=== PATIENT | female | born 1945 | race Caucasian/White ===

== ENCOUNTER 2018-11-02 20:33 | Emergency (ER) | payer MEDICARE ==
--- NOTE | 2018-11-02 20:44 | ERPHSYRPT ---
- History of Present Illness Time Seen by Provider: 11/02/18 20:44 Source: patient, EMS Exam Limitations: no limitations Physician History: 73 y/o white female with h/o chronic limping and pt walks at home with walker and cane, lost her footing when walking up steps to her front door. pt fell backwards. no loc but pt on eliquis. pt has headache. pt also complains of right hip, right femur, right knee, right ankle and right foot. pt brought into ED by ems. pt denies neck pain. pt brought into ED with c collar in place. Occurred: just prior to arrival Reason for Fall: lost balance, slipped Injuries/Pain Location: head, lower extremity Loss of Consciousness: no loss of consciousness Quality: aching Severity of Pain-Max: mild Severity of Pain-Current: mild Modifying Factors: Improves With: movement Associated Symptoms (Fall): extremity injury (right hip, femur, knee, ankle and foot. ), headache Allergies/Adverse Reactions: amoxicillin [From Augmentin] Allergy (Verified 11/02/18 20:43) clavulanic acid [From Augmentin] Allergy (Verified 11/02/18 20:43) codeine Allergy (Verified 11/02/18 20:42) - Review of Systems Constitutional: No Symptoms Eyes: No Symptoms Ears, Nose, & Throat: No Symptoms Respiratory: No Symptoms Cardiac: No Symptoms Abdominal/Gastrointestinal: No Symptoms Genitourinary Symptoms: No Symptoms Musculoskeletal: Fall, Other (pain right hip, femur, knee, ankle and foot.), No Neck Pain, No Deformity Skin: No Symptoms Neurological: No Symptoms, Headache Psychological: No Symptoms Endocrine: No Symptoms Hematologic/Lymphatic: No Symptoms Immunological/Allergic: No Symptoms All Other Systems: Reviewed and Negative - Past Medical History Pertinent Past Medical History: Yes Neurological History: No Pertinent History ENT History: No Pertinent History Cardiac History: No Pertinent History Respiratory History: No Pertinent History Endocrine Medical History: No Pertinent History Musculoskeletal History: No Pertinent History GI Medical History: No Pertinent History History: No Pertinent History Psycho-Social History: No Pertinent History Female Reproductive Disorders: No Pertinent History - Past Surgical History Neuro Surgical History: No Pertinent History Cardiac: No Pertinent History Respiratory: No Pertinent History Gastrointestinal: No Pertinent History Genitourinary: No Pertinent History Musculoskeletal: No Pertinent History Female Surgical History: No Pertinent History - Nursing Vital Signs Nursing Vital Signs: Initial Vital Signs Pulse Rate 63 11/02/18 20:44 Respiratory Rate 18 11/02/18 20:44 Blood Pressure 170/76 11/02/18 20:44 O2 Sat by Pulse Oximetry 99 11/02/18 20:44 Pain Scale Pain Intensity 10 - Binta Coma Score Best Eye Response (Binta): (4) open spontaneously Best Verbal Response ([place]): (5) oriented Best Motor Response ([place]): (6) obeys commands Binta Total: 15 - Physical Exam General Appearance: mild distress, alert, anxiety Head Injury: no evidence of injury, No Wagner's Sign, No raccoon eyes Eye Exam: PERRL/EOMI ENT Exam: airway nml, nml ext.inspection, hearing grossly normal, No hemotympanum Neck Exam: supple, trachea midline, full range of motion, normal alignment, normal inspection, No focal neuro deficit, No limited range of motion Respiratory/Chest Exam: No chest tenderness Cardiovascular Exam: normal heart sounds, regular rate/rhythm, murmur Gastrointestinal Exam: soft, normal bowel sounds, No tenderness Rectal Exam: not done Back Exam: normal inspection, normal range of motion, CVA tenderness, vertebral tenderness Extremity Exam: normal inspection, normal range of motion, pelvis stable, hip tenderness (right ), pain with movement (right knee, ankle and foot. mild pain only. from) Neurologic Exam: alert, oriented x 3, cooperative, sleeve sewer II-XII nml as tested Skin Exam: normal color, warm, dry SpO2 Interpretation: normal O2 Delivery: Room Air Ordered Tests: Active Orders 24 hr Category Date Time Status ANKLE (3 VIEWS) Stat Exams 11/02/18 21:56 Taken CERVICAL SPINE WO CONTRAST [CT] Stat Exams 11/02/18 22:09 Taken FEMUR Stat Exams 11/02/18 21:55 Taken FOOT (MINIMUM 3 VIEWS) Stat Exams 11/02/18 21:56 Taken HEAD WITHOUT CONTRAST [CT] Stat Exams 11/02/18 21:54 Taken HIP UNI (2V) INCL PEL IF DONE Stat Exams 11/02/18 21:55 Taken KNEE (1 OR 2 VIEW) Stat Exams 11/02/18 21:56 Taken SHOULDER Stat Exams 11/02/18 22:09 Taken - Progress Progress: unchanged Progress Note: 11/02/18 23:44 all plain film xrays show no acute fx, subluxations or dislocations ct scan head no acute intracranial abnormalities; ct c spine-no acute fx or subluxation Counseled pt/family regarding: diagnosis, need for follow-up, rad results - Departure Departure Disposition: Home Clinical Impression: Fall, Scalp hematoma, Contusion Condition: Stable Critical Care Time: No Referrals: JARROD JOSEPH MD [Primary Care Provider] - Additional Instructions: ice pack 3 times daily to sites of pain for 2 days. follow up with primary doctor for persistent symptoms
[2018-11-02 20:56] VITALS: O2SAT 99
[2018-11-02 21:59] VITALS: PULSE 60
[2018-11-02 23:52] VITALS: BP 155/79
--- NOTE | 2018-11-03 08:47 | XRAY ---
Indication: Posterior head injury following fall. Blood thinner therapy. Multiple contiguous axial images obtained through the head without contrast. Comparison: None Age-appropriate global atrophy and minimal periventricular degenerative micro-ischemia bilaterally. No acute intracranial hemorrhage, abnormal extra-axial fluid collection, or mass effect. Fourth ventricle is midline without hydrocephalus. Small posterior midline scalp hematoma near the vertex. Bony calvarium intact. Visualized paranasal sinuses and mastoid air cells are clear. Impression: Posterior scalp hematoma. Otherwise nonacute senile brain. Comment: Preliminary interpretation was made by [facility]. No discrepancy.
--- NOTE | 2018-11-03 08:51 | XRAY ---
Indication: Pain following fall. Multiple contiguous axial images obtained through the cervical spine. Sagittal and coronal reformatted images obtained. Comparison: None Axial images negative for acute fracture, suspicious bony lesions, or spinal canal stenosis. There is C3-C4 and C5-C7 degenerative endplate spurring. Mild atlantoaxial degenerative changes. Also multilevel bilateral degenerative facet arthropathy. Sagittal and coronal reformatted images demonstrates minimal 2 mm C4 anterolisthesis on C5. No acute compression fracture or jumped facet. Normal appearing cranial cervical junction. Visualized noncontrasted soft tissues demonstrates scattered carotid calcifications bilaterally and right thyroidectomy. Lung apices are clear. Impression: 1. Negative acute fracture. 2. Multilevel degenerative changes including grade 1 C4 anterolisthesis. Comment: Preliminary interpretation was made by [facility]. No discrepancy. CT DI 52.97
--- NOTE | 2018-11-03 08:53 | XRAY ---
Indication: Pain following fall. Comparison: None AP/lateral right knee demonstrates osteopenia, moderate tricompartmental degenerative changes, tibial tuberosity spurring, and scattered vascular calcifications. No other bony, articular, or soft tissue abnormalities. Comment: Preliminary interpretation was made by [facility]. No discrepancy.
--- NOTE | 2018-11-03 08:53 | XRAY ---
Indication: Pain following fall. Comparison: None AP pelvis and 2 views of the right hip demonstrates osteopenia, mild/moderate degenerative changes of both hips, and scattered vascular calcifications. No other bony, articular, or soft tissue abnormalities. Comment: Preliminary interpretation was made by [facility]. No discrepancy.
--- NOTE | 2018-11-03 08:57 | XRAY ---
Indication: Pain following fall. Comparison: None 3 nonweightbearing views of the right foot demonstrates osteopenia, remote partially united distal fibula fracture, remote medial malleolus fracture with intact orthopedic screws, ankle heterotopic ossifications, large heel spurs, and scattered vascular calcifications. No other bony, articular, or soft tissue abnormalities. Comment: Preliminary interpretation was made by [facility]. No discrepancy.
--- NOTE | 2018-11-03 08:59 | XRAY ---
Indication: Pain following fall. Comparison: None 2 views of the right femur demonstrates osteopenia and scattered vascular calcifications. Right hip and knee reported separately. No other bony, articular, or soft tissue abnormalities. Comment: Preliminary interpretation was made by [facility]. No discrepancy.
--- NOTE | 2018-11-03 09:01 | XRAY ---
Indication: Pain following fall. Comparison: None 3 views of the right ankle osteopenia, remote partially united distal fibula comminuted fracture, remote medial malleolus fracture with 2 intact screws, mild talotibial degenerative changes, heterotopic ossifications, larger spurs, and scattered vascular calcifications. No other bony, articular, or soft tissue abnormalities. Comment: Preliminary interpretation was made by [facility]. No discrepancy.
--- NOTE | 2018-11-03 09:03 | XRAY ---
Indication: Pain following fall. Comparison: None 3 views of the right shoulder demonstrates osteopenia, moderate degenerative changes of the glenohumeral/AC joint with heterotopic ossifications, high riding humeral head commonly seen with rotator cuff tears, right neck surgical clips, and partially visualized pacer leads. No other bony, articular, or soft tissue abnormalities. Comment: Preliminary interpretation was made by [facility]. No discrepancy.
== END 2018-11-03 00:25 | disposition home or self-care (01) ==
LOC: ED 20:33
DX: S00.03XA Contusion of scalp, initial encounter (principal); R51 Headache; W10.8XXA Fall (on) (from) other stairs and steps, initial encounter; M25.551 Pain in right hip; M79.651 Pain in right thigh; M25.561 Pain in right knee; M25.571 Pain in right ankle and joints of right foot; M79.671 Pain in right foot
CPT/HCPCS: 36000; 70450; 72125; 73030; 73502; 73552; 73560; 73610; 73630; 99284

== ENCOUNTER 2018-12-14 09:17 | Emergency (ER) | payer MEDICARE ==
[2018-12-14 09:28] VITALS: O2SAT 98
--- NOTE | 2018-12-14 09:32 | ERPHSYRPT ---
- History of Present Illness Time Seen by Provider: 12/14/18 09:32 Source: patient, family Exam Limitations: no limitations Patient Subjective Stated Complaint: PT states "I slipped and fell and hit the back of my head." Triage Nursing Assessment: Pt presented to the front and placed in room 5. Pt alert and oriented X 3, skin pwd. Pt speech is clear and full sentences. Pt ambulates with a limp due to walking boot on her right foot. Physician History: 73 y/o white female on Eliquis presents after she slipped and fell hitting her head. 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 no loc Occurred: just prior to arrival Severity: mild Head Injury Location: occipital Method of Injury: fell Loss of Consciousness: no loss of consciousness Associated Symptoms: denies symptoms Allergies/Adverse Reactions: amoxicillin [From Augmentin] Allergy (Verified 11/02/18 20:43) clavulanic acid [From Augmentin] Allergy (Verified 11/02/18 20:43) codeine Allergy (Verified 11/02/18 20:42) Home Medications: Apixaban [Eliquis] 5 mg PO DAILY 12/14/18 [History] Citalopram Hydrobromide 20 mg* [ceLEXa 20 MG] 20 mg PO DAILY 12/14/18 [ History] Duloxetine HCl 30 mg [Cymbalta 30 MG Capsule] 30 mg PO DAILY 12/14/18 [ History] Levothyroxine Sodium 100 Mcg [Synthroid 100 Mcg] 100 mcg PO DAILY 12/14/18 [History] Tramadol HCl [Ultram] 50 mg PO DAILY 12/14/18 [History] Hx Tetanus, Diphtheria Vaccination/Date Given: Yes Hx Influenza Vaccination/Date Given: Yes Hx Pneumococcal Vaccination/Date Given: Yes Immunizations Up to Date: Yes - Review of Systems Constitutional: No Symptoms Eyes: No Symptoms Ears, Nose, & Throat: No Symptoms Respiratory: No Symptoms Cardiac: No Symptoms Abdominal/Gastrointestinal: No Symptoms Genitourinary Symptoms: No Symptoms Musculoskeletal: No Symptoms Skin: No Symptoms Neurological: No Symptoms Psychological: No Symptoms Endocrine: No Symptoms Hematologic/Lymphatic: No Symptoms Immunological/Allergic: No Symptoms All Other Systems: Reviewed and Negative - Past Medical History Pertinent Past Medical History: Yes Neurological History: No Pertinent History ENT History: No Pertinent History Cardiac History: No Pertinent History Respiratory History: No Pertinent History Endocrine Medical History: No Pertinent History Musculoskeletal History: No Pertinent History GI Medical History: No Pertinent History History: No Pertinent History Psycho-Social History: No Pertinent History Female Reproductive Disorders: No Pertinent History Other Medical History: left arm and left hand. right foot broken - Past Surgical History Past Surgical History: Yes Neuro Surgical History: No Pertinent History Cardiac: No Pertinent History Respiratory: No Pertinent History Gastrointestinal: No Pertinent History Genitourinary: No Pertinent History Musculoskeletal: No Pertinent History Female Surgical History: No Pertinent History Other Surgical History: thyroid removal - Social History Smoking Status: Never smoker Exposure to second hand smoke: Yes Drug Use: none Patient Lives Alone: No - Female History Hx Now: No - Nursing Vital Signs Nursing Vital Signs: Initial Vital Signs Temperature 98.3 F 12/14/18 09:20 Pulse Rate 68 12/14/18 09:20 Respiratory Rate 18 12/14/18 09:20 Blood Pressure 185/85 12/14/18 09:20 O2 Sat by Pulse Oximetry 98 12/14/18 09:20 Pain Scale Pain Intensity 4 - Binta Coma Score Best Eye Response ([place]): (4) open spontaneously Best Verbal Response ([place]): (5) oriented Best Motor Response ([place]): (6) obeys commands B[place] Total: 15 - Physical Exam General Appearance: no apparent distress, alert, anxiety Head Injury: no evidence of injury Eye Exam: bilateral eye: normal inspection, PERRL, EOMI ENT Exam: airway nml, nml ext.inspection Neck Exam: supple, trachea midline, full range of motion, normal alignment, normal inspection Cardiovascular/Respiratory Exam: chest non-tender, no respiratory distress Gastrointestinal/Abdominal Exam: non tender Rectal Exam: not done Back Exam: normal inspection, normal range of motion, No CVA tenderness, No vertebral tenderness Extremity Exam: pelvis stable (pt has postop walking boot right foot. 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 Exam: normal hearing, normal speech, PERRL Coordination/Gait Exam: normal finger to nose Motor/Sensory Exam: no motor deficit Skin Exam: normal color, warm, dry Lymphatic Exam: No adenopathy SpO2 Interpretation: normal SpO2: 98 O2 Delivery: Room Air Ordered Tests: Active Orders 24 hr Category Date Time Status HEAD WITHOUT CONTRAST [CT] Stat Exams 12/14/18 09:32 Completed - Progress Progress: unchanged Progress Note: 12/14/18 10:39 ct head-no acute process Counseled pt/family regarding: diagnosis, need for follow-up, rad results - Departure Departure Disposition: Home Clinical Impression: Fall, Head injury Condition: Stable Critical Care Time: No Referrals: JARROD JOSEPH MD [Primary Care Provider] - Additional Instructions: use tylenol for pain. follow up with your orthopedic surgeon for any foot, ankle or leg issues.
--- NOTE | 2018-12-14 10:29 | XRAY ---
Indication: Posterior head injury. Multiple contiguous axial images obtained through the head without contrast. Comparison: November 02, 2018. Stable age-appropriate global atrophy and minimal periventricular degenerative micro-ischemia. No acute intracranial hemorrhage, abnormal extra-axial fluid collection, or mass effect. Fourth ventricle is midline without hydrocephalus. Bony calvarium intact. Visualized paranasal sinuses and mastoid air cells are clear. Impression: Stable nonacute senile brain. CT DI 49.41
[2018-12-14 10:40] VITALS: BP 172/84; PULSE 61
== END 2018-12-14 10:52 | disposition home or self-care (01) ==
LOC: ED 09:17
DX: S09.90XA Unspecified injury of head, initial encounter (principal); W01.198A Fall on same level from slipping, tripping and stumbling with subsequent striking against other object, initial encounter; Z79.01 Long term (current) use of anticoagulants; Z79.899 Other long term (current) drug therapy; E89.0 Postprocedural hypothyroidism
CPT/HCPCS: 70450; 99283

== ENCOUNTER 2022-01-24 17:45 | Observation (INO) | payer MEDICARE ==
[2022-01-24] MEDS ORDERED: MORPHINE SULFATE 4 MG INJ IV ONE (18:24)
[2022-01-24] MEDS ORDERED: Zofran 4 MG/2 ML VIAL IV ONE (18:24)
[2022-01-24] MEDS ORDERED: Reglan 10 MG/2 ML IV ONE (18:25)
[2022-01-24] MEDS ORDERED: Zofran 4 MG/2 ML VIAL ONE (18:37)
[2022-01-24] MEDS ORDERED: MORPHINE SULFATE 4 MG INJ ONE (18:38)
[2022-01-24] MEDS ORDERED: Reglan 10 MG/2 ML ONE (18:38)
[2022-01-24 18:42] LABS: Basophil (Absolute #) 0.07 x10^3/uL (0-0.4); Eosinophil % 0.9 % (0.00-5.0); Hematocrit 36.6 % (35-47); Hemoglobin 11.4 g/dL (12.0-16.0); Lymphocyte (Absolute #) 1.26 x10^3/uL (1.0-4.6); Lymphocytes % 11.6 % (24.0-44.0); Mean Cell Volume 90.8 fL (78-100); Mean Corpuscular Hemoglobin 28.3 pg (26-32); Mean Corpuscular Hgb Concent. 31.1 g/dL (32-36); Mean Platelet Volume 12.6 fL (7.5-11.0); Monocyte (Absolute #) 0.79 x10^3/uL (0.0-1.3); Monocytes % 7.3 % (0.0-12.0); Platelet Count 207 x10^3/uL (150-450); Red Blood Count 4.03 x10^6/uL (4.1-5.4); Red Cell Distribution Width 13.9 % (11.5-14.0); White Blood Count 10.9 x10^3/uL (4.0-10.5)
[2022-01-24 18:45] LABS: Appearance CLEAR (CLEAR); Bilirubin NEGATIVE (NEGATIVE); Glucose 500 mg/dL (NEGATIVE); Ketones NEGATIVE (NEGATIVE); Nitrite NEGATIVE (NEGATIVE); Ph 6.5 (5-6); Protein,Urine Dip >=300 (Negative); RBC SMALL Ery/ul (0-5); Urobilinogen 0.2 mg/dL (0-1)
[2022-01-24 18:46] LABS: Dipstick done @ ? MAIN LAB
[2022-01-24 18:51] LABS: Epithelial Cells RARE /HPF (FEW); RBC 0-2 /HPF (0-2); WBC 0-2 /HPF (0-5)
[2022-01-24 18:54] LABS: ALBUMIN 3.6 g/dL (3.5-5.0); ANION GAP 13.6 MEQ/L (5-15); BILIRUBIN,TOTAL 0.5 mg/dL (0.2-1.3); Creatinine 1 2.64 mg/dL (0.52-1.04); EST GLOMERULAR FILTRATION RATE 18.7 ML/MIN; Potassium 3.9 mmol/L (3.5-5.1); Total Protein 6.6 g/dL (6.3-8.2)
[2022-01-24 18:57] LABS: Urine Cultured Indicated? YES
[2022-01-24] MEDS ORDERED: TRANDATE 20 MG/4 ML SYRINGE IV ONE ×2 (20:08→20:12)
[2022-01-24] MEDS ORDERED: Lasix 40 MG/4 ML IV ONE (20:45)
[2022-01-24] MEDS ORDERED: Lasix 40 MG/4 ML ONE (20:50)
[2022-01-24 21:08] LABS: MAGNESIUM 1.7 mg/dL (1.6-2.3)
--- NOTE | 2022-01-24 21:20 | ERPHSYRPT ---
- History of Present Illness Time Seen by Provider: 01/24/22 17:46 Historian: patient, family Exam Limitations: no limitations Patient Subjective Stated Complaint: pt here for not feeling well today, not eating well, chills, abd pain diffuse, pt was seen in er last week for constipation . no vomiting, no loose stools Triage Nursing Assessment: pt alert, resp easy, face mask in place, chest clear, abd soft and nontender to touch, bsx4 Physician History: 77 years old female with history of atrial fibrillation on Cardizem/Eliquis, hypertension, hyperlipidemia, hypothyroidism, congestive heart failure, pacemaker/defibrillator placement, diabetes mellitus presented to the ER with chief complaint of abdominal pain and chest pain. Patient reports having abdominal pain for almost 1 week, was evaluated at [facility], was given enema for constipation but her pain is still there. Does not have any bowel movement since then. She is also complaining of substernal chest discomfort and tightness/pressure without any significant aggravating or relieving factors. Reports some increasing shortness of breath with exertion. Denies any fever or chills. Patient blood pressure is in 200s on presentation without having headache, blurry vision, numbness tingling or focal weakness. Has taken her routine medications prior to arrival Timing/Duration: today, constant, gradual onset Activities at Onset: none Quality: aching Abdominal Pain Onset Location: generalized abdomen Pain Radiation: no radiation Severity of Pain-Max: moderate Severity of Pain-Current: moderate Modifying Factors: Improves With: nothing Associated Symptoms: fever/chills, nausea Previous symptoms: same symptoms as today Allergies/Adverse Reactions: amoxicillin [From Augmentin] Allergy (Verified 01/24/22 17:57) clavulanic acid [From Augmentin] Allergy (Verified 01/24/22 17:57) codeine Allergy (Verified 01/24/22 17:57) Home Medications: Duloxetine HCl 30 mg [Cymbalta 30 MG Capsule] 30 mg PO DAILY 12/14/18 [History] Levothyroxine Sodium 100 Mcg [Synthroid 100 Mcg] 100 mcg PO DAILY 12/14/18 [History] Tramadol HCl [Ultram] 50 mg PO DAILY 12/14/18 [History] Aripiprazole 10 mg [Abilify 10 MG] 5 mg PO DAILY 01/24/22 [History] Clonidine HCl 0.1 mg [Clonidine 0.1 mg Tablet] 0.1 mg PO DAILY 01/24/22 [History] Diltiazem HCl [Dilt-Xr] 120 mg PO DAILY 01/24/22 [History] Ezetimibe 10 mg [Zetia 10 MG] 10 mg PO DAILY 01/24/22 [History] Famotidine 20 mg [Pepcid 20 MG] 20 mg PO DAILY 01/24/22 [History] Ferrous Sulfate [Iron] 325 mg PO DAILY 01/24/22 [History] Furosemide 20 mg [Lasix 20 mg] 20 mg PO DAILY 01/24/22 [History] Insulin Detemir [Levemir] 30 unit SQ BID 01/24/22 [History] Insulin Lispro [Humalog] 8 unit SQ DAILY 01/24/22 [History] Insulin Lispro [Humalog] 10 unit SQ BID 01/24/22 [History] PANTOPRAZOLE 40 mg Tablet [Protonix 40MG Tablet] 40 mg PO QAM 01/24/22 [History] Potassium Chloride [Klor-Con M20] 20 meq PO DAILY 01/24/22 [History] Hx Tetanus, Diphtheria Vaccination/Date Given: Yes Hx Influenza Vaccination/Date Given: Yes Hx Pneumococcal Vaccination/Date Given: Yes Immunizations Up to Date: Yes Travel Risk - International Travel Have you traveled outside of the country in past 3 weeks: No - Coronavirus Screening Are you exhibiting any of the following symptoms?: No Close contact with a COVID-19 positive Pt in past 14-21 Days: No - Vaccine Status Have you recieved a Covid-19 vaccination: Yes [employer]: [employer] - Vaccination Dates Date of 2cond Vaccination (if applicable): 2020 - Review of Systems Constitutional: Fatigue, Weakness Eyes: No Symptoms Ears, Nose, & Throat: No Symptoms Respiratory: Dyspnea, Dyspnea on Exertion (GOFF) Cardiac: Chest Pain, Edema Abdominal/Gastrointestinal: Abdominal Pain Genitourinary Symptoms: No Symptoms Musculoskeletal: No Symptoms Skin: No Symptoms Neurological: No Symptoms Psychological: No Symptoms Endocrine: No Symptoms Hematologic/Lymphatic: No Symptoms - Past Medical History Pertinent Past Medical History: Yes Neurological History: No Pertinent History ENT History: No Pertinent History Cardiac History: No Pertinent History Respiratory History: No Pertinent History Endocrine Medical History: Hypothyroidism Musculoskeletal History: No Pertinent History GI Medical History: No Pertinent History History: No Pertinent History Psycho-Social History: No Pertinent History Female Reproductive Disorders: No Pertinent History Other Medical History: left arm and left hand. right foot broken - Past Surgical History Past Surgical History: Yes Neuro Surgical History: No Pertinent History Cardiac: No Pertinent History Respiratory: No Pertinent History Gastrointestinal: No Pertinent History Genitourinary: No Pertinent History Musculoskeletal: No Pertinent History Female Surgical History: No Pertinent History Other Surgical History: thyroid removal - Social History Smoking Status: Never smoker Exposure to second hand smoke: No Drug Use: none Patient Lives Alone: No - Nursing Vital Signs Nursing Vital Signs: Initial Vital Signs Temperature 98.3 F 01/24/22 17:58 Pulse Rate 106 H 01/24/22 17:58 Respiratory Rate 18 01/24/22 17:58 Blood Pressure 217/118 01/24/22 17:58 O2 Sat by Pulse Oximetry 95 01/24/22 17:58 Pain Scale Pain Intensity 0 - Physical Exam General Appearance: no apparent distress, alert Eye Exam: PERRL/EOMI, eyes nml inspection Ears, Nose, Throat Exam: normal ENT inspection, TMs normal, pharynx normal, moist mucous membranes Neck Exam: normal inspection, non-tender, supple, full range of motion Respiratory Exam: normal breath sounds, rhonchi Cardiovascular Exam: normal heart sounds, tachycardia, irregular Gastrointestinal/Abdomen Exam: soft, normal bowel sounds, tenderness (Mild generalized) Back Exam: normal inspection, normal range of motion Extremity Exam: normal inspection, normal range of motion Skin Exam: normal color, warm SpO2 Interpretation: normal SpO2: 93 O2 Delivery: Room Air - Course EKG Interpreted by Me: RATE (103), A-fib, NORMAL AXIS, NORMAL INTERVALS, Non- specific ST Changes Ordered Tests: Active Orders 24 hr Category Date Time Status EKG-ER Only STAT Care 01/24/22 18:24 Active IV Insertion STAT Care 01/24/22 18:24 Active NPO (ED) STAT Care 01/24/22 18:24 Active ABDOMEN AND PELVIS W/0 CONTRAS [CT] Stat Exams 01/24/22 19:06 Taken CHEST 1 VIEW (PORTABLE) Stat Exams 01/24/22 21:25 Taken BNP [NT PRO BNP] Stat Lab 01/24/22 18:28 Completed CBC W DIFF Stat Lab 01/24/22 18:24 Completed CMP Stat Lab 01/24/22 18:24 Completed CULTURE,URINE Stat Lab 01/24/22 18:27 Received LIPASE Stat Lab 01/24/22 18:24 Completed Lactic Acid Stat Lab 01/24/22 18:28 Completed MAG [MAGNESIUM] Stat Lab 01/24/22 18:28 Completed TROPONIN Q4H Lab 01/24/22 18:30 Completed TROPONIN Q4H Lab 01/24/22 22:37 Received TROPONIN Q4H Lab 01/25/22 02:30 Ordered UA W/RFX CULTURE Stat Lab 01/24/22 18:27 Completed Transfer Order Routine Transfer 01/24/22 Ordered Medication Summary Generic Name Dose Route Start Last Admin Trade Name Freq PRN Reason Stop Dose Admin Diltiazem HCl 100 mls @ 5 mls/hr 01/24/22 22:02 01/24/22 22:30 Cardizem Drip 100 Mg/100 Ml D5w IV 02/23/22 22:01 0 mg/hr .Q20H PRN 0 mls/hr HEART RATE/ A-FIB Titration Protocol 5 MG/HR Discontinued Medications Generic Name Dose Route Start Last Admin Trade Name Freq PRN Reason Stop Dose Admin Diltiazem HCl 15 mg 01/24/22 22:02 01/24/22 22:16 Diltiazem Hcl Iv 5 Mg/Ml Vial IV 01/24/22 22:03 15 mg STAT ONE Administration Diltiazem HCl Confirm 01/24/22 22:13 Diltiazem Hcl Iv 5 Mg/Ml Vial Administered 01/24/22 22:14 Dose 50 mg IV .STK-MED ONE Furosemide 40 mg 01/24/22 20:45 01/24/22 20:53 Furosemide 40 Mg/4 Ml Vial IV 01/24/22 20:46 40 mg STAT ONE Administration Furosemide Confirm 01/24/22 20:50 Furosemide 40 Mg/4 Ml Vial Administered 01/24/22 20:51 Dose 40 mg .ROUTE .STK-MED ONE Labetalol HCl 10 mg 01/24/22 20:08 01/24/22 20:14 Labetalol Hcl 20 Mg/4 Ml Disp.Syringe IV 01/24/22 20:09 10 mg STAT ONE Administration Labetalol HCl Confirm 01/24/22 20:12 Labetalol Hcl 20 Mg/4 Ml Disp.Syringe Administered 01/24/22 20:13 Dose 20 mg IV .STK-MED ONE Metoclopramide HCl 10 mg 01/24/22 18:25 01/24/22 18:45 Metoclopramide Hcl 10 Mg/2 Ml Vial IV 01/24/22 18:26 10 mg STAT ONE Administration Metoclopramide HCl Confirm 01/24/22 18:38 Metoclopramide Hcl 10 Mg/2 Ml Vial Administered 01/24/22 18:39 Dose 10 mg .ROUTE .STK-MED ONE Morphine Sulfate 4 mg 01/24/22 18:24 01/24/22 18:45 Morphine Sulfate 4 Mg/Ml Injection IV 01/24/22 18:25 4 mg STAT ONE Administration Morphine Sulfate Confirm 01/24/22 18:38 Morphine Sulfate 4 Mg/Ml Injection Administered 01/24/22 18:39 Dose 4 mg .ROUTE .STK-MED ONE Ondansetron HCl 4 mg 01/24/22 18:24 01/24/22 18:45 Ondansetron Hcl 4 Mg/2 Ml Vial IV 01/24/22 18:25 4 mg STAT ONE Administration Ondansetron HCl Confirm 01/24/22 18:37 Ondansetron Hcl 4 Mg/2 Ml Vial Administered 01/24/22 18:38 Dose 4 mg .ROUTE .STK-MED ONE Lab/Rad Data: Laboratory Result Diagrams 01/24/22 18:24 01/24/22 18:24 Laboratory Results 01/24/22 01/24/22 01/24/22 Range/Units 21:32 18:30 18:28 WBC (4.0-10.5) x10^3/uL RBC (4.1-5.4) x10^6/uL Hgb (12.0-16.0) g/dL Hct (35-47) % MCV (78-100) fL MCH (26-32) pg MCHC (32-36) g/dL RDW (11.5-14.0) % Plt Count (150-450) x10^3/uL MPV (7.5-11.0) fL Gran % (36.0-66.0) % Immature Gran % (Auto) (0.00-0.4) % Nucleat RBC Rel Count (0.00-0.1) % Eos # (Auto) (0-0.5) x10^3/uL Immature Gran # (Auto) (0.00-0.03) x10^3u/L Absolute Lymphs (auto) (1.0-4.6) x10^3/uL Absolute Monos (auto) (0.0-1.3) x10^3/uL Absolute Nucleated RBC (0.00-0.01) x10^3u/L Lymphocytes % (24.0-44.0) % Monocytes % (0.0-12.0) % Eosinophils % (0.00-5.0) % Basophils % (0.0-0.4) % Absolute Granulocytes (1.4-6.9) x10^3/uL Basophils # (0-0.4) x10^3/uL Sodium (137-145) mmol/L Potassium (3.5-5.1) mmol/L Chloride (98-107) mmol/L Carbon Dioxide (22-30) mmol/L Anion Gap (5-15) MEQ/L BUN (7-17) mg/dL Creatinine (0.52-1.04) mg/dL Estimated GFR ML/MIN Glucose (74-106) mg/dL Lactic Acid (0.4-2.0) Calcium (8.4-10.2) mg/dL Magnesium 1.7 (1.6-2.3) mg/dL Total Bilirubin (0.2-1.3) mg/dL AST (14-36) U/L ALT (0-35) U/L Alkaline Phosphatase (38-126) U/L Troponin I 0.012 (0.000-0.034) ng/mL NT-Pro-B Natriuret Pep 73514 H (0-1800) pg/mL Serum Total Protein (6.3-8.2) g/dL Albumin (3.5-5.0) g/dL Lipase (23-300) U/L Urinalys Dipstick Clnc Urine Color (YELLOW) Urine Appearance (CLEAR) Urine pH (5-6) Ur Specific [place] (1.005-1.025) POC Urine Protein Conf (Negative) Urine Ketones (NEGATIVE) Urine Nitrite (NEGATIVE) Urine Bilirubin (NEGATIVE) Urine Urobilinogen (0-1) mg/dL Urine Leukocytes (NEGATIVE) Urine WBC (Auto) (0-5) /HPF Urine RBC (Auto) (0-2) /HPF U Epithel Cells (Auto) (FEW) /HPF Urine Bacteria (Auto) (NEGATIVE) /HPF Urine RBC (0-5) Iain/ul Ur Culture Indicated? Urine Glucose (NEGATIVE) mg/dL Influenza Type A Ag NEGATIVE (NEGATIVE) Influenza Type B Ag NEGATIVE (NEGATIVE) RSV (PCR) NEGATIVE (Negative) SARS-CoV-2 (PCR) NEGATIVE (NEGATIVE) Slides for Path Review 01/24/22 01/24/22 01/24/22 Range/Units 18:28 18:27 18:24 WBC (4.0-10.5) x10^3/uL RBC (4.1-5.4) x10^6/uL Hgb (12.0-16.0) g/dL Hct (35-47) % MCV (78-100) fL MCH (26-32) pg MCHC (32-36) g/dL RDW (11.5-14.0) % Plt Count (150-450) x10^3/uL MPV (7.5-11.0) fL Gran % (36.0-66.0) % Immature Gran % (Auto) (0.00-0.4) % Nucleat RBC Rel Count (0.00-0.1) % Eos # (Auto) (0-0.5) x10^3/uL Immature Gran # (Auto) (0.00-0.03) x10^3u/L Absolute Lymphs (auto) (1.0-4.6) x10^3/uL Absolute Monos (auto) (0.0-1.3) x10^3/uL Absolute Nucleated RBC (0.00-0.01) x10^3u/L Lymphocytes % (24.0-44.0) % Monocytes % (0.0-12.0) % Eosinophils % (0.00-5.0) % Basophils % (0.0-0.4) % Absolute Granulocytes (1.4-6.9) x10^3/uL Basophils # (0-0.4) x10^3/uL Sodium 136 L (137-145) mmol/L Potassium 3.9 (3.5-5.1) mmol/L Chloride 109 H (98-107) mmol/L Carbon Dioxide 17 L (22-30) mmol/L Anion Gap 13.6 (5-15) MEQ/L BUN 42 H (7-17) mg/dL Creatinine 2.64 H (0.52-1.04) mg/dL Estimated GFR 18.7 ML/MIN Glucose 197 H (74-106) mg/dL Lactic Acid 1.1 (0.4-2.0) Calcium 9.0 (8.4-10.2) mg/dL Magnesium (1.6-2.3) mg/dL Total Bilirubin 0.50 (0.2-1.3) mg/dL AST 20 (14-36) U/L ALT 27 (0-35) U/L Alkaline Phosphatase 96 (38-126) U/L Troponin I (0.000-0.034) ng/mL NT-Pro-B Natriuret Pep (0-1800) pg/mL Serum Total Protein 6.6 (6.3-8.2) g/dL Albumin 3.6 (3.5-5.0) g/dL Lipase 195 (23-300) U/L Urinalys Dipstick Clnc MAIN LAB Urine Color YELLOW (YELLOW) Urine Appearance CLEAR (CLEAR) Urine pH 6.5 (5-6) Ur Specific [place] 1.020 (1.005-1.025) POC Urine Protein Conf >=300 (Negative) Urine Ketones NEGATIVE (NEGATIVE) Urine Nitrite NEGATIVE (NEGATIVE) Urine Bilirubin NEGATIVE (NEGATIVE) Urine Urobilinogen 0.2 (0-1) mg/dL Urine Leukocytes NEGATIVE (NEGATIVE) Urine WBC (Auto) 0-2 (0-5) /HPF Urine RBC (Auto) 0-2 (0-2) /HPF U Epithel Cells (Auto) RARE (FEW) /HPF Urine Bacteria (Auto) NONE (NEGATIVE) /HPF Urine RBC SMALL (0-5) Iain/ul Ur Culture Indicated? YES Urine Glucose 500 (NEGATIVE) mg/dL Influenza Type A Ag (NEGATIVE) Influenza Type B Ag (NEGATIVE) RSV (PCR) (Negative) SARS-CoV-2 (PCR) (NEGATIVE) Slides for Path Review 01/24/22 Range/Units 18:24 WBC 10.9 H (4.0-10.5) x10^3/uL RBC 4.03 L (4.1-5.4) x10^6/uL Hgb 11.4 L (12.0-16.0) g/dL Hct 36.6 (35-47) % MCV 90.8 (78-100) fL MCH 28.3 (26-32) pg MCHC 31.1 L (32-36) g/dL RDW 13.9 (11.5-14.0) % Plt Count 207 (150-450) x10^3/uL MPV 12.6 H (7.5-11.0) fL Gran % 79.0 H (36.0-66.0) % Immature Gran % (Auto) 0.6 H (0.00-0.4) % Nucleat RBC Rel Count 0.0 (0.00-0.1) % Eos # (Auto) 0.10 (0-0.5) x10^3/uL Immature Gran # (Auto) 0.06 H (0.00-0.03) x10^3u/L Absolute Lymphs (auto) 1.26 (1.0-4.6) x10^3/uL Absolute Monos (auto) 0.79 (0.0-1.3) x10^3/uL Absolute Nucleated RBC 0.00 (0.00-0.01) x10^3u/L Lymphocytes % 11.6 L (24.0-44.0) % Monocytes % 7.3 (0.0-12.0) % Eosinophils % 0.9 (0.00-5.0) % Basophils % 0.6 (0.0-0.4) % Absolute Granulocytes 8.60 H (1.4-6.9) x10^3/uL Basophils # 0.07 (0-0.4) x10^3/uL Sodium (137-145) mmol/L Potassium (3.5-5.1) mmol/L Chloride (98-107) mmol/L Carbon Dioxide (22-30) mmol/L Anion Gap (5-15) MEQ/L BUN (7-17) mg/dL Creatinine (0.52-1.04) mg/dL Estimated GFR ML/MIN Glucose (74-106) mg/dL Lactic Acid (0.4-2.0) Calcium (8.4-10.2) mg/dL Magnesium (1.6-2.3) mg/dL Total Bilirubin (0.2-1.3) mg/dL AST (14-36) U/L ALT (0-35) U/L Alkaline Phosphatase (38-126) U/L Troponin I (0.000-0.034) ng/mL NT-Pro-B Natriuret Pep (0-1800) pg/mL Serum Total Protein (6.3-8.2) g/dL Albumin (3.5-5.0) g/dL Lipase (23-300) U/L Urinalys Dipstick Clnc Urine Color (YELLOW) Urine Appearance (CLEAR) Urine pH (5-6) Ur Specific [place] (1.005-1.025) POC Urine Protein Conf (Negative) Urine Ketones (NEGATIVE) Urine Nitrite (NEGATIVE) Urine Bilirubin (NEGATIVE) Urine Urobilinogen (0-1) mg/dL Urine Leukocytes (NEGATIVE) Urine WBC (Auto) (0-5) /HPF Urine RBC (Auto) (0-2) /HPF U Epithel Cells (Auto) (FEW) /HPF Urine Bacteria (Auto) (NEGATIVE) /HPF Urine RBC (0-5) Iain/ul Ur Culture Indicated? Urine Glucose (NEGATIVE) mg/dL Influenza Type A Ag (NEGATIVE) Influenza Type B Ag (NEGATIVE) RSV (PCR) (Negative) SARS-CoV-2 (PCR) (NEGATIVE) Slides for Path Review YES - Progress Progress: improved, re-examined Progress Note: 01/24/22 22:45 77 years old is evaluated for abdominal pain/chest pain with elevated blood pressure. She is given labetalol and symptomatic treatment for pain, on reevaluation blood pressure improved to 170s but again back up to 219. EKG showed atrial fibrillation with rate in low 100s. Chest x-ray showed some congestion with no obvious pneumonic infiltrates, reviewed by me with official report pending. CT abdomen pelvis negative for any acute intra-abdominal findings. She is given a dose of Lasix as well but no improvement in blood pressure. She is started on Cardizem. She has stable CKD and white count. Discussed with Dr. Joseph and patient is being admitted. Discussed with : Jimmy Will see patient in: hospital (observation) Counseled pt/family regarding: lab results, diagnosis, rad results - Departure Departure Disposition: Observation Clinical Impression: Uncontrolled hypertension, Chest pain, Chronic atrial fibrillation, Generalized abdominal pain, CHF (congestive heart failure) Condition: Stable Critical Care Time: No Referrals: JARROD JOSEPH MD [Primary Care Provider] - Follow up/PCP as directed Instructions: Heart Failure
[2022-01-24 21:46] LABS: Slide Review 1 YES
[2022-01-24] MEDS ORDERED: Cardizem IV 50 MG/10 ML IV ONE ×2 (22:02→22:13)
[2022-01-24 22:14] LABS: INFLUENZA A NEGATIVE (NEGATIVE); INFLUENZA B NEGATIVE (NEGATIVE); RESPIRATORY SYNCTIAL VIRUS NEGATIVE (Negative); SARS-CoV-2 Xpert Express NEGATIVE (NEGATIVE)
[2022-01-24] MEDS: CARDIZEM DRIP 100 MG/100 ML D5W 100 ML IV PRN (22:19)
[2022-01-25] MEDS ORDERED: MORPHINE SULFATE 2 MG INJ IV PRN (01:39)
[2022-01-25] MEDS ORDERED: DUONEB 0.5-3 MG/3 ml Neb IH PRN (01:39)
[2022-01-25] MEDS ORDERED: Zofran 4 MG/2 ML VIAL IV PRN (01:39)
[2022-01-25 02:54] LABS: Absolute Neutrophil Ct (ANC) 6.96 x10^3/uL (1.4-6.9); Basophil (Absolute #) 0.05 x10^3/uL (0-0.4); Eosinophil % 1.2 % (0.00-5.0); Eosinophil (Absolute #) 0.11 x10^3/uL (0-0.5); Hematocrit 33.4 % (35-47); Hemoglobin 10.4 g/dL (12.0-16.0); Lymphocyte (Absolute #) 1.11 x10^3/uL (1.0-4.6); Lymphocytes % 12.3 % (24.0-44.0); Mean Cell Volume 92.3 fL (78-100); Mean Corpuscular Hemoglobin 28.7 pg (26-32); Mean Corpuscular Hgb Concent. 31.1 g/dL (32-36); Mean Platelet Volume 11.6 fL (7.5-11.0); Monocyte (Absolute #) 0.76 x10^3/uL (0.0-1.3); Monocytes % 8.4 % (0.0-12.0); Neutrophil % 76.8 % (36.0-66.0); Platelet Count 227 x10^3/uL (150-450); Red Blood Count 3.62 x10^6/uL (4.1-5.4); Red Cell Distribution Width 13.9 % (11.5-14.0); White Blood Count 9.1 x10^3/uL (4.0-10.5)
[2022-01-25] MEDS: CARDIZEM DRIP 100 MG/100 ML D5W 100 ML IV PRN ×2 (03:00→19:00)
[2022-01-25 03:16] LABS: ALBUMIN 2.9 g/dL (3.5-5.0); ANION GAP 11.4 MEQ/L (5-15); BILIRUBIN,TOTAL 0.3 mg/dL (0.2-1.3); Calcium 8.4 mg/dL (8.4-10.2); Creatinine 1 2.71 mg/dL (0.52-1.04); EST GLOMERULAR FILTRATION RATE 18.1 ML/MIN; Potassium 3.6 mmol/L (3.5-5.1); Total Protein 5.3 g/dL (6.3-8.2)
[2022-01-25] MEDS: Sodium Chloride 0.9% 500 ML 500 ML IV SCH (08:22)
[2022-01-25] MEDS ORDERED: CITROMA 296 ML PO ONE (08:35)
--- NOTE | 2022-01-25 08:39 | PCM.HP ---
History of Present Illness - Chief Complaint Chief Complaint: Uncontrolled hypertension History of Present Illness: is a 77 year old female who presented to the ER last night with complaints of chest pain, hypertension and recent constipation/abd pain. she was admitted at [facility] recently last week with uncontrolled hypertension, she reports she has been compliant with her home meds. her abdomen feels tight, states she hasn't had a bowel movement in 7 days. - Review of Systems Constitutional: No Fever, No Chills Eyes: No Symptoms Cardiac: Chest Pain (resolved since admission) Abdominal/Gastrointestinal: Abdominal Pain, Constipation, No Nausea, No Vomiting, No Diarrhea, No Melena Genitourinary Symptoms: No Dysuria Skin: No Rash Neurological: No Dizziness, No Focal Weakness, No Sensory Changes All Other Systems: Reviewed and Negative Medications & Allergies Home Medications: Home Medication List Duloxetine HCl 30 mg [Cymbalta 30 MG Capsule] 30 mg PO DAILY 12/14/18 [History Confirmed 01/24/22] Levothyroxine Sodium 100 Mcg [Synthroid 100 Mcg] 100 mcg PO DAILY 12/14/18 [History Confirmed 01/24/22] Tramadol HCl [Ultram] 50 mg PO DAILY 12/14/18 [History Confirmed 01/24/22] Aripiprazole 10 mg [Abilify 10 MG] 5 mg PO DAILY 01/24/22 [History Confirmed 01/24/22] Clonidine HCl 0.1 mg [Clonidine 0.1 mg Tablet] 0.1 mg PO DAILY 01/24/22 [History Confirmed 01/24/22] Diltiazem HCl [Dilt-Xr] 120 mg PO DAILY 01/24/22 [History Confirmed 01/24/22] Ezetimibe 10 mg [Zetia 10 MG] 10 mg PO DAILY 01/24/22 [History Confirmed 01/24/22] Famotidine 20 mg [Pepcid 20 MG] 20 mg PO DAILY 01/24/22 [History Confirmed 01/24/22] Ferrous Sulfate [Iron] 325 mg PO DAILY 01/24/22 [History Confirmed 01/24/22] Furosemide 20 mg [Lasix 20 mg] 20 mg PO DAILY 01/24/22 [History Confirmed 01/24/22] Insulin Detemir [Levemir] 30 unit SQ BID 01/24/22 [History Confirmed 01/24/22] Insulin Lispro [Humalog] 8 unit SQ DAILY 01/24/22 [History Confirmed 01/24/22] Insulin Lispro [Humalog] 10 unit SQ LUNCH 01/24/22 [History Confirmed 01/25/22] PANTOPRAZOLE 40 mg Tablet [Protonix 40MG Tablet] 40 mg PO QAM 01/24/22 [History Confirmed 01/24/22] Potassium Chloride [Klor-Con M20] 20 meq PO DAILY 01/24/22 [History Confirmed 01/24/22] Insulin Lispro [Humalog] 10 units SQ DINNER 01/25/22 [History Confirmed 01/25/22] Allergies/Adverse Reactions: Allergies Allergy/AdvReac Type Severity Reaction Status Date / Time amoxicillin [From Augmentin] Allergy Verified 01/24/22 17:57 clavulanic acid Allergy Verified 01/24/22 17:57 [From Augmentin] codeine Allergy Verified 01/24/22 17:57 - Past Medical History Past Medical History: Yes Neurological History: No Pertinent History ENT History: No Pertinent History Cardiac History: No Pertinent History Respiratory History: No Pertinent History Endocrine Medical History: Hypothyroidism Musculoskelatal History: No Pertinent History GI Medical History: No Pertinent History History: No Pertinent History Pyscho-Social History: No Pertinent History Reproductive Disorders: No Pertinent History Comment: left arm and left hand. right and left foot broken - Female History Are you now?: No - Past Surgical History Past Surgical History: Yes Neuro Surgical History: No Pertinent History Cardiac History: Pacemaker Respiratory Surgery: No Pertinent History GI Surgical History: No Pertinent History, Cholecystectomy Genitourinary Surgical Hx: No Pertinent History Musculskeletal Surgical Hx: No Pertinent History Female Surgical History: No Pertinent History Other Surgical History: thyroid removal - Social History Smoking Status: Never smoker Exposure to second hand smoke: Yes Alcohol: None Drug Use: none - Physical Exam Vital Signs: Vital Signs - 24 hr Temp Pulse Resp BP BP Pulse Ox 01/25/22 08:12 77 15 158/95 01/25/22 07:18 81 12 161/87 01/25/22 07:00 97.9 F 77 16 153/85 94 L 01/25/22 06:00 98.3 F 73 13 158/83 158/83 01/25/22 05:00 78 14 176/113 176/113 01/25/22 04:00 80 16 165/98 165/98 95 01/25/22 03:00 87 20 152/99 152/99 96 01/25/22 02:17 98.3 F 77 16 158/89 95 01/25/22 02:00 83 16 150/95 150/95 94 L 01/25/22 01:24 80 18 157/91 95 01/25/22 00:51 83 18 169/95 96 01/25/22 00:25 92 H 16 92 L 01/25/22 00:19 83 16 150/95 01/24/22 23:18 93 H 18 190/88 95 01/24/22 23:13 93 L 01/24/22 22:38 87 18 213/131 97 01/24/22 22:19 107 H 17 208/120 01/24/22 21:00 106 H 219/135 94 L 01/24/22 20:00 107 H 201/121 93 L 01/24/22 19:00 95 H 18 194/108 94 L 01/24/22 18:57 100 H 18 190/101 93 L 01/24/22 17:58 98.3 F 106 H 18 217/118 95 General Appearance: no apparent distress Neurologic Exam: alert, oriented x 3, cooperative Respiratory Exam: normal breath sounds, lungs clear, No respiratory distress Cardiovascular Exam: irregular Gastrointestinal/Abdomen Exam: soft, normal bowel sounds, No tenderness, No mass Extremity Exam: normal inspection, normal range of motion, pelvis stable Skin Exam: normal color, warm, dry, No rash Results - Labs Lab/Micro Results: Lab Results-Last 24 Hours 01/24/22 01/24/22 01/24/22 Range/Units 18:24 18:24 18:27 WBC 10.9 H (4.0-10.5) x10^3/uL RBC 4.03 L (4.1-5.4) x10^6/uL Hgb 11.4 L (12.0-16.0) g/dL Hct 36.6 (35-47) % MCV 90.8 (78-100) fL MCH 28.3 (26-32) pg MCHC 31.1 L (32-36) g/dL RDW 13.9 (11.5-14.0) % Plt Count 207 (150-450) x10^3/uL MPV 12.6 H (7.5-11.0) fL Gran % 79.0 H (36.0-66.0) % Immature Gran % (Auto) 0.6 H (0.00-0.4) % Nucleat RBC Rel Count 0.0 (0.00-0.1) % Eos # (Auto) 0.10 (0-0.5) x10^3/uL Immature Gran # (Auto) 0.06 H (0.00-0.03) x10^3u/L Absolute Lymphs (auto) 1.26 (1.0-4.6) x10^3/uL Absolute Monos (auto) 0.79 (0.0-1.3) x10^3/uL Absolute Nucleated RBC 0.00 (0.00-0.01) x10^3u/L Lymphocytes % 11.6 L (24.0-44.0) % Monocytes % 7.3 (0.0-12.0) % Eosinophils % 0.9 (0.00-5.0) % Basophils % 0.6 (0.0-0.4) % Absolute Granulocytes 8.60 H (1.4-6.9) x10^3/uL Basophils # 0.07 (0-0.4) x10^3/uL Sodium 136 L (137-145) mmol/L Potassium 3.9 (3.5-5.1) mmol/L Chloride 109 H (98-107) mmol/L Carbon Dioxide 17 L (22-30) mmol/L Anion Gap 13.6 (5-15) MEQ/L BUN 42 H (7-17) mg/dL Creatinine 2.64 H (0.52-1.04) mg/dL Estimated GFR 18.7 ML/MIN Glucose 197 H (74-106) mg/dL POC Glucometer (74 to 106) mg/dL Lactic Acid (0.4-2.0) Calcium 9.0 (8.4-10.2) mg/dL Magnesium (1.6-2.3) mg/dL Total Bilirubin 0.50 (0.2-1.3) mg/dL AST 20 (14-36) U/L ALT 27 (0-35) U/L Alkaline Phosphatase 96 (38-126) U/L Troponin I (0.000-0.034) ng/mL NT-Pro-B Natriuret Pep (0-1800) pg/mL Serum Total Protein 6.6 (6.3-8.2) g/dL Albumin 3.6 (3.5-5.0) g/dL Lipase 195 (23-300) U/L Urinalys Dipstick Clnc MAIN LAB Urine Color YELLOW (YELLOW) Urine Appearance CLEAR (CLEAR) Urine pH 6.5 (5-6) Ur Specific [place] 1.020 (1.005-1.025) POC Urine Protein Conf >=300 (Negative) Urine Ketones NEGATIVE (NEGATIVE) Urine Nitrite NEGATIVE (NEGATIVE) Urine Bilirubin NEGATIVE (NEGATIVE) Urine Urobilinogen 0.2 (0-1) mg/dL Urine Leukocytes NEGATIVE (NEGATIVE) Urine WBC (Auto) 0-2 (0-5) /HPF Urine RBC (Auto) 0-2 (0-2) /HPF U Epithel Cells (Auto) RARE (FEW) /HPF Urine Bacteria (Auto) NONE (NEGATIVE) /HPF Urine RBC SMALL (0-5) Iain/ul Ur Culture Indicated? YES Urine Glucose 500 (NEGATIVE) mg/dL Influenza Type A Ag (NEGATIVE) Influenza Type B Ag (NEGATIVE) RSV (PCR) (Negative) SARS-CoV-2 (PCR) (NEGATIVE) Slides for Path Review YES 01/24/22 01/24/22 01/24/22 Range/Units 18:28 18:28 18:30 WBC (4.0-10.5) x10^3/uL RBC (4.1-5.4) x10^6/uL Hgb (12.0-16.0) g/dL Hct (35-47) % MCV (78-100) fL MCH (26-32) pg MCHC (32-36) g/dL RDW (11.5-14.0) % Plt Count (150-450) x10^3/uL MPV (7.5-11.0) fL Gran % (36.0-66.0) % Immature Gran % (Auto) (0.00-0.4) % Nucleat RBC Rel Count (0.00-0.1) % Eos # (Auto) (0-0.5) x10^3/uL Immature Gran # (Auto) (0.00-0.03) x10^3u/L Absolute Lymphs (auto) (1.0-4.6) x10^3/uL Absolute Monos (auto) (0.0-1.3) x10^3/uL Absolute Nucleated RBC (0.00-0.01) x10^3u/L Lymphocytes % (24.0-44.0) % Monocytes % (0.0-12.0) % Eosinophils % (0.00-5.0) % Basophils % (0.0-0.4) % Absolute Granulocytes (1.4-6.9) x10^3/uL Basophils # (0-0.4) x10^3/uL Sodium (137-145) mmol/L Potassium (3.5-5.1) mmol/L Chloride (98-107) mmol/L Carbon Dioxide (22-30) mmol/L Anion Gap (5-15) MEQ/L BUN (7-17) mg/dL Creatinine (0.52-1.04) mg/dL Estimated GFR ML/MIN Glucose (74-106) mg/dL POC Glucometer (74 to 106) mg/dL Lactic Acid 1.1 (0.4-2.0) Calcium (8.4-10.2) mg/dL Magnesium 1.7 (1.6-2.3) mg/dL Total Bilirubin (0.2-1.3) mg/dL AST (14-36) U/L ALT (0-35) U/L Alkaline Phosphatase (38-126) U/L Troponin I 0.012 (0.000-0.034) ng/mL NT-Pro-B Natriuret Pep 79163 H (0-1800) pg/mL Serum Total Protein (6.3-8.2) g/dL Albumin (3.5-5.0) g/dL Lipase (23-300) U/L Urinalys Dipstick Clnc Urine Color (YELLOW) Urine Appearance (CLEAR) Urine pH (5-6) Ur Specific [place] (1.005-1.025) POC Urine Protein Conf (Negative) Urine Ketones (NEGATIVE) Urine Nitrite (NEGATIVE) Urine Bilirubin (NEGATIVE) Urine Urobilinogen (0-1) mg/dL Urine Leukocytes (NEGATIVE) Urine WBC (Auto) (0-5) /HPF Urine RBC (Auto) (0-2) /HPF U Epithel Cells (Auto) (FEW) /HPF Urine Bacteria (Auto) (NEGATIVE) /HPF Urine RBC (0-5) Iain/ul Ur Culture Indicated? Urine Glucose (NEGATIVE) mg/dL Influenza Type A Ag (NEGATIVE) Influenza Type B Ag (NEGATIVE) RSV (PCR) (Negative) SARS-CoV-2 (PCR) (NEGATIVE) Slides for Path Review 01/24/22 01/24/22 01/25/22 Range/Units 21:32 22:37 02:50 WBC (4.0-10.5) x10^3/uL RBC (4.1-5.4) x10^6/uL Hgb (12.0-16.0) g/dL Hct (35-47) % MCV (78-100) fL MCH (26-32) pg MCHC (32-36) g/dL RDW (11.5-14.0) % Plt Count (150-450) x10^3/uL MPV (7.5-11.0) fL Gran % (36.0-66.0) % Immature Gran % (Auto) (0.00-0.4) % Nucleat RBC Rel Count (0.00-0.1) % Eos # (Auto) (0-0.5) x10^3/uL Immature Gran # (Auto) (0.00-0.03) x10^3u/L Absolute Lymphs (auto) (1.0-4.6) x10^3/uL Absolute Monos (auto) (0.0-1.3) x10^3/uL Absolute Nucleated RBC (0.00-0.01) x10^3u/L Lymphocytes % (24.0-44.0) % Monocytes % (0.0-12.0) % Eosinophils % (0.00-5.0) % Basophils % (0.0-0.4) % Absolute Granulocytes (1.4-6.9) x10^3/uL Basophils # (0-0.4) x10^3/uL Sodium (137-145) mmol/L Potassium (3.5-5.1) mmol/L Chloride (98-107) mmol/L Carbon Dioxide (22-30) mmol/L Anion Gap (5-15) MEQ/L BUN (7-17) mg/dL Creatinine (0.52-1.04) mg/dL Estimated GFR ML/MIN Glucose (74-106) mg/dL POC Glucometer (74 to 106) mg/dL Lactic Acid (0.4-2.0) Calcium (8.4-10.2) mg/dL Magnesium (1.6-2.3) mg/dL Total Bilirubin (0.2-1.3) mg/dL AST (14-36) U/L ALT (0-35) U/L Alkaline Phosphatase (38-126) U/L Troponin I 0.022 0.015 (0.000-0.034) ng/mL NT-Pro-B Natriuret Pep (0-1800) pg/mL Serum Total Protein (6.3-8.2) g/dL Albumin (3.5-5.0) g/dL Lipase (23-300) U/L Urinalys Dipstick Clnc Urine Color (YELLOW) Urine Appearance (CLEAR) Urine pH (5-6) Ur Specific [place] (1.005-1.025) POC Urine Protein Conf (Negative) Urine Ketones (NEGATIVE) Urine Nitrite (NEGATIVE) Urine Bilirubin (NEGATIVE) Urine Urobilinogen (0-1) mg/dL Urine Leukocytes (NEGATIVE) Urine WBC (Auto) (0-5) /HPF Urine RBC (Auto) (0-2) /HPF U Epithel Cells (Auto) (FEW) /HPF Urine Bacteria (Auto) (NEGATIVE) /HPF Urine RBC (0-5) Iain/ul Ur Culture Indicated? Urine Glucose (NEGATIVE) mg/dL Influenza Type A Ag NEGATIVE (NEGATIVE) Influenza Type B Ag NEGATIVE (NEGATIVE) RSV (PCR) NEGATIVE (Negative) SARS-CoV-2 (PCR) NEGATIVE (NEGATIVE) Slides for Path Review 01/25/22 01/25/22 01/25/22 Range/Units 02:50 02:50 07:30 WBC 9.1 (4.0-10.5) x10^3/uL RBC 3.62 L (4.1-5.4) x10^6/uL Hgb 10.4 L (12.0-16.0) g/dL Hct 33.4 L (35-47) % MCV 92.3 (78-100) fL MCH 28.7 (26-32) pg MCHC 31.1 L (32-36) g/dL RDW 13.9 (11.5-14.0) % Plt Count 227 (150-450) x10^3/uL MPV 11.6 H (7.5-11.0) fL Gran % 76.8 H (36.0-66.0) % Immature Gran % (Auto) 0.7 H (0.00-0.4) % Nucleat RBC Rel Count 0.0 (0.00-0.1) % Eos # (Auto) 0.11 (0-0.5) x10^3/uL Immature Gran # (Auto) 0.06 H (0.00-0.03) x10^3u/L Absolute Lymphs (auto) 1.11 (1.0-4.6) x10^3/uL Absolute Monos (auto) 0.76 (0.0-1.3) x10^3/uL Absolute Nucleated RBC 0.00 (0.00-0.01) x10^3u/L Lymphocytes % 12.3 L (24.0-44.0) % Monocytes % 8.4 (0.0-12.0) % Eosinophils % 1.2 (0.00-5.0) % Basophils % 0.6 (0.0-0.4) % Absolute Granulocytes 6.96 H (1.4-6.9) x10^3/uL Basophils # 0.05 (0-0.4) x10^3/uL Sodium 135 L (137-145) mmol/L Potassium 3.6 (3.5-5.1) mmol/L Chloride 106 (98-107) mmol/L Carbon Dioxide 20 L (22-30) mmol/L Anion Gap 11.4 (5-15) MEQ/L BUN 42 H (7-17) mg/dL Creatinine 2.71 H (0.52-1.04) mg/dL Estimated GFR 18.1 ML/MIN Glucose 253 H (74-106) mg/dL POC Glucometer 226 H (74 to 106) mg/dL Lactic Acid (0.4-2.0) Calcium 8.4 (8.4-10.2) mg/dL Magnesium (1.6-2.3) mg/dL Total Bilirubin 0.30 (0.2-1.3) mg/dL AST 16 (14-36) U/L ALT 22 (0-35) U/L Alkaline Phosphatase 78 (38-126) U/L Troponin I (0.000-0.034) ng/mL NT-Pro-B Natriuret Pep 75407 H (0-1800) pg/mL Serum Total Protein 5.3 L (6.3-8.2) g/dL Albumin 2.9 L (3.5-5.0) g/dL Lipase (23-300) U/L Urinalys Dipstick Clnc Urine Color (YELLOW) Urine Appearance (CLEAR) Urine pH (5-6) Ur Specific [place] (1.005-1.025) POC Urine Protein Conf (Negative) Urine Ketones (NEGATIVE) Urine Nitrite (NEGATIVE) Urine Bilirubin (NEGATIVE) Urine Urobilinogen (0-1) mg/dL Urine Leukocytes (NEGATIVE) Urine WBC (Auto) (0-5) /HPF Urine RBC (Auto) (0-2) /HPF U Epithel Cells (Auto) (FEW) /HPF Urine Bacteria (Auto) (NEGATIVE) /HPF Urine RBC (0-5) Iain/ul Ur Culture Indicated? Urine Glucose (NEGATIVE) mg/dL Influenza Type A Ag (NEGATIVE) Influenza Type B Ag (NEGATIVE) RSV (PCR) (Negative) SARS-CoV-2 (PCR) (NEGATIVE) Slides for Path Review - Radiology Impressions Radiology Exams & Impressions: Radiology Procedures Category Date Time Status ABDOMEN AND PELVIS W/0 CONTRAS [CT] Stat Exams 01/24/22 19:06 Taken CHEST 1 VIEW (PORTABLE) Stat Exams 01/24/22 21:25 Taken - Other Procedures and Tests Respiratory Therapy 01/25/22 01:39 Oxygen NASAL CANNULA 2 lpm Assessment/Plan (1) Hypertensive emergency Current Visit: Yes Status: Acute Assessment & Plan: bp is reasonably controlled and patient is pain free on cardizem drip, will continue for now. Code(s): I16.1 - HYPERTENSIVE EMERGENCY (2) Ventricular tachycardia, non-sustained Current Visit: Yes Status: Acute Assessment & Plan: will consult cardiology, underlying rhythm is a fib with multiple short runs of v tach on telemetry, will consult [facility] cardiology for recommendations, would consider antiarrythmic at this time Code(s): I47.2 - VENTRICULAR TACHYCARDIA (3) Constipation Current Visit: Yes Status: Acute Assessment & Plan: mag citrate ordered Code(s): K59.00 - CONSTIPATION, UNSPECIFIED
--- NOTE | 2022-01-25 08:55 | XRAY ---
Indication: Bilateral flank pain. Painful urination. No bowel movements 6 days. Multiple contiguous axial images obtained through the abdomen and pelvis without contrast. Comparison: None Lung bases demonstrates cardiomegaly and moderate bilateral pleural effusions favoring cardiac decompensation/CHF. Superimposed pneumonia not completely excluded. Also mild bibasilar subsegmental atelectasis/scarring. Noncontrasted stomach and bowel loops appear nonobstructed. 2 cm descending duodenal diverticulum. Appendix not visualized. Mild scattered fecal debris predominantly in the ascending and transverse colon. Previous cholecystectomy and hysterectomy. No free fluid/air. Remaining liver, pancreas, spleen, adrenal glands, kidneys, ureters, and bladder are unremarkable for noncontrast exam. Moderate scattered vascular calcifications without AAA. Osseous structures intact with osteopenia and mild/moderate degenerative changes throughout the spine and both hips. Right upper abdominal wall demonstrates 6.5 cm round focus of subcutaneous induration either posttraumatic versus inflammatory/infectious. No ventral or inguinal hernias. Impression: 1. Cardiomegaly with bibasilar effusions. Rule out cardiac decompensation/CHF. Superimposed pneumonia not completely excluded. 2. Right abdominal wall subcutaneous induration either post moderate versus inflammatory/infectious. 3. Chronic findings including duodenal diverticulum, arteriosclerotic disease, and chronic bony findings.
--- NOTE | 2022-01-25 09:47 | XRAY ---
Indication: Chest pain. Comparison: None Portable chest demonstrates cardiomegaly and small bibasilar effusions concerning for cardiac decompensation/CHF. Superimposed pneumonia not completely excluded. Incidental left dual-lead pacemaker, osteopenia, and mild bony degenerative changes.
[2022-01-25] MEDS: Protonix 40MG Tablet PO SCH (10:23)
[2022-01-25] MEDS: Abilify 10 MG PO SCH (10:23)
[2022-01-25] MEDS: Cymbalta 30 MG Capsule PO SCH (10:23)
[2022-01-25] MEDS: CLONIDINE 0.1 MG TABLET PO SCH (10:23)
[2022-01-25] MEDS: SYNTHROID 100 MCG PO SCH (10:23)
[2022-01-25] MEDS: Pepcid 20 MG VIAL IV SCH ×2 (10:24→21:20)
[2022-01-25] MEDS: Lasix 40 MG/4 ML IV SCH ×2 (10:24→17:53)
[2022-01-25] MEDS ORDERED: Tessalon Perles 100 MG PO PRN (11:19)
[2022-01-25] MEDS ORDERED: Dulcolax 10 MG SUPP PR PRN (11:47)
[2022-01-25] MEDS: HUMALOG SQ PRN (11:54)
[2022-01-25] MEDS ORDERED: COREG 12.5 MG PO ONE (18:00)
[2022-01-25] MEDS ORDERED: ELIQUIS 2.5 MG TABLET PO ONE (18:00)
[2022-01-25] MEDS ORDERED: COREG 12.5 MG PO SCH (18:00)
[2022-01-26] MEDS: Sodium Chloride 0.9% 500 ML 500 ML IV SCH ×2 (03:39→19:41)
[2022-01-26 05:27] LABS: Absolute Neutrophil Ct (ANC) 4.79 x10^3/uL (1.4-6.9); Basophil (Absolute #) 0.04 x10^3/uL (0-0.4); Eosinophil % 3.6 % (0.00-5.0); Eosinophil (Absolute #) 0.24 x10^3/uL (0-0.5); Hemoglobin 9.6 g/dL (12.0-16.0); Lymphocyte (Absolute #) 1.02 x10^3/uL (1.0-4.6); Lymphocytes % 15.4 % (24.0-44.0); Mean Cell Volume 92.8 fL (78-100); Mean Corpuscular Hemoglobin 28.7 pg (26-32); Mean Platelet Volume 11.5 fL (7.5-11.0); Monocyte (Absolute #) 0.49 x10^3/uL (0.0-1.3); Monocytes % 7.4 % (0.0-12.0); Neutrophil % 72.5 % (36.0-66.0); Platelet Count 200 x10^3/uL (150-450); Red Blood Count 3.34 x10^6/uL (4.1-5.4); Red Cell Distribution Width 13.7 % (11.5-14.0); White Blood Count 6.6 x10^3/uL (4.0-10.5)
[2022-01-26 06:06] LABS: MAGNESIUM 1.6 mg/dL (1.6-2.3); TROPONIN < 0.012 ng/mL (0.000-0.034)
[2022-01-26] MEDS: HUMALOG SQ PRN (09:30)
[2022-01-26] MEDS: Abilify 10 MG PO SCH (10:00)
[2022-01-26] MEDS: ELIQUIS 2.5 MG TABLET PO SCH ×2 (10:00→21:19)
[2022-01-26] MEDS: Protonix 40MG Tablet PO SCH (10:00)
[2022-01-26] MEDS: CLONIDINE 0.1 MG TABLET PO SCH ×2 (10:00→21:19)
[2022-01-26] MEDS: COREG 12.5 MG PO SCH ×2 (10:00→21:19)
[2022-01-26] MEDS: SYNTHROID 100 MCG PO SCH (10:00)
[2022-01-26] MEDS: Lasix 40 MG/4 ML IV SCH ×2 (10:00→17:31)
[2022-01-26] MEDS: Cymbalta 30 MG Capsule PO SCH (10:00)
[2022-01-26] MEDS: Pepcid 20 MG VIAL IV SCH (10:01)
[2022-01-26] MEDS ORDERED: Senokot-S Tablet PO PRN (11:32)
[2022-01-26] MEDS ORDERED: Miralax Powder 17GM PACKET PO PRN (11:33)
[2022-01-26] MEDS ORDERED: NON-FORMULARY ITEM (Insulin Lispro 1 UNIT Ml) SQ SCH ×2 (12:00→17:00)
[2022-01-26] MEDS ORDERED: MEDICATION INTERVENTION MC SCH (12:00)
[2022-01-26] MEDS: Cardizem CD PO SCH (12:38)
[2022-01-26] MEDS: HUMALOG SQ SCH ×2 (12:38→17:31)
[2022-01-26] MEDS: Klor Con PO SCH (12:38)
[2022-01-26] MEDS: FEOSOL 325 MG PO SCH (12:38)
[2022-01-26] MEDS: Zetia 10 MG PO SCH (12:38)
[2022-01-26] MEDS: Apresoline 25 MG TABLET PO SCH ×2 (14:43→21:19)
[2022-01-26] MEDS: SODIUM BICARBONATE PO SCH (14:43)
[2022-01-26] MEDS: TYLENOL 325 MG PO PRN (17:34)
[2022-01-26] MEDS: Lantus Insulin SQ SCH (21:19)
[2022-01-26] MEDS ORDERED: NON-FORMULARY ITEM (Insulin Detemir [Levemir] 100 UNIT/ML Vial) SQ SCH (22:00)
[2022-01-27] MEDS: TYLENOL 325 MG PO PRN (05:08)
[2022-01-27 05:46] LABS: Hematocrit 31.7 % (35-47); Hemoglobin 9.8 g/dL (12.0-16.0); Mean Cell Volume 93.2 fL (78-100); Mean Corpuscular Hemoglobin 28.8 pg (26-32); Mean Corpuscular Hgb Concent. 30.9 g/dL (32-36); Mean Platelet Volume 11.9 fL (7.5-11.0); Platelet Count 207 x10^3/uL (150-450); Red Cell Distribution Width 13.8 % (11.5-14.0); White Blood Count 6.5 x10^3/uL (4.0-10.5)
[2022-01-27 06:05] LABS: ALBUMIN 2.8 g/dL (3.5-5.0); ANION GAP 11.4 MEQ/L (5-15); BILIRUBIN,TOTAL 0.2 mg/dL (0.2-1.3); Creatinine 1 3.1 mg/dL (0.52-1.04); EST GLOMERULAR FILTRATION RATE 15.5 ML/MIN; Potassium 3.5 mmol/L (3.5-5.1); Total Protein 5.5 g/dL (6.3-8.2)
[2022-01-27] MEDS: HUMALOG SQ SCH ×4 (08:19→17:23)
[2022-01-27] MEDS ORDERED: NON-FORMULARY ITEM (Potassium Chloride [Klor-Con M20] 20 MEQ Tab.Er.Prt) PO SCH (10:00)
[2022-01-27] MEDS ORDERED: NON-FORMULARY ITEM (Sodium Bicarbonate 650 MG Tablet) PO SCH (10:00)
[2022-01-27] MEDS ORDERED: DILTIAZEM HCL 120 MG PO SCH (10:00)
[2022-01-27] MEDS ORDERED: Pepcid 20 MG PO SCH (10:00)
[2022-01-27] MEDS ORDERED: NON-FORMULARY ITEM (Insulin Lispro 1 UNIT Ml) SQ SCH (10:00)
[2022-01-27] MEDS ORDERED: HUMALOG SQ SCH (10:00)
[2022-01-27] MEDS ORDERED: NON-FORMULARY ITEM (Solifenacin Succinate [Solifenacin Succinate] 5 MG Tablet) PO SCH (10:00)
[2022-01-27] MEDS: Cymbalta 30 MG Capsule PO SCH (11:10)
[2022-01-27] MEDS: Abilify 10 MG PO SCH (11:10)
[2022-01-27] MEDS: Cardizem CD PO SCH (11:10)
[2022-01-27] MEDS: Zetia 10 MG PO SCH (11:12)
[2022-01-27] MEDS: Protonix 40MG Tablet PO SCH (11:12)
[2022-01-27] MEDS: Apresoline 25 MG TABLET PO SCH ×3 (11:12→21:36)
[2022-01-27] MEDS: CLONIDINE 0.1 MG TABLET PO SCH ×2 (11:12→21:37)
[2022-01-27] MEDS: Klor Con PO SCH (11:12)
[2022-01-27] MEDS: COREG 12.5 MG PO SCH ×2 (11:13→21:37)
[2022-01-27] MEDS: Pepcid 20 MG PO SCH (11:13)
[2022-01-27] MEDS: FEOSOL 325 MG PO SCH (11:13)
[2022-01-27] MEDS: SYNTHROID 100 MCG PO SCH (11:13)
[2022-01-27] MEDS: ELIQUIS 2.5 MG TABLET PO SCH ×2 (11:14→21:36)
[2022-01-27] MEDS: Lantus Insulin SQ SCH ×2 (11:15→21:37)
[2022-01-27] MEDS: SODIUM BICARBONATE PO SCH (11:15)
[2022-01-27] MEDS: Lasix 40 MG/4 ML IV SCH ×2 (11:16→16:19)
[2022-01-27] MEDS: Sodium Chloride 0.9% 1000 ML 1,000 ML IV SCH ×2 (12:34→22:47)
[2022-01-27] MEDS: Sodium Chloride 0.9% 500 ML 500 ML IV SCH (19:30)
[2022-01-28] MEDS: TYLENOL 325 MG PO PRN (01:10)
[2022-01-28 04:19] VITALS: O2SAT 95
[2022-01-28 05:46] LABS: Hematocrit 28.5 % (35-47); Mean Cell Volume 90.8 fL (78-100); Mean Corpuscular Hemoglobin 28.7 pg (26-32); Mean Corpuscular Hgb Concent. 31.6 g/dL (32-36); Mean Platelet Volume 11.9 fL (7.5-11.0); Platelet Count 209 x10^3/uL (150-450); Red Blood Count 3.14 x10^6/uL (4.1-5.4); White Blood Count 5.9 x10^3/uL (4.0-10.5)
[2022-01-28 06:03] LABS: Calcium 7.7 mg/dL (8.4-10.2); Creatinine 1 2.84 mg/dL (0.52-1.04); EST GLOMERULAR FILTRATION RATE 17.2 ML/MIN; Potassium 3.8 mmol/L (3.5-5.1)
[2022-01-28 07:55] VITALS: BP 151/78; PULSE 67
--- NOTE | 2022-01-28 09:10 | PCM.DS ---
Discharge Summary Date of Admission: 01/25/22 01:37 Admitting Physician: JARROD JOSEPH Consults: Consults on Case 01/25/22 08:35 Consult Cardiology ROUTINE 01/27/22 11:02 Consult Nephrology ROUTINE Primary Care Provider: JARROD JOSEPH Allergies Allergies amoxicillin [From Augmentin] Allergy (Verified 01/24/22 17:57) clavulanic acid [From Augmentin] Allergy (Verified 01/24/22 17:57) codeine Allergy (Verified 01/24/22 17:57) Hospital Summary - Hospital Course Hospital Course: patient was admitted with chest pain and hypertensive emergency, bp is now well controlled and heart rate is in the 80's, paced rhythm underlying a fib present. she feels well, hx chronic kidney disease with bun/cr slightly above baseline but stable. - Vitals & Intake/Output Vital Signs: Vital Signs Temperature 97.9 F 01/28/22 07:54 Pulse Rate 67 01/28/22 07:54 Respiratory Rate 14 01/28/22 07:54 Blood Pressure 151/78 01/28/22 07:54 O2 Sat by Pulse Oximetry 95 01/28/22 07:54 Intake & Output: Intake & Output 01/25/22 01/26/22 01/27/22 01/28/22 11:59 11:59 11:59 11:59 Intake Total 503 1180 1400 1388 Balance 503 1180 1400 1388 Weight 70 kg 70.7 kg 71.3 kg 71.1 kg - Lab Result Diagrams: 01/28/22 05:45 01/28/22 05:45 Lab Results-Last 24 Hrs: Lab Results-Last 24 Hours 01/27/22 01/27/22 01/27/22 Range/Units 11:07 16:24 21:26 WBC (4.0-10.5) x10^3/uL RBC (4.1-5.4) x10^6/uL Hgb (12.0-16.0) g/dL Hct (35-47) % MCV (78-100) fL MCH (26-32) pg MCHC (32-36) g/dL RDW (11.5-14.0) % Plt Count (150-450) x10^3/uL MPV (7.5-11.0) fL Sodium (137-145) mmol/L Potassium (3.5-5.1) mmol/L Chloride (98-107) mmol/L Carbon Dioxide (22-30) mmol/L Anion Gap (5-15) MEQ/L BUN (7-17) mg/dL Creatinine (0.52-1.04) mg/dL Estimated GFR ML/MIN Glucose (74-106) mg/dL POC Glucometer 169 H 205 H 251 H (74 to 106) mg/dL Calcium (8.4-10.2) mg/dL 01/28/22 01/28/22 01/28/22 Range/Units 05:45 05:45 07:39 WBC 5.9 (4.0-10.5) x10^3/uL RBC 3.14 L (4.1-5.4) x10^6/uL Hgb 9.0 L (12.0-16.0) g/dL Hct 28.5 L (35-47) % MCV 90.8 (78-100) fL MCH 28.7 (26-32) pg MCHC 31.6 L (32-36) g/dL RDW 14.0 (11.5-14.0) % Plt Count 209 (150-450) x10^3/uL MPV 11.9 H (7.5-11.0) fL Sodium 136 L (137-145) mmol/L Potassium 3.8 (3.5-5.1) mmol/L Chloride 108 H (98-107) mmol/L Carbon Dioxide 22 (22-30) mmol/L Anion Gap 9.0 (5-15) MEQ/L BUN 46 H (7-17) mg/dL Creatinine 2.84 H (0.52-1.04) mg/dL Estimated GFR 17.2 ML/MIN Glucose 193 H (74-106) mg/dL POC Glucometer 156 H (74 to 106) mg/dL Calcium 7.7 L (8.4-10.2) mg/dL Micro Results-Entire Visit: Microbiology 01/24/22 18:27 Urine Culture - Final Urine, Void <10K NORMAL SKIN VINICIO PROBABLE SKIN CONTAMINANT Accuchecks Date 01/28/22 Date 01/27/22 Date 01/27/22 Time 07:53 Time 21:00 Time 16:24 - Procedures and Test Procedures and Tests throughout Hospitalization: Therapy Orders & Screens 01/25/22 01:39 Oxygen NASAL CANNULA 2 lpm Comment: Diagnosis: CHF 01/25/22 01:50 Respiratory Therapy Assessment DAILY Comment: Diagnosis: Uncontrolled hypertension Discharge Exam General Appearance: no apparent distress Neurologic Exam: alert, oriented x 3 Respiratory Exam: normal breath sounds, lungs clear, No respiratory distress Cardiovascular Exam: regular rate/rhythm, normal heart sounds Gastrointestinal/Abdomen Exam: soft, No tenderness, No mass Skin Exam: normal color, warm, dry Final Diagnosis/Problem List - Final Discharge Diagnosis/Problem (1) Hypertensive emergency Current Visit: Yes Status: Acute Assessment & Plan: resolved, home on current regimen bp stable, will see Dr Mcclellan tomorrow (cardiology) as scheduled Code(s): I16.1 - HYPERTENSIVE EMERGENCY (2) Ventricular tachycardia, non-sustained Current Visit: Yes Status: Acute Code(s): I47.2 - VENTRICULAR TACHYCARDIA (3) Chronic kidney disease Current Visit: Yes Status: Acute Assessment & Plan: f/u with Dr Sosa Code(s): N18.9 - CHRONIC KIDNEY DISEASE, UNSPECIFIED (4) Constipation Current Visit: Yes Status: Acute Code(s): K59.00 - CONSTIPATION, UNSPECIFIED - Discharge Disposition: Home, Self-Care Condition: Stable Prescriptions: New Apixaban [Eliquis 2.5 mg Tablet] 2.5 mg PO BID #60 tablet Continue Levothyroxine Sodium 100 Mcg [Synthroid 100 Mcg] 100 mcg PO DAILY Tramadol HCl [Ultram] 50 mg PO DAILY Duloxetine HCl 30 mg [Cymbalta 30 MG Capsule] 30 mg PO DAILY Famotidine 20 mg [Pepcid 20 MG] 20 mg PO DAILY Ezetimibe 10 mg [Zetia 10 MG] 10 mg PO DAILY Diltiazem HCl [Dilt-Xr] 120 mg PO DAILY Clonidine HCl 0.1 mg [Clonidine 0.1 mg Tablet] 0.1 mg PO BID Insulin Lispro [Humalog] 8 unit SQ DAILY Insulin Detemir [Levemir] 30 unit SQ BID Ferrous Sulfate [Iron] 325 mg PO DAILY Potassium Chloride [Klor-Con M20] 20 meq PO DAILY PANTOPRAZOLE 40 mg Tablet [Protonix 40MG Tablet] 40 mg PO QAM Furosemide 20 mg [Lasix 20 mg] 20 mg PO DAILY Aripiprazole 10 mg [Abilify 10 MG] 5 mg PO DAILY Insulin Lispro [Humalog] 10 unit SQ LUNCH Insulin Lispro [Humalog] 10 units SQ DINNER HydrALAzine HCL 25 MG TAB [Apresoline 25 MG TABLET] 25 mg PO TID Solifenacin Succinate 5 mg PO DAILY Sodium Bicarbonate 650 mg PO DAILY Carvedilol [Coreg] 25 mg PO BID Discontinued Apixaban [Eliquis 5 mg Tablet] 5 mg PO BID Follow up with: JARROD JOSEPH MD [Primary Care Provider] - RICK SOSA [CONSULTING PHYSICIAN] -
[2022-01-28] MEDS: HUMALOG SQ SCH (09:36)
[2022-01-28] MEDS: Cymbalta 30 MG Capsule PO SCH (09:36)
[2022-01-28] MEDS: Lantus Insulin SQ SCH (09:37)
[2022-01-28] MEDS: Abilify 10 MG PO SCH (09:38)
[2022-01-28] MEDS: Zetia 10 MG PO SCH (09:38)
[2022-01-28] MEDS: Klor Con PO SCH (09:38)
[2022-01-28] MEDS: SYNTHROID 100 MCG PO SCH (09:39)
[2022-01-28] MEDS: FEOSOL 325 MG PO SCH (09:39)
[2022-01-28] MEDS: Cardizem CD PO SCH (09:39)
[2022-01-28] MEDS: Pepcid 20 MG PO SCH (09:39)
[2022-01-28] MEDS: Protonix 40MG Tablet PO SCH (09:40)
[2022-01-28] MEDS: ELIQUIS 2.5 MG TABLET PO SCH (09:40)
[2022-01-28] MEDS: Apresoline 25 MG TABLET PO SCH (09:40)
[2022-01-28] MEDS: CLONIDINE 0.1 MG TABLET PO SCH (09:40)
[2022-01-28] MEDS: COREG 12.5 MG PO SCH (09:40)
[2022-01-28] MEDS: SODIUM BICARBONATE PO SCH (09:43)
[2022-01-28] MEDS: Lasix 40 MG/4 ML IV SCH (09:43)
[2022-01-28] MEDS ORDERED: Ditropan 5 MG PO SCH (10:00)
== END 2022-01-28 11:06 | disposition home or self-care (01) ==
LOC: ED 17:45 → ICU 01-25 01:37
PROVIDERS: ADMIT Family Medicine; ATTEND Family Medicine
DX: I16.1 Hypertensive emergency (principal); I47.2 Ventricular tachycardia; I12.9 Hypertensive chronic kidney disease with stage 1 through stage 4 chronic kidney disease, or unspecified chronic kidney disease; N18.9 Chronic kidney disease, unspecified; I48.91 Unspecified atrial fibrillation; K59.00 Constipation, unspecified; E11.9 Type 2 diabetes mellitus without complications; E78.5 Hyperlipidemia, unspecified; E03.9 Hypothyroidism, unspecified; R79.89 Other specified abnormal findings of blood chemistry; Z79.899 Other long term (current) drug therapy; Z20.828 Contact with and (suspected) exposure to other viral communicable diseases; Z79.01 Long term (current) use of anticoagulants
CPT/HCPCS: 0241U; 36000; 36415; 71045; 74176; 80048; 80053; 81015; 82947; 83036; 83605; 83690; 83735; 83880; 84484; 85025; 85027; 87086; 93005; 93268; 96365; 96374; 96375; 99285; G0378; J1817; J1940; J2270; J2405; A9270-GY

== ENCOUNTER 2022-03-28 15:23 | Observation (INO) | payer MEDICARE ==
[2022-03-28 15:47] LABS: Absolute Neutrophil Ct (ANC) 4.05 x10^3/uL (1.4-6.9); Basophil (Absolute #) 0.04 x10^3/uL (0-0.4); Eosinophil % 2.4 % (0.00-5.0); Eosinophil (Absolute #) 0.14 x10^3/uL (0-0.5); Hemoglobin 10.2 g/dL (12.0-16.0); Lymphocyte (Absolute #) 1.05 x10^3/uL (1.0-4.6); Lymphocytes % 18.3 % (24.0-44.0); Mean Corpuscular Hemoglobin 29.3 pg (26-32); Mean Corpuscular Hgb Concent. 31.9 g/dL (32-36); Mean Platelet Volume 10.9 fL (7.5-11.0); Monocyte (Absolute #) 0.42 x10^3/uL (0.0-1.3); Monocytes % 7.3 % (0.0-12.0); Neutrophil % 70.8 % (36.0-66.0); Platelet Count 235 x10^3/uL (150-450); Red Blood Count 3.48 x10^6/uL (4.1-5.4); Red Cell Distribution Width 14.8 % (11.5-14.0); White Blood Count 5.7 x10^3/uL (4.0-10.5)
[2022-03-28 16:18] LABS: INR 0.99 (0.8-3.0); PROTIME 10.5 SECONDS (9.4-12.5); PTT 27.1 SECONDS (25.1-36.5)
[2022-03-28 16:26] LABS: ANION GAP 9.5 MEQ/L (5-15); BILIRUBIN,TOTAL 0.3 mg/dL (0.2-1.3); Calcium 7.9 mg/dL (8.4-10.2); Creatinine 1 3.4 mg/dL (0.52-1.04); Potassium 3.1 mmol/L (3.5-5.1); Total Protein 5.9 g/dL (6.3-8.2)
[2022-03-28 16:30] LABS: INFLUENZA A NEGATIVE (NEGATIVE); INFLUENZA B NEGATIVE (NEGATIVE); RESPIRATORY SYNCTIAL VIRUS NEGATIVE (Negative); SARS-CoV-2 Xpert Express NEGATIVE (NEGATIVE)
--- NOTE | 2022-03-28 16:30 | XRAY ---
Indication: Short of breath, dyspnea, and leg swelling for weeks. Comparison: January 24, 2022 Portable chest again demonstrates cardiomegaly and small bibasilar effusions worsened on the right again favoring cardiac decompensation/CHF. Superimposed pneumonia not completely excluded. Bony thorax intact again with osteopenia, degenerative changes, and left pacemaker.
--- NOTE | 2022-03-28 17:59 | ERPHSYRPT ---
- History of Present Illness Source: patient, other (Daughter) Exam Limitations: no limitations Patient Subjective Stated Complaint: Patient c/o edema to BLE and BLE pain with SOB. This has been progressing over the past few days. Patient states her lasix was discontinued due to her kidney function and now she just keeps getting more and more swollen. Triage Nursing Assessment: Patient brought back to ED in w/c. No SOB noted. She is alert and oriented. Skin tone normal. BLE are swollen and tight. Physician History: 77 yo wf w dyspnea x 1 day. Pt has a h/o CHF/CRI/Afib//HTN/DM. 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 Pt states that dyspnea is worse w exertion and denies orthopnea/PND. She denies CP/fever/cough/coryza/N/V/D/melena. Timing/Duration: other (1 day/worse over last month) Severity of Dyspnea-Max: moderate Severity of Dyspnea-Current: mild Possible Cause: frequent episodes Modifying Factors: Improves With: activity Associated Symptoms: denies symptoms, edema, ankle swelling Allergies/Adverse Reactions: amoxicillin [From Augmentin] Allergy (Verified 03/28/22 15:28) clavulanic acid [From Augmentin] Allergy (Verified 03/28/22 15:28) codeine Allergy (Verified 03/28/22 15:28) Home Medications: Duloxetine HCl 30 mg [Cymbalta 30 MG Capsule] 30 mg PO DAILY 12/14/18 [History] Levothyroxine Sodium 100 Mcg [Synthroid 100 Mcg] 100 mcg PO DAILY 12/14/18 [History] Tramadol HCl [Ultram] 50 mg PO Q6H 12/14/18 [History] Aripiprazole 10 mg [Abilify 10 MG] 5 mg PO DAILY 01/24/22 [History] Clonidine HCl 0.1 mg [Clonidine 0.1 mg Tablet] 0.1 mg PO BID 01/24/22 [History] Diltiazem HCl [Dilt-Xr] 120 mg PO DAILY 01/24/22 [History] Ezetimibe 10 mg [Zetia 10 MG] 10 mg PO DAILY 01/24/22 [History] Famotidine 20 mg [Pepcid 20 MG] 20 mg PO DAILY 01/24/22 [History] Ferrous Sulfate [Iron] 325 mg PO DAILY 01/24/22 [History] Insulin Detemir [Levemir] 30 unit SQ BID 01/24/22 [History] Insulin Lispro [Humalog] 8 unit SQ DAILY 01/24/22 [History] Insulin Lispro [Humalog] 10 unit SQ LUNCH 01/24/22 [History] PANTOPRAZOLE 40 mg Tablet [Protonix 40MG Tablet] 40 mg PO QAM 01/24/22 [History] Insulin Lispro [Humalog] 10 units SQ DINNER 01/25/22 [History] Carvedilol [Coreg] 25 mg PO BID 01/26/22 [History] HydrALAzine HCL 25 MG TAB [Apresoline 25 MG TABLET] 25 mg PO TID 01/26/22 [History] Solifenacin Succinate 5 mg PO DAILY 01/26/22 [History] Bumetanide 2 mg PO BID 03/28/22 [History] Hx Tetanus, Diphtheria Vaccination/Date Given: Yes Hx Influenza Vaccination/Date Given: Yes (2020) Hx Pneumococcal Vaccination/Date Given: Yes Immunizations Up to Date: Yes Travel Risk - International Travel Have you traveled outside of the country in past 3 weeks: No - Coronavirus Screening Are you exhibiting any of the following symptoms?: Yes Symptoms: Shortness of Breath Close contact with a COVID-19 positive Pt in past 14-21 Days: No - Vaccine Status Have you recieved a Covid-19 vaccination: Yes 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: [employer] - Vaccination Dates Date of 2cond Vaccination (if applicable): 2020 - Review of Systems Constitutional: No Symptoms Eyes: No Symptoms Ears, Nose, & Throat: No Symptoms Respiratory: No Symptoms, Dyspnea, Dyspnea on Exertion (GOFF) Cardiac: No Symptoms Abdominal/Gastrointestinal: No Symptoms Genitourinary Symptoms: No Symptoms Musculoskeletal: No Symptoms Skin: No Symptoms Neurological: No Symptoms Psychological: No Symptoms Endocrine: No Symptoms Hematologic/Lymphatic: No Symptoms Immunological/Allergic: No Symptoms - Past Medical History Pertinent Past Medical History: Yes Neurological History: No Pertinent History ENT History: No Pertinent History Cardiac History: Congestive Heart Failure, High Cholesterol, Hypertension Respiratory History: No Pertinent History Endocrine Medical History: Diabetes Type II, Hypothyroidism Musculoskeletal History: Fractures GI Medical History: GERD History: No Pertinent History Psycho-Social History: No Pertinent History Female Reproductive Disorders: No Pertinent History Other Medical History: left arm and left hand. right and left foot broken - Past Surgical History Past Surgical History: Yes Neuro Surgical History: No Pertinent History Cardiac: Pacemaker Respiratory: No Pertinent History Gastrointestinal: Cholecystectomy Genitourinary: No Pertinent History Musculoskeletal: No Pertinent History Female Surgical History: No Pertinent History Other Surgical History: thyroid removal, left wrist with plate in it - Social History Smoking Status: Never smoker Exposure to second hand smoke: Yes Drug Use: none Patient Lives Alone: No - Nursing Vital Signs Nursing Vital Signs: Initial Vital Signs Temperature 97.5 F 03/28/22 15:29 Pulse Rate 63 03/28/22 15:29 Respiratory Rate 20 03/28/22 15:29 Blood Pressure 134/58 03/28/22 15:29 O2 Sat by Pulse Oximetry 95 03/28/22 15:29 Pain Scale Pain Intensity 0 WNL - Physical Exam General Appearance: no apparent distress Eye Exam: PERRL/EOMI, eyes nml inspection Ears, Nose, Throat Exam: hearing grossly normal, normal ENT inspection, normal pharynx Neck Exam: normal inspection, non-tender, supple, full range of motion, No Brudzinski, No Kernig's, No meningismus, No carotid bruit Respiratory Exam: airway intact, crackles/rales (Rales L base), No respiratory distress Cardiovascular/Chest Exam: normal heart sounds, regular rate/rhythm, No murmur, No gallop/S3 Abdominal/Gastrointestinal Exam: soft, normal bowel sounds, No tenderness Extremity Exam: non-tender, swelling (2+ pre-tibial edema), No calf tenderness Neurologic Exam: alert, oriented x 3, cooperative, 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 tested, normal mood/affect, sensation nml Skin Exam: normal color, warm, dry, No rash Lymphatic Exam: No adenopathy SpO2 Interpretation: normal SpO2: 95 O2 Delivery: Room Air - Course Nursing assessment & vital signs reviewed: Yes EKG Interpreted by Me: RATE (Paced/Rate 61/IVCD) - Radiology Exams Chest X-ray Interpretation: Discussed w/ radiologist (CXR/Pacer/Bibasilar ef fusions/CHF) Ordered Tests: Active Orders 24 hr Category Date Time Status EKG-ER Only STAT Care 03/28/22 15:38 Completed Consistent Carbohydrate Diet 2000 Calorie Diet 03/29/22 Breakfast Active CHEST 1 VIEW (PORTABLE) Stat Exams 03/28/22 15:38 Completed ECHO W/2D AND DOPPLER [US] Routine Exams 03/29/22 08:00 Stop Req BMP AM.LAB Lab 03/29/22 04:00 Ordered CBC AM.LAB Lab 03/29/22 04:00 Ordered CBC W DIFF Stat Lab 03/28/22 15:43 Completed CMP Stat Lab 03/28/22 15:43 Completed NT PRO BNP AM.LAB Lab 03/29/22 04:00 Ordered NT PRO BNP Stat Lab 03/28/22 15:43 Completed PROTIME WITH INR Stat Lab 03/28/22 15:43 Completed PTT Stat Lab 03/28/22 15:43 Completed TROPONIN Q4H Lab 03/28/22 15:43 Completed TROPONIN Q4H Lab 03/28/22 19:30 Completed TROPONIN Q4H Lab 03/28/22 23:45 Ordered Transfer Order Routine Transfer 03/28/22 Completed Medication Summary Generic Name Dose Route Start Last Admin Trade Name Freq PRN Reason Stop Dose Admin Furosemide 40 mg 03/29/22 10:00 Furosemide 40 Mg/4 Ml Vial IV 04/28/22 09:59 BID DIURETIC PEEWEE Insulin Human Lispro 0 unit 03/28/22 18:09 Insulin Lispro 1 Unit SQ 04/27/22 18:08 UD PRN HYPERGLYCEMIA Discontinued Medications Generic Name Dose Route Start Last Admin Trade Name Freq PRN Reason Stop Dose Admin Furosemide 40 mg 03/28/22 18:08 03/28/22 18:17 Furosemide 40 Mg/4 Ml Vial IV 03/28/22 18:09 40 mg STAT ONE Administration Furosemide Confirm 03/28/22 18:16 Furosemide 40 Mg/4 Ml Vial Administered 03/28/22 18:17 Dose 40 mg .ROUTE .STK-MED ONE Lab/Rad Data: Laboratory Result Diagrams 03/28/22 15:43 03/28/22 15:43 Laboratory Results 03/28/22 03/28/22 03/28/22 Range/Units 15:52 15:43 15:43 WBC (4.0-10.5) x10^3/uL RBC (4.1-5.4) x10^6/uL Hgb (12.0-16.0) g/dL Hct (35-47) % MCV (78-100) fL MCH (26-32) pg MCHC (32-36) g/dL RDW (11.5-14.0) % Plt Count (150-450) x10^3/uL MPV (7.5-11.0) fL Gran % (36.0-66.0) % Immature Gran % (Auto) (0.00-0.4) % Nucleat RBC Rel Count (0.00-0.1) % Eos # (Auto) (0-0.5) x10^3/uL Immature Gran # (Auto) (0.00-0.03) x10^3u/L Absolute Lymphs (auto) (1.0-4.6) x10^3/uL Absolute Monos (auto) (0.0-1.3) x10^3/uL Absolute Nucleated RBC (0.00-0.01) x10^3u/L Lymphocytes % (24.0-44.0) % Monocytes % (0.0-12.0) % Eosinophils % (0.00-5.0) % Basophils % (0.0-0.4) % Absolute Granulocytes (1.4-6.9) x10^3/uL Basophils # (0-0.4) x10^3/uL PT 10.5 (9.4-12.5) SECONDS INR 0.99 (0.8-3.0) APTT 27.1 (25.1-36.5) SECONDS Sodium (137-145) mmol/L Potassium (3.5-5.1) mmol/L Chloride (98-107) mmol/L Carbon Dioxide (22-30) mmol/L Anion Gap (5-15) MEQ/L BUN (7-17) mg/dL Creatinine (0.52-1.04) mg/dL Estimated GFR ML/MIN Glucose (74-106) mg/dL Calcium (8.4-10.2) mg/dL Total Bilirubin (0.2-1.3) mg/dL AST (14-36) U/L ALT (0-35) U/L Alkaline Phosphatase (38-126) U/L Troponin I < 0.012 (0.000-0.034) ng/mL NT-Pro-B Natriuret Pep (0-1800) pg/mL Serum Total Protein (6.3-8.2) g/dL Albumin (3.5-5.0) g/dL Influenza Type A Ag NEGATIVE (NEGATIVE) Influenza Type B Ag NEGATIVE (NEGATIVE) RSV (PCR) NEGATIVE (Negative) SARS-CoV-2 (PCR) NEGATIVE (NEGATIVE) 03/28/22 03/28/22 Range/Units 15:43 15:43 WBC 5.7 (4.0-10.5) x10^3/uL RBC 3.48 L (4.1-5.4) x10^6/uL Hgb 10.2 L (12.0-16.0) g/dL Hct 32.0 L (35-47) % MCV 92.0 (78-100) fL MCH 29.3 (26-32) pg MCHC 31.9 L (32-36) g/dL RDW 14.8 H (11.5-14.0) % Plt Count 235 (150-450) x10^3/uL MPV 10.9 (7.5-11.0) fL Gran % 70.8 H (36.0-66.0) % Immature Gran % (Auto) 0.5 H (0.00-0.4) % Nucleat RBC Rel Count 0.0 (0.00-0.1) % Eos # (Auto) 0.14 (0-0.5) x10^3/uL Immature Gran # (Auto) 0.03 (0.00-0.03) x10^3u/L Absolute Lymphs (auto) 1.05 (1.0-4.6) x10^3/uL Absolute Monos (auto) 0.42 (0.0-1.3) x10^3/uL Absolute Nucleated RBC 0.00 (0.00-0.01) x10^3u/L Lymphocytes % 18.3 L (24.0-44.0) % Monocytes % 7.3 (0.0-12.0) % Eosinophils % 2.4 (0.00-5.0) % Basophils % 0.7 (0.0-0.4) % Absolute Granulocytes 4.05 (1.4-6.9) x10^3/uL Basophils # 0.04 (0-0.4) x10^3/uL PT (9.4-12.5) SECONDS INR (0.8-3.0) APTT (25.1-36.5) SECONDS Sodium 138 (137-145) mmol/L Potassium 3.1 L (3.5-5.1) mmol/L Chloride 109 H (98-107) mmol/L Carbon Dioxide 22 (22-30) mmol/L Anion Gap 9.5 (5-15) MEQ/L BUN 41 H (7-17) mg/dL Creatinine 3.40 H (0.52-1.04) mg/dL Estimated GFR 14.0 ML/MIN Glucose 202 H (74-106) mg/dL Calcium 7.9 L (8.4-10.2) mg/dL Total Bilirubin 0.30 (0.2-1.3) mg/dL AST 29 (14-36) U/L ALT 21 (0-35) U/L Alkaline Phosphatase 77 (38-126) U/L Troponin I (0.000-0.034) ng/mL NT-Pro-B Natriuret Pep 7640 H (0-1800) pg/mL Serum Total Protein 5.9 L (6.3-8.2) g/dL Albumin 3.0 L (3.5-5.0) g/dL Influenza Type A Ag (NEGATIVE) Influenza Type B Ag (NEGATIVE) RSV (PCR) (Negative) SARS-CoV-2 (PCR) (NEGATIVE) - Progress Progress Note: 03/28/22 18:12 40mg IV Lasix Admit per Dr. Rios Discussed with : Nasir Will see patient in: hospital (observation) Counseled pt/family regarding: lab results, diagnosis, need for follow-up, rad results - Departure Departure Disposition: Observation Clinical Impression: CHF (congestive heart failure) Condition: Stable Critical Care Time: No
[2022-03-28] MEDS ORDERED: Lasix 40 MG/4 ML IV ONE (18:08)
[2022-03-28] MEDS ORDERED: HUMALOG SQ PRN (18:09)
[2022-03-28] MEDS ORDERED: Lasix 40 MG/4 ML ONE (18:16)
[2022-03-28] MEDS ORDERED: FLUZONE HIGH-DOSE QUAD 2022-23 IM ONE (19:50)
[2022-03-28] MEDS ORDERED: TYLENOL EXTRA STRENGTH 500 MG PO PRN (21:41)
[2022-03-28] MEDS ORDERED: Apresoline 25 MG TABLET PO ONE (22:00)
[2022-03-28] MEDS ORDERED: CLONIDINE 0.1 MG TABLET PO ONE (22:00)
[2022-03-28] MEDS ORDERED: ELIQUIS 2.5 MG TABLET PO ONE (22:00)
[2022-03-28] MEDS ORDERED: Lantus Insulin SQ ONE (22:00)
[2022-03-28] MEDS ORDERED: COREG 12.5 MG PO ONE (22:00)
[2022-03-28] MEDS: ULTRAM 50 MG PO SCH (22:18)
[2022-03-29] MEDS: ULTRAM 50 MG PO SCH ×5 (04:00→23:30)
[2022-03-29 05:26] LABS: Hematocrit 30.3 % (35-47); Hemoglobin 9.6 g/dL (12.0-16.0); Mean Cell Volume 93.5 fL (78-100); Mean Corpuscular Hemoglobin 29.6 pg (26-32); Mean Corpuscular Hgb Concent. 31.7 g/dL (32-36); Mean Platelet Volume 11.3 fL (7.5-11.0); Platelet Count 219 x10^3/uL (150-450); Red Blood Count 3.24 x10^6/uL (4.1-5.4); White Blood Count 6.3 x10^3/uL (4.0-10.5)
[2022-03-29 06:46] LABS: ANION GAP 8.2 MEQ/L (5-15); Calcium 7.8 mg/dL (8.4-10.2); Creatinine 1 3.38 mg/dL (0.52-1.04); EST GLOMERULAR FILTRATION RATE 14.1 ML/MIN
[2022-03-29 06:47] LABS: Potassium 2.9 mmol/L (3.5-5.1)
[2022-03-29] MEDS ORDERED: K-LYTE PO ONE (07:55)
--- NOTE | 2022-03-29 08:01 | PCM.HP ---
History of Present Illness - Chief Complaint Chief Complaint: chf History of Present Illness: is a 77 year old female with a history of chf, a fib, chronic kidney disease and type 2 diabetes. she states she saw an CERTIFIED PEDORTHOTIST in Dr Sosa's office about 6 weeks ago and due to her worsening renal function her lasix has stopped, she has become progressively more swollen in her feet and lower legs and in the last few days more short of breath, trouble lying flat and very short of breath with any exertion. - Review of Systems Constitutional: No Fever, No Chills Respiratory: Short Of Breath Cardiac: Edema Abdominal/Gastrointestinal: No Abdominal Pain, No Nausea, No Vomiting, No Diarrhea Genitourinary Symptoms: No Dysuria Skin: No Rash All Other Systems: Reviewed and Negative Medications & Allergies Home Medications: Home Medication List Duloxetine HCl 30 mg [Cymbalta 30 MG Capsule] 30 mg PO DAILY 12/14/18 [History Confirmed 03/28/22] Levothyroxine Sodium 100 Mcg [Synthroid 100 Mcg] 100 mcg PO DAILY 12/14/18 [History Confirmed 03/28/22] Tramadol HCl [Ultram] 50 mg PO Q6H 12/14/18 [History Confirmed 03/28/22] Aripiprazole 10 mg [Abilify 10 MG] 5 mg PO DAILY 01/24/22 [History Confirmed 03/28/22] Clonidine HCl 0.1 mg [Clonidine 0.1 mg Tablet] 0.1 mg PO BID 01/24/22 [History Confirmed 03/28/22] Diltiazem HCl [Dilt-Xr] 120 mg PO DAILY 01/24/22 [History Confirmed 03/28/22] Ezetimibe 10 mg [Zetia 10 MG] 10 mg PO DAILY 01/24/22 [History Confirmed 03/28/22] Famotidine 20 mg [Pepcid 20 MG] 20 mg PO DAILY 01/24/22 [History Confirmed 03/28/22] Ferrous Sulfate [Iron] 325 mg PO DAILY 01/24/22 [History Confirmed 03/28/22] Insulin Detemir [Levemir] 30 unit SQ BID 01/24/22 [History Confirmed 03/28/22] Insulin Lispro [Humalog] 8 unit SQ DAILY 01/24/22 [History Confirmed 03/28/22] Insulin Lispro [Humalog] 10 unit SQ LUNCH 01/24/22 [History Confirmed 03/28/22] PANTOPRAZOLE 40 mg Tablet [Protonix 40MG Tablet] 40 mg PO QAM 01/24/22 [History Confirmed 03/28/22] Insulin Lispro [Humalog] 10 units SQ DINNER 01/25/22 [History Confirmed 03/28/22] Carvedilol [Coreg] 25 mg PO BID 01/26/22 [History Confirmed 03/28/22] HydrALAzine HCL 25 MG TAB [Apresoline 25 MG TABLET] 25 mg PO TID 01/26/22 [History Confirmed 03/28/22] Solifenacin Succinate 5 mg PO DAILY 01/26/22 [History Confirmed 03/28/22] Apixaban [Eliquis 2.5 mg Tablet] 2.5 mg PO BID #60 tablet 01/28/22 [Rx Confirmed 03/28/22] Bumetanide 2 mg PO BID 03/28/22 [History Confirmed 03/28/22] Allergies/Adverse Reactions: Allergies Allergy/AdvReac Type Severity Reaction Status Date / Time amoxicillin [From Augmentin] Allergy Verified 03/28/22 15:28 clavulanic acid Allergy Verified 03/28/22 15:28 [From Augmentin] codeine Allergy Verified 03/28/22 15:28 - Past Medical History Past Medical History: Yes Neurological History: No Pertinent History ENT History: No Pertinent History Cardiac History: Congestive Heart Failure, High Cholesterol, Hypertension Respiratory History: No Pertinent History Endocrine Medical History: Diabetes Type II, Hypothyroidism Musculoskelatal History: Fractures GI Medical History: GERD History: No Pertinent History Pyscho-Social History: No Pertinent History Reproductive Disorders: No Pertinent History Comment: left arm and left hand. right and left foot broken - Past Surgical History Past Surgical History: Yes Neuro Surgical History: No Pertinent History Cardiac History: Pacemaker Respiratory Surgery: No Pertinent History GI Surgical History: Cholecystectomy Genitourinary Surgical Hx: No Pertinent History Musculskeletal Surgical Hx: No Pertinent History Female Surgical History: No Pertinent History Other Surgical History: thyroid removal, left wrist with plate in it - Social History Smoking Status: Never smoker Exposure to second hand smoke: Yes Alcohol: None Drug Use: none - Physical Exam Vital Signs: Vital Signs - 24 hr Temp Pulse Resp BP Pulse Ox 03/29/22 07:45 97.5 F 61 16 141/65 94 L 03/29/22 03:48 97.1 F 70 18 128/60 95 03/28/22 23:35 97.3 F 64 18 173/71 94 L 03/28/22 21:19 95 03/28/22 19:51 97.3 F 66 16 165/76 95 03/28/22 19:50 95 03/28/22 18:27 60 159/79 96 03/28/22 17:36 60 136/65 95 03/28/22 16:27 60 122/63 94 L 03/28/22 15:29 97.5 F 63 20 134/58 95 General Appearance: no apparent distress Neurologic Exam: alert, oriented x 3 Respiratory Exam: crackles/rales Cardiovascular Exam: regular rate/rhythm, normal heart sounds, normal peripheral pulses Gastrointestinal/Abdomen Exam: soft, normal bowel sounds, No tenderness, No mass Extremity Exam: pedal edema, swelling Skin Exam: normal color, warm, dry, No rash Results - Labs Lab/Micro Results: Lab Results-Last 24 Hours 03/28/22 03/28/22 03/28/22 Range/Units 15:43 15:43 15:43 WBC 5.7 (4.0-10.5) x10^3/uL RBC 3.48 L (4.1-5.4) x10^6/uL Hgb 10.2 L (12.0-16.0) g/dL Hct 32.0 L (35-47) % MCV 92.0 (78-100) fL MCH 29.3 (26-32) pg MCHC 31.9 L (32-36) g/dL RDW 14.8 H (11.5-14.0) % Plt Count 235 (150-450) x10^3/uL MPV 10.9 (7.5-11.0) fL Gran % 70.8 H (36.0-66.0) % Immature Gran % (Auto) 0.5 H (0.00-0.4) % Nucleat RBC Rel Count 0.0 (0.00-0.1) % Eos # (Auto) 0.14 (0-0.5) x10^3/uL Immature Gran # (Auto) 0.03 (0.00-0.03) x10^3u/L Absolute Lymphs (auto) 1.05 (1.0-4.6) x10^3/uL Absolute Monos (auto) 0.42 (0.0-1.3) x10^3/uL Absolute Nucleated RBC 0.00 (0.00-0.01) x10^3u/L Lymphocytes % 18.3 L (24.0-44.0) % Monocytes % 7.3 (0.0-12.0) % Eosinophils % 2.4 (0.00-5.0) % Basophils % 0.7 (0.0-0.4) % Absolute Granulocytes 4.05 (1.4-6.9) x10^3/uL Basophils # 0.04 (0-0.4) x10^3/uL PT 10.5 (9.4-12.5) SECONDS INR 0.99 (0.8-3.0) APTT 27.1 (25.1-36.5) SECONDS Sodium 138 (137-145) mmol/L Potassium 3.1 L (3.5-5.1) mmol/L Chloride 109 H (98-107) mmol/L Carbon Dioxide 22 (22-30) mmol/L Anion Gap 9.5 (5-15) MEQ/L BUN 41 H (7-17) mg/dL Creatinine 3.40 H (0.52-1.04) mg/dL Estimated GFR 14.0 ML/MIN Glucose 202 H (74-106) mg/dL POC Glucometer (74 to 106) mg/dL Calcium 7.9 L (8.4-10.2) mg/dL Total Bilirubin 0.30 (0.2-1.3) mg/dL AST 29 (14-36) U/L ALT 21 (0-35) U/L Alkaline Phosphatase 77 (38-126) U/L Troponin I (0.000-0.034) ng/mL NT-Pro-B Natriuret Pep 7640 H (0-1800) pg/mL Serum Total Protein 5.9 L (6.3-8.2) g/dL Albumin 3.0 L (3.5-5.0) g/dL Influenza Type A Ag (NEGATIVE) Influenza Type B Ag (NEGATIVE) RSV (PCR) (Negative) SARS-CoV-2 (PCR) (NEGATIVE) 03/28/22 03/28/22 03/28/22 Range/Units 15:43 15:52 19:30 WBC (4.0-10.5) x10^3/uL RBC (4.1-5.4) x10^6/uL Hgb (12.0-16.0) g/dL Hct (35-47) % MCV (78-100) fL MCH (26-32) pg MCHC (32-36) g/dL RDW (11.5-14.0) % Plt Count (150-450) x10^3/uL MPV (7.5-11.0) fL Gran % (36.0-66.0) % Immature Gran % (Auto) (0.00-0.4) % Nucleat RBC Rel Count (0.00-0.1) % Eos # (Auto) (0-0.5) x10^3/uL Immature Gran # (Auto) (0.00-0.03) x10^3u/L Absolute Lymphs (auto) (1.0-4.6) x10^3/uL Absolute Monos (auto) (0.0-1.3) x10^3/uL Absolute Nucleated RBC (0.00-0.01) x10^3u/L Lymphocytes % (24.0-44.0) % Monocytes % (0.0-12.0) % Eosinophils % (0.00-5.0) % Basophils % (0.0-0.4) % Absolute Granulocytes (1.4-6.9) x10^3/uL Basophils # (0-0.4) x10^3/uL PT (9.4-12.5) SECONDS INR (0.8-3.0) APTT (25.1-36.5) SECONDS Sodium (137-145) mmol/L Potassium (3.5-5.1) mmol/L Chloride (98-107) mmol/L Carbon Dioxide (22-30) mmol/L Anion Gap (5-15) MEQ/L BUN (7-17) mg/dL Creatinine (0.52-1.04) mg/dL Estimated GFR ML/MIN Glucose (74-106) mg/dL POC Glucometer (74 to 106) mg/dL Calcium (8.4-10.2) mg/dL Total Bilirubin (0.2-1.3) mg/dL AST (14-36) U/L ALT (0-35) U/L Alkaline Phosphatase (38-126) U/L Troponin I < 0.012 < 0.012 (0.000-0.034) ng/mL NT-Pro-B Natriuret Pep (0-1800) pg/mL Serum Total Protein (6.3-8.2) g/dL Albumin (3.5-5.0) g/dL Influenza Type A Ag NEGATIVE (NEGATIVE) Influenza Type B Ag NEGATIVE (NEGATIVE) RSV (PCR) NEGATIVE (Negative) SARS-CoV-2 (PCR) NEGATIVE (NEGATIVE) 03/28/22 03/28/22 03/29/22 Range/Units 21:27 23:30 04:40 WBC 6.3 (4.0-10.5) x10^3/uL RBC 3.24 L (4.1-5.4) x10^6/uL Hgb 9.6 L (12.0-16.0) g/dL Hct 30.3 L (35-47) % MCV 93.5 (78-100) fL MCH 29.6 (26-32) pg MCHC 31.7 L (32-36) g/dL RDW 15.0 H (11.5-14.0) % Plt Count 219 (150-450) x10^3/uL MPV 11.3 H (7.5-11.0) fL Gran % (36.0-66.0) % Immature Gran % (Auto) (0.00-0.4) % Nucleat RBC Rel Count (0.00-0.1) % Eos # (Auto) (0-0.5) x10^3/uL Immature Gran # (Auto) (0.00-0.03) x10^3u/L Absolute Lymphs (auto) (1.0-4.6) x10^3/uL Absolute Monos (auto) (0.0-1.3) x10^3/uL Absolute Nucleated RBC (0.00-0.01) x10^3u/L Lymphocytes % (24.0-44.0) % Monocytes % (0.0-12.0) % Eosinophils % (0.00-5.0) % Basophils % (0.0-0.4) % Absolute Granulocytes (1.4-6.9) x10^3/uL Basophils # (0-0.4) x10^3/uL PT (9.4-12.5) SECONDS INR (0.8-3.0) APTT (25.1-36.5) SECONDS Sodium (137-145) mmol/L Potassium (3.5-5.1) mmol/L Chloride (98-107) mmol/L Carbon Dioxide (22-30) mmol/L Anion Gap (5-15) MEQ/L BUN (7-17) mg/dL Creatinine (0.52-1.04) mg/dL Estimated GFR ML/MIN Glucose (74-106) mg/dL POC Glucometer 238 H (74 to 106) mg/dL Calcium (8.4-10.2) mg/dL Total Bilirubin (0.2-1.3) mg/dL AST (14-36) U/L ALT (0-35) U/L Alkaline Phosphatase (38-126) U/L Troponin I < 0.012 (0.000-0.034) ng/mL NT-Pro-B Natriuret Pep (0-1800) pg/mL Serum Total Protein (6.3-8.2) g/dL Albumin (3.5-5.0) g/dL Influenza Type A Ag (NEGATIVE) Influenza Type B Ag (NEGATIVE) RSV (PCR) (Negative) SARS-CoV-2 (PCR) (NEGATIVE) 03/29/22 03/29/22 Range/Units 04:40 07:02 WBC (4.0-10.5) x10^3/uL RBC (4.1-5.4) x10^6/uL Hgb (12.0-16.0) g/dL Hct (35-47) % MCV (78-100) fL MCH (26-32) pg MCHC (32-36) g/dL RDW (11.5-14.0) % Plt Count (150-450) x10^3/uL MPV (7.5-11.0) fL Gran % (36.0-66.0) % Immature Gran % (Auto) (0.00-0.4) % Nucleat RBC Rel Count (0.00-0.1) % Eos # (Auto) (0-0.5) x10^3/uL Immature Gran # (Auto) (0.00-0.03) x10^3u/L Absolute Lymphs (auto) (1.0-4.6) x10^3/uL Absolute Monos (auto) (0.0-1.3) x10^3/uL Absolute Nucleated RBC (0.00-0.01) x10^3u/L Lymphocytes % (24.0-44.0) % Monocytes % (0.0-12.0) % Eosinophils % (0.00-5.0) % Basophils % (0.0-0.4) % Absolute Granulocytes (1.4-6.9) x10^3/uL Basophils # (0-0.4) x10^3/uL PT (9.4-12.5) SECONDS INR (0.8-3.0) APTT (25.1-36.5) SECONDS Sodium 138 (137-145) mmol/L Potassium 2.9 L* (3.5-5.1) mmol/L Chloride 111 H (98-107) mmol/L Carbon Dioxide 21 L (22-30) mmol/L Anion Gap 8.2 (5-15) MEQ/L BUN 40 H (7-17) mg/dL Creatinine 3.38 H (0.52-1.04) mg/dL Estimated GFR 14.1 ML/MIN Glucose 172 H (74-106) mg/dL POC Glucometer 147 H (74 to 106) mg/dL Calcium 7.8 L (8.4-10.2) mg/dL Total Bilirubin (0.2-1.3) mg/dL AST (14-36) U/L ALT (0-35) U/L Alkaline Phosphatase (38-126) U/L Troponin I (0.000-0.034) ng/mL NT-Pro-B Natriuret Pep 8130 H (0-1800) pg/mL Serum Total Protein (6.3-8.2) g/dL Albumin (3.5-5.0) g/dL Influenza Type A Ag (NEGATIVE) Influenza Type B Ag (NEGATIVE) RSV (PCR) (Negative) SARS-CoV-2 (PCR) (NEGATIVE) - Radiology Impressions Radiology Exams & Impressions: Radiology Procedures Category Date Time Status CHEST 1 VIEW (PORTABLE) Stat Exams 03/28/22 15:38 Completed ECHO W/2D AND DOPPLER [US] Routine Exams 03/29/22 08:00 Ordered Assessment/Plan (1) CHF (congestive heart failure) Current Visit: Yes Status: Acute Assessment & Plan: currently on lasix 40mg IV bid, replacing potassium and checking mag level this am. echo ordered, sees [facility] manager of case management Dr Escobar Code(s): I50.9 - HEART FAILURE, UNSPECIFIED (2) Chronic kidney disease Current Visit: No Status: Acute Assessment & Plan: consult with Dr Sosa, GFR has steadily been decreasing on review down to current GFR of 14 Code(s): N18.9 - CHRONIC KIDNEY DISEASE, UNSPECIFIED (3) Chronic atrial fibrillation Current Visit: No Status: Acute Assessment & Plan: continue eliquis Code(s): I48.20 - CHRONIC ATRIAL FIBRILLATION, UNSPECIFIED (4) Type 2 diabetes mellitus Current Visit: Yes Status: Acute Assessment & Plan: coverage ordered
[2022-03-29] MEDS: Lasix 40 MG/4 ML IV SCH ×2 (11:00→17:02)
[2022-03-29] MEDS: Lantus Insulin SQ SCH ×2 (11:00→21:34)
[2022-03-29] MEDS: ELIQUIS 2.5 MG TABLET PO SCH ×2 (11:09→21:33)
[2022-03-29] MEDS: Abilify 10 MG PO SCH (11:09)
[2022-03-29] MEDS: Pepcid 20 MG PO SCH (11:11)
[2022-03-29] MEDS: SYNTHROID 100 MCG PO SCH (11:11)
[2022-03-29] MEDS: Apresoline 25 MG TABLET PO SCH ×3 (11:11→21:33)
[2022-03-29] MEDS: Cardizem CD PO SCH (11:11)
[2022-03-29] MEDS: Ditropan 5 MG PO SCH ×2 (11:11→21:34)
[2022-03-29] MEDS: Protonix 40MG Tablet PO SCH (11:11)
[2022-03-29] MEDS: CLONIDINE 0.1 MG TABLET PO SCH ×2 (11:12→21:33)
[2022-03-29] MEDS: Cymbalta 30 MG Capsule PO SCH (11:12)
[2022-03-29] MEDS: Klor Con PO SCH ×2 (11:12→21:34)
[2022-03-29] MEDS: COREG 12.5 MG PO SCH ×2 (11:12→21:33)
[2022-03-29] MEDS: HUMALOG SQ PRN (12:56)
--- NOTE | 2022-03-29 14:19 | ECHO ---
Transthoracic echocardiographic examination and color Doppler was done on 03/29/2022. INDICATION: Congestive heart failure. IMPRESSION: 1) NO REGIONAL WALL MOTION ABNORMALITY. ESTIMATED GLOBAL LEFT VENTRICULAR EJECTION FRACTION OF AROUND 60%. 2) MILD MITRAL REGURGITATION. 3) MILD TRICUSPID REGURGITATION. RIGHT VENTRICULAR SYSTOLIC PRESSURE OF 37 MM OF MERCURY. 4) LEFT ATRIAL ENLARGEMENT. 5) LEFT VENTRICULAR HYPERTROPHY. The left ventricle is visualized and demonstrated adequate motion of all the segments. Estimated global left ventricular ejection fraction of around 60%. There is mild left ventricular hypertrophy. The mitral valve is seen and this opens adequately. There is mild mitral regurgitation. Left atrium is enlarged. The aortic valve is trileaflet. It opens adequately. The right side chambers are normal. There is mild tricuspid regurgitation. The right ventricular systolic pressure of 37 mm of Mercury.
[2022-03-29] MEDS ORDERED: MAG-OX 400 PO ONE (16:41)
[2022-03-29] MEDS ORDERED: NON-FORMULARY ITEM (Insulin Detemir [Levemir] 100 UNIT/ML Vial) SQ SCH (22:00)
[2022-03-29] MEDS ORDERED: NON-FORMULARY ITEM (Carvedilol [Coreg] 25 MG Tablet) PO SCH (22:00)
[2022-03-30] MEDS: ULTRAM 50 MG PO SCH ×4 (05:33→23:43)
[2022-03-30 06:15] LABS: Absolute Neutrophil Ct (ANC) 2.73 x10^3/uL (1.4-6.9); Basophil (Absolute #) 0.04 x10^3/uL (0-0.4); Eosinophil (Absolute #) 0.21 x10^3/uL (0-0.5); Hematocrit 32.4 % (35-47); Hemoglobin 10.3 g/dL (12.0-16.0); Lymphocyte (Absolute #) 1.66 x10^3/uL (1.0-4.6); Lymphocytes % 31.9 % (24.0-44.0); Mean Corpuscular Hemoglobin 29.3 pg (26-32); Mean Corpuscular Hgb Concent. 31.8 g/dL (32-36); Mean Platelet Volume 11.1 fL (7.5-11.0); Monocyte (Absolute #) 0.55 x10^3/uL (0.0-1.3); Monocytes % 10.6 % (0.0-12.0); Neutrophil % 52.5 % (36.0-66.0); Platelet Count 283 x10^3/uL (150-450); Red Blood Count 3.52 x10^6/uL (4.1-5.4); Red Cell Distribution Width 15.1 % (11.5-14.0); White Blood Count 5.2 x10^3/uL (4.0-10.5)
[2022-03-30 06:34] LABS: ANION GAP 9.7 MEQ/L (5-15); Calcium 8.3 mg/dL (8.4-10.2); Creatinine 1 3.58 mg/dL (0.52-1.04); EST GLOMERULAR FILTRATION RATE 13.2 ML/MIN; MAGNESIUM 1.6 mg/dL (1.6-2.3); Potassium 3.6 mmol/L (3.5-5.1)
[2022-03-30] MEDS: Cymbalta 30 MG Capsule PO SCH (09:54)
[2022-03-30] MEDS: COREG 12.5 MG PO SCH ×2 (09:54→22:05)
[2022-03-30] MEDS: Protonix 40MG Tablet PO SCH (09:54)
[2022-03-30] MEDS: SYNTHROID 100 MCG PO SCH (09:54)
[2022-03-30] MEDS: Abilify 10 MG PO SCH (09:55)
[2022-03-30] MEDS: ELIQUIS 2.5 MG TABLET PO SCH ×2 (09:55→22:00)
[2022-03-30] MEDS: Apresoline 25 MG TABLET PO SCH ×3 (09:55→21:59)
[2022-03-30] MEDS: Cardizem CD PO SCH (09:55)
[2022-03-30] MEDS: Klor Con PO SCH ×2 (09:56→22:00)
[2022-03-30] MEDS: CLONIDINE 0.1 MG TABLET PO SCH ×2 (09:56→21:59)
[2022-03-30] MEDS: Pepcid 20 MG PO SCH (09:56)
[2022-03-30] MEDS: Ditropan 5 MG PO SCH ×2 (09:56→21:59)
[2022-03-30] MEDS: Lasix 40 MG/4 ML IV SCH ×2 (09:57→18:10)
[2022-03-30] MEDS: Lantus Insulin SQ SCH ×2 (09:58→22:00)
[2022-03-30] MEDS ORDERED: DILTIAZEM HCL 120 MG PO SCH (10:00)
[2022-03-30] MEDS ORDERED: NON-FORMULARY ITEM (Solifenacin Succinate [Solifenacin Succinate] 5 MG Tablet) PO SCH (10:00)
--- NOTE | 2022-03-30 10:56 | PCM.NOTE ---
Date and Time: 03/30/22 1055 Subjective Assessment: doing better - Review of Systems Constitutional: No Fever, No Chills Eyes: No Symptoms Ears, Nose, & Throat: No Symptoms Respiratory: No Cough, No Short Of Breath Cardiac: No Chest Pain, No Edema, No Syncope Abdominal/Gastrointestinal: No Abdominal Pain, No Nausea, No Vomiting, No Diarrhea Genitourinary Symptoms: No Dysuria Musculoskeletal: No Back Pain, No Neck Pain Skin: No Rash Neurological: No Dizziness, No Focal Weakness, No Sensory Changes Psychological: No Symptoms Endocrine: No Symptoms Hematologic/Lymphatic: No Symptoms Immunological/Allergic: No Symptoms Objective Exam General Appearance: no apparent distress, alert Neurologic Exam: alert, oriented x 3, cooperative, normal mood/affect, nml cerebellar function, sensation nml, No motor deficits Skin Exam: normal color, warm, dry Eye Exam: PERRL, EOMI, eyes nml inspection Ears, Nose, Throat Exam: normal ENT inspection, pharynx normal, moist mucous membranes Neck Exam: normal inspection, non-tender, supple, full range of motion Respiratory Exam: normal breath sounds, lungs clear, No respiratory distress Cardiovascular Exam: regular rate/rhythm, normal heart sounds Gastrointestinal/Abdomen Exam: soft, No tenderness, No mass Extremity Exam: normal inspection, normal range of motion Back Exam: normal inspection, normal range of motion, No CVA tenderness, No vertebral tenderness Pelvic Exam: deferred Rectal Exam: deferred OBJECTIVE DATA Vital Signs: Vital Signs - 24 hr Temp Pulse Resp BP Pulse Ox 03/30/22 08:00 97.1 F 64 18 132/61 93 L 03/30/22 04:00 97.1 F 69 20 176/69 98 03/29/22 23:26 97.6 F 75 16 164/22 95 03/29/22 20:38 97.5 F 62 16 141/63 95 03/29/22 14:00 97.7 F 69 17 158/69 92 L 03/29/22 10:59 61 150/68 Pain Assessment - Last Documented Pain Intensity 0 Pain Scale Used 0-10 Pain Scale Intake and Output: Intake & Output 03/27/22 03/28/22 03/29/22 03/30/22 11:59 11:59 11:59 11:59 Intake Total 750 1450 Output Total 1400 1850 Balance -650 -400 Weight 75 kg 75.6 kg Lab Results: Lab Results-Last 24 Hours 03/29/22 03/29/22 03/29/22 Range/Units 12:00 15:42 20:40 WBC (4.0-10.5) x10^3/uL RBC (4.1-5.4) x10^6/uL Hgb (12.0-16.0) g/dL Hct (35-47) % MCV (78-100) fL MCH (26-32) pg MCHC (32-36) g/dL RDW (11.5-14.0) % Plt Count (150-450) x10^3/uL MPV (7.5-11.0) fL Gran % (36.0-66.0) % Immature Gran % (Auto) (0.00-0.4) % Nucleat RBC Rel Count (0.00-0.1) % Eos # (Auto) (0-0.5) x10^3/uL Immature Gran # (Auto) (0.00-0.03) x10^3u/L Absolute Lymphs (auto) (1.0-4.6) x10^3/uL Absolute Monos (auto) (0.0-1.3) x10^3/uL Absolute Nucleated RBC (0.00-0.01) x10^3u/L Lymphocytes % (24.0-44.0) % Monocytes % (0.0-12.0) % Eosinophils % (0.00-5.0) % Basophils % (0.0-0.4) % Absolute Granulocytes (1.4-6.9) x10^3/uL Basophils # (0-0.4) x10^3/uL Sodium (137-145) mmol/L Potassium (3.5-5.1) mmol/L Chloride (98-107) mmol/L Carbon Dioxide (22-30) mmol/L Anion Gap (5-15) MEQ/L BUN (7-17) mg/dL Creatinine (0.52-1.04) mg/dL Estimated GFR ML/MIN Glucose (74-106) mg/dL POC Glucometer 173 H 142 H 189 H (74 to 106) mg/dL Calcium (8.4-10.2) mg/dL Magnesium (1.6-2.3) mg/dL NT-Pro-B Natriuret Pep (0-1800) pg/mL 03/30/22 03/30/22 03/30/22 Range/Units 05:23 05:23 06:41 WBC 5.2 (4.0-10.5) x10^3/uL RBC 3.52 L (4.1-5.4) x10^6/uL Hgb 10.3 L (12.0-16.0) g/dL Hct 32.4 L (35-47) % MCV 92.0 (78-100) fL MCH 29.3 (26-32) pg MCHC 31.8 L (32-36) g/dL RDW 15.1 H (11.5-14.0) % Plt Count 283 (150-450) x10^3/uL MPV 11.1 H (7.5-11.0) fL Gran % 52.5 (36.0-66.0) % Immature Gran % (Auto) 0.2 (0.00-0.4) % Nucleat RBC Rel Count 0.0 (0.00-0.1) % Eos # (Auto) 0.21 (0-0.5) x10^3/uL Immature Gran # (Auto) 0.01 (0.00-0.03) x10^3u/L Absolute Lymphs (auto) 1.66 (1.0-4.6) x10^3/uL Absolute Monos (auto) 0.55 (0.0-1.3) x10^3/uL Absolute Nucleated RBC 0.00 (0.00-0.01) x10^3u/L Lymphocytes % 31.9 (24.0-44.0) % Monocytes % 10.6 (0.0-12.0) % Eosinophils % 4.0 (0.00-5.0) % Basophils % 0.8 (0.0-0.4) % Absolute Granulocytes 2.73 (1.4-6.9) x10^3/uL Basophils # 0.04 (0-0.4) x10^3/uL Sodium 137 (137-145) mmol/L Potassium 3.6 D (3.5-5.1) mmol/L Chloride 108 H (98-107) mmol/L Carbon Dioxide 23 (22-30) mmol/L Anion Gap 9.7 (5-15) MEQ/L BUN 44 H (7-17) mg/dL Creatinine 3.58 H (0.52-1.04) mg/dL Estimated GFR 13.2 ML/MIN Glucose 50 L (74-106) mg/dL POC Glucometer 71 L (74 to 106) mg/dL Calcium 8.3 L (8.4-10.2) mg/dL Magnesium 1.6 (1.6-2.3) mg/dL NT-Pro-B Natriuret Pep 7320 H (0-1800) pg/mL Radiology Exams: Radiology Procedures Category Date Time Status CHEST 1 VIEW (PORTABLE) Stat Exams 03/28/22 15:38 Completed ECHO W/2D AND DOPPLER [US] Routine Exams 03/29/22 10:19 Draft Assessment/Plan (1) CHF (congestive heart failure) Current Visit: Yes Status: Acute Qualifiers: Heart failure type: combined systolic and diastolic Heart failure chronicity: acute on chronic Qualified Code(s): I50.43 - Acute on chronic combined systolic (congestive) and diastolic (congestive) heart failure Assessment & Plan: Chief Complaint Diagnosis chf Allergies Allergy/AdvReac Type Severity Reaction Status Date / Time amoxicillin [From Augmentin] Allergy Verified 03/28/22 15:28 clavulanic acid Allergy Verified 03/28/22 15:28 [From Augmentin] codeine Allergy Verified 03/28/22 15:28 Vital Signs (Last 24 hours) Temp Pulse Resp BP Pulse Ox 03/30/22 08:00 97.1 F 64 18 132/61 93 L 03/30/22 04:00 97.1 F 69 20 176/69 98 03/29/22 23:26 97.6 F 75 16 164/22 95 03/29/22 20:38 97.5 F 62 16 141/63 95 03/29/22 14:00 97.7 F 69 17 158/69 92 L 03/29/22 10:59 61 150/68 Home Medications Medication Instructions Recorded Confirmed Last Taken Type Bumetanide 2 mg PO BID 03/28/22 03/28/22 03/28/22 08:00 History Current Medications Generic Name Dose Route Start Last Admin Trade Name Freq PRN Reason Stop Dose Admin Acetaminophen 500 mg 03/28/22 21:41 03/29/22 15:59 Acetaminophen 500 Mg Tablet PO 04/27/22 21:40 500 mg QID PRN PRN Administration PAIN Apixaban 2.5 mg 03/29/22 11:00 03/30/22 09:55 Apixaban 2.5 Mg Tablet PO 04/28/22 10:59 2.5 mg BID PEEWEE Administration Aripiprazole 5 mg 03/29/22 11:00 03/30/22 09:55 Aripiprazole 10 Mg Tablet PO 04/28/22 10:59 5 mg DAILY PEEWEE Administration Carvedilol 25 mg 03/29/22 11:00 03/30/22 09:54 Carvedilol 12.5 Mg Tablet PO 04/28/22 10:59 25 mg BID PEEWEE Administration Clonidine 0.1 mg 03/29/22 11:00 03/30/22 09:56 Clonidine Hcl 0.1 Mg Tablet PO 04/28/22 10:59 0.1 mg BID PEEWEE Administration Diltiazem HCl 120 mg 03/29/22 11:00 03/30/22 09:55 Diltiazem Hcl Cd 120 Mg Cap.Sr.24h PO 04/28/22 10:59 120 mg DAILY PEEWEE Administration Duloxetine HCl 30 mg 03/29/22 11:00 03/30/22 09:54 Duloxetine Hcl 30 Mg Cap PO 04/28/22 10:59 30 mg DAILY PEEWEE Administration Famotidine 20 mg 03/29/22 11:00 03/30/22 09:56 Famotidine 20 Mg Tablet PO 04/28/22 10:59 20 mg DAILY PEEWEE Administration Furosemide 40 mg 03/29/22 10:00 03/30/22 09:57 Furosemide 40 Mg/4 Ml Vial IV 04/28/22 09:59 40 mg BID DIURETIC PEEWEE Administration Hydralazine HCl 25 mg 03/29/22 11:00 03/30/22 09:55 Hydralazine Hcl 25 Mg Tablet PO 04/28/22 10:59 25 mg TID PEEWEE Administration Insulin Glargine 30 unit 03/29/22 11:00 03/30/22 09:58 Insulin Glargine 1 Unit SQ 04/28/22 10:59 Not Given BID PEEWEE Insulin Human Lispro 0 unit 03/29/22 08:03 03/29/22 12:56 Insulin Lispro 1 Unit SQ 04/28/22 08:02 3 unit UD PRN Administration HYPERGLYCEMIA Levothyroxine Sodium 100 mcg 03/29/22 11:00 03/30/22 09:54 Levothyroxine Sodium 100 Mcg Tablet PO 04/28/22 10:59 100 mcg DAILY PEEWEE Administration Oxybutynin Chloride 5 mg 03/29/22 11:00 03/30/22 09:56 Oxybutynin Chloride 5 Mg Tablet PO 04/28/22 10:59 5 mg BID PEEWEE Administration Pantoprazole Sodium 40 mg 03/29/22 11:00 03/30/22 09:54 Protonix (Pantoprazole) 40 Mg Tablet PO 04/28/22 10:59 40 mg QAM PEEWEE Administration Potassium Chloride 20 meq 03/29/22 10:00 03/30/22 09:56 Potassium Chloride Tab 10 Meq Tab PO 04/28/22 09:59 20 meq BID PEEWEE Administration Tramadol HCl 50 mg 03/29/22 07:30 03/30/22 05:33 Tramadol Hcl 50 Mg Tablet PO 04/27/22 21:59 50 mg Q6HT PEEWEE Administration Discontinued Medications Generic Name Dose Route Start Last Admin Trade Name Freq PRN Reason Stop Dose Admin Apixaban 2.5 mg 03/28/22 22:00 03/28/22 22:18 Apixaban 2.5 Mg Tablet PO 03/28/22 22:01 2.5 mg ONCE ONE Administration Carvedilol 25 mg 03/28/22 22:00 03/28/22 22:17 Carvedilol 12.5 Mg Tablet PO 03/28/22 22:01 25 mg ONCE ONE Administration Clonidine 0.1 mg 03/28/22 22:00 03/28/22 22:17 Clonidine Hcl 0.1 Mg Tablet PO 03/28/22 22:01 0.1 mg ONCE ONE Administration Furosemide 40 mg 03/28/22 18:08 03/28/22 18:17 Furosemide 40 Mg/4 Ml Vial IV 03/28/22 18:09 40 mg STAT ONE Administration Furosemide Confirm 03/28/22 18:16 Furosemide 40 Mg/4 Ml Vial Administered 03/28/22 18:17 Dose 40 mg .ROUTE .STK-MED ONE Hydralazine HCl 25 mg 03/28/22 22:00 03/28/22 22:18 Hydralazine Hcl 25 Mg Tablet PO 03/28/22 22:01 25 mg ONCE ONE Administration Insulin Glargine 30 unit 03/28/22 22:00 03/28/22 22:15 Insulin Glargine 1 Unit SQ 03/28/22 22:01 30 unit ONCE ONE Administration Magnesium Oxide 400 mg 03/29/22 16:41 03/29/22 17:02 Magnesium Oxide 400 Mg Tablet PO 03/29/22 16:42 400 mg ONCE ONE Administration Potassium Bicarbonate 50 meq 03/29/22 07:55 03/29/22 08:11 Potassium Bicarbonate 25 Meq Tab PO 03/29/22 07:56 50 meq STAT ONE Administration Tramadol HCl 50 mg 03/28/22 22:00 03/29/22 04:00 Tramadol Hcl 50 Mg Tablet PO 04/27/22 21:59 Not Given Q6H PEEWEE Intake & Output (Last 24 hours) 03/27/22 03/28/22 03/29/22 03/30/22 11:59 11:59 11:59 11:59 Intake Total 750 1450 Output Total 1400 1850 Balance -650 -400 Weight 75 kg 75.6 kg Laboratory Results (Last 24 hours) 03/30/22 03/30/22 03/30/22 06:41 05:23 05:23 WBC 5.2 RBC 3.52 L Hgb 10.3 L Hct 32.4 L MCV 92.0 MCH 29.3 MCHC 31.8 L RDW 15.1 H Plt Count 283 MPV 11.1 H Gran % 52.5 Immature Gran % (Auto) 0.2 Nucleat RBC Rel Count 0.0 Eos # (Auto) 0.21 Immature Gran # (Auto) 0.01 Absolute Lymphs (auto) 1.66 Absolute Monos (auto) 0.55 Absolute Nucleated RBC 0.00 Lymphocytes % 31.9 Monocytes % 10.6 Eosinophils % 4.0 Basophils % 0.8 Absolute Granulocytes 2.73 Basophils # 0.04 Sodium 137 Potassium 3.6 D Chloride 108 H Carbon Dioxide 23 Anion Gap 9.7 BUN 44 H Creatinine 3.58 H Estimated GFR 13.2 Glucose 50 L POC Glucometer 71 L Calcium 8.3 L Magnesium 1.6 NT-Pro-B Natriuret Pep 7320 H 03/29/22 03/29/22 03/29/22 20:40 15:42 12:00 WBC RBC Hgb Hct MCV MCH MCHC RDW Plt Count MPV Gran % Immature Gran % (Auto) Nucleat RBC Rel Count Eos # (Auto) Immature Gran # (Auto) Absolute Lymphs (auto) Absolute Monos (auto) Absolute Nucleated RBC Lymphocytes % Monocytes % Eosinophils % Basophils % Absolute Granulocytes Basophils # Sodium Potassium Chloride Carbon Dioxide Anion Gap BUN Creatinine Estimated GFR Glucose POC Glucometer 189 H 142 H 173 H Calcium Magnesium NT-Pro-B Natriuret Pep Orders (Last 24 hours) Category Date Time Status ECHO W/2D AND DOPPLER [US] Routine Exams 03/29/22 10:19 Draft BMP AM.LAB Lab 03/30/22 05:23 Completed CBC W DIFF AM.LAB Lab 03/30/22 05:23 Completed MAGNESIUM AM.LAB Lab 03/30/22 05:23 Completed NT PRO BNP AM.LAB Lab 03/30/22 05:23 Completed POCT GLUCOSE Stat Lab 03/29/22 12:00 Completed POCT GLUCOSE Stat Lab 03/29/22 15:42 Completed POCT GLUCOSE Stat Lab 03/29/22 20:40 Completed POCT GLUCOSE Stat Lab 03/30/22 06:41 Completed Apixaban [Eliquis 2.5 mg Tablet] Med 03/29/22 11:00 Active 2.5 mg PO BID Aripiprazole 10 mg [Abilify 10 MG] Med 03/29/22 11:00 Active 5 mg PO DAILY Carvedilol 12.5 mg [Coreg 12.5 mg] Med 03/29/22 11:00 Active 25 mg PO BID Clonidine HCl 0.1 mg [Clonidine 0.1 mg Tablet] Med 03/29/22 11:00 Active 0.1 mg PO BID Diltiazem HCl Cd [Cardizem CD ] Med 03/29/22 11:00 Active 120 mg PO DAILY Duloxetine HCl 30 mg [Cymbalta 30 MG Capsule] Med 03/29/22 11:00 Active 30 mg PO DAILY Famotidine 20 mg [Pepcid 20 MG] Med 03/29/22 11:00 Active 20 mg PO DAILY Furosemide 40 mg/4 ml [Lasix 40 MG/4 ML] Med 03/29/22 10:00 Active 40 mg IV BID DIURETIC HydrALAzine HCL 25 MG TAB [Apresoline 25 MG TABLET Med 03/29/22 11:00 Active *] 25 mg PO TID Insulin Glargine [Lantus Insulin] Med 03/29/22 11:00 Active 30 unit SQ BID Levothyroxine Sodium 100 Mcg [Synthroid 100 Mcg] Med 03/29/22 11:00 Active 100 mcg PO DAILY Magnesium Oxide 400 mg [Mag-Ox 400] Med 03/29/22 16:41 Discontinued 400 mg PO ONCE ONE Oxybutynin Chloride 5 mg [Ditropan 5 MG] Med 03/29/22 11:00 Active 5 mg PO BID PANTOPRAZOLE 40 mg Tablet [Protonix 40MG Tablet] Med 03/29/22 11:00 Active 40 mg PO QAM Potassium Chloride Tab* [Klor Con] Med 03/29/22 10:00 Active 20 meq PO BID Patient Care Notes (Last 24 hours) 03/29/22 16:41 Nursing Note by Hue Collazo PA from Dr Anton's office called to complete nephrology consult. States that Dr Anton stated that pt sounds stable and probably doesn't need transferred at this time but that if pt is still here Friday they will see pt here. new order for mag-ox one time dose given. Initialized on 03/29/22 16:41 - END OF NOTE 03/29/22 12:03 Nursing Note by Hue Collazo Pt not on telemetry. This nurse noticed that telemetry was ordered but that there was no telemetry on pt. Pt does not refuse. pt placed on telemetry and charted on. Initialized on 03/29/22 12:03 - END OF NOTE Code(s): I50.9 - HEART FAILURE, UNSPECIFIED (2) Type 2 diabetes mellitus Current Visit: Yes Status: Chronic Qualifiers: Diabetes mellitus filler leaf cutter long insulin use: with filler leaf cutter long use Diabetes mellitus complication status: with kidney complications Diabetes mellitus complication detail: with nephropathy Qualified Code(s): E11.21 - Type 2 diabetes mellitus with diabetic nephropathy; Z79.4 - [facility] (current) use of insulin (3) Chronic atrial fibrillation Current Visit: Yes Status: Chronic Code(s): I48.20 - CHRONIC ATRIAL FIBRILLATION, UNSPECIFIED (4) Chronic kidney disease Current Visit: Yes Status: Chronic Qualifiers: Chronic kidney disease stage: stage 3 (moderate) Chronic kidney disease stage 3 subtype: stage 3b (GFR 30-44) Qualified Code(s): N18.32 - Chronic kidney disease, stage 3b Code(s): N18.9 - CHRONIC KIDNEY DISEASE, UNSPECIFIED
[2022-03-30] MEDS: HUMALOG SQ PRN (22:00)
[2022-03-31] MEDS: ULTRAM 50 MG PO SCH ×2 (06:13→11:36)
[2022-03-31 08:07] VITALS: BP 140/72
[2022-03-31] MEDS: Klor Con PO SCH (08:41)
[2022-03-31] MEDS: Abilify 10 MG PO SCH (08:41)
[2022-03-31] MEDS: Pepcid 20 MG PO SCH (08:41)
[2022-03-31] MEDS: SYNTHROID 100 MCG PO SCH (08:41)
[2022-03-31] MEDS: Cymbalta 30 MG Capsule PO SCH (08:42)
[2022-03-31] MEDS: Apresoline 25 MG TABLET PO SCH (08:42)
[2022-03-31] MEDS: CLONIDINE 0.1 MG TABLET PO SCH (08:42)
[2022-03-31] MEDS: Ditropan 5 MG PO SCH (08:42)
[2022-03-31] MEDS: Lasix 40 MG/4 ML IV SCH (08:43)
[2022-03-31] MEDS: Cardizem CD PO SCH (08:43)
[2022-03-31] MEDS: ELIQUIS 2.5 MG TABLET PO SCH (08:43)
[2022-03-31] MEDS: COREG 12.5 MG PO SCH (08:43)
[2022-03-31] MEDS: Protonix 40MG Tablet PO SCH (08:43)
[2022-03-31] MEDS: Lantus Insulin SQ SCH (08:43)
[2022-03-31 10:19] LABS: Absolute Neutrophil Ct (ANC) 4.92 x10^3/uL (1.4-6.9); Basophil (Absolute #) 0.06 x10^3/uL (0-0.4); Eosinophil % 2.5 % (0.00-5.0); Eosinophil (Absolute #) 0.17 x10^3/uL (0-0.5); Hematocrit 34.5 % (35-47); Hemoglobin 10.7 g/dL (12.0-16.0); Lymphocyte (Absolute #) 1.04 x10^3/uL (1.0-4.6); Lymphocytes % 15.4 % (24.0-44.0); Mean Cell Volume 94.5 fL (78-100); Mean Corpuscular Hemoglobin 29.3 pg (26-32); Mean Platelet Volume 10.8 fL (7.5-11.0); Monocyte (Absolute #) 0.51 x10^3/uL (0.0-1.3); Monocytes % 7.6 % (0.0-12.0); Platelet Count 243 x10^3/uL (150-450); Red Blood Count 3.65 x10^6/uL (4.1-5.4); Red Cell Distribution Width 14.8 % (11.5-14.0); White Blood Count 6.7 x10^3/uL (4.0-10.5)
[2022-03-31 10:32] LABS: ALBUMIN 3.1 g/dL (3.5-5.0); ANION GAP 10.3 MEQ/L (5-15); BILIRUBIN,TOTAL 0.3 mg/dL (0.2-1.3); Calcium 8.2 mg/dL (8.4-10.2); Creatinine 1 3.54 mg/dL (0.52-1.04); EST GLOMERULAR FILTRATION RATE 13.3 ML/MIN; Potassium 3.9 mmol/L (3.5-5.1)
[2022-03-31 12:53] VITALS: PULSE 80; O2SAT 96
--- NOTE | 2022-03-31 13:10 | PCM.DS ---
Discharge Summary Date of Admission: 03/28/22 19:29 Admitting Physician: CANDACE CHRISTIAN Consults: Consults on Case 03/29/22 07:54 Consult Nephrology ROUTINE Primary Care Provider: JARROD JOSEPH Allergies Allergies amoxicillin [From Augmentin] Allergy (Verified 03/28/22 15:28) clavulanic acid [From Augmentin] Allergy (Verified 03/28/22 15:28) codeine Allergy (Verified 03/28/22 15:28) Hospital Summary - Hospital Course Hospital Course: Chief Complaint Diagnosis chf Allergies Allergy/AdvReac Type Severity Reaction Status Date / Time amoxicillin [From Augmentin] Allergy Verified 03/28/22 15:28 clavulanic acid Allergy Verified 03/28/22 15:28 [From Augmentin] codeine Allergy Verified 03/28/22 15:28 Vital Signs (Last 24 hours) Temp Pulse Resp BP Pulse Ox 03/31/22 12:00 80 18 96 03/31/22 08:00 97 F 85 19 140/72 97 03/31/22 04:00 97.1 F 65 17 126/60 96 03/30/22 23:54 97.5 F 80 20 152/81 95 03/30/22 20:00 97.5 F 75 18 157/69 95 03/30/22 16:00 97.7 F 65 17 151/69 95 Home Medications Medication Instructions Recorded Confirmed Last Taken Type Bumetanide 2 mg PO BID 03/28/22 03/28/22 03/28/22 08:00 History Current Medications Generic Name Dose Route Start Last Admin Trade Name Freq PRN Reason Stop Dose Admin Acetaminophen 500 mg 03/28/22 21:41 03/29/22 15:59 Acetaminophen 500 Mg Tablet PO 04/27/22 21:40 500 mg QID PRN PRN Administration PAIN Apixaban 2.5 mg 03/29/22 11:00 03/31/22 08:43 Apixaban 2.5 Mg Tablet PO 04/28/22 10:59 2.5 mg BID PEEWEE Administration Aripiprazole 5 mg 03/29/22 11:00 03/31/22 08:41 Aripiprazole 10 Mg Tablet PO 04/28/22 10:59 5 mg DAILY PEEWEE Administration Carvedilol 25 mg 03/29/22 11:00 03/31/22 08:43 Carvedilol 12.5 Mg Tablet PO 04/28/22 10:59 25 mg BID PEEWEE Administration Clonidine 0.1 mg 03/29/22 11:00 03/31/22 08:42 Clonidine Hcl 0.1 Mg Tablet PO 04/28/22 10:59 0.1 mg BID PEEWEE Administration Diltiazem HCl 120 mg 03/29/22 11:00 03/31/22 08:43 Diltiazem Hcl Cd 120 Mg Cap.Sr.24h PO 04/28/22 10:59 120 mg DAILY PEEWEE Administration Duloxetine HCl 30 mg 03/29/22 11:00 03/31/22 08:42 Duloxetine Hcl 30 Mg Cap PO 04/28/22 10:59 30 mg DAILY PEEWEE Administration Famotidine 20 mg 03/29/22 11:00 03/31/22 08:41 Famotidine 20 Mg Tablet PO 04/28/22 10:59 20 mg DAILY PEEWEE Administration Furosemide 40 mg 03/29/22 10:00 03/31/22 08:43 Furosemide 40 Mg/4 Ml Vial IV 04/28/22 09:59 40 mg BID DIURETIC PEEWEE Administration Hydralazine HCl 25 mg 03/29/22 11:00 03/31/22 08:42 Hydralazine Hcl 25 Mg Tablet PO 04/28/22 10:59 25 mg TID PEEWEE Administration Insulin Glargine 30 unit 03/29/22 11:00 03/31/22 08:43 Insulin Glargine 1 Unit SQ 04/28/22 10:59 Not Given BID [facility] Insulin Human Lispro 0 unit 03/29/22 08:03 03/30/22 22:00 Insulin Lispro 1 Unit SQ 04/28/22 08:02 3 unit UD PRN Administration HYPERGLYCEMIA Levothyroxine Sodium 100 mcg 03/29/22 11:00 03/31/22 08:41 Levothyroxine Sodium 100 Mcg Tablet PO 04/28/22 10:59 100 mcg DAILY PEEWEE Administration Oxybutynin Chloride 5 mg 03/29/22 11:00 03/31/22 08:42 Oxybutynin Chloride 5 Mg Tablet PO 04/28/22 10:59 5 mg BID PEEWEE Administration Pantoprazole Sodium 40 mg 03/29/22 11:00 03/31/22 08:43 Protonix (Pantoprazole) 40 Mg Tablet PO 04/28/22 10:59 40 mg QAM PEEWEE Administration Potassium Chloride 20 meq 03/29/22 10:00 03/31/22 08:41 Potassium Chloride Tab 10 Meq Tab PO 04/28/22 09:59 20 meq BID PEEWEE Administration Tramadol HCl 50 mg 03/29/22 07:30 03/31/22 11:36 Tramadol Hcl 50 Mg Tablet PO 04/27/22 21:59 50 mg Q6HT PEEWEE Administration Discontinued Medications Generic Name Dose Route Start Last Admin Trade Name Melissa RENEE Reason Stop Dose Admin Apixaban 2.5 mg 03/28/22 22:00 03/28/22 22:18 Apixaban 2.5 Mg Tablet PO 03/28/22 22:01 2.5 mg ONCE ONE Administration Carvedilol 25 mg 03/28/22 22:00 03/28/22 22:17 Carvedilol 12.5 Mg Tablet PO 03/28/22 22:01 25 mg ONCE ONE Administration Clonidine 0.1 mg 03/28/22 22:00 03/28/22 22:17 Clonidine Hcl 0.1 Mg Tablet PO 03/28/22 22:01 0.1 mg ONCE ONE Administration Furosemide 40 mg 03/28/22 18:08 03/28/22 18:17 Furosemide 40 Mg/4 Ml Vial IV 03/28/22 18:09 40 mg STAT ONE Administration Furosemide Confirm 03/28/22 18:16 Furosemide 40 Mg/4 Ml Vial Administered 03/28/22 18:17 Dose 40 mg .ROUTE .STK-MED ONE Hydralazine HCl 25 mg 03/28/22 22:00 03/28/22 22:18 Hydralazine Hcl 25 Mg Tablet PO 03/28/22 22:01 25 mg ONCE ONE Administration Insulin Glargine 30 unit 03/28/22 22:00 03/28/22 22:15 Insulin Glargine 1 Unit SQ 03/28/22 22:01 30 unit ONCE ONE Administration Magnesium Oxide 400 mg 03/29/22 16:41 03/29/22 17:02 Magnesium Oxide 400 Mg Tablet PO 03/29/22 16:42 400 mg ONCE ONE Administration Potassium Bicarbonate 50 meq 03/29/22 07:55 03/29/22 08:11 Potassium Bicarbonate 25 Meq Tab PO 03/29/22 07:56 50 meq STAT ONE Administration Tramadol HCl 50 mg 03/28/22 22:00 03/29/22 04:00 Tramadol Hcl 50 Mg Tablet PO 04/27/22 21:59 Not Given Q6H PEEWEE Intake & Output (Last 24 hours) 03/29/22 03/30/22 03/31/22 04/01/22 11:59 11:59 11:59 11:59 Intake Total 750 1450 1460 Output Total 1400 1850 1600 Balance -650 -400 -140 Weight 75 kg 75.6 kg 74.9 kg Laboratory Results (Last 24 hours) 03/31/22 03/31/22 03/31/22 11:23 10:15 10:15 WBC 6.7 RBC 3.65 L Hgb 10.7 L Hct 34.5 L MCV 94.5 MCH 29.3 MCHC 31.0 L RDW 14.8 H Plt Count 243 MPV 10.8 Gran % 73.0 H Immature Gran % (Auto) 0.6 H Nucleat RBC Rel Count 0.0 Eos # (Auto) 0.17 Immature Gran # (Auto) 0.04 H Absolute Lymphs (auto) 1.04 Absolute Monos (auto) 0.51 Absolute Nucleated RBC 0.00 Lymphocytes % 15.4 L Monocytes % 7.6 Eosinophils % 2.5 Basophils % 0.9 Absolute Granulocytes 4.92 Basophils # 0.06 Sodium 136 L Potassium 3.9 Chloride 105 Carbon Dioxide 25 Anion Gap 10.3 BUN 44 H Creatinine 3.54 H Estimated GFR 13.3 Glucose 171 H POC Glucometer 183 H Calcium 8.2 L Total Bilirubin 0.30 AST 19 ALT 19 Alkaline Phosphatase 86 NT-Pro-B Natriuret Pep 8160 H Serum Total Protein 6.0 L Albumin 3.1 L 03/31/22 03/30/22 03/30/22 07:10 21:20 15:58 WBC RBC Hgb Hct MCV MCH MCHC RDW Plt Count MPV Gran % Immature Gran % (Auto) Nucleat RBC Rel Count Eos # (Auto) Immature Gran # (Auto) Absolute Lymphs (auto) Absolute Monos (auto) Absolute Nucleated RBC Lymphocytes % Monocytes % Eosinophils % Basophils % Absolute Granulocytes Basophils # Sodium Potassium Chloride Carbon Dioxide Anion Gap BUN Creatinine Estimated GFR Glucose POC Glucometer 55 L 192 H 178 H Calcium Total Bilirubin AST ALT Alkaline Phosphatase NT-Pro-B Natriuret Pep Serum Total Protein Albumin Orders (Last 24 hours) Category Date Time Status Discharge Routine Discharge 03/31/22 Ordered Discharge/Telephone Order Routine Discharge 03/31/22 Active BNP [NT PRO BNP] Urgent Lab 03/31/22 10:15 Completed CBC W DIFF Urgent Lab 03/31/22 10:15 Completed CMP Urgent Lab 03/31/22 10:15 Completed POCT GLUCOSE Stat Lab 03/30/22 15:58 Completed POCT GLUCOSE Stat Lab 03/30/22 21:20 Completed POCT GLUCOSE Stat Lab 03/31/22 07:10 Completed POCT GLUCOSE Stat Lab 03/31/22 11:23 Completed - Vitals & Intake/Output Vital Signs: Vital Signs Temperature 97 F 03/31/22 08:00 Pulse Rate 80 03/31/22 12:00 Respiratory Rate 18 03/31/22 12:00 Blood Pressure 140/72 03/31/22 08:00 O2 Sat by Pulse Oximetry 96 03/31/22 12:00 Intake & Output: Intake & Output 03/29/22 03/30/22 03/31/22 04/01/22 11:59 11:59 11:59 11:59 Intake Total 750 1450 1460 Output Total 1400 1850 1600 Balance -650 -400 -140 Weight 75 kg 75.6 kg 74.9 kg - Lab Result Diagrams: 03/31/22 10:15 03/31/22 10:15 Lab Results-Last 24 Hrs: Lab Results-Last 24 Hours 03/30/22 03/30/22 03/31/22 Range/Units 15:58 21:20 07:10 WBC (4.0-10.5) x10^3/uL RBC (4.1-5.4) x10^6/uL Hgb (12.0-16.0) g/dL Hct (35-47) % MCV (78-100) fL MCH (26-32) pg MCHC (32-36) g/dL RDW (11.5-14.0) % Plt Count (150-450) x10^3/uL MPV (7.5-11.0) fL Gran % (36.0-66.0) % Immature Gran % (Auto) (0.00-0.4) % Nucleat RBC Rel Count (0.00-0.1) % Eos # (Auto) (0-0.5) x10^3/uL Immature Gran # (Auto) (0.00-0.03) x10^3u/L Absolute Lymphs (auto) (1.0-4.6) x10^3/uL Absolute Monos (auto) (0.0-1.3) x10^3/uL Absolute Nucleated RBC (0.00-0.01) x10^3u/L Lymphocytes % (24.0-44.0) % Monocytes % (0.0-12.0) % Eosinophils % (0.00-5.0) % Basophils % (0.0-0.4) % Absolute Granulocytes (1.4-6.9) x10^3/uL Basophils # (0-0.4) x10^3/uL Sodium (137-145) mmol/L Potassium (3.5-5.1) mmol/L Chloride (98-107) mmol/L Carbon Dioxide (22-30) mmol/L Anion Gap (5-15) MEQ/L BUN (7-17) mg/dL Creatinine (0.52-1.04) mg/dL Estimated GFR ML/MIN Glucose (74-106) mg/dL POC Glucometer 178 H 192 H 55 L (74 to 106) mg/dL Calcium (8.4-10.2) mg/dL Total Bilirubin (0.2-1.3) mg/dL AST (14-36) U/L ALT (0-35) U/L Alkaline Phosphatase (38-126) U/L NT-Pro-B Natriuret Pep (0-1800) pg/mL Serum Total Protein (6.3-8.2) g/dL Albumin (3.5-5.0) g/dL 03/31/22 03/31/22 03/31/22 Range/Units 10:15 10:15 11:23 WBC 6.7 (4.0-10.5) x10^3/uL RBC 3.65 L (4.1-5.4) x10^6/uL Hgb 10.7 L (12.0-16.0) g/dL Hct 34.5 L (35-47) % MCV 94.5 (78-100) fL MCH 29.3 (26-32) pg MCHC 31.0 L (32-36) g/dL RDW 14.8 H (11.5-14.0) % Plt Count 243 (150-450) x10^3/uL MPV 10.8 (7.5-11.0) fL Gran % 73.0 H (36.0-66.0) % Immature Gran % (Auto) 0.6 H (0.00-0.4) % Nucleat RBC Rel Count 0.0 (0.00-0.1) % Eos # (Auto) 0.17 (0-0.5) x10^3/uL Immature Gran # (Auto) 0.04 H (0.00-0.03) x10^3u/L Absolute Lymphs (auto) 1.04 (1.0-4.6) x10^3/uL Absolute Monos (auto) 0.51 (0.0-1.3) x10^3/uL Absolute Nucleated RBC 0.00 (0.00-0.01) x10^3u/L Lymphocytes % 15.4 L (24.0-44.0) % Monocytes % 7.6 (0.0-12.0) % Eosinophils % 2.5 (0.00-5.0) % Basophils % 0.9 (0.0-0.4) % Absolute Granulocytes 4.92 (1.4-6.9) x10^3/uL Basophils # 0.06 (0-0.4) x10^3/uL Sodium 136 L (137-145) mmol/L Potassium 3.9 (3.5-5.1) mmol/L Chloride 105 (98-107) mmol/L Carbon Dioxide 25 (22-30) mmol/L Anion Gap 10.3 (5-15) MEQ/L BUN 44 H (7-17) mg/dL Creatinine 3.54 H (0.52-1.04) mg/dL Estimated GFR 13.3 ML/MIN Glucose 171 H (74-106) mg/dL POC Glucometer 183 H (74 to 106) mg/dL Calcium 8.2 L (8.4-10.2) mg/dL Total Bilirubin 0.30 (0.2-1.3) mg/dL AST 19 (14-36) U/L ALT 19 (0-35) U/L Alkaline Phosphatase 86 (38-126) U/L NT-Pro-B Natriuret Pep 8160 H (0-1800) pg/mL Serum Total Protein 6.0 L (6.3-8.2) g/dL Albumin 3.1 L (3.5-5.0) g/dL Micro Results-Entire Visit: Accuchecks Date 03/31/22 Date 03/31/22 - Procedures and Test Procedures and Tests throughout Hospitalization: Therapy Orders & Screens 03/28/22 18:09 Oxygen NASAL CANNULA 2 lpm Comment: Diagnosis: CHF Discharge Exam General Appearance: no apparent distress, alert Neurologic Exam: alert, oriented x 3, cooperative, normal mood/affect, nml cerebellar function, sensation nml, No motor deficits Eye Exam: PERRL, EOMI, eyes nml inspection Ears, Nose, Throat Exam: normal ENT inspection, pharynx normal, moist mucous membranes Neck Exam: normal inspection, non-tender, supple, full range of motion Respiratory Exam: normal breath sounds, lungs clear, No respiratory distress Cardiovascular Exam: regular rate/rhythm, normal heart sounds Gastrointestinal/Abdomen Exam: soft, No tenderness, No mass Pelvic Exam: deferred Rectal Exam: deferred Back Exam: normal inspection, normal range of motion, No CVA tenderness, No vertebral tenderness Extremity Exam: normal inspection, normal range of motion Skin Exam: normal color, warm, dry Final Diagnosis/Problem List - Final Discharge Diagnosis/Problem (1) CHF (congestive heart failure) Current Visit: Yes Status: Resolved Code(s): I50.9 - HEART FAILURE, UNSPECIFIED (2) Type 2 diabetes mellitus Current Visit: Yes Status: Chronic (3) Chronic atrial fibrillation Current Visit: Yes Status: Chronic Code(s): I48.20 - CHRONIC ATRIAL FIBRILLATION, UNSPECIFIED (4) Chronic kidney disease Current Visit: Yes Status: Chronic Code(s): N18.9 - CHRONIC KIDNEY DISEASE, UNSPECIFIED - Discharge Discharge Date: 03/31/22 Disposition: Home, Self-Care Condition: Stable Prescriptions: No Action Levothyroxine Sodium 100 Mcg [Synthroid 100 Mcg] 100 mcg PO DAILY Tramadol HCl [Ultram] 50 mg PO Q6H Duloxetine HCl 30 mg [Cymbalta 30 MG Capsule] 30 mg PO DAILY Famotidine 20 mg [Pepcid 20 MG] 20 mg PO DAILY Ezetimibe 10 mg [Zetia 10 MG] 10 mg PO DAILY Diltiazem HCl [Dilt-Xr] 120 mg PO DAILY Clonidine HCl 0.1 mg [Clonidine 0.1 mg Tablet] 0.1 mg PO BID Insulin Lispro [Humalog] 8 unit SQ DAILY Insulin Detemir [Levemir] 30 unit SQ BID Ferrous Sulfate [Iron] 325 mg PO DAILY PANTOPRAZOLE 40 mg Tablet [Protonix 40MG Tablet] 40 mg PO QAM Aripiprazole 10 mg [Abilify 10 MG] 5 mg PO DAILY Insulin Lispro [Humalog] 10 unit SQ LUNCH Insulin Lispro [Humalog] 10 units SQ DINNER HydrALAzine HCL 25 MG TAB [Apresoline 25 MG TABLET] 25 mg PO TID Solifenacin Succinate 5 mg PO DAILY Carvedilol [Coreg] 25 mg PO BID Apixaban [Eliquis 2.5 mg Tablet] 2.5 mg PO BID #60 tablet Bumetanide 2 mg PO BID Instructions: Heart Failure, Adult (DC) Follow up with: JARROD JOSEPH MD [Primary Care Provider] - Call for Appointment (1 week )
== END 2022-03-31 13:26 | disposition home or self-care (01) ==
LOC: ED 15:23 → MED SURG 19:29
PROVIDERS: ADMIT Family Medicine; ATTEND Family Medicine
DX: I50.9 Heart failure, unspecified (principal); E11.22 Type 2 diabetes mellitus with diabetic chronic kidney disease; I48.20 Chronic atrial fibrillation, unspecified; N18.32 Chronic kidney disease, stage 3b; R06.02 Shortness of breath; Z79.899 Other long term (current) drug therapy; Z79.01 Long term (current) use of anticoagulants; Z20.828 Contact with and (suspected) exposure to other viral communicable diseases; Z23 Encounter for immunization
CPT/HCPCS: 0241U; 36415; 71045; 80048; 80053; 82947; 83735; 83880; 84484; 85025; 85027; 85610; 85730; 93005; 93268; 93306; 94760; 96374; 99285; G0008; G0378; 90662; J1817; J1940; A9270-GY

== ENCOUNTER 2022-06-22 14:52 | Emergency (ER) | payer MEDICARE ==
[2022-06-22] MEDS ORDERED: APRESOLINE 20 MG/ML INJ IV ONE (15:30)
[2022-06-22] MEDS ORDERED: APRESOLINE 20 MG/ML INJ ONE (15:32)
--- NOTE | 2022-06-22 15:34 | ERPHSYRPT ---
- History of Present Illness Time Seen by Provider: 06/22/22 14:56 Source: patient, family Exam Limitations: no limitations Patient Subjective Stated Complaint: Pt had dialysis yesteday and she has been fighting with her blood pressure increasing ever since, states that at one point is was 300/200 something and upon arrival at the ER it was 197/125 Triage Nursing Assessment: Pt brought to the ER by her granddaughter, hypertensive, denies pain, appears exhausted, reports that it is hard to breath and like she is short of breath but her oxygen is 99%, pulses normal, skin n/w/d, no edema noted, pt only began dialysis a couple of months ago Physician History: 77 years old female with history of hypertension, hyperlipidemia, diabetes mellitus, ESRD on dialysis 3 times a week, reactive fibrillation on Eliquis, ICD implant presented in the ER with elevated blood pressure since yesterday. Patient reports usually her blood pressure is around 160 but since yesterday it is not 200s and no improvement despite taking an extra dose of hydralazine 50 mg earlier. Patient usually has low blood pressure on the day after her dialysis is done but this was not the case this time. She feels weak fatigued tired every time after dialysis but gets better the next day but she still feels weak fatigued and tired. Denies any chest pain palpitations no shortness of breath. No abdominal pain nausea or vomiting. Timing/Duration: yesterday, gradual onset, worse Severity: moderate, severe Associated Symptoms: weakness, No headaches Allergies/Adverse Reactions: amoxicillin [From Augmentin] Allergy (Verified 06/22/22 15:05) clavulanic acid [From Augmentin] Allergy (Verified 06/22/22 15:05) codeine Allergy (Verified 06/22/22 15:05) Home Medications: Duloxetine HCl 30 mg [Cymbalta 30 MG Capsule] 30 mg PO DAILY 12/14/18 [History] Levothyroxine Sodium 100 Mcg [Synthroid 100 Mcg] 100 mcg PO DAILY 12/14/18 [History] Tramadol HCl [Ultram] 50 mg PO QID 12/14/18 [History] Clonidine HCl 0.1 mg [Clonidine 0.1 mg Tablet] 0.2 mg PO BID 01/24/22 [History] Diltiazem HCl [Dilt-Xr] 360 mg PO DAILY 01/24/22 [History] Ezetimibe 10 mg [Zetia 10 MG] 10 mg PO DAILY 01/24/22 [History] Famotidine 20 mg [Pepcid 20 MG] 20 mg PO BID 01/24/22 [History] Insulin Detemir [Levemir] 30 unit SQ BID 01/24/22 [History] Insulin Lispro [Humalog] 8 unit SQ DAILY 01/24/22 [History] Insulin Lispro [Humalog] 10 unit SQ LUNCH 01/24/22 [History] PANTOPRAZOLE 40 mg Tablet [Protonix 40MG Tablet] 40 mg PO DAILY 01/24/22 [History] Insulin Lispro [Humalog] 10 units SQ DINNER 01/25/22 [History] Carvedilol [Coreg] 25 mg PO BID 01/26/22 [History] HydrALAzine HCL 25 MG TAB [Apresoline 25 MG TABLET] 25 mg PO TID 01/26/22 [History] Bumetanide 2 mg PO BID 03/28/22 [History] Apixaban [Eliquis 2.5 mg Tablet] 5 mg PO BID 06/22/22 [History] Hydralazine HCl 50 mg PO TID 06/22/22 [History] Icosapent Ethyl [Vascepa] 2 gm PO BID 06/22/22 [History] Magnesium Oxide 400 mg PO DAILY 06/22/22 [History] Hx Tetanus, Diphtheria Vaccination/Date Given: Yes Hx Influenza Vaccination/Date Given: Yes (2020) Hx Pneumococcal Vaccination/Date Given: Yes Travel Risk - International Travel Have you traveled outside of the country in past 3 weeks: No - Coronavirus Screening Are you exhibiting any of the following symptoms?: Yes Symptoms: Shortness of Breath - Vaccine Status Have you recieved a Covid-19 vaccination: Yes [employer] 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: [employer] - Vaccination Dates Date of 2cond Vaccination (if applicable): 2020 - Review of Systems Constitutional: Fatigue, Weakness Eyes: No Symptoms Ears, Nose, & Throat: No Symptoms Respiratory: No Symptoms Cardiac: No Symptoms Abdominal/Gastrointestinal: No Symptoms Genitourinary Symptoms: No Symptoms Musculoskeletal: Arthralgias Skin: No Symptoms Neurological: No Symptoms Psychological: No Symptoms Hematologic/Lymphatic: No Symptoms Immunological/Allergic: No Symptoms - Past Medical History Pertinent Past Medical History: Yes Neurological History: No Pertinent History ENT History: No Pertinent History Cardiac History: Congestive Heart Failure, High Cholesterol, Hypertension Respiratory History: No Pertinent History Endocrine Medical History: Diabetes Type II, Hypothyroidism Musculoskeletal History: Fractures GI Medical History: GERD History: No Pertinent History Psycho-Social History: No Pertinent History Female Reproductive Disorders: No Pertinent History Other Medical History: left arm and left hand. right and left foot broken - Past Surgical History Past Surgical History: Yes Neuro Surgical History: No Pertinent History Cardiac: Pacemaker Respiratory: No Pertinent History Gastrointestinal: Cholecystectomy Genitourinary: No Pertinent History Musculoskeletal: No Pertinent History Female Surgical History: No Pertinent History Other Surgical History: thyroid removal, left wrist with plate in it - Social History Smoking Status: Never smoker Exposure to second hand smoke: Yes Drug Use: none Patient Lives Alone: No - Nursing Vital Signs Nursing Vital Signs: Initial Vital Signs Temperature 98.4 F 06/22/22 14:54 Pulse Rate 97 H 06/22/22 14:54 Respiratory Rate 26 H 06/22/22 14:54 Blood Pressure 197/125 06/22/22 14:54 O2 Sat by Pulse Oximetry 96 06/22/22 14:54 Pain Scale Pain Intensity 0 - Physical Exam General Appearance: no apparent distress, alert Eye Exam: PERRL/EOMI Ears, Nose, Throat Exam: normal ENT inspection Neck Exam: normal inspection, non-tender, supple, full range of motion Respiratory Exam: normal breath sounds, lungs clear Cardiovascular Exam: normal heart sounds, irregular Gastrointestinal/Abdomen Exam: soft, normal bowel sounds, No tenderness Back Exam: normal inspection, normal range of motion Extremity Exam: normal inspection, normal range of motion, pelvis stable Neurologic Exam: alert, oriented x 3, cooperative Skin Exam: normal color SpO2 Interpretation: normal SpO2: 96 O2 Delivery: Room Air - Course EKG Interpreted by Me: RATE (98), A-fib, NORMAL AXIS, NORMAL INTERVALS, Non- specific ST Changes, Other (Antrolateral T wave inversion, inferior T wave inversions) Ordered Tests: Active Orders 24 hr Category Date Time Status Senior Compensation Consultant STAT Care 06/22/22 15:29 Active EKG-ER Only STAT Care 06/22/22 15:29 Active IV Insertion STAT Care 06/22/22 15:29 Active POCT Glucose Check STAT Care 06/22/22 15:19 Active CHEST 1 VIEW (PORTABLE) Stat Exams 06/22/22 15:29 Taken HEAD WITHOUT CONTRAST [CT] Stat Exams 06/22/22 15:30 Taken BLOOD CULTURE Stat Lab 06/22/22 15:48 Received CBC W DIFF Stat Lab 06/22/22 15:00 Completed CMP Stat Lab 06/22/22 15:00 Completed NT PRO BNP Stat Lab 06/22/22 15:00 Completed POCT GLUCOSE Stat Lab 06/22/22 15:06 Completed TROPONIN Q4H Lab 06/22/22 15:00 Completed TROPONIN Q4H Lab 06/22/22 19:30 Ordered TROPONIN Q4H Lab 06/22/22 23:30 Ordered UA W/RFX UR CULTURE Stat Lab 06/22/22 16:27 Completed Medication Summary Discontinued Medications Generic Name Dose Route Start Last Admin Trade Name Freq PRN Reason Stop Dose Admin Acetaminophen 650 mg 06/22/22 17:35 06/22/22 17:41 Acetaminophen 325 Mg Tablet PO 06/22/22 17:36 650 mg STAT STA Administration Hydralazine HCl 10 mg 06/22/22 15:30 06/22/22 15:33 Hydralazine Hcl 20 Mg/Ml Vial IV 06/22/22 15:31 10 mg STAT ONE Administration Hydralazine HCl Confirm 06/22/22 15:32 Hydralazine Hcl 20 Mg/Ml Vial Administered 06/22/22 15:33 Dose 20 mg .ROUTE .STK-MED ONE Lab/Rad Data: Laboratory Result Diagrams 06/22/22 15:00 06/22/22 15:00 Laboratory Results 06/22/22 06/22/22 06/22/22 Range/Units 16:27 15:06 15:00 WBC (4.0-10.5) x10^3/uL RBC (4.1-5.4) x10^6/uL Hgb (12.0-16.0) g/dL Hct (35-47) % MCV (78-100) fL MCH (26-32) pg MCHC (32-36) g/dL RDW (11.5-14.0) % Plt Count (150-450) x10^3/uL MPV (7.5-11.0) fL Gran % (36.0-66.0) % Immature Gran % (Auto) (0.00-0.4) % Nucleat RBC Rel Count (0.00-0.1) % Eos # (Auto) (0-0.5) x10^3/uL Immature Gran # (Auto) (0.00-0.03) x10^3u/L Absolute Lymphs (auto) (1.0-4.6) x10^3/uL Absolute Monos (auto) (0.0-1.3) x10^3/uL Absolute Nucleated RBC (0.00-0.01) x10^3u/L Lymphocytes % (24.0-44.0) % Monocytes % (0.0-12.0) % Eosinophils % (0.00-5.0) % Basophils % (0.0-0.4) % Absolute Granulocytes (1.4-6.9) x10^3/uL Basophils # (0-0.4) x10^3/uL Sodium (137-145) mmol/L Potassium (3.5-5.1) mmol/L Chloride (98-107) mmol/L Carbon Dioxide (22-30) mmol/L Anion Gap (5-15) MEQ/L BUN (7-17) mg/dL Creatinine (0.52-1.04) mg/dL Estimated GFR ML/MIN Glucose (74-106) mg/dL POC Glucometer 168 H (74 to 106) mg/dL Calcium (8.4-10.2) mg/dL Total Bilirubin (0.2-1.3) mg/dL AST (14-36) U/L ALT (0-35) U/L Alkaline Phosphatase (38-126) U/L Troponin I < 0.012 (0.000-0.034) ng/mL NT-Pro-B Natriuret Pep (0-1800) pg/mL Serum Total Protein (6.3-8.2) g/dL Albumin (3.5-5.0) g/dL Urine Color Yellow (Yellow) Urine Appearance Clear (Clear) Urine pH 7.5 (4.6-8.0) Ur Specific [place] 1.020 (1.005-1.030) Urine Protein >=1000 A (Negative) Urine Glucose (UA) 250 A (Negative) mg/dL Urine Ketones Negative (Negative) Urine Blood Negative (Negative) Urine Nitrite Negative (Negative) Urine Bilirubin Negative (Negative) Urine Urobilinogen 0.2 (0.2) mg/dL Ur Leukocyte Esterase Negative (Negative) U Hyaline Cast (Auto) NONE SEEN (0-2) /LPF Urine Microscopic RBC 0-2 (0-5) /HPF Urine Microscopic WBC 0-2 (0-5) /HPF Ur Epithelial Cells Few (None Seen) /HPF Urine Bacteria Rare A (None Seen) /HPF Urine Culture Reflexed NO (NO) 06/22/22 06/22/22 Range/Units 15:00 15:00 WBC 7.5 (4.0-10.5) x10^3/uL RBC 3.92 L (4.1-5.4) x10^6/uL Hgb 12.0 (12.0-16.0) g/dL Hct 37.8 (35-47) % MCV 96.4 (78-100) fL MCH 30.6 (26-32) pg MCHC 31.7 L (32-36) g/dL RDW 14.6 H (11.5-14.0) % Plt Count 267 (150-450) x10^3/uL MPV 11.4 H (7.5-11.0) fL Gran % 69.9 H (36.0-66.0) % Immature Gran % (Auto) 1.5 H (0.00-0.4) % Nucleat RBC Rel Count 0.0 (0.00-0.1) % Eos # (Auto) 0.18 (0-0.5) x10^3/uL Immature Gran # (Auto) 0.11 H (0.00-0.03) x10^3u/L Absolute Lymphs (auto) 1.27 (1.0-4.6) x10^3/uL Absolute Monos (auto) 0.62 (0.0-1.3) x10^3/uL Absolute Nucleated RBC 0.00 (0.00-0.01) x10^3u/L Lymphocytes % 17.0 L (24.0-44.0) % Monocytes % 8.3 (0.0-12.0) % Eosinophils % 2.4 (0.00-5.0) % Basophils % 0.9 (0.0-0.4) % Absolute Granulocytes 5.21 (1.4-6.9) x10^3/uL Basophils # 0.07 (0-0.4) x10^3/uL Sodium 137 (137-145) mmol/L Potassium 4.1 (3.5-5.1) mmol/L Chloride 104 (98-107) mmol/L Carbon Dioxide 25 (22-30) mmol/L Anion Gap 11.5 (5-15) MEQ/L BUN 33 H (7-17) mg/dL Creatinine 3.43 H (0.52-1.04) mg/dL Estimated GFR 13.8 ML/MIN Glucose 190 H (74-106) mg/dL POC Glucometer (74 to 106) mg/dL Calcium 8.8 (8.4-10.2) mg/dL Total Bilirubin 0.40 (0.2-1.3) mg/dL AST 21 (14-36) U/L ALT 15 (0-35) U/L Alkaline Phosphatase 76 (38-126) U/L Troponin I (0.000-0.034) ng/mL NT-Pro-B Natriuret Pep 19387 H (0-1800) pg/mL Serum Total Protein 6.0 L (6.3-8.2) g/dL Albumin 3.4 L (3.5-5.0) g/dL Urine Color (Yellow) Urine Appearance (Clear) Urine pH (4.6-8.0) Ur Specific [place] (1.005-1.030) Urine Protein (Negative) Urine Glucose (UA) (Negative) mg/dL Urine Ketones (Negative) Urine Blood (Negative) Urine Nitrite (Negative) Urine Bilirubin (Negative) Urine Urobilinogen (0.2) mg/dL Ur Leukocyte Esterase (Negative) U Hyaline Cast (Auto) (0-2) /LPF Urine Microscopic RBC (0-5) /HPF Urine Microscopic WBC (0-5) /HPF Ur Epithelial Cells (None Seen) /HPF Urine Bacteria (None Seen) /HPF Urine Culture Reflexed (NO) - Progress Progress: improved, re-examined Progress Note: 06/22/22 17:39 77 years old female with multiple medical problems including ESRD on dialysis 3 times a week, poorly controlled hypertension, diabetes mellitus, atrial fibrillation on NOACs presented with elevated blood pressure and generalized weakness since yesterday after getting dialysis. Patient denies any focal numbness tingling or weakness but generalized. Denies any chest pain palpitations or shortness of breath. Patient checked her blood pressure at home which usually is low after getting dialysis but since yesterday it was elevated and sometimes in 200s. Per granddaughter patient blood pressure usually is around 160. She has nonfocal neuro exam throughout stay in the ER. Patient is not in any distress. EKG showed atrial fibrillation rate controlled with no ST elevation and negative troponins. Chemistries fairly unremarkable, consistent w ith ESRD. Normal white count, chest x-ray reviewed by me did not reveal any obvious focal consolidation, does have small right-sided effusion, patient is maintaining oxygen saturation around 98% on room air and not in any distress. I have also obtained CT head because of her high blood pressure and being on NOACs but is negative for any acute intracranial pathology. Does have chronic changes. I have given her IV hydralazine 10 mg and blood pressure improved in 150s. She does have mild headache and given Tylenol. Previously granddaughter called nephrology office and was recommended to half the dose of Coreg and hydralazine which patient has not done it and blood pressure is still elevated. I have recommended not to decreasing the dose and monitoring, keeping a log and outpatient follow-up with primary care and nephrology for adjustment in dosage of medication if needed. At this point I do not think patient needs any further work-up and is stable for discharge with outpatient follow-up. Counseled pt/family regarding: lab results, diagnosis, need for follow-up, rad results - Departure Departure Disposition: Home Clinical Impression: Uncontrolled hypertension, Generalized weakness Condition: Stable Critical Care Time: No Referrals: JARROD JOSEPH MD [Primary Care Provider] - Follow up/PCP as directed (In 2 days for reevaluation) Instructions: Malignant Hypertension (DC) Additional Instructions: Take Tylenol as needed for headache. Monitor your blood pressure regularly, keep a log and follow-up with primary care/nephrology for reevaluation. Return to ER for uncontrolled hypertension, headache, blurry vision, chest pain, palpitations, shortness of breath etc. continue with your current medications as recommended.
[2022-06-22 15:37] LABS: Absolute Neutrophil Ct (ANC) 5.21 x10^3/uL (1.4-6.9); BASOPHIL % 0.9 % (0.0-0.4); Basophil (Absolute #) 0.07 x10^3/uL (0-0.4); Eosinophil % 2.4 % (0.00-5.0); Eosinophil (Absolute #) 0.18 x10^3/uL (0-0.5); Hematocrit 37.8 % (35-47); IMMATURE GRAN # 0.11 x10^3u/L (0.00-0.03); IMMATURE GRAN % 1.5 % (0.00-0.4); Lymphocyte (Absolute #) 1.27 x10^3/uL (1.0-4.6); Mean Cell Volume 96.4 fL (78-100); Mean Corpuscular Hemoglobin 30.6 pg (26-32); Mean Corpuscular Hgb Concent. 31.7 g/dL (32-36); Mean Platelet Volume 11.4 fL (7.5-11.0); Monocyte (Absolute #) 0.62 x10^3/uL (0.0-1.3); Monocytes % 8.3 % (0.0-12.0); Neutrophil % 69.9 % (36.0-66.0); Platelet Count 267 x10^3/uL (150-450); Red Blood Count 3.92 x10^6/uL (4.1-5.4); Red Cell Distribution Width 14.6 % (11.5-14.0); White Blood Count 7.5 x10^3/uL (4.0-10.5)
[2022-06-22 15:56] LABS: ALBUMIN 3.4 g/dL (3.5-5.0); ANION GAP 11.5 MEQ/L (5-15); BILIRUBIN,TOTAL 0.4 mg/dL (0.2-1.3); Calcium 8.8 mg/dL (8.4-10.2); Creatinine 1 3.43 mg/dL (0.52-1.04); EST GLOMERULAR FILTRATION RATE 13.8 ML/MIN; Potassium 4.1 mmol/L (3.5-5.1)
[2022-06-22 16:48] LABS: Appearance Clear (Clear); Bacteria Rare /HPF (None Seen); Bilirubin Negative (Negative); Blood Negative (Negative); Epithelial Cells Few /HPF (None Seen); Glucose, Urine 250 mg/dL (Negative); Hyaline Casts NONE SEEN /LPF (0-2); Ketones Negative (Negative); Leukocyte Esterase Negative (Negative); Nitrite Negative (Negative); Ph 7.5 (4.6-8.0); Protein,Urine Dip >=1000 (Negative); RBC 0-2 /HPF (0-5); Urobilinogen 0.2 mg/dL (0.2); WBC 0-2 /HPF (0-5)
[2022-06-22 16:49] LABS: ADD URINE CULTURE? NO (NO)
[2022-06-22] MEDS ORDERED: TYLENOL 325 MG PO STA (17:35)
[2022-06-22] MEDS ORDERED: TYLENOL 325 MG ONE (17:41)
[2022-06-22 17:43] VITALS: O2SAT 96
[2022-06-22 17:46] VITALS: BP 159/74; PULSE 89
--- NOTE | 2022-06-22 19:46 | XRAY ---
Indication: Hypertension. Multiple contiguous axial images obtained through the head without contrast. Comparison: December 14, 2018 Again age-appropriate global atrophy with progressive worsening moderate periventricular degenerative micro-ischemia bilaterally. No acute intracranial hemorrhage, abnormal extra-axial fluid collection, or mass effect. Fourth ventricle is midline without hydrocephalus. Bony calvarium intact. Tiny fluid leveling right maxillary sinus. Remaining visualized paranasal sinuses and mastoid air cells are clear. Impression: Nonacute senile brain. Tiny fluid leveling right maxillary sinus. Comment: Preliminary interpretation made by [facility]. No critical discrepancy.
--- NOTE | 2022-06-22 19:47 | XRAY ---
Indication: Hypertension. Comparison: March 28, 2022 Portable chest again demonstrates mild right base pleural effusion/thickening less than before. Left lung now clear. Heart borderline enlarged again with left pacemaker. New right dialysis catheter without complications. Bony thorax intact again with osteopenia and degenerative changes.
== END 2022-06-22 17:59 | disposition home or self-care (01) ==
LOC: ED 14:52
DX: I13.2 Hypertensive heart and chronic kidney disease with heart failure and with stage 5 chronic kidney disease, or end stage renal disease (principal); R53.1 Weakness; E11.22 Type 2 diabetes mellitus with diabetic chronic kidney disease; N18.6 End stage renal disease; E78.5 Hyperlipidemia, unspecified; Z79.4 Long term (current) use of insulin; Z79.01 Long term (current) use of anticoagulants; Z79.899 Other long term (current) drug therapy
CPT/HCPCS: 36000; 36415; 70450; 71045; 80053; 81001; 82947; 83880; 84484; 85025; 87040; 93005; 93041; 96374; 99284; J0360; A9270-GY

== ENCOUNTER 2022-09-14 16:59 | Emergency (ER) | payer MEDICARE ==
[2022-09-14 17:51] VITALS: BP 158/79
--- NOTE | 2022-09-14 18:16 | ERPHSYRPT ---
- History of Present Illness Time Seen by Provider: 09/14/22 18:13 Source: patient Exam Limitations: no limitations Patient Subjective Stated Complaint: constipation for 2 weeks Triage Nursing Assessment: Pt brought to the ER by her daughter, hypertensive, rates pain as 9/10, abdomen is hard and pt states that it is sore, states that they are unable to get an enema inserted due to stool being impacted at the rectum, pt states that it hurts to sit down as well and that she has not had any bowel movement [id number] in 2 weeks, bowel sounds heard in all 4 quadrants, has been taking laxatives daily Physician History: constipation for 2 weeks pt states that it is sore, states that they are unable to get an enema inserted due to stool being impacted at the rectum, pt states that it hurts to sit down as well and that she has not had any bowel movement [id number] in 2 weeks, Timing/Duration: week(s) (Two weeks) Severity: moderate Associated Symptoms: denies symptoms Allergies/Adverse Reactions: amoxicillin [From Augmentin] Allergy (Verified 09/14/22 17:52) clavulanic acid [From Augmentin] Allergy (Verified 09/14/22 17:52) codeine Allergy (Verified 09/14/22 17:52) Home Medications: Duloxetine HCl 30 mg [Cymbalta 30 MG Capsule] 30 mg PO DAILY 12/14/18 [History] Levothyroxine Sodium 100 Mcg [Synthroid 100 Mcg] 100 mcg PO DAILY 12/14/18 [History] Tramadol HCl [Ultram] 50 mg PO QID 12/14/18 [History] Clonidine HCl 0.1 mg [Clonidine 0.1 mg Tablet] 0.2 mg PO BID 01/24/22 [History] Diltiazem HCl [Dilt-Xr] 360 mg PO DAILY 01/24/22 [History] Ezetimibe 10 mg [Zetia 10 MG] 10 mg PO DAILY 01/24/22 [History] Famotidine 20 mg [Pepcid 20 MG] 20 mg PO BID 01/24/22 [History] Insulin Detemir [Levemir] 30 unit SQ BID 01/24/22 [History] Insulin Lispro [Humalog] 8 unit SQ DAILY 01/24/22 [History] Insulin Lispro [Humalog] 10 unit SQ LUNCH 01/24/22 [History] PANTOPRAZOLE 40 mg Tablet [Protonix 40MG Tablet] 40 mg PO DAILY 01/24/22 [History] Insulin Lispro [Humalog] 10 units SQ DINNER 01/25/22 [History] Carvedilol [Coreg] 25 mg PO BID 01/26/22 [History] HydrALAzine HCL 25 MG TAB [Apresoline 25 MG TABLET] 25 mg PO TID 01/26/22 [History] Bumetanide 2 mg PO BID 03/28/22 [History] Apixaban [Eliquis 2.5 mg Tablet] 5 mg PO BID 06/22/22 [History] Hydralazine HCl 50 mg PO TID 06/22/22 [History] Icosapent Ethyl [Vascepa] 2 gm PO BID 06/22/22 [History] Magnesium Oxide 400 mg PO DAILY 06/22/22 [History] Hx Tetanus, Diphtheria Vaccination/Date Given: Yes Hx Influenza Vaccination/Date Given: Yes (2020) Hx Pneumococcal Vaccination/Date Given: Yes Travel Risk - International Travel Have you traveled outside of the country in past 3 weeks: No - Coronavirus Screening Are you exhibiting any of the following symptoms?: No Close contact with a COVID-19 positive Pt in past 14-21 Days: No - Vaccine Status Have you recieved a Covid-19 vaccination: Yes [employer]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[employer] - Vaccination Dates Date of 2cond Vaccination (if applicable): 2020 - Review of Systems Constitutional: No Symptoms Eyes: No Symptoms Ears, Nose, & Throat: No Symptoms Respiratory: No Symptoms Cardiac: No Symptoms Abdominal/Gastrointestinal: Constipation Genitourinary Symptoms: No Symptoms Musculoskeletal: No Symptoms Skin: No Symptoms Neurological: No Symptoms Psychological: No Symptoms Endocrine: No Symptoms Hematologic/Lymphatic: No Symptoms Immunological/Allergic: No Symptoms - Past Medical History Pertinent Past Medical History: Yes Neurological History: No Pertinent History ENT History: No Pertinent History Cardiac History: Congestive Heart Failure, High Cholesterol, Hypertension Respiratory History: No Pertinent History Endocrine Medical History: Diabetes Type II, Hypothyroidism Musculoskeletal History: Fractures GI Medical History: GERD History: No Pertinent History Psycho-Social History: No Pertinent History Female Reproductive Disorders: No Pertinent History Other Medical History: left arm and left hand. right and left foot broken - Past Surgical History Past Surgical History: Yes Neuro Surgical History: No Pertinent History Cardiac: Pacemaker Respiratory: No Pertinent History Gastrointestinal: Cholecystectomy Genitourinary: No Pertinent History Musculoskeletal: No Pertinent History Female Surgical History: No Pertinent History Other Surgical History: thyroid removal, left wrist with plate in it - Social History Smoking Status: Never smoker Exposure to second hand smoke: Yes Drug Use: none Patient Lives Alone: No - Nursing Vital Signs Nursing Vital Signs: Initial Vital Signs Temperature 98.0 F 09/14/22 17:40 Pulse Rate 71 09/14/22 17:40 Blood Pressure 158/79 09/14/22 17:40 O2 Sat by Pulse Oximetry 95 09/14/22 17:40 Pain Scale Pain Intensity 9 - Physical Exam General Appearance: no apparent distress, alert Eye Exam: PERRL/EOMI, eyes nml inspection Ears, Nose, Throat Exam: normal ENT inspection, TMs normal, pharynx normal, moist mucous membranes Neck Exam: normal inspection, non-tender, supple, full range of motion Respiratory Exam: normal breath sounds, lungs clear, No respiratory distress Cardiovascular Exam: regular rate/rhythm, normal heart sounds, normal peripheral pulses Gastrointestinal/Abdomen Exam: soft, normal bowel sounds, other (impacted fecal matter in rectum), No tenderness, No distention, No mass, No guarding, No pulsatile mass, No rebound, No hernia Back Exam: normal inspection, normal range of motion, No CVA tenderness, No vertebral tenderness Extremity Exam: normal inspection, normal range of motion, pelvis stable Neurologic Exam: alert, oriented x 3, cooperative, normal mood/affect, nml cerebellar function, nml station & gait, sensation nml, No motor deficits Skin Exam: normal color, warm, dry, No rash Lymphatic Exam: No adenopathy SpO2: 95 - Course Nursing assessment & vital signs reviewed: Yes - Progress Progress: improved - Departure Departure Disposition: Home Clinical Impression: Constipation by delayed colonic transit Condition: Stable Critical Care Time: No Referrals: JARROD JOSEPH MD [Primary Care Provider] - Follow up/PCP as directed Instructions: Constipation, Adult (DC) Additional Instructions: Discharge/Care Plan JAS SINGLETON was seen on 09/14/22 in the Emergency Room. The patient was counseled regarding Diagnosis,Lab results, Imaging studies, need for follow up and when to return to the Emergency Room. Prescriptions given: Discharge Note I have spoken with the patient and/or caregivers. I have explained the patient's condition, diagnosis and treatment plan based on the information available to me at this time. I have answered the patient's and/or caregiver's questions and addressed any concerns. The patient and/or caregivers have as good understanding of the patient's diagnosis, condition and treatment plan as can be expected at this point. The vital signs have been stable. The patient's condition is stable and appropriate for discharge from the emergency department. The patient will pursue further outpatient evaluation with the primary care physician or other designated or consulting physician as outlined in the discharge instructions. The patient and/or caregivers are agreeable to this plan of care and follow-up instructions have been explained in detail. The patient and/or caregivers have received these instruction. The patient/and or caregivers are aware that any significant change in condition or worsening of symptoms should prompt an immediate return to this or the closest emergency department or call 911. JAS SINGLETON JAYCEE was seen on 09/14/22 n the Emergency Room. At that time you were treated for an emergent condition, during your visit Laboratory, Radiology and/or other procedures may have been ordered. It is very important that you follow-up with your Primary Care Physician JARROD JOSEPH within the next 24- 48 hours to review your Emergency Room visit and the final results of testing that was ordered. Some test results such as Urine Cultures, Blood Cultures, and other cultures if ordered will not be finalized for 24-48 hours. If you do not have a Primary Care Provider please call the medical records department at [phone] ext [phone] to obtain a copy of your results or you may sign into our patient portal to obtain these results by visiting us @ [email or web address] and completing the following steps: 1. Click on the Patient Portal link 2. Click the Patient Self Enrollment Link to complete the enrollment form and entering your 3. Once the enrollment form is completed you will receive an email with a temporary ID and password at the email address you provided. 4. Next choose a user name and password. Your user name must be at least 4 characters long and your password must be at least 4 characters long. 5. Choose a security question from the list and provide your answer to the question. If you already have signed into the Health Portal you may access your Health Care Information 23/12 by the following steps: 1. Login to our website @ [email or web address] 2. Enter your original user name and password. FAQS The [facility] Health Portal is an online tool that contains your Lab Results, Radiology Reports, Visit History, Discharge Instructions and Health Summary Lab and Radiology Results will not be available for 72 hours on the portal. The Portal is a secure site, passwords are encryted and URLs are re-written so they cannot be copied and pasted. You and authorized family members are the only ones who can access your Portal. Also there is a timeout feature that protects your information if you leave the Portal page open. If you have technical difficulty please use the Contact Us link on the page this will allow you to submit any questions you have regarding the Portal or you may contact the Medical Record Department at [phone] ext [phone].
[2022-09-14 20:13] VITALS: PULSE 64; O2SAT 96
== END 2022-09-14 20:13 | disposition home or self-care (01) ==
LOC: ED 16:59
DX: K59.01 Slow transit constipation (principal); E78.5 Hyperlipidemia, unspecified; I10 Essential (primary) hypertension; E11.9 Type 2 diabetes mellitus without complications; Z79.4 Long term (current) use of insulin; Z79.01 Long term (current) use of anticoagulants; Z79.899 Other long term (current) drug therapy
CPT/HCPCS: 99282

== ENCOUNTER 2023-02-04 21:06 | Emergency (ER) | payer MEDICARE ==
[2023-02-04 21:42] VITALS: TEMP 98.2
[2023-02-04] MEDS ORDERED: CLONIDINE 0.1 MG TABLET PO ONE (22:32)
[2023-02-04] MEDS ORDERED: CLONIDINE 0.1 MG TABLET ONE (22:34)
--- NOTE | 2023-02-04 22:53 | ERPHSYRPT ---
- History of Present Illness Time Seen by Provider: 02/04/23 22:30 Source: patient Exam Limitations: no limitations Patient Subjective Stated Complaint: pt states her bp has been running high and she has been in afib since friday. today bp has been higher than last few days Triage Nursing Assessment: pt alert and oriented, answers questions approp. pt ambulates into room with steady gait noted. respirations nonlabored. skin warm and dry. heart rate in 90's afib on monitor. pupils equal and reactive. bilat upper and lower ext strength equal and wnl. Physician History: Patient is a 78-year-old female history of diabetes end-stage renal disease on hemodialysis Friday presents to our ED for evaluation of elevated blood pressure. Patient states her blood pressure has been elevated since Friday, 4 days. No pain. No nausea vomiting or diaphoresis. No numbness tingling or weakness. Symptoms are mild to moderate in intensity. No specific worsening improving factors. Patient otherwise feels well. She voices no other complaints or concerns at this time. Patient admits to chronic A-fib. She is on Eliquis. Portions of this note were created with voice recognition technology. There may be grammatical, spelling, punctuation or sound alike errors Timing/Duration: day(s) (4 days) Severity: moderate Modifying Factors: Improves With: nothing Associated Symptoms: denies symptoms Allergies/Adverse Reactions: amoxicillin [From Augmentin] Adverse Reaction (Intermediate, Verified 02/04/23 21:29) clavulanic acid [From Augmentin] Adverse Reaction (Intermediate, Verified 02/04/23 21:29) codeine Adverse Reaction (Intermediate, Verified 02/04/23 21:29) Home Medications: Duloxetine HCl 30 mg [Cymbalta 30 MG Capsule] 30 mg PO DAILY 12/14/18 [History] Levothyroxine Sodium 100 Mcg [Synthroid 100 Mcg] 100 mcg PO DAILY 12/14/18 [History] Tramadol HCl [Ultram] 50 mg PO QID 12/14/18 [History] Clonidine HCl 0.1 mg [Clonidine 0.1 mg Tablet] 0.2 mg PO BID 01/24/22 [History] Diltiazem HCl [Dilt-Xr] 360 mg PO DAILY 01/24/22 [History] Ezetimibe 10 mg [Zetia 10 MG] 10 mg PO DAILY 01/24/22 [History] Famotidine 20 mg [Pepcid 20 MG] 20 mg PO BID 01/24/22 [History] Insulin Detemir [Levemir] 30 unit SQ BID 01/24/22 [History] Insulin Lispro [Humalog] 8 unit SQ DAILY 01/24/22 [History] Insulin Lispro [Humalog] 10 unit SQ LUNCH 01/24/22 [History] PANTOPRAZOLE 40 mg Tablet [Protonix 40MG Tablet] 40 mg PO DAILY 01/24/22 [History] Insulin Lispro [Humalog] 10 units SQ DINNER 01/25/22 [History] HydrALAzine HCL 25 MG TAB [Apresoline 25 MG TABLET] 25 mg PO TID 01/26/22 [History] carvediloL [Coreg] 25 mg PO BID 01/26/22 [History] Bumetanide 2 mg PO BID 03/28/22 [History] Apixaban [Eliquis 2.5 mg Tablet] 5 mg PO BID 06/22/22 [History] Hydralazine HCl 50 mg PO TID 06/22/22 [History] Icosapent Ethyl [Vascepa] 2 gm PO BID 06/22/22 [History] Magnesium Oxide 400 mg PO DAILY 06/22/22 [History] Hx Tetanus, Diphtheria Vaccination/Date Given: Yes Hx Influenza Vaccination/Date Given: No Hx Pneumococcal Vaccination/Date Given: Yes Immunizations Up to Date: Yes Travel Risk - International Travel Have you traveled outside of the country in past 3 weeks: No - Coronavirus Screening Are you exhibiting any of the following symptoms?: No Close contact with a COVID-19 positive Pt in past 14-21 Days: No - Vaccine Status Have you recieved a Covid-19 vaccination: Yes [employer] 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[employer] - Vaccination Dates Date of 2cond Vaccination (if applicable): 2020 - Review of Systems Constitutional: No Symptoms, No Fever, No Chills Eyes: No Symptoms Ears, Nose, & Throat: No Symptoms Respiratory: No Symptoms, No Cough, No Dyspnea Cardiac: No Symptoms, No Chest Pain, No Edema, No Syncope Abdominal/Gastrointestinal: No Symptoms, No Abdominal Pain, No Nausea, No Vomiting, No Diarrhea Genitourinary Symptoms: No Symptoms, No Dysuria Musculoskeletal: No Symptoms, No Back Pain, No Neck Pain Skin: No Symptoms, No Rash Neurological: No Symptoms, No Dizziness, No Focal Weakness, No Sensory Changes Psychological: No Symptoms Endocrine: No Symptoms Hematologic/Lymphatic: No Symptoms Immunological/Allergic: No Symptoms All Other Systems: Reviewed and Negative - Past Medical History Pertinent Past Medical History: Yes Neurological History: No Pertinent History ENT History: No Pertinent History Cardiac History: Arrhythmia, Congestive Heart Failure, High Cholesterol, Hypertension Respiratory History: No Pertinent History Endocrine Medical History: Diabetes Type II, Hypothyroidism Musculoskeletal History: Fractures GI Medical History: GERD History: No Pertinent History Psycho-Social History: No Pertinent History Female Reproductive Disorders: No Pertinent History Other Medical History: left arm and left hand. right and left foot broken - Past Surgical History Past Surgical History: Yes Neuro Surgical History: No Pertinent History Cardiac: Pacemaker Respiratory: No Pertinent History Gastrointestinal: Cholecystectomy Genitourinary: No Pertinent History Musculoskeletal: No Pertinent History Female Surgical History: No Pertinent History Other Surgical History: thyroid removal, left wrist with plate in it - Social History Smoking Status: Never smoker Exposure to second hand smoke: No Drug Use: none Patient Lives Alone: Yes - Nursing Vital Signs Nursing Vital Signs: Initial Vital Signs Temperature 98.2 F 02/04/23 21:30 Pulse Rate 93 H 02/04/23 21:30 Respiratory Rate 16 02/04/23 21:30 Blood Pressure 191/106 02/04/23 21:30 O2 Sat by Pulse Oximetry 97 02/04/23 21:30 Pain Scale Pain Intensity 0 - Physical Exam General Appearance: no apparent distress, alert Eye Exam: PERRL/EOMI, eyes nml inspection Ears, Nose, Throat Exam: normal ENT inspection, TMs normal, pharynx normal, moist mucous membranes Neck Exam: normal inspection, non-tender, supple, full range of motion Respiratory Exam: normal breath sounds, lungs clear, airway intact, No respiratory distress Cardiovascular Exam: regular rate/rhythm, normal heart sounds, normal peripheral pulses Gastrointestinal/Abdomen Exam: soft, normal bowel sounds, No tenderness, No mass Back Exam: normal inspection, normal range of motion, No CVA tenderness, No vertebral tenderness Extremity Exam: normal inspection, normal range of motion, pelvis stable Neurologic Exam: alert, oriented x 3, cooperative, normal mood/affect, nml cerebellar function, nml station & gait, sensation nml, No motor deficits Skin Exam: normal color, warm, dry, No rash Lymphatic Exam: No adenopathy SpO2 Interpretation: normal SpO2: 97 O2 Delivery: Room Air - Course Nursing assessment & vital signs reviewed: Yes EKG Interpreted by Me: RATE (102), A-fib, NORMAL AXIS, NORMAL INTERVALS - CT Exams Head CT Interpretation: Tele-radiologist Report (No evidence of acute intracranial hemorrhage at the present study. Microvascular ischemic changes and senile changes observed. No interval changes.) Ordered Tests: Active Orders 24 hr Category Date Time Status EKG-ER Only STAT Care 02/04/23 22:55 Active HEAD WITHOUT CONTRAST [CT] Stat Exams 02/04/23 23:38 Completed CBC W DIFF Stat Lab 02/04/23 22:57 Completed CMP Stat Lab 02/04/23 22:57 Completed Medication Summary Discontinued Medications Generic Name Dose Route Start Last Admin Trade Name Vladimirq PRN Reason Stop Dose Admin Clonidine 0.2 mg 02/04/23 22:32 02/04/23 22:34 Clonidine Hcl 0.1 Mg Tablet PO 02/04/23 22:33 0.2 mg STAT ONE Administration Clonidine Confirm 02/04/23 22:34 Clonidine Hcl 0.1 Mg Tablet Administered 02/04/23 22:35 Dose 0.2 mg .ROUTE .STK-MED ONE Lab/Rad Data: Laboratory Result Diagrams 02/04/23 22:57 02/04/23 22:57 Laboratory Results 02/04/23 02/04/23 Range/Units 22:57 22:57 WBC 6.3 (4.0-10.5) x10^3/uL RBC 3.87 L (4.1-5.4) x10^6/uL Hgb 11.6 L (12.0-16.0) g/dL Hct 36.9 (35-47) % MCV 95.3 (78-100) fL MCH 30.0 (26-32) pg MCHC 31.4 L (32-36) g/dL RDW 14.1 H (11.5-14.0) % Plt Count 213 (150-450) x10^3/uL MPV 11.8 H (7.5-11.0) fL Gran % 58.6 (36.0-66.0) % Immature Gran % (Auto) 0.8 H (0.00-0.4) % Nucleat RBC Rel Count 0.0 (0.00-0.1) % Eos # (Auto) 0.26 (0-0.5) x10^3/uL Immature Gran # (Auto) 0.05 H (0.00-0.03) x10^3u/L Absolute Lymphs (auto) 1.68 (1.0-4.6) x10^3/uL Absolute Monos (auto) 0.55 (0.0-1.3) x10^3/uL Absolute Nucleated RBC 0.00 (0.00-0.01) x10^3u/L Lymphocytes % 26.5 (24.0-44.0) % Monocytes % 8.7 (0.0-12.0) % Eosinophils % 4.1 (0.00-5.0) % Basophils % 1.3 (0.0-0.4) % Absolute Granulocytes 3.72 (1.4-6.9) x10^3/uL Basophils # 0.08 (0-0.4) x10^3/uL Sodium 136 L (137-145) mmol/L Potassium 4.0 (3.5-5.1) mmol/L Chloride 96 L (98-107) mmol/L Carbon Dioxide 25 (22-30) mmol/L Anion Gap 19.2 H (5-15) MEQ/L BUN 46 H (7-17) mg/dL Creatinine 5.14 H (0.52-1.04) mg/dL Estimated GFR 8.6 ML/MIN Glucose 216 H (74-106) mg/dL Calcium 9.2 (8.4-10.2) mg/dL Total Bilirubin 0.50 (0.2-1.3) mg/dL AST 16 (14-36) U/L ALT 13 (0-35) U/L Alkaline Phosphatase 65 (38-126) U/L Serum Total Protein 7.2 (6.3-8.2) g/dL Albumin 4.4 (3.5-5.0) g/dL - Progress Progress: improved Progress Note: Case discussed with Dr. Tidwell patient's block handler who advised administering 0.2 of clonidine. He felt a formal work-up was not necessary as patient has no other complaints. 02/04/23 22:[address] Other (Desean) Counseled pt/family regarding: diagnosis, need for follow-up - Departure Departure Disposition: Home Clinical Impression: Hypertension Condition: Stable Critical Care Time: No Referrals: JARROD JOSEPH MD [Primary Care Provider] - Follow up/PCP as directed
[2023-02-04 22:59] LABS: Absolute Neutrophil Ct (ANC) 3.72 x10^3/uL (1.4-6.9); BASOPHIL % 1.3 % (0.0-0.4); Basophil (Absolute #) 0.08 x10^3/uL (0-0.4); Eosinophil % 4.1 % (0.00-5.0); Eosinophil (Absolute #) 0.26 x10^3/uL (0-0.5); Hematocrit 36.9 % (35-47); Hemoglobin 11.6 g/dL (12.0-16.0); IMMATURE GRAN # 0.05 x10^3u/L (0.00-0.03); IMMATURE GRAN % 0.8 % (0.00-0.4); Lymphocyte (Absolute #) 1.68 x10^3/uL (1.0-4.6); Lymphocytes % 26.5 % (24.0-44.0); Mean Cell Volume 95.3 fL (78-100); Mean Corpuscular Hgb Concent. 31.4 g/dL (32-36); Mean Platelet Volume 11.8 fL (7.5-11.0); Monocyte (Absolute #) 0.55 x10^3/uL (0.0-1.3); Monocytes % 8.7 % (0.0-12.0); Neutrophil % 58.6 % (36.0-66.0); Platelet Count 213 x10^3/uL (150-450); Red Blood Count 3.87 x10^6/uL (4.1-5.4); Red Cell Distribution Width 14.1 % (11.5-14.0); White Blood Count 6.3 x10^3/uL (4.0-10.5)
[2023-02-04 23:05] LABS: ALBUMIN 4.4 g/dL (3.5-5.0); ANION GAP 19.2 MEQ/L (5-15); BILIRUBIN,TOTAL 0.5 mg/dL (0.2-1.3); Calcium 9.2 mg/dL (8.4-10.2); Creatinine 1 5.14 mg/dL (0.52-1.04); EST GLOMERULAR FILTRATION RATE 8.6 ML/MIN; Total Protein 7.2 g/dL (6.3-8.2)
--- NOTE | 2023-02-05 00:26 | XRAY ---
CLINICAL HISTORY:ICH? COMPARISON:06/22/2022 TECHNIQUE:An axial non-contrast CT scan of the brain was performed from the skull base to the high parietal region. FINDINGS: There are hypodense areas noted in the subcortical and periventricular white matter bilaterally, suggestive of microvascular ischemic changes. The ventricular system, cortical sulci, and basal cisterns are prominent and consistent with senile changes. The visualized brain parenchyma shows a normal appearance. Mccoy-white matter differentiation is maintained. No midline shifts or deformity. No intracerebral or extra axial hematoma. Normal size and configuration of the cerebral ventricles. Normal CT appearance of the posterior fossa structures namely the cerebellar hemispheres, brainstem, and cerebellar peduncles. The IACs are unremarkable. The cerebello-pontine angles are clear. The osseous structures in the skull base are unremarkable. No definite calvarium fractures. The scanned paranasal sinuses show right-sided nasal septal deviation. IMPRESSION: 1. No evidence of acute intracranial hemorrhage at the present study 2. Microvascular ischemic changes and senile changes. 3. No interval changes. Electronically Signed by: Arlyn De La Vega MD. (02/04/2023 23:24:34 CARBURIZING FURNACE OPERATOR)
[2023-02-05 01:09] VITALS: BP 137/79; PULSE 88; RESP 6
[2023-02-05 01:40] VITALS: O2SAT 97
== END 2023-02-05 01:40 | disposition home or self-care (01) ==
LOC: ED 21:06
DX: I13.2 Hypertensive heart and chronic kidney disease with heart failure and with stage 5 chronic kidney disease, or end stage renal disease (principal); E11.22 Type 2 diabetes mellitus with diabetic chronic kidney disease; N18.6 End stage renal disease; I50.9 Heart failure, unspecified; Z99.2 Dependence on renal dialysis; E78.5 Hyperlipidemia, unspecified; Z79.891 Long term (current) use of opiate analgesic; Z79.4 Long term (current) use of insulin; Z79.01 Long term (current) use of anticoagulants; Z79.899 Other long term (current) drug therapy
CPT/HCPCS: 36415; 70450; 80053; 85025; 93005; 99284; A9270-GY

== ENCOUNTER 2023-04-15 12:28 | Emergency (ER) | payer MEDICARE ==
[2023-04-15 12:44] VITALS: TEMP 97.6
[2023-04-15] MEDS ORDERED: Sterile H2O 10 ml IJ ONE (13:11)
[2023-04-15] MEDS ORDERED: solu-MEDROL ONE (13:11)
[2023-04-15] MEDS: solu-MEDROL 125 MG, Sterile H2O 10 ml 2 ML IV ONE ×2 (13:14)
--- NOTE | 2023-04-15 13:14 | XRAY ---
Indication: Cough. Comparison: Generally 2022 Portable chest demonstrates chronic blunting right costophrenic angle. Remaining heart and lungs unremarkable again with left pacemaker. Bony thorax intact again with osteopenia and degenerative changes. No acute findings.
[2023-04-15 13:20] LABS: Absolute Neutrophil Ct (ANC) 2.87 x10^3/uL (1.4-6.9); BASOPHIL % 0.8 % (0.0-0.4); Basophil (Absolute #) 0.04 x10^3/uL (0-0.4); Hematocrit 35.9 % (35-47); Hemoglobin 11.6 g/dL (12.0-16.0); IMMATURE GRAN # 0.03 x10^3u/L (0.00-0.03); IMMATURE GRAN % 0.6 % (0.00-0.4); Lymphocyte (Absolute #) 1.23 x10^3/uL (1.0-4.6); Lymphocytes % 24.5 % (24.0-44.0); Mean Cell Volume 92.1 fL (78-100); Mean Corpuscular Hemoglobin 29.7 pg (26-32); Mean Corpuscular Hgb Concent. 32.3 g/dL (32-36); Monocyte (Absolute #) 0.65 x10^3/uL (0.0-1.3); Monocytes % 12.9 % (0.0-12.0); Neutrophil % 57.2 % (36.0-66.0); Platelet Count 184 x10^3/uL (150-450); Red Cell Distribution Width 14.5 % (11.5-14.0)
[2023-04-15] MEDS ORDERED: DUONEB 0.5-3 MG/3 ml Neb IH ONE (13:26)
[2023-04-15] MEDS: DUONEB 0.5-3 MG/3 ml Neb IH ONE (13:29)
[2023-04-15 13:38] LABS: ALBUMIN 3.9 g/dL (3.5-5.0); BILIRUBIN,TOTAL 0.4 mg/dL (0.2-1.3); Calcium 8.9 mg/dL (8.4-10.2); Creatinine 1 4.71 mg/dL (0.52-1.04); Potassium 4.1 mmol/L (3.5-5.1); Total Protein 6.8 g/dL (6.3-8.2)
--- NOTE | 2023-04-15 13:49 | ERPHSYRPT ---
- History of Present Illness Time Seen by Provider: 04/15/23 12:50 Source: patient Exam Limitations: no limitations Patient Subjective Stated Complaint: cough Triage Nursing Assessment: Patient brought back to ED per w/c and transferred self to bed. Patient A+O X3. Patient's skin pink, warm and dry. Patient complains of cough and sore throat for 5 days. Patient denies pain or discomfort. Lungs clear a/p. Physician History: Patient is a 78-year-old female history of end-stage renal disease on hemodialysis presents to our ED for evaluation and treatment of generalized weakness cough and sore throat. Patient on Eliquis for history of A-fib. Symptoms have been constant over the past 5 days. Patient's last hemodialysis session was yesterday. Patient denies chest pain. no chest pain or shortness of breath. No nausea vomiting or diaphoresis. Symptoms are mild to moderate in intensity. No specific worsening improving factors. Patient voices no other complaints or concerns at this time. Portions of this note were created with voice recognition technology. There may be grammatical, spelling, punctuation or sound alike errors Timing/Duration: day(s) (5 days) Modifying Factors: Improves With: nothing Associated Symptoms: denies symptoms, No nausea, No vomiting, No abdominal pain, No shortness of breath, No diaphoresis, No cough, No chest pain, No fever, No headaches, No seizure, No weakness Allergies/Adverse Reactions: amoxicillin [From Augmentin] Adverse Reaction (Intermediate, Verified 04/15/23 12:36) clavulanic acid [From Augmentin] Adverse Reaction (Intermediate, Verified 04/15/23 12:36) codeine Adverse Reaction (Intermediate, Verified 04/15/23 12:36) Home Medications: Duloxetine HCl 30 mg [Cymbalta 30 MG Capsule] 30 mg PO DAILY 12/14/18 [History] Levothyroxine Sodium 100 Mcg [Synthroid 100 Mcg] 100 mcg PO DAILY 12/14/18 [History] Tramadol HCl [Ultram] 50 mg PO QID 12/14/18 [History] Clonidine HCl 0.1 mg [Clonidine 0.1 mg Tablet] 0.2 mg PO BID 01/24/22 [History] Diltiazem HCl [Dilt-Xr] 360 mg PO DAILY 01/24/22 [History] Ezetimibe 10 mg [Zetia 10 MG] 10 mg PO DAILY 01/24/22 [History] Famotidine 20 mg [Pepcid 20 MG] 20 mg PO BID 01/24/22 [History] Insulin Detemir [Levemir] 30 unit SQ BID 01/24/22 [History] Insulin Lispro [Humalog] 8 unit SQ DAILY 01/24/22 [History] Insulin Lispro [Humalog] 10 unit SQ LUNCH 01/24/22 [History] PANTOPRAZOLE 40 mg Tablet [Protonix 40MG Tablet] 40 mg PO DAILY 01/24/22 [History] Insulin Lispro [Humalog] 10 units SQ DINNER 01/25/22 [History] HydrALAzine HCL 25 MG TAB [Apresoline 25 MG TABLET] 25 mg PO TID 01/26/22 [History] carvediloL [Coreg] 25 mg PO BID 01/26/22 [History] Bumetanide 2 mg PO BID 03/28/22 [History] Apixaban [Eliquis 2.5 mg Tablet] 5 mg PO BID 06/22/22 [History] Hydralazine HCl 50 mg PO TID 06/22/22 [History] Icosapent Ethyl [Vascepa] 2 gm PO BID 06/22/22 [History] Magnesium Oxide 400 mg PO DAILY 06/22/22 [History] Hx Tetanus, Diphtheria Vaccination/Date Given: Yes Hx Influenza Vaccination/Date Given: No Hx Pneumococcal Vaccination/Date Given: Yes Travel Risk - International Travel Have you traveled outside of the country in past 3 weeks: No - Coronavirus Screening Are you exhibiting any of the following symptoms?: No Close contact with a COVID-19 positive Pt in past 14-21 Days: No - Vaccine Status Have you recieved a Covid-19 vaccination: Yes 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: 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 - Vaccination Dates Date of 2cond Vaccination (if applicable): 2020 - Review of Systems Constitutional: No Symptoms, No Fever, No Chills Eyes: No Symptoms Ears, Nose, & Throat: No Symptoms Respiratory: No Symptoms, No Cough, No Dyspnea Cardiac: No Symptoms, No Chest Pain, No Edema, No Syncope Abdominal/Gastrointestinal: No Symptoms, No Abdominal Pain, No Nausea, No Vomiting, No Diarrhea Genitourinary Symptoms: No Symptoms, No Dysuria Musculoskeletal: No Symptoms, No Back Pain, No Neck Pain Skin: No Symptoms, No Rash Neurological: No Symptoms, No Dizziness, No Focal Weakness, No Sensory Changes Psychological: No Symptoms Endocrine: No Symptoms Hematologic/Lymphatic: No Symptoms Immunological/Allergic: No Symptoms All Other Systems: Reviewed and Negative - Past Medical History Pertinent Past Medical History: Yes Neurological History: No Pertinent History ENT History: No Pertinent History Cardiac History: Arrhythmia, Congestive Heart Failure, High Cholesterol, Hypertension Respiratory History: No Pertinent History Endocrine Medical History: Diabetes Type II, Hypothyroidism Musculoskeletal History: Fractures GI Medical History: GERD History: Dialysis, Renal Disease Psycho-Social History: No Pertinent History Female Reproductive Disorders: No Pertinent History Other Medical History: left arm and left hand. right and left foot broken - Past Surgical History Past Surgical History: Yes Neuro Surgical History: No Pertinent History Cardiac: Pacemaker Respiratory: No Pertinent History Gastrointestinal: Cholecystectomy Genitourinary: No Pertinent History Musculoskeletal: No Pertinent History Female Surgical History: No Pertinent History Other Surgical History: thyroid removal, left wrist with plate in it. fistula placement right upper arm - Social History Smoking Status: Never smoker Exposure to second hand smoke: No Drug Use: none Patient Lives Alone: No - Nursing Vital Signs Nursing Vital Signs: Initial Vital Signs Blood Pressure 136/92 04/15/23 12:36 Pain Scale Pain Intensity 0 - Physical Exam General Appearance: no apparent distress, alert Eye Exam: PERRL/EOMI, eyes nml inspection Ears, Nose, Throat Exam: normal ENT inspection, TMs normal, pharynx normal, moist mucous membranes Neck Exam: normal inspection, non-tender, supple, full range of motion Respiratory Exam: airway intact, rhonchi, wheezing, No respiratory distress Cardiovascular Exam: regular rate/rhythm, normal heart sounds, normal peripheral pulses Gastrointestinal/Abdomen Exam: soft, normal bowel sounds, No tenderness, No mass Back Exam: normal inspection, normal range of motion, No CVA tenderness, No vertebral tenderness Extremity Exam: normal inspection, normal range of motion, pelvis stable Neurologic Exam: alert, oriented x 3, cooperative, normal mood/affect, nml cerebellar function, nml station & gait, sensation nml, other (Neurologic exam nonremarkable. No focal or lateralizing symptoms. No objective weakness observed), No motor deficits Skin Exam: normal color, warm, dry, No rash Lymphatic Exam: No adenopathy SpO2 Interpretation: normal SpO2: 96 O2 Delivery: Room Air - Course Nursing assessment & vital signs reviewed: Yes EKG Interpreted by Me: RATE (Rate 92), A-fib (Chronic A-fib), NORMAL AXIS, NORMAL INTERVALS - Radiology Exams Chest X-ray Interpretation: Teleradiologist Report (Chronic blunting of right costophrenic angle, left pacemaker, osteopenia and degenerative changes) Ordered Tests: Active Orders 24 hr Category Date Time Status Federal Judge STAT Care 04/15/23 12:50 Active EKG-ER Only STAT Care 04/15/23 12:49 Active IV Insertion STAT Care 04/15/23 12:49 Active Pulse Oximetry (ED) STAT Care 04/15/23 12:49 Active CHEST 1 VIEW (PORTABLE) Stat Exams 04/15/23 12:46 Completed BLOOD CULTURE Stat Lab 04/15/23 13:15 Received CBC W DIFF Stat Lab 04/15/23 13:01 Completed CMP Stat Lab 04/15/23 13:01 Completed TROPONIN Q4H Lab 04/15/23 13:01 Completed TROPONIN Q4H Lab 04/15/23 17:00 Ordered TROPONIN Q4H Lab 04/15/23 21:00 Ordered UA W/RFX UR CULTURE Stat Lab 04/15/23 14:52 Completed Respiratory Therapy Assessment DAILY RT 04/15/23 13:34 Completed Medication Summary Discontinued Medications Generic Name Dose Route Start Last Admin Trade Name Freq PRN Reason Stop Dose Admin Albuterol/Ipratropium 3 ml 04/15/23 12:51 04/15/23 13:29 Ipratropium/Albuterol Sulfate 3 Ml Ampul.Neb IH 04/15/23 12:52 3 ml STAT ONE Administration Albuterol/Ipratropium Confirm 04/15/23 13:26 Ipratropium/Albuterol Sulfate 3 Ml Ampul.Neb Administered 04/15/23 13:27 Dose 3 ml IH .[facility]-MED ONE Methylprednisolone Sodium 0 mg 04/15/23 12:50 04/15/23 13:14 Succinate 125 mg/ Sterile IV 04/15/23 12:51 125 mg Water 2 ml STAT ONE Administration Methylprednisolone Sodium Succinate Confirm 04/15/23 13:11 Methylprednis Sod Succ 125 Mg/2 Ml Vial Administered 04/15/23 13:12 Dose 125 mg .ROUTE .[facility]-MED ONE Sterile Water Confirm 04/15/23 13:11 Water For Injection,Sterile 10 Ml Vial Administered 04/15/23 13:12 Dose 10 ml IJ .[facility]-MED ONE Lab/Rad Data: Laboratory Result Diagrams 04/15/23 13:01 04/15/23 13:01 Laboratory Results 04/15/23 04/15/23 04/15/23 Range/Units 14:52 13:18 13:01 WBC (4.0-10.5) x10^3/uL RBC (4.1-5.4) x10^6/uL Hgb (12.0-16.0) g/dL Hct (35-47) % MCV (78-100) fL MCH (26-32) pg MCHC (32-36) g/dL RDW (11.5-14.0) % Plt Count (150-450) x10^3/uL MPV (7.5-11.0) fL Gran % (36.0-66.0) % Immature Gran % (Auto) (0.00-0.4) % Nucleat RBC Rel Count (0.00-0.1) % Eos # (Auto) (0-0.5) x10^3/uL Immature Gran # (Auto) (0.00-0.03) x10^3u/L Absolute Lymphs (auto) (1.0-4.6) x10^3/uL Absolute Monos (auto) (0.0-1.3) x10^3/uL Absolute Nucleated RBC (0.00-0.01) x10^3u/L Lymphocytes % (24.0-44.0) % Monocytes % (0.0-12.0) % Eosinophils % (0.00-5.0) % Basophils % (0.0-0.4) % Absolute Granulocytes (1.4-6.9) x10^3/uL Basophils # (0-0.4) x10^3/uL Sodium (137-145) mmol/L Potassium (3.5-5.1) mmol/L Chloride (98-107) mmol/L Carbon Dioxide (22-30) mmol/L Anion Gap (5-15) MEQ/L BUN (7-17) mg/dL Creatinine (0.52-1.04) mg/dL Estimated GFR ML/MIN Glucose (74-106) mg/dL Calcium (8.4-10.2) mg/dL Total Bilirubin (0.2-1.3) mg/dL AST (14-36) U/L ALT (0-35) U/L Alkaline Phosphatase (38-126) U/L Troponin I < 0.012 (0.000-0.034) ng/mL Serum Total Protein (6.3-8.2) g/dL Albumin (3.5-5.0) g/dL Urine Color Yellow (Yellow) Urine Appearance Clear (Clear) Urine pH 8.5 A (4.6-8.0) Ur Specific [place] 1.010 (1.005-1.030) Urine Protein 300 A (Negative) Urine Glucose (UA) 500 A (Negative) mg/dL Urine Ketones Negative (Negative) Urine Blood Negative (Negative) Urine Nitrite Negative (Negative) Urine Bilirubin Negative (Negative) Urine Urobilinogen 0.2 (0.2) mg/dL Ur Leukocyte Esterase Negative (Negative) U Hyaline Cast (Auto) NONE SEEN (0-2) /LPF Urine Microscopic RBC 0-2 (0-5) /HPF Urine Microscopic WBC 0-2 (0-5) /HPF Ur Epithelial Cells Rare (None Seen) /HPF Urine Bacteria None Seen (None Seen) /HPF Urine Culture Reflexed NO (NO) Influenza Type A Ag NEGATIVE (NEGATIVE) Influenza Type B Ag NEGATIVE (NEGATIVE) RSV (PCR) NEGATIVE (NEGATIVE) SARS-CoV-2 (PCR) NEGATIVE (NEGATIVE) 04/15/23 04/15/23 Range/Units 13:01 13:01 WBC 5.0 (4.0-10.5) x10^3/uL RBC 3.90 L (4.1-5.4) x10^6/uL Hgb 11.6 L (12.0-16.0) g/dL Hct 35.9 (35-47) % MCV 92.1 (78-100) fL MCH 29.7 (26-32) pg MCHC 32.3 (32-36) g/dL RDW 14.5 H (11.5-14.0) % Plt Count 184 (150-450) x10^3/uL MPV 11.0 (7.5-11.0) fL Gran % 57.2 (36.0-66.0) % Immature Gran % (Auto) 0.6 H (0.00-0.4) % Nucleat RBC Rel Count 0.0 (0.00-0.1) % Eos # (Auto) 0.20 (0-0.5) x10^3/uL Immature Gran # (Auto) 0.03 (0.00-0.03) x10^3u/L Absolute Lymphs (auto) 1.23 (1.0-4.6) x10^3/uL Absolute Monos (auto) 0.65 (0.0-1.3) x10^3/uL Absolute Nucleated RBC 0.00 (0.00-0.01) x10^3u/L Lymphocytes % 24.5 (24.0-44.0) % Monocytes % 12.9 H (0.0-12.0) % Eosinophils % 4.0 (0.00-5.0) % Basophils % 0.8 (0.0-0.4) % Absolute Granulocytes 2.87 (1.4-6.9) x10^3/uL Basophils # 0.04 (0-0.4) x10^3/uL Sodium 132 L (137-145) mmol/L Potassium 4.1 (3.5-5.1) mmol/L Chloride 95 L (98-107) mmol/L Carbon Dioxide 24 (22-30) mmol/L Anion Gap 17.0 H (5-15) MEQ/L BUN 30 H (7-17) mg/dL Creatinine 4.71 H (0.52-1.04) mg/dL Estimated GFR 9.0 ML/MIN Glucose 215 H (74-106) mg/dL Calcium 8.9 (8.4-10.2) mg/dL Total Bilirubin 0.40 (0.2-1.3) mg/dL AST 21 (14-36) U/L ALT 17 (0-35) U/L Alkaline Phosphatase 70 (38-126) U/L Troponin I (0.000-0.034) ng/mL Serum Total Protein 6.8 (6.3-8.2) g/dL Albumin 3.9 (3.5-5.0) g/dL Urine Color (Yellow) Urine Appearance (Clear) Urine pH (4.6-8.0) Ur Specific [place] (1.005-1.030) Urine Protein (Negative) Urine Glucose (UA) (Negative) mg/dL Urine Ketones (Negative) Urine Blood (Negative) Urine Nitrite (Negative) Urine Bilirubin (Negative) Urine Urobilinogen (0.2) mg/dL Ur Leukocyte Esterase (Negative) U Hyaline Cast (Auto) (0-2) /LPF Urine Microscopic RBC (0-5) /HPF Urine Microscopic WBC (0-5) /HPF Ur Epithelial Cells (None Seen) /HPF Urine Bacteria (None Seen) /HPF Urine Culture Reflexed (NO) Influenza Type A Ag (NEGATIVE) Influenza Type B Ag (NEGATIVE) RSV (PCR) (NEGATIVE) SARS-CoV-2 (PCR) (NEGATIVE) - Progress Progress: improved Progress Note: 78-year-old female presents to our ED for evaluation of cough and a sore throat. Patient states she has some degree of generalized weakness. Physical exam essentially nonremarkable. Patient has a history of end-stage renal disease. Patient on hemodialysis Friday. Her last hemodialysis session was yesterday. EKG reveals A-fib. Patient has chronic A-fib. Rate is controlled. Patient currently anticoagulated. Physical exam revealed coarse breath sounds. Otherwise negative physical exam Chest x-ray shows no acute findings. CBC CMP essentially nonremarkable. Renal function consistent with patient's history of end-stage renal disease. COVID testing negative. Troponin negative. Urinalysis negative for urinary tract infection however patient does have some proteinuria and glucosuria observed on UA. Patient received patient is of sound mind. Patient is appropriate to make informed and independent medical decisions. Patient understands that leaving AGAINST MEDICAL ADVICE can result in delayed diagnosis, increased risk of morbidity, mortality, short and long-term disability including . In spite of these risks, patient has decided to leave AGAINST MEDICAL ADVICE. Patient un derstands that he/she may return to our ED at any point if he or she reconsiders. Patient agrees to follow-up with his or her primary care doctor within 48 hours for reevaluation. Patient voices no other complaints or concerns at this time. Dose of Solu-Medrol in our ED. Patient feels better. Patient declined albuterol nebulizer treatment. Patient states she feels better and is not necessary patient ambulated throughout our ED. Oxygen saturation remained 97% at rest and with ambulation. Patient had no complaints. No indication for further work-up at this time. Will discharge home. Patient agrees to follow-up with her primary care doctor within 48 hours for reevaluation. Albuterol inhaler prescription forwarded to patient's pharmacy Portions of this note were created with voice recognition technology. There may be grammatical, spelling, punctuation or sound alike errors 04/15/23 15:25 Complexity of problems addressed is moderate acute complicated No critical care time Complexity of data reviewed and analyzed is moderate. Test ordered test reviewed. Results analyzed and correlated clinically with history and physical exam. Risk of complication and or risk morbidity/mortality of patient management is moderate. A prescription for albuterol inhaler forwarded to patient's pharmacy. Vital stable. Time spent to discharge patient is approximately 15 minutes. Plan of care established for shared decision making. No social determinants of health present impede follow-up. Portions of this note were created with voice recognition technology. There may be grammatical, spelling, punctuation or sound alike errors 04/15/23 15:31 Counseled pt/family regarding: lab results, diagnosis, need for follow-up, rad results - Departure Departure Disposition: Home Clinical Impression: Cough, Sore throat Condition: Stable Critical Care Time: No Referrals: JARROD JOSEPH MD [Primary Care Provider] - Follow up/PCP as directed Instructions: Cough, Adult ED Additional Instructions: Discharge/Care Plan JAS SINGLETON was seen on 04/15/23 in the Emergency Room. The patient was counseled regarding Diagnosis,Lab results, Imaging studies, need for follow up and when to return to the Emergency Room. Prescriptions given: Discharge Note I have spoken with the patient and/or caregivers. I have explained the patient's condition, diagnosis and treatment plan based on the information available to me at this time. I have answered the patient's and/or caregiver's questions and addressed any concerns. The patient and/or caregivers have as good understanding of the patient's diagnosis, condition and treatment plan as can be expected at this point. The vital signs have been stable. The patient's condition is stable and appropriate for discharge from the emergency department. The patient will pursue further outpatient evaluation with the primary care physician or other designated or consulting physician as outlined in the discharge instructions. The patient and/or caregivers are agreeable to this plan of care and follow-up instructions have been explained in detail. The patient and/or caregivers have received these instruction. The patient/and or caregivers are aware that any significant change in condition or worsening of symptoms should prompt an immediate return to this or the closest emergency department or call 911. Prescriptions: Albuterol 8 gm Mdi Hfa [Ventolin Hfa MDI] 8 gm IH Q4H 7 Days #1 unit
[2023-04-15 14:01] LABS: INFLUENZA A NEGATIVE (NEGATIVE); INFLUENZA B NEGATIVE (NEGATIVE); RESPIRATORY SYNCTIAL VIRUS NEGATIVE (NEGATIVE); SARS-CoV-2 Xpert Express NEGATIVE (NEGATIVE)
[2023-04-15 15:06] LABS: Appearance Clear (Clear); Bacteria None Seen /HPF (None Seen); Bilirubin Negative (Negative); Blood Negative (Negative); Epithelial Cells Rare /HPF (None Seen); Glucose, Urine 500 mg/dL (Negative); Hyaline Casts NONE SEEN /LPF (0-2); Ketones Negative (Negative); Leukocyte Esterase Negative (Negative); Nitrite Negative (Negative); Ph 8.5 (4.6-8.0); Protein,Urine Dip 300 (Negative); RBC 0-2 /HPF (0-5); Urobilinogen 0.2 mg/dL (0.2); WBC 0-2 /HPF (0-5)
[2023-04-15 15:20] LABS: ADD URINE CULTURE? NO (NO)
[2023-04-15 15:28] VITALS: BP 169/103; PULSE 88; RESP 16
[2023-04-15 15:30] VITALS: O2SAT 96
== END 2023-04-15 15:38 | disposition home or self-care (01) ==
LOC: ED 12:28
DX: J02.9 Acute pharyngitis, unspecified (principal); R05.1 Acute cough; R53.1 Weakness; I13.2 Hypertensive heart and chronic kidney disease with heart failure and with stage 5 chronic kidney disease, or end stage renal disease; E11.22 Type 2 diabetes mellitus with diabetic chronic kidney disease; N18.6 End stage renal disease; I50.9 Heart failure, unspecified; Z99.2 Dependence on renal dialysis; E78.5 Hyperlipidemia, unspecified; Z79.01 Long term (current) use of anticoagulants; Z79.4 Long term (current) use of insulin; Z79.899 Other long term (current) drug therapy
CPT/HCPCS: 0241U; 36000; 36415; 71045; 80053; 81001; 84484; 85025; 87040; 93005; 93041; 94640; 94760; 96374; 99284; J2930; A9270-GY

== ENCOUNTER 2023-04-27 08:03 | Emergency (ER) | payer MEDICARE ==
[2023-04-27 08:30] VITALS: PULSE 86; RESP 12; TEMP 97.8
--- NOTE | 2023-04-27 08:50 | ERPHSYRPT ---
- History of Present Illness Time Seen by Provider: 04/27/23 08:44 Source: patient Exam Limitations: no limitations Patient Subjective Stated Complaint: Pt states that she has had a cough for 2 weeks but she now has jose miguel ear pain with the right hurting more than the left Triage Nursing Assessment: Pt brought self to the ER, hypertensive, denies pain except for itchness of her ears, thick sputum that she is unable to spit it out due to it makes her vomit when she tries, pulses normal, skin n/w/d, dialysis pt on M,W,F, coughing for 2 weeks and ears began bothering her today, clear jose miguel lung sounds, walked into the ER room without assistance, pt states that she has been taking someone elses prescription of tessalon pearles for the past week three times a day Physician History: 78 years old female with past medical history of end-stage renal disease currently on dialysis Friday for 1 year. She has history of hypertension and COPD. The patient drove herself to the emergency room complaining of productive coughing that she has been having for more than 2 weeks. She denies any shortness of breath no chest pain. She have been using [id number] cough medication without much relief. She is concerned that she might be having pneumonia she is denying any fever or chills. She states that she was here 2 weeks ago and she was tested for the COVID-19 which was negative. The patient had her COVID-19 vaccines. She denies any headache she is having runny nose, pressure in her right ear. No abdominal pain she feels nauseous and she gags when she expectorates her sputum. Allergies/Adverse Reactions: amoxicillin [From Augmentin] Adverse Reaction (Intermediate, Verified 04/15/23 12:36) clavulanic acid [From Augmentin] Adverse Reaction (Intermediate, Verified 04/15/23 12:36) codeine Adverse Reaction (Intermediate, Verified 04/15/23 12:36) Home Medications: Duloxetine HCl 30 mg [Cymbalta 30 MG Capsule] 30 mg PO DAILY 12/14/18 [History] Levothyroxine Sodium 100 Mcg [Synthroid 100 Mcg] 100 mcg PO DAILY 12/14/18 [History] Tramadol HCl [Ultram] 50 mg PO QID 12/14/18 [History] Clonidine HCl 0.1 mg [Clonidine 0.1 mg Tablet] 0.2 mg PO BID 01/24/22 [History] Diltiazem HCl [Dilt-Xr] 360 mg PO DAILY 01/24/22 [History] Ezetimibe 10 mg [Zetia 10 MG] 10 mg PO DAILY 01/24/22 [History] Famotidine 20 mg [Pepcid 20 MG] 20 mg PO BID 01/24/22 [History] Insulin Detemir [Levemir] 30 unit SQ BID 01/24/22 [History] Insulin Lispro [Humalog] 8 unit SQ DAILY 01/24/22 [History] Insulin Lispro [Humalog] 10 unit SQ LUNCH 01/24/22 [History] PANTOPRAZOLE 40 mg Tablet [Protonix 40MG Tablet] 40 mg PO DAILY 01/24/22 [History] Insulin Lispro [Humalog] 10 units SQ DINNER 01/25/22 [History] HydrALAzine HCL 25 MG TAB [Apresoline 25 MG TABLET] 25 mg PO TID 01/26/22 [History] carvediloL [Coreg] 25 mg PO BID 01/26/22 [History] Bumetanide 2 mg PO BID 03/28/22 [History] Apixaban [Eliquis 2.5 mg Tablet] 5 mg PO BID 06/22/22 [History] Hydralazine HCl 50 mg PO TID 06/22/22 [History] Icosapent Ethyl [Vascepa] 2 gm PO BID 06/22/22 [History] Magnesium Oxide 400 mg PO DAILY 06/22/22 [History] Hx Tetanus, Diphtheria Vaccination/Date Given: Yes Hx Influenza Vaccination/Date Given: Yes Hx Pneumococcal Vaccination/Date Given: Yes Travel Risk - International Travel Have you traveled outside of the country in past 3 weeks: No - Coronavirus Screening Are you exhibiting any of the following symptoms?: No Close contact with a COVID-19 positive Pt in past 14-21 Days: No - Vaccine Status Have you recieved a Covid-19 vaccination: Yes German Professor: Unknown - Vaccination Dates Dates if Unknown: unk - Review of Systems Constitutional: No Fever, No Chills Eyes: No Symptoms Ears, Nose, & Throat: No Symptoms, Ear Pain, Nose Discharge, Sinus Drainage Respiratory: Cough, No Dyspnea Cardiac: No Chest Pain, No Edema, No Syncope Abdominal/Gastrointestinal: No Abdominal Pain, No Nausea, No Vomiting, No Diarrhea Genitourinary Symptoms: No Dysuria Musculoskeletal: No Back Pain, No Neck Pain Skin: No Rash Neurological: No Dizziness, No Focal Weakness, No Sensory Changes Psychological: No Symptoms Endocrine: No Symptoms All Other Systems: Reviewed and Negative - Past Medical History Pertinent Past Medical History: Yes Neurological History: No Pertinent History ENT History: No Pertinent History Cardiac History: Arrhythmia, Congestive Heart Failure, High Cholesterol, Hypertension Respiratory History: No Pertinent History Endocrine Medical History: Diabetes Type II, Hypothyroidism Musculoskeletal History: Fractures GI Medical History: GERD History: Dialysis, Renal Disease Psycho-Social History: No Pertinent History Female Reproductive Disorders: No Pertinent History Other Medical History: left arm and left hand. right and left foot broken - Past Surgical History Past Surgical History: Yes Neuro Surgical History: No Pertinent History Cardiac: Pacemaker Respiratory: No Pertinent History Gastrointestinal: Cholecystectomy Genitourinary: No Pertinent History Musculoskeletal: No Pertinent History Female Surgical History: No Pertinent History Other Surgical History: thyroid removal, left wrist with plate in it. fistula placement right upper arm - Social History Smoking Status: Never smoker Exposure to second hand smoke: Yes Drug Use: none Patient Lives Alone: No - Nursing Vital Signs Nursing Vital Signs: Initial Vital Signs Temperature 97.8 F 04/27/23 08:22 Pulse Rate 86 04/27/23 08:22 Respiratory Rate 12 04/27/23 08:22 Blood Pressure 210/138 04/27/23 08:22 O2 Sat by Pulse Oximetry 98 04/27/23 08:22 Pain Scale Pain Intensity 0 - Physical Exam General Appearance: no apparent distress, alert Eye Exam: PERRL/EOMI, eyes nml inspection Ears, Nose, Throat Exam: normal ENT inspection, TMs normal, pharynx normal, moist mucous membranes Neck Exam: normal inspection, non-tender, supple, full range of motion Respiratory Exam: normal breath sounds, lungs clear, other (Bronchial breath sounds, with scattered expiratory wheezes.), No respiratory distress Cardiovascular Exam: regular rate/rhythm, normal heart sounds Gastrointestinal/Abdomen Exam: soft, No tenderness Back Exam: normal inspection, No CVA tenderness, No vertebral tenderness Extremity Exam: normal inspection, normal range of motion, other (AV fistula for dialysis right antecubital area) Neurologic Exam: alert, oriented x 3, cooperative, normal mood/affect, sensation nml, No motor deficits Skin Exam: normal color, warm, dry, No rash Lymphatic Exam: No adenopathy SpO2: 98 - Course Nursing assessment & vital signs reviewed: Yes Ordered Tests: Active Orders 24 hr Category Date Time Status CHEST 1 VIEW (PORTABLE) Stat Exams 04/27/23 09:19 Completed Medication Summary Discontinued Medications Generic Name Dose Route Start Last Admin Trade Name Melissa PRN Reason Stop Dose Admin Clonidine 0.2 mg 04/27/23 08:51 04/27/23 09:23 Clonidine Hcl 0.1 Mg Tablet PO 04/27/23 08:52 0.2 mg STAT ONE Administration Clonidine Confirm 04/27/23 09:13 Clonidine Hcl 0.1 Mg Tablet Administered 04/27/23 09:14 Dose 0.2 mg .ROUTE .STK-MED ONE Hydralazine HCl 50 mg 04/27/23 10:00 Hydralazine Hcl 25 Mg Tablet PO 05/27/23 09:59 QID PEEWEE Hydralazine HCl 50 mg 04/27/23 09:10 04/27/23 09:23 Hydralazine Hcl 25 Mg Tablet PO 04/27/23 09:11 50 mg QID STA Administration Lab/Rad Data: Laboratory Results 04/27/23 Range/Units 08:50 Influenza Type A Ag NEGATIVE (NEGATIVE) Influenza Type B Ag NEGATIVE (NEGATIVE) RSV (PCR) NEGATIVE (NEGATIVE) SARS-CoV-2 (PCR) NEGATIVE (NEGATIVE) - Progress Air Movement: good Progress Note: 04/27/23 08:57 78 years old female with past medical history of end-stage renal disease on hemodialysis every Friday and Friday. History of hypertension and COPD. The patient is presenting to the emergency room complaining of productive coughing that she has been having for more than 2 weeks. She has been taking [id number] cough medication but she is not getting any better. Differential diagnosis Acute bronchitis Acute sinusitis Pneumonia COVID-19 infection RSV bronchitis. Emergency room course medical decision making. The patient's blood pressure is elevated 203 systolic of 130 diastolic she stated that she did not take her a.m. medications?. She will be given hydralazine 50 mg oral dose, clonidine 0.2 mg oral dose. Check a portable chest x-ray. 04/27/23 10:22 Both COVID-19 antigen, RSV and influenza negative. Patient's portable chest x-ray revealed no active infiltrates She has been coughing for 2 weeks she has history of COPD end-stage renal disease, she has some scattered wheezes, I will place her empirically on Omnicef 300 mg capsule once a day for 10 days. Follow-up with your family physician in 2 to 3 days. Follow-up for her dialysis every Friday and Friday. 04/28/23 05:05 - Departure Departure Disposition: Home Clinical Impression: Acute bronchitis Condition: Stable Critical Care Time: No Referrals: JARROD JOSEPH MD [Primary Care Provider] - Follow up/PCP as directed Instructions: Cough, Adult (DC) Prescriptions: Cefdinir 300 mg PO DAILY 10 Days #10 cap
[2023-04-27] MEDS ORDERED: CLONIDINE 0.1 MG TABLET PO ONE (08:51)
[2023-04-27] MEDS ORDERED: Apresoline 25 MG TABLET PO STA (09:10)
[2023-04-27] MEDS ORDERED: CLONIDINE 0.1 MG TABLET ONE (09:13)
[2023-04-27 09:39] LABS: INFLUENZA A NEGATIVE (NEGATIVE); INFLUENZA B NEGATIVE (NEGATIVE); RESPIRATORY SYNCTIAL VIRUS NEGATIVE (NEGATIVE); SARS-CoV-2 Xpert Express NEGATIVE (NEGATIVE)
[2023-04-27] MEDS ORDERED: Apresoline 25 MG TABLET PO SCH (10:00)
[2023-04-27 10:25] VITALS: O2SAT 98
[2023-04-27 10:28] VITALS: BP 152/98
--- NOTE | 2023-04-27 21:11 | XRAY ---
Indication: Cough. Comparison: April 15, 2023 Portable chest remains hyperinflated and clear. Heart not enlarged for AP portable technique again with left pacemaker. No new/acute findings.
== END 2023-04-27 10:32 | disposition home or self-care (01) ==
LOC: ED 08:03
DX: J20.9 Acute bronchitis, unspecified (principal); R05.1 Acute cough; R11.0 Nausea; I13.2 Hypertensive heart and chronic kidney disease with heart failure and with stage 5 chronic kidney disease, or end stage renal disease; N18.6 End stage renal disease; I50.9 Heart failure, unspecified; E78.5 Hyperlipidemia, unspecified; E11.9 Type 2 diabetes mellitus without complications; Z79.4 Long term (current) use of insulin; Z79.01 Long term (current) use of anticoagulants; Z79.899 Other long term (current) drug therapy; Z99.2 Dependence on renal dialysis
CPT/HCPCS: 0241U; 71045; 99283; A9270-GY

== ENCOUNTER 2023-07-31 10:54 | Emergency (ER) | payer MEDICARE ==
--- NOTE | 2023-07-31 11:08 | ERPHSYRPT ---
- History of Present Illness Time Seen by Provider: 07/31/23 11:07 Source: patient, family Exam Limitations: no limitations Physician History: This is a 78-year-old white female patient of Dr. Joseph who has end-stage renal disease and is on Friday dialysis. She presents to the emergency department with complaint of 5 days of dizziness. Symptoms were worse this morning to the point where she is nauseated and could not take her medications. Patient was brought in by private vehicle. Her brother brought her into the emergency department. Patient states that she has a left-sided throbbing posterior headache. She denies visual changes. She did not suffer any acute fall or head injury. Patient has a history of insulin diabetes, chronic atrial fibrillation on Eliquis, hypothyroidism, hypertension, gastroesophageal reflux disease CHF and hyperlipidemia. She did not take her blood pressure medication this morning. Severity: moderate Character of Deficits: none Deficits: no difficulties Baseline/Normal Cognition: alert oriented x 3 Current Cognition: alert oriented x 3 Associated Symptoms: headache, other, No ringing in ears, No vision changes Allergies/Adverse Reactions: amoxicillin [From Augmentin] Adverse Reaction (Intermediate, Verified 04/15/23 12:36) clavulanic acid [From Augmentin] Adverse Reaction (Intermediate, Verified 04/15/23 12:36) codeine Adverse Reaction (Intermediate, Verified 04/15/23 12:36) Home Medications: Duloxetine HCl 30 mg [Cymbalta 30 MG Capsule] 30 mg PO DAILY 12/14/18 [History] Levothyroxine Sodium 100 Mcg [Synthroid 100 Mcg] 100 mcg PO DAILY 12/14/18 [History] Tramadol HCl [Ultram] 50 mg PO QID 12/14/18 [History] Clonidine HCl 0.1 mg [Clonidine 0.1 mg Tablet] 0.2 mg PO BID 01/24/22 [History] Diltiazem HCl [Dilt-Xr] 360 mg PO DAILY 01/24/22 [History] Ezetimibe 10 mg [Zetia 10 MG] 10 mg PO DAILY 01/24/22 [History] Famotidine 20 mg [Pepcid 20 MG] 20 mg PO BID 01/24/22 [History] Insulin Detemir [Levemir] 30 unit SQ BID 01/24/22 [History] Insulin Lispro [Humalog] 8 unit SQ DAILY 01/24/22 [History] Insulin Lispro [Humalog] 10 unit SQ LUNCH 01/24/22 [History] PANTOPRAZOLE 40 mg Tablet [Protonix 40MG Tablet] 40 mg PO DAILY 01/24/22 [History] Insulin Lispro [Humalog] 10 units SQ DINNER 01/25/22 [History] HydrALAzine HCL 25 MG TAB [Apresoline 25 MG TABLET] 25 mg PO TID 01/26/22 [History] carvediloL [Coreg] 25 mg PO BID 01/26/22 [History] Bumetanide 2 mg PO BID 03/28/22 [History] Apixaban [Eliquis 2.5 mg Tablet] 5 mg PO BID 06/22/22 [History] Hydralazine HCl 50 mg PO TID 06/22/22 [History] Icosapent Ethyl [Vascepa] 2 gm PO BID 06/22/22 [History] Magnesium Oxide 400 mg PO DAILY 06/22/22 [History] Rosuvastatin Calcium 10 mg PO DAILY 07/31/23 [History] Hx Tetanus, Diphtheria Vaccination/Date Given: Yes Hx Influenza Vaccination/Date Given: Yes Hx Pneumococcal Vaccination/Date Given: Yes Travel Risk - International Travel Have you traveled outside of the country in past 3 weeks: No - Coronavirus Screening Are you exhibiting any of the following symptoms?: Yes Symptoms: Headaches/Body Aches/Fatigue Close contact with a COVID-19 positive Pt in past 14-21 Days: No - Vaccine Status Have you recieved a Covid-19 vaccination: Yes Mine Foreman: Unknown - Vaccination Dates Dates if Unknown: unk - Review of Systems Constitutional: No Symptoms Eyes: No Symptoms Ears, Nose, & Throat: No Symptoms Respiratory: No Symptoms Cardiac: No Symptoms Abdominal/Gastrointestinal: Nausea Genitourinary Symptoms: No Symptoms Musculoskeletal: No Symptoms Skin: No Symptoms Neurological: Dizziness, Headache Psychological: No Symptoms Endocrine: No Symptoms Hematologic/Lymphatic: No Symptoms Immunological/Allergic: No Symptoms All Other Systems: Reviewed and Negative - Past Medical History Pertinent Past Medical History: Yes Neurological History: No Pertinent History ENT History: No Pertinent History Cardiac History: Arrhythmia, Congestive Heart Failure, High Cholesterol, Hypertension Respiratory History: No Pertinent History Endocrine Medical History: Diabetes Type II, Hypothyroidism Musculoskeletal History: Fractures GI Medical History: GERD History: Dialysis, Renal Disease Psycho-Social History: No Pertinent History Female Reproductive Disorders: No Pertinent History Other Medical History: left arm and left hand. right and left foot broken - Past Surgical History Past Surgical History: Yes Neuro Surgical History: No Pertinent History Cardiac: Pacemaker Respiratory: No Pertinent History Gastrointestinal: Cholecystectomy Genitourinary: No Pertinent History Musculoskeletal: No Pertinent History Female Surgical History: No Pertinent History Other Surgical History: thyroid removal, left wrist with plate in it. fistula placement right upper arm - Social History Smoking Status: Never smoker Exposure to second hand smoke: Yes Drug Use: none Patient Lives Alone: No - Nursing Vital Signs Nursing Vital Signs: Initial Vital Signs Temperature 97.2 F 07/31/23 11:06 Pulse Rate 102 H 07/31/23 11:06 Respiratory Rate 20 07/31/23 11:06 Blood Pressure 189/122 07/31/23 11:06 O2 Sat by Pulse Oximetry 100 07/31/23 11:06 Pain Scale Pain Intensity 0 - [place] Coma Scale Best Eye Response ([place]inta): (4) open spontaneously Best Verbal Response ([place]inta): (5) oriented Best Motor Response ([place]): (6) obeys commands Binta Total: 15 - Physical Exam General Appearance: mild distress, alert, anxiety Eye Exam: bilateral eye: normal inspection, PERRL, EOMI Ears, Nose, Throat Exam: normal ENT inspection, moist mucous membranes Neck Exam: normal inspection, non-tender, supple, full range of motion Respiratory: normal breath sounds, lungs clear, airway intact, No chest tenderness, No respiratory distress Cardiovascular: regular rate/rhythm, normal heart sounds, normal peripheral pulses Gastrointestinal: soft, normal bowel sounds, No tenderness Pelvic Exam: not done Rectal Exam: not done Back Exam: normal inspection, normal range of motion, No CVA tenderness, No vertebral tenderness Extremity Exam: normal inspection, normal range of motion, pelvis stable Mental Status: alert, oriented x 3, 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 Exam: normal hearing, normal speech, PERRL, tongue midline Coordination/Gait: normal gait Motor/Sensory: no motor deficit, no sensory deficit, no pronator drift Skin Exam: normal color, warm, dry SpO2 Interpretation: normal O2 Delivery: Room Air - Course Nursing assessment & vital signs reviewed: Yes EKG Interpreted by Me: RATE (100), A-fib, Other (No acute ischemic changes on today's twelve-lead EKG.) Ordered Tests: Active Orders 24 hr Category Date Time Status EKG-ER Only STAT Care 07/31/23 11:08 Active IV Insertion STAT Care 07/31/23 11:08 Active HEAD WITHOUT CONTRAST [CT] Stat Exams 07/31/23 11:30 Completed CBC W DIFF Stat Lab 07/31/23 11:17 Completed CMP Stat Lab 07/31/23 11:17 Completed CULTURE,URINE Stat Lab 07/31/23 11:18 Received MAGNESIUM Stat Lab 07/31/23 11:17 Completed POCT GLUCOSE Stat Lab 07/31/23 11:06 Completed TROPONIN Q4H Lab 07/31/23 11:17 Completed TROPONIN Q4H Lab 07/31/23 15:15 Ordered TROPONIN Q4H Lab 07/31/23 19:15 Ordered UA W/RFX UR CULTURE Stat Lab 07/31/23 11:18 Completed Medication Summary Discontinued Medications Generic Name Dose Route Start Last Admin Trade Name Melissa PRN Reason Stop Dose Admin Clonidine 0.1 mg 07/31/23 11:33 07/31/23 11:46 Clonidine Hcl 0.1 Mg Tablet PO 07/31/23 11:34 0.1 mg STAT ONE Administration Clonidine Confirm 07/31/23 11:44 Clonidine Hcl 0.1 Mg Tablet Administered 07/31/23 11:45 Dose 0.1 mg .ROUTE .STK-MED ONE Hydralazine HCl 10 mg 07/31/23 11:32 07/31/23 11:47 Hydralazine Hcl 20 Mg/Ml Vial IV 07/31/23 11:33 10 mg STAT ONE Administration Hydralazine HCl Confirm 07/31/23 11:44 Hydralazine Hcl 20 Mg/Ml Vial Administered 07/31/23 11:45 Dose 20 mg .ROUTE .STK-MED ONE Lab/Rad Data: Laboratory Result Diagrams 07/31/23 11:17 07/31/23 11:17 Laboratory Results 07/31/23 07/31/23 07/31/23 Range/Units Unknown 11:18 11:17 WBC (4.0-10.5) x10^3/uL RBC (4.1-5.4) x10^6/uL Hgb (12.0-16.0) g/dL Hct (35-47) % MCV (78-100) fL MCH (26-32) pg MCHC (32-36) g/dL RDW (11.5-14.0) % Plt Count (150-450) x10^3/uL MPV (7.5-11.0) fL Gran % (36.0-66.0) % Immature Gran % (Auto) (0.00-0.4) % Nucleat RBC Rel Count (0.00-0.1) % Eos # (Auto) (0-0.5) x10^3/uL Immature Gran # (Auto) (0.00-0.03) x10^3u/L Absolute Lymphs (auto) (1.0-4.6) x10^3/uL Absolute Monos (auto) (0.0-1.3) x10^3/uL Absolute Nucleated RBC (0.00-0.01) x10^3u/L Lymphocytes % (24.0-44.0) % Monocytes % (0.0-12.0) % Eosinophils % (0.00-5.0) % Basophils % (0.0-0.4) % Absolute Granulocytes (1.4-6.9) x10^3/uL Basophils # (0-0.4) x10^3/uL Sodium (137-145) mmol/L Potassium (3.5-5.1) mmol/L Chloride (98-107) mmol/L Carbon Dioxide (22-30) mmol/L Anion Gap (5-15) MEQ/L BUN (7-17) mg/dL Creatinine (0.52-1.04) mg/dL Estimated GFR ML/MIN Glucose (74-106) mg/dL POC Glucometer (74 to 106) mg/dL Calcium (8.4-10.2) mg/dL Magnesium (1.6-2.3) mg/dL Total Bilirubin (0.2-1.3) mg/dL AST (14-36) U/L ALT (0-35) U/L Alkaline Phosphatase (38-126) U/L Troponin I < 0.012 (0.000-0.034) ng/mL Serum Total Protein (6.3-8.2) g/dL Albumin (3.5-5.0) g/dL Urine Color Yellow (Yellow) Urine Appearance Cloudy A (Clear) Urine pH 8.5 A (4.6-8.0) Ur Specific [place] 1.020 (1.005-1.030) Urine Protein 300 A (Negative) Urine Glucose (UA) 500 A (Negative) mg/dL Urine Ketones Negative (Negative) Urine Blood Negative (Negative) Urine Nitrite Negative (Negative) Urine Bilirubin Negative (Negative) Urine Urobilinogen 0.2 (0.2) mg/dL Ur Leukocyte Esterase Negative (Negative) U Hyaline Cast (Auto) NONE SEEN (0-2) /LPF Urine Microscopic RBC 0-2 (0-5) /HPF Urine Microscopic WBC 3-5 (0-5) /HPF Ur Epithelial Cells Many A (None Seen) /HPF Urine Bacteria Moderate A (None Seen) /HPF Urine Culture Reflexed YES (NO) Influenza Type A Ag NEGATIVE (NEGATIVE) Influenza Type B Ag NEGATIVE (NEGATIVE) RSV (PCR) NEGATIVE (NEGATIVE) SARS-CoV-2 (PCR) NEGATIVE (NEGATIVE) 07/31/23 07/31/23 07/31/23 Range/Units 11:17 11:17 11:06 WBC 6.3 (4.0-10.5) x10^3/uL RBC 4.55 (4.1-5.4) x10^6/uL Hgb 13.7 (12.0-16.0) g/dL Hct 42.4 (35-47) % MCV 93.2 (78-100) fL MCH 30.1 (26-32) pg MCHC 32.3 (32-36) g/dL RDW 14.4 H (11.5-14.0) % Plt Count 224 (150-450) x10^3/uL MPV 11.3 H (7.5-11.0) fL Gran % 63.9 (36.0-66.0) % Immature Gran % (Auto) 0.3 (0.00-0.4) % Nucleat RBC Rel Count 0.0 (0.00-0.1) % Eos # (Auto) 0.30 (0-0.5) x10^3/uL Immature Gran # (Auto) 0.02 (0.00-0.03) x10^3u/L Absolute Lymphs (auto) 1.35 (1.0-4.6) x10^3/uL Absolute Monos (auto) 0.53 (0.0-1.3) x10^3/uL Absolute Nucleated RBC 0.00 (0.00-0.01) x10^3u/L Lymphocytes % 21.4 L (24.0-44.0) % Monocytes % 8.4 (0.0-12.0) % Eosinophils % 4.7 (0.00-5.0) % Basophils % 1.3 (0.0-0.4) % Absolute Granulocytes 4.04 (1.4-6.9) x10^3/uL Basophils # 0.08 (0-0.4) x10^3/uL Sodium 137 (137-145) mmol/L Potassium 4.0 (3.5-5.1) mmol/L Chloride 92 L (98-107) mmol/L Carbon Dioxide 30 (22-30) mmol/L Anion Gap 18.3 H (5-15) MEQ/L BUN 30 H (7-17) mg/dL Creatinine 5.37 H (0.52-1.04) mg/dL Estimated GFR 7.7 ML/MIN Glucose 213 H (74-106) mg/dL POC Glucometer 196 H (74 to 106) mg/dL Calcium 9.7 (8.4-10.2) mg/dL Magnesium 2.1 (1.6-2.3) mg/dL Total Bilirubin 0.60 (0.2-1.3) mg/dL AST 15 (14-36) U/L ALT 8 (0-35) U/L Alkaline Phosphatase 82 (38-126) U/L Troponin I (0.000-0.034) ng/mL Serum Total Protein 7.9 (6.3-8.2) g/dL Albumin 4.6 (3.5-5.0) g/dL Urine Color (Yellow) Urine Appearance (Clear) Urine pH (4.6-8.0) Ur Specific [place] (1.005-1.030) Urine Protein (Negative) Urine Glucose (UA) (Negative) mg/dL Urine Ketones (Negative) Urine Blood (Negative) Urine Nitrite (Negative) Urine Bilirubin (Negative) Urine Urobilinogen (0.2) mg/dL Ur Leukocyte Esterase (Negative) U Hyaline Cast (Auto) (0-2) /LPF Urine Microscopic RBC (0-5) /HPF Urine Microscopic WBC (0-5) /HPF Ur Epithelial Cells (None Seen) /HPF Urine Bacteria (None Seen) /HPF Urine Culture Reflexed (NO) Influenza Type A Ag (NEGATIVE) Influenza Type B Ag (NEGATIVE) RSV (PCR) (NEGATIVE) SARS-CoV-2 (PCR) (NEGATIVE) - Progress Progress: improved, re-examined Progress Note: 07/31/23 11:54 This patient's medical issue is 1 of moderate complexity. The level of complexity in the workup performed is based on review of the patient's past medical history, review the patient's medication list, review the patient drug allergy list, history present illness and physical findings on examination. The workup in this patient includes placement of intravenous line, CBC, CMP, magnesium level, CT scan of the head, twelve-lead EKG, troponin level, urinalysis. We also provide the patient with IV form of her medication to treat high blood pressure. 07/31/23 12:53 I interpreted the patient's laboratory data results. Surprisingly, with the exception of the poor renal function (which is expected the day prior to her dialysis) patient's lab data results do not show any acute, emergent findings. CT scan of the head without contrast was interpreted by the radiologist. This study was compared to a CT scan of the head that was performed on 02/04/2023. There is a nonacute senile brain with remote lacunar infarct left basal ganglia. No acute, urgent or emergent findings. In this patient we will attempt to improve her blood pressure since she was unable to take her blood pressure medication this morning. Likely her high blood pressure is what is causing the dizziness and we will also provide her with antiemetics and send a prescription remotely to her pharmacy for Zofran and meclizine medication. 07/31/23 13:00 Patient's symptoms have improved. Patient's current blood pressure is 164/86 Counseled pt/family regarding: lab results, diagnosis, need for follow-up, rad results Medical Desision Making - Independent Historian Additional History obtained from: Family - Diagnostic Testing Diagnostic test were ordered, analyzed, and reviewed by me: Yes Radiological Interpretation: Reviewed by me, Teleradiologist Report - Risk of complications The pt has a mod risk of morbidity or mortality based on: Need for prescription drug management - Departure Departure Disposition: Home Clinical Impression: Dizziness, Hypertension Condition: Stable Critical Care Time: No Referrals: JARROD JOSEPH MD [Primary Care Provider] - Follow up/PCP as directed Additional Instructions: Take your medication as prescribed. Keep your dialysis appointment for tomorrow. 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 Prescriptions: Ondansetron ODT 4 MG [Zofran Odt 4 mg] 4 mg PO Q6H PRN PRN #10 tablet PRN Reason: Vomiting Meclizine HCl 25 mg [Antivert 25 mg] 25 mg PO Q12H PRN #10 tablet PRN Reason: Dizziness
[2023-07-31 11:12] VITALS: TEMP 97.2
[2023-07-31 11:41] LABS: Absolute Neutrophil Ct (ANC) 4.04 x10^3/uL (1.4-6.9); BASOPHIL % 1.3 % (0.0-0.4); Basophil (Absolute #) 0.08 x10^3/uL (0-0.4); Eosinophil % 4.7 % (0.00-5.0); Hematocrit 42.4 % (35-47); Hemoglobin 13.7 g/dL (12.0-16.0); IMMATURE GRAN # 0.02 x10^3u/L (0.00-0.03); IMMATURE GRAN % 0.3 % (0.00-0.4); Lymphocyte (Absolute #) 1.35 x10^3/uL (1.0-4.6); Lymphocytes % 21.4 % (24.0-44.0); Mean Cell Volume 93.2 fL (78-100); Mean Corpuscular Hemoglobin 30.1 pg (26-32); Mean Corpuscular Hgb Concent. 32.3 g/dL (32-36); Mean Platelet Volume 11.3 fL (7.5-11.0); Monocyte (Absolute #) 0.53 x10^3/uL (0.0-1.3); Monocytes % 8.4 % (0.0-12.0); Neutrophil % 63.9 % (36.0-66.0); Platelet Count 224 x10^3/uL (150-450); Red Blood Count 4.55 x10^6/uL (4.1-5.4); Red Cell Distribution Width 14.4 % (11.5-14.0); White Blood Count 6.3 x10^3/uL (4.0-10.5)
[2023-07-31] MEDS ORDERED: CLONIDINE 0.1 MG TABLET ONE (11:44)
[2023-07-31] MEDS ORDERED: APRESOLINE 20 MG/ML INJ ONE (11:44)
[2023-07-31] MEDS: CLONIDINE 0.1 MG TABLET PO ONE (11:46)
[2023-07-31] MEDS: APRESOLINE 20 MG/ML INJ IV ONE (11:47)
[2023-07-31 11:59] LABS: ALBUMIN 4.6 g/dL (3.5-5.0); ANION GAP 18.3 MEQ/L (5-15); BILIRUBIN,TOTAL 0.6 mg/dL (0.2-1.3); Calcium 9.7 mg/dL (8.4-10.2); Creatinine 1 5.37 mg/dL (0.52-1.04); EST GLOMERULAR FILTRATION RATE 7.7 ML/MIN; MAGNESIUM 2.1 mg/dL (1.6-2.3); Total Protein 7.9 g/dL (6.3-8.2)
[2023-07-31 12:04] LABS: Appearance Cloudy (Clear); Bacteria Moderate /HPF (None Seen); Bilirubin Negative (Negative); Blood Negative (Negative); Epithelial Cells Many /HPF (None Seen); Glucose, Urine 500 mg/dL (Negative); Hyaline Casts NONE SEEN /LPF (0-2); Ketones Negative (Negative); Leukocyte Esterase Negative (Negative); Nitrite Negative (Negative); Ph 8.5 (4.6-8.0); Protein,Urine Dip 300 (Negative); RBC 0-2 /HPF (0-5); Urobilinogen 0.2 mg/dL (0.2)
[2023-07-31 12:08] LABS: ADD URINE CULTURE? YES (NO)
--- NOTE | 2023-07-31 12:21 | XRAY ---
Indication: Headache and dizziness. No known injury. Multiple contiguous axial images obtained through the head without contrast. Comparison: February 04, 2023 Again age-appropriate global atrophy, mild periventricular degenerative micro-ischemia bilaterally, and remote lacunar infarct left basal ganglia. No acute intracranial hemorrhage, abnormal extra-axial fluid collection, or mass effect. Fourth ventricle is midline without hydrocephalus. Bony calvarium intact. Visualized paranasal sinuses and mastoid air cells are clear. Impression: Again nonacute senile brain with remote lacunar infarct left basal ganglia.
[2023-07-31 13:09] LABS: INFLUENZA A NEGATIVE (NEGATIVE); INFLUENZA B NEGATIVE (NEGATIVE); RESPIRATORY SYNCTIAL VIRUS NEGATIVE (NEGATIVE); SARS-CoV-2 Xpert Express NEGATIVE (NEGATIVE)
[2023-07-31 13:17] VITALS: BP 151/90; PULSE 112; RESP 19; O2SAT 98
[2023-07-31] MEDS ORDERED: ZOFRAN ODT 4 MG ONE (13:25)
[2023-07-31] MEDS: ZOFRAN ODT 4 MG PO ONE (13:26)
== END 2023-07-31 13:30 | disposition home or self-care (01) ==
LOC: ED 10:54
DX: R42 Dizziness and giddiness (principal); I13.0 Hypertensive heart and chronic kidney disease with heart failure and stage 1 through stage 4 chronic kidney disease, or unspecified chronic kidney disease; N18.6 End stage renal disease; I50.9 Heart failure, unspecified; R51.9 Headache, unspecified; E78.5 Hyperlipidemia, unspecified; E11.9 Type 2 diabetes mellitus without complications; Z79.01 Long term (current) use of anticoagulants; Z79.4 Long term (current) use of insulin; Z79.899 Other long term (current) drug therapy; Z99.2 Dependence on renal dialysis; Z20.828 Contact with and (suspected) exposure to other viral communicable diseases
CPT/HCPCS: 0241U; 36000; 36415; 70450; 80053; 81001; 82947; 83735; 84484; 85025; 87086; 93005; 96374; 99284; J0360; Q0162; A9270-GY

== ENCOUNTER 2023-08-29 10:39 | Emergency (ER) | payer MEDICARE ==
[2023-08-29 10:52] VITALS: TEMP 98.9
[2023-08-29] MEDS: Sodium Chloride 0.9% 1000 ML 1,000 ML IV SCH (10:56)
[2023-08-29] MEDS ORDERED: Sodium Chloride 0.9% 1000 ML 1,000 ML ONE (10:56)
--- NOTE | 2023-08-29 11:15 | XRAY ---
Indication: Weakness. Comparison: April 27, 2023. Portable chest demonstrates new mild right perihilar groundglass airspace disease without large effusion. Left lung clear. Heart borderline enlarged again with left pacemaker. Bony thorax intact.
[2023-08-29 11:26] LABS: Absolute Neutrophil Ct (ANC) 6.62 x10^3/uL (1.4-6.9); BASOPHIL % 0.5 % (0.0-0.4); Basophil (Absolute #) 0.04 x10^3/uL (0-0.4); Eosinophil % 1.1 % (0.00-5.0); Eosinophil (Absolute #) 0.09 x10^3/uL (0-0.5); Hematocrit 39.1 % (35-47); Hemoglobin 12.7 g/dL (12.0-16.0); IMMATURE GRAN # 0.06 x10^3u/L (0.00-0.03); IMMATURE GRAN % 0.7 % (0.00-0.4); Lymphocyte (Absolute #) 0.91 x10^3/uL (1.0-4.6); Lymphocytes % 11.2 % (24.0-44.0); Mean Cell Volume 92.7 fL (78-100); Mean Corpuscular Hemoglobin 30.1 pg (26-32); Mean Corpuscular Hgb Concent. 32.5 g/dL (32-36); Mean Platelet Volume 11.4 fL (7.5-11.0); Monocyte (Absolute #) 0.44 x10^3/uL (0.0-1.3); Monocytes % 5.4 % (0.0-12.0); Neutrophil % 81.1 % (36.0-66.0); Platelet Count 188 x10^3/uL (150-450); Red Blood Count 4.22 x10^6/uL (4.1-5.4); Red Cell Distribution Width 14.1 % (11.5-14.0); White Blood Count 8.2 x10^3/uL (4.0-10.5)
[2023-08-29 11:33] LABS: INR 0.94 (0.8-3.0); PROTIME 10.3 SECONDS (9.4-12.5)
[2023-08-29 11:34] LABS: ANION GAP 18.6 MEQ/L (5-15); BILIRUBIN,TOTAL 0.6 mg/dL (0.2-1.3); Calcium 9.2 mg/dL (8.4-10.2); Creatinine 1 6.49 mg/dL (0.52-1.04); EST GLOMERULAR FILTRATION RATE 6.2 ML/MIN; Potassium 4.2 mmol/L (3.5-5.1); Total Protein 7.5 g/dL (6.3-8.2)
--- NOTE | 2023-08-29 11:39 | XRAY ---
Indication: Weakness. Right lung pneumonia on same day chest radiograph. Multiple contiguous axial images obtained through the head without contrast. Comparison: July 31, 2023 Again age-appropriate global atrophy and mild periventricular degenerative micro-ischemia bilaterally. No acute intracranial hemorrhage, abnormal extra-axial fluid collection, or mass effect. Fourth ventricle is midline without hydrocephalus. Bony calvarium intact. Paranasal sinuses and mastoid air cells are clear. Impression: Continued nonacute senile brain.
--- NOTE | 2023-08-29 11:41 | XRAY ---
Indication: Weakness. Right lung pneumonia on same-day chest radiograph. Multiple contiguous axial images obtained through the lumbar spine. Sagittal and coronal reformatted images obtained. Comparison: October 08, 2022 Osseous structures remain demineralized. Grossly stable mild L3-S1 broad-based disc osteophyte complex and mild bilateral L4-S1 degenerative facet arthropathy. Sagittal and coronal reformatted images again demonstrates normal alignment with vertebral body heights/disc spaces maintained. No acute compression fracture or subluxation. Visualized noncontrasted soft tissues again demonstrates mild scattered aortoiliac calcifications. Impression: Stable osteopenia, multilevel degenerative spondylosis, and arteriosclerotic disease. No new/acute findings.
[2023-08-29 11:42] LABS: Appearance Clear (Clear); Bilirubin Negative (Negative); Blood Trace (Negative); Glucose, Urine >=1000 mg/dL (Negative); Ketones Negative (Negative); Leukocyte Esterase Negative (Negative); Nitrite Negative (Negative); Ph 8.5 (4.6-8.0); Protein,Urine Dip >=1000 (Negative); Specific Gravity 1.015 (1.005-1.030); Urobilinogen 0.2 mg/dL (0.2)
[2023-08-29 11:43] LABS: Erythrocyte Sedimentation Rate 55 mm/hr (0-20)
--- NOTE | 2023-08-29 11:43 | XRAY ---
Indication: Pain. Comparison: November 02, 2018 3 view right shoulder again demonstrates osteopenia, moderate degenerative changes glenohumeral/AC joints with heterotopic ossifications, high riding humeral head commonly seen with rotator cuff tear, right neck surgical clips, and partially visualized cardiac pacer leads. New right perihilar groundglass airspace disease.
[2023-08-29 11:46] LABS: ADD URINE CULTURE? ORDERED SEPARATELY (NO)
[2023-08-29 11:51] LABS: Bacteria Rare /HPF (None Seen); Epithelial Cells Rare /HPF (None Seen); RBC 0-2 /HPF (0-5); WBC 0-2 /HPF (0-5)
--- NOTE | 2023-08-29 12:29 | ERPHSYRPT ---
- History of Present Illness Time Seen by Provider: 08/29/23 10:50 Source: patient, family Exam Limitations: no limitations Patient Subjective Stated Complaint: Pt was too weak to get off of the couch last night and laid crooked and lower back is painful and was still unable to get off this morning, pt was to go to dialysis this morning Triage Nursing Assessment: Pt brought to the ER by EMS, hypertensive, rates back pain as 01/09, pt was to go to dialysis this morning but was too weak to get off of the couch and family members called 911 to do a well being check, pulses normal, skin n/w/d, no difficulty breathing, mucus membranes dry Physician History: History is reported by the nurses does cover the history of present illness. She has been extremely weak she has been short of breath her weakness is primarily i n her lower extremities she did not get off the couch for almost 16 hours. ThePatient is also missed her dialysis for today. Timing/Duration: yesterday Cough Quality/Degree: dry cough Allergies/Adverse Reactions: amoxicillin [From Augmentin] Adverse Reaction (Intermediate, Verified 08/29/23 10:53) clavulanic acid [From Augmentin] Adverse Reaction (Intermediate, Verified 08/29/23 10:53) codeine Adverse Reaction (Intermediate, Verified 08/29/23 10:53) Home Medications: Duloxetine HCl 30 mg [Cymbalta 30 MG Capsule] 30 mg PO DAILY 12/14/18 [History] Levothyroxine Sodium 100 Mcg [Synthroid 100 Mcg] 100 mcg PO DAILY 12/14/18 [History] Tramadol HCl [Ultram] 50 mg PO QID 12/14/18 [History] Clonidine HCl 0.1 mg [Clonidine 0.1 mg Tablet] 0.2 mg PO BID 01/24/22 [History] Diltiazem HCl [Dilt-Xr] 360 mg PO DAILY 01/24/22 [History] Ezetimibe 10 mg [Zetia 10 MG] 10 mg PO DAILY 01/24/22 [History] Famotidine 20 mg [Pepcid 20 MG] 20 mg PO BID 01/24/22 [History] Insulin Detemir [Levemir] 30 unit SQ BID 01/24/22 [History] Insulin Lispro [Humalog] 8 unit SQ DAILY 01/24/22 [History] Insulin Lispro [Humalog] 10 unit SQ LUNCH 01/24/22 [History] PANTOPRAZOLE 40 mg Tablet [Protonix 40MG Tablet] 40 mg PO DAILY 01/24/22 [History] Insulin Lispro [Humalog] 10 units SQ DINNER 01/25/22 [History] HydrALAzine HCL 25 MG TAB [Apresoline 25 MG TABLET] 25 mg PO TID 01/26/22 [History] carvediloL [Coreg] 25 mg PO BID 01/26/22 [History] Bumetanide 2 mg PO BID 03/28/22 [History] Apixaban [Eliquis 2.5 mg Tablet] 5 mg PO BID 06/22/22 [History] Hydralazine HCl 50 mg PO TID 06/22/22 [History] Icosapent Ethyl [Vascepa] 2 gm PO BID 06/22/22 [History] Magnesium Oxide 400 mg PO DAILY 06/22/22 [History] Rosuvastatin Calcium 10 mg PO DAILY 07/31/23 [History] Hx Tetanus, Diphtheria Vaccination/Date Given: Yes Hx Influenza Vaccination/Date Given: Yes Hx Pneumococcal Vaccination/Date Given: Yes Travel Risk - International Travel Have you traveled outside of the country in past 3 weeks: No - Emerging Infectious Disease Are you exhibiting symptoms associated with any current EIDs: No - Review of Systems Constitutional: No Fever, No Chills Eyes: No Symptoms Ears, Nose, & Throat: No Symptoms Respiratory: Cough, Dyspnea Cardiac: No Chest Pain, No Edema, No Syncope Abdominal/Gastrointestinal: No Abdominal Pain, No Nausea, No Vomiting, No Diarrhea Genitourinary Symptoms: No Dysuria Musculoskeletal: No Back Pain, No Neck Pain Skin: No Rash Neurological: Focal Weakness, No Dizziness, No Sensory Changes Psychological: No Symptoms Endocrine: No Symptoms All Other Systems: Reviewed and Negative - Past Medical History Pertinent Past Medical History: Yes Neurological History: No Pertinent History ENT History: No Pertinent History Cardiac History: Arrhythmia, Congestive Heart Failure, High Cholesterol, Hypertension Respiratory History: No Pertinent History Endocrine Medical History: Diabetes Type II, Hypothyroidism Musculoskeletal History: Fractures GI Medical History: GERD History: Dialysis, Renal Disease Psycho-Social History: No Pertinent History Female Reproductive Disorders: No Pertinent History Other Medical History: left arm and left hand. right and left foot broken - Past Surgical History Past Surgical History: Yes Neuro Surgical History: No Pertinent History Cardiac: Pacemaker Respiratory: No Pertinent History Gastrointestinal: Cholecystectomy Genitourinary: No Pertinent History Musculoskeletal: No Pertinent History Female Surgical History: No Pertinent History Other Surgical History: thyroid removal, left wrist with plate in it. fistula placement right upper arm - Social History Smoking Status: Never smoker Exposure to second hand smoke: No Drug Use: none Patient Lives Alone: No - Nursing Vital Signs Nursing Vital Signs: Initial Vital Signs Temperature 98.9 F 08/29/23 10:40 Pulse Rate 96 H 08/29/23 10:40 Blood Pressure 201/121 08/29/23 10:40 O2 Sat by Pulse Oximetry 93 L 08/29/23 10:40 Pain Scale Pain Intensity 8 - Physical Exam General Appearance: moderate distress, alert Eye Exam: PERRL/EOMI, eyes nml inspection Ears, Nose, Throat Exam: normal ENT inspection, TMs normal, pharynx normal, moist mucous membranes Neck Exam: normal inspection, non-tender, supple, full range of motion Respiratory Exam: normal breath sounds, lungs clear, No respiratory distress Cardiovascular Exam: regular rate/rhythm, normal heart sounds Gastrointestinal/Abdomen Exam: soft, No tenderness Back Exam: normal inspection, No CVA tenderness, No vertebral tenderness Extremity Exam: normal inspection, normal range of motion, other (Extreme weakness in the lower extremities) Neurologic Exam: alert, oriented x 3, cooperative, normal mood/affect, sensation nml, motor deficits, motor weakness Skin Exam: normal color, warm, dry, No rash Lymphatic Exam: No adenopathy SpO2 Interpretation: normal SpO2: 96 O2 Delivery: Room Air - Course Nursing assessment & vital signs reviewed: Yes EKG Interpreted by Me: RATE (99), A-fib, NORMAL AXIS, Non-specific ST Changes Ordered Tests: Active Orders 24 hr Category Date Time Status EKG-ER Only STAT Care 08/29/23 10:45 Active IV Insertion STAT Care 08/29/23 10:45 Active ACO SDOH Referral ONCE Cons 08/29/23 10:52 Active CHEST 1 VIEW (PORTABLE) Stat Exams 08/29/23 10:48 Completed HEAD WITHOUT CONTRAST [CT] Stat Exams 08/29/23 10:53 Completed LUMBAR SPINE W/O [CT] Stat Exams 08/29/23 11:14 Completed SHOULDER Stat Exams 08/29/23 11:13 Completed BLOOD CULTURE Stat Lab 08/29/23 10:48 Ordered CBC W DIFF Stat Lab 08/29/23 10:55 Completed CK-Creatinine Phosphokinase Stat Lab 08/29/23 10:55 Completed CMP Stat Lab 08/29/23 10:55 Completed CULTURE,URINE Stat Lab 08/29/23 11:11 Received Erythrocyte Sedimentation Rate Stat Lab 08/29/23 10:55 Completed LIPASE Stat Lab 08/29/23 10:55 Completed Lactic Acid Stat Lab 08/29/23 10:50 Completed PROTIME WITH INR Stat Lab 08/29/23 10:55 Completed TROPONIN Q4H Lab 08/29/23 10:55 Completed TROPONIN Q4H Lab 08/29/23 15:00 Ordered TROPONIN Q4H Lab 08/29/23 19:00 Ordered UA W/RFX UR CULTURE Stat Lab 08/29/23 11:11 Completed Medication Summary Generic Name Dose Route Start Last Admin Trade Name Freq PRN Reason Stop Dose Admin Sodium Chloride 1,000 mls @ 50 mls/hr 08/29/23 10:45 08/29/23 10:56 Sodium Chloride 0.9% 1000 Ml IV 09/28/23 10:44 50 mls/hr .Q20H PEEWEE Administration Discontinued Medications Generic Name Dose Route Start Last Admin Trade Name Freq PRN Reason Stop Dose Admin Ceftriaxone Sodium 500 mg 08/29/23 12:19 Ceftriaxone Sodium 500 Mg Vial IV 08/29/23 12:20 STAT ONE Lab/Rad Data: Laboratory Result Diagrams 08/29/23 10:55 08/29/23 10:55 Laboratory Results 08/29/23 08/29/23 08/29/23 Range/Units 11:11 10:55 10:55 WBC (4.0-10.5) x10^3/uL RBC (4.1-5.4) x10^6/uL Hgb (12.0-16.0) g/dL Hct (35-47) % MCV (78-100) fL MCH (26-32) pg MCHC (32-36) g/dL RDW (11.5-14.0) % Plt Count (150-450) x10^3/uL MPV (7.5-11.0) fL Gran % (36.0-66.0) % Immature Gran % (Auto) (0.00-0.4) % Nucleat RBC Rel Count (0.00-0.1) % Eos # (Auto) (0-0.5) x10^3/uL Immature Gran # (Auto) (0.00-0.03) x10^3u/L Absolute Lymphs (auto) (1.0-4.6) x10^3/uL Absolute Monos (auto) (0.0-1.3) x10^3/uL Absolute Nucleated RBC (0.00-0.01) x10^3u/L Lymphocytes % (24.0-44.0) % Monocytes % (0.0-12.0) % Eosinophils % (0.00-5.0) % Basophils % (0.0-0.4) % Absolute Granulocytes (1.4-6.9) x10^3/uL Basophils # (0-0.4) x10^3/uL ESR (0-20) mm/hr PT 10.3 (9.4-12.5) SECONDS INR 0.94 (0.8-3.0) Sodium (135-145) mmol/L Potassium (3.5-5.1) mmol/L Chloride (98-107) mmol/L Carbon Dioxide (22-30) mmol/L Anion Gap (5-15) MEQ/L BUN (7-17) mg/dL Creatinine (0.52-1.04) mg/dL Estimated GFR ML/MIN Glucose (74-106) mg/dL Lactic Acid (0.4-2.0) Calcium (8.4-10.2) mg/dL Total Bilirubin (0.2-1.3) mg/dL AST (14-36) U/L ALT (0-35) U/L Alkaline Phosphatase (38-126) U/L Creatine Kinase (30-135) U/L Troponin I 0.023 (0.000-0.034) ng/mL Serum Total Protein (6.3-8.2) g/dL Albumin (3.5-5.0) g/dL Lipase (23-300) U/L Urine Color Yellow (Yellow) Urine Appearance Clear (Clear) Urine pH 8.5 A (4.6-8.0) Ur Specific [place] 1.015 (1.005-1.030) Urine Protein >=1000 A (Negative) Urine Glucose (UA) >=1000 A (Negative) mg/dL Urine Ketones Negative (Negative) Urine Blood Trace (Negative) Urine Nitrite Negative (Negative) Urine Bilirubin Negative (Negative) Urine Urobilinogen 0.2 (0.2) mg/dL Ur Leukocyte Esterase Negative (Negative) Urine Microscopic RBC 0-2 (0-5) /HPF Urine Microscopic WBC 0-2 (0-5) /HPF Ur Epithelial Cells Rare (None Seen) /HPF Urine Bacteria Rare A (None Seen) /HPF Urine Culture Reflexed ORDERED SEPARATELY (NO) 08/29/23 08/29/23 08/29/23 Range/Units 10:55 10:55 10:50 WBC 8.2 (4.0-10.5) x10^3/uL RBC 4.22 (4.1-5.4) x10^6/uL Hgb 12.7 (12.0-16.0) g/dL Hct 39.1 (35-47) % MCV 92.7 (78-100) fL MCH 30.1 (26-32) pg MCHC 32.5 (32-36) g/dL RDW 14.1 H (11.5-14.0) % Plt Count 188 (150-450) x10^3/uL MPV 11.4 H (7.5-11.0) fL Gran % 81.1 H (36.0-66.0) % Immature Gran % (Auto) 0.7 H (0.00-0.4) % Nucleat RBC Rel Count 0.0 (0.00-0.1) % Eos # (Auto) 0.09 (0-0.5) x10^3/uL Immature Gran # (Auto) 0.06 H (0.00-0.03) x10^3u/L Absolute Lymphs (auto) 0.91 L (1.0-4.6) x10^3/uL Absolute Monos (auto) 0.44 (0.0-1.3) x10^3/uL Absolute Nucleated RBC 0.00 (0.00-0.01) x10^3u/L Lymphocytes % 11.2 L (24.0-44.0) % Monocytes % 5.4 (0.0-12.0) % Eosinophils % 1.1 (0.00-5.0) % Basophils % 0.5 (0.0-0.4) % Absolute Granulocytes 6.62 (1.4-6.9) x10^3/uL Basophils # 0.04 (0-0.4) x10^3/uL ESR 55 H (0-20) mm/hr PT (9.4-12.5) SECONDS INR (0.8-3.0) Sodium 135 (135-145) mmol/L Potassium 4.2 (3.5-5.1) mmol/L Chloride 100 (98-107) mmol/L Carbon Dioxide 21 L (22-30) mmol/L Anion Gap 18.6 H (5-15) MEQ/L BUN 51 H (7-17) mg/dL Creatinine 6.49 H (0.52-1.04) mg/dL Estimated GFR 6.2 ML/MIN Glucose 262 H (74-106) mg/dL Lactic Acid 1.1 (0.4-2.0) Calcium 9.2 (8.4-10.2) mg/dL Total Bilirubin 0.60 (0.2-1.3) mg/dL AST 23 (14-36) U/L ALT 12 (0-35) U/L Alkaline Phosphatase 85 (38-126) U/L Creatine Kinase 69 (30-135) U/L Troponin I (0.000-0.034) ng/mL Serum Total Protein 7.5 (6.3-8.2) g/dL Albumin 4.0 (3.5-5.0) g/dL Lipase 129 (23-300) U/L Urine Color (Yellow) Urine Appearance (Clear) Urine pH (4.6-8.0) Ur Specific [place] (1.005-1.030) Urine Protein (Negative) Urine Glucose (UA) (Negative) mg/dL Urine Ketones (Negative) Urine Blood (Negative) Urine Nitrite (Negative) Urine Bilirubin (Negative) Urine Urobilinogen (0.2) mg/dL Ur Leukocyte Esterase (Negative) Urine Microscopic RBC (0-5) /HPF Urine Microscopic WBC (0-5) /HPF Ur Epithelial Cells (None Seen) /HPF Urine Bacteria (None Seen) /HPF Urine Culture Reflexed (NO) - Progress Progress: improved Air Movement: good Blood Culture(s) Obtained: Yes Antibiotics given: Yes Medical Desision Making - Discussion of managment Care discussed with:: on-call "doc" (Patient was discussed with the excepting nurse at [facility] test results were reviewed there was a treatment plan agreed upon and she was agreed to be admitted to the [facility] in [place].) - Diagnostic Testing Diagnostic test were ordered, analyzed, and reviewed by me: Yes Radiological Interpretation: Reviewed by me - Risk of complications The pt has a mod risk of morbidity or mortality based on: Need for minor surgical intervention in patient with know risk factors - Departure Departure Disposition: Transfer Clinical Impression: Pneumonia, Chronic atrial fibrillation, Chronic kidney disease, Generalized weakness Condition: Fair Critical Care Time: No Referrals: JARROD JOSEPH MD [Primary Care Provider] - Follow up/PCP as directed
[2023-08-29] MEDS ORDERED: Sodium Chloride 0.9% 100 ML ONE (12:30)
[2023-08-29] MEDS ORDERED: Rocephin 500 MG INJ ONE (12:30)
[2023-08-29] MEDS: Rocephin 500 MG INJ IV ONE (12:36)
[2023-08-29] MEDS: Sodium Chloride 0.9% 100 ML IV ONE (12:38)
[2023-08-29 13:15] VITALS: PULSE 83; RESP 19; O2SAT 93
[2023-08-29 14:01] VITALS: BP 177/85
== END 2023-08-29 14:03 | disposition short-term general hospital (02) ==
LOC: ED 10:39
DX: J18.9 Pneumonia, unspecified organism (principal); I48.20 Chronic atrial fibrillation, unspecified; I13.0 Hypertensive heart and chronic kidney disease with heart failure and stage 1 through stage 4 chronic kidney disease, or unspecified chronic kidney disease; E11.22 Type 2 diabetes mellitus with diabetic chronic kidney disease; N18.6 End stage renal disease; I50.9 Heart failure, unspecified; R53.1 Weakness; R06.02 Shortness of breath; Z79.891 Long term (current) use of opiate analgesic; Z79.4 Long term (current) use of insulin; Z79.01 Long term (current) use of anticoagulants; Z79.899 Other long term (current) drug therapy
CPT/HCPCS: 36000; 36415; 70450; 71045; 72131; 73030; 80053; 81001; 82550; 83605; 83690; 84484; 85025; 85610; 85652; 86140; 87040; 87086; 93005; 96365; 99284; J0696

== ENCOUNTER 2023-09-10 15:54 | Emergency (ER) | payer MEDICARE ==
--- NOTE | 2023-09-10 16:00 | ERPHSYRPT ---
- History of Present Illness Time Seen by Provider: 09/10/23 15:58 Source: patient, family Exam Limitations: no limitations Physician History: This is a 78-year-old white female patient of Dr. Joseph who underwent her Friday dialysis session today. After dialysis, patient was home and patient states that she fell and she has pain in both her knees, left hip and left shoulder. She did not hit her head. She has no headache, no head injury and no neck pain. It occurred approximately 11 AM. Patient has a history of renal failure on Friday dialysis. She also has a history of insulin- dependent diabetes, hypertension, CHF, hypothyroidism, hyperlipidemia and gastroesophageal reflux disease. Patient was brought to the emergency department by the patient's granddaughter who states she is trying to get her into facility and her grandmothers insurance requires 3-day hospital stay. Patient's granddaughter is aware that we do not provide dialysis at this facility. However, I did discuss with her about doing a workup and performing x-rays of those areas of her body that are hurting after her fall. Patient and the patient's granddaughter are both aware that we do not have a functional CT scanner at this point in time. Timing/Duration: today Severity: mild Modifying Factors: Improves With: movement Associated Symptoms: denies symptoms Allergies/Adverse Reactions: amoxicillin [From Augmentin] Adverse Reaction (Intermediate, Verified 09/10/23 16:05) clavulanic acid [From Augmentin] Adverse Reaction (Intermediate, Verified 09/10/23 16:05) codeine Adverse Reaction (Intermediate, Verified 09/10/23 16:05) Home Medications: Duloxetine HCl 30 mg [Cymbalta 30 MG Capsule] 30 mg PO DAILY 12/14/18 [History] Levothyroxine Sodium 100 Mcg [Synthroid 100 Mcg] 100 mcg PO DAILY 12/14/18 [History] Tramadol HCl [Ultram] 50 mg PO QID 12/14/18 [History] Clonidine HCl 0.1 mg [Clonidine 0.1 mg Tablet] 0.2 mg PO BID 01/24/22 [History] Diltiazem HCl [Dilt-Xr] 360 mg PO DAILY 01/24/22 [History] Ezetimibe 10 mg [Zetia 10 MG] 10 mg PO DAILY 01/24/22 [History] Famotidine 20 mg [Pepcid 20 MG] 20 mg PO BID 01/24/22 [History] Insulin Detemir [Levemir] 30 unit SQ BID 01/24/22 [History] Insulin Lispro [Humalog] 8 unit SQ DAILY 01/24/22 [History] Insulin Lispro [Humalog] 10 unit SQ LUNCH 01/24/22 [History] PANTOPRAZOLE 40 mg Tablet [Protonix 40MG Tablet] 40 mg PO DAILY 01/24/22 [History] Insulin Lispro [Humalog] 10 units SQ DINNER 01/25/22 [History] HydrALAzine HCL 25 MG TAB [Apresoline 25 MG TABLET] 25 mg PO TID 01/26/22 [History] carvediloL [Coreg] 25 mg PO BID 01/26/22 [History] Bumetanide 2 mg PO BID 03/28/22 [History] Apixaban [Eliquis 2.5 mg Tablet] 5 mg PO BID 06/22/22 [History] Hydralazine HCl 50 mg PO TID 06/22/22 [History] Icosapent Ethyl [Vascepa] 2 gm PO BID 06/22/22 [History] Magnesium Oxide 400 mg PO DAILY 06/22/22 [History] Rosuvastatin Calcium 10 mg PO DAILY 07/31/23 [History] Hx Tetanus, Diphtheria Vaccination/Date Given: Yes Hx Influenza Vaccination/Date Given: Yes Hx Pneumococcal Vaccination/Date Given: Yes Travel Risk - International Travel Have you traveled outside of the country in past 3 weeks: No - Emerging Infectious Disease Are you exhibiting symptoms associated with any current EIDs: No - Review of Systems Constitutional: No Symptoms Eyes: No Symptoms Ears, Nose, & Throat: No Symptoms Respiratory: No Symptoms Cardiac: No Symptoms Abdominal/Gastrointestinal: No Symptoms Genitourinary Symptoms: No Symptoms Musculoskeletal: Fall, Joint Pain (Left shoulder, left hip, bilateral knees) Skin: No Symptoms Neurological: No Symptoms Psychological: No Symptoms Endocrine: No Symptoms Hematologic/Lymphatic: No Symptoms Immunological/Allergic: No Symptoms All Other Systems: Reviewed and Negative - Past Medical History Pertinent Past Medical History: Yes Neurological History: No Pertinent History ENT History: No Pertinent History Cardiac History: Arrhythmia, Congestive Heart Failure, High Cholesterol, Hypertension Respiratory History: No Pertinent History Endocrine Medical History: Diabetes Type II, Hypothyroidism Musculoskeletal History: Fractures GI Medical History: GERD History: Dialysis, Renal Disease Psycho-Social History: No Pertinent History Female Reproductive Disorders: No Pertinent History Other Medical History: left arm and left hand. right and left foot broken - Past Surgical History Past Surgical History: Yes Neuro Surgical History: No Pertinent History Cardiac: Pacemaker Respiratory: No Pertinent History Gastrointestinal: Cholecystectomy Genitourinary: No Pertinent History Musculoskeletal: No Pertinent History Female Surgical History: No Pertinent History Other Surgical History: thyroid removal, left wrist with plate in it. fistula placement right upper arm - Social History Smoking Status: Never smoker Exposure to second hand smoke: No Drug Use: none Patient Lives Alone: No - Nursing Vital Signs Nursing Vital Signs: Initial Vital Signs Blood Pressure 167/65 09/10/23 16:03 O2 Sat by Pulse Oximetry 92 L 09/10/23 16:03 Pain Scale Pain Intensity 8 - Physical Exam General Appearance: no apparent distress, alert Eye Exam: PERRL/EOMI, eyes nml inspection Ears, Nose, Throat Exam: normal ENT inspection, moist mucous membranes Neck Exam: normal inspection, non-tender, supple, full range of motion Respiratory Exam: airway intact, No chest tenderness, No respiratory distress Gastrointestinal/Abdomen Exam: soft, normal bowel sounds, No tenderness Pelvic Exam: not done Rectal Exam: not done Back Exam: normal inspection, normal range of motion, No CVA tenderness, No vertebral tenderness Extremity Exam: normal inspection, normal range of motion, pelvis stable, tenderness (Mild left shoulder, left hip and bilateral anterior knees.), No deformities Neurologic Exam: alert, oriented x 3, cooperative, car stower II-XII nml as tested, normal mood/affect Skin Exam: normal color, warm, dry Lymphatic Exam: No adenopathy SpO2 Interpretation: normal O2 Delivery: Room Air - Course Nursing assessment & vital signs reviewed: Yes Ordered Tests: Active Orders 24 hr Category Date Time Status HIP UNI (2V) INCL PEL IF DONE Stat Exams 09/10/23 16:37 Taken KNEE (1 OR 2 VIEW) Stat Exams 09/10/23 16:37 Taken KNEE (1 OR 2 VIEW) Stat Exams 09/10/23 16:38 Taken SHOULDER Stat Exams 09/10/23 16:37 Taken SHOULDER Stat Exams 09/10/23 16:55 Taken - Progress Progress: unchanged, re-examined Progress Note: 09/10/23 16:35 My medical decision making and the low to moderate level of medical complexity in this patient is based on review of the patient's past medical history, review of patient's medication list, review of the patient's drug allergy list, history of present illness and physical findings on examination. The workup in this patient today will include x-ray of the left shoulder, x-ray of the left hip, x-ray of bilateral knees. The patient and her granddaughter are aware that we do not have CT scan services at this time and also we do not have dialysis services at our facility. 09/10/23 17:30 I interpreted the x-rays and made the preliminary read of the following x-rays: X-ray of right shoulder shows no acute fracture or dislocation. X-ray of left shoulder shows no acute fracture or dislocation. X-ray of right knee shows no acute fracture or dislocation. There are chronic changes present. X-ray of left knee shows no acute fracture or dislocation. There chronic changes noted. X-ray of left hip and pelvis shows no acute fracture or dislocation. There are chronic changes present. 09/10/23 17:32 Patient's granddaughter and the patient are aware of these readings by me are preliminary and the final read by the radiologist will be performed tomorrow. If there is any different in the read, they will be notified before noon tomorrow, 09/11/2023. Counseled pt/family regarding: diagnosis, need for follow-up, rad results Medical Desision Making - Independent Historian Additional History obtained from: Family - Diagnostic Testing Diagnostic test were ordered, analyzed, and reviewed by me: Yes Radiological Interpretation: Interpreted by me - Risk of complications Low Risk: Low risk of morbidity from additional dx testing or treatment - Departure Departure Disposition: Home Clinical Impression: Fall, Multiple contusions Condition: Stable Critical Care Time: No Referrals: JARROD JOSEPH MD [Primary Care Provider] - Follow up/PCP as directed Additional Instructions: Take all your medications as prescribed. Call your primary care physician, tomorrow, 09/11/2023, to make arrangements for further evaluation and management. Keep your dialysis appointment on 09/12/2023.
[2023-09-10 16:14] VITALS: TEMP 99.1
[2023-09-10 17:28] VITALS: PULSE 63; RESP 18; O2SAT 95
[2023-09-10 17:50] VITALS: BP 161/65
--- NOTE | 2023-09-11 08:39 | XRAY ---
Indication: Pain following fall. Comparison: None 2 view right shoulder demonstrates osteopenia, mild glenohumeral degenerative changes, moderate acromioclavicular degenerative changes, mild multilevel degenerative spondylosis, surgical clips base of neck, arteriosclerotic tortuous descending aorta, and incompletely visualized cardiac pacer leads. No other bony, articular, or soft tissue abnormalities.
--- NOTE | 2023-09-11 08:41 | XRAY ---
Indication: Pain following fall. Comparison: None 3 view left shoulder demonstrates osteopenia, mild glenohumeral/acromioclavicular degenerative changes, mild multilevel degenerative spondylosis, surgical clips base of neck, arteriosclerotic tortuous descending aorta, and left-sided pacemaker with dual leads. No other bony, articular, or soft tissue abnormalities.
--- NOTE | 2023-09-11 08:43 | XRAY ---
Indication: Pain following fall. Comparison: None AP/lateral left knee demonstrates osteopenia, mild tricompartmental degenerative changes greatest medial compartment, and extensive scattered vascular calcifications. No other bony, articular, or soft tissue abnormalities.
--- NOTE | 2023-09-11 08:43 | XRAY ---
Indication: Pain following fall. Comparison: None AP/lateral right knee demonstrates osteopenia, mild/moderate tricompartmental degenerative changes greatest medial compartment, and extensive scattered vascular calcifications. No other bony, articular, or soft tissue abnormalities.
--- NOTE | 2023-09-11 08:47 | XRAY ---
Indication: Pain following fall. Comparison: November 02, 2018 AP pelvis and 2 view left hip again demonstrates osteopenia, mild/moderate degenerative changes both hips, and diffuse scattered vascular calcifications. No new/acute bony, articular, or soft tissue abnormalities.
== END 2023-09-10 17:50 | disposition home or self-care (01) ==
LOC: ED 15:54
DX: Z04.3 Encounter for examination and observation following other accident (principal); S40.012A Contusion of left shoulder, initial encounter; S70.02XA Contusion of left hip, initial encounter; S80.02XA Contusion of left knee, initial encounter; S80.01XA Contusion of right knee, initial encounter; W19.XXXA Unspecified fall, initial encounter; E11.22 Type 2 diabetes mellitus with diabetic chronic kidney disease; I13.2 Hypertensive heart and chronic kidney disease with heart failure and with stage 5 chronic kidney disease, or end stage renal disease; I50.9 Heart failure, unspecified; N18.6 End stage renal disease; E78.5 Hyperlipidemia, unspecified; Z79.891 Long term (current) use of opiate analgesic; Z79.4 Long term (current) use of insulin; Z79.01 Long term (current) use of anticoagulants; Z79.899 Other long term (current) drug therapy; Z99.2 Dependence on renal dialysis
CPT/HCPCS: 73030; 73502; 73560; 99283

== ENCOUNTER 2023-10-12 17:44 | Emergency (ER) | payer MEDICARE ==
[2023-10-12 17:53] VITALS: TEMP 96.7
[2023-10-12 18:26] LABS: Absolute Neutrophil Ct (ANC) 4.97 x10^3/uL (1.4-6.9); BASOPHIL % 0.9 % (0.0-0.4); Basophil (Absolute #) 0.07 x10^3/uL (0-0.4); Eosinophil % 6.3 % (0.00-5.0); Eosinophil (Absolute #) 0.51 x10^3/uL (0-0.5); IMMATURE GRAN # 0.06 x10^3u/L (0.00-0.03); IMMATURE GRAN % 0.7 % (0.00-0.4); Lymphocyte (Absolute #) 1.66 x10^3/uL (1.0-4.6); Lymphocytes % 20.6 % (24.0-44.0); Mean Cell Volume 97.5 fL (78-100); Mean Corpuscular Hemoglobin 31.4 pg (26-32); Mean Corpuscular Hgb Concent. 32.3 g/dL (32-36); Mean Platelet Volume 10.2 fL (7.5-11.0); Monocyte (Absolute #) 0.78 x10^3/uL (0.0-1.3); Monocytes % 9.7 % (0.0-12.0); Neutrophil % 61.8 % (36.0-66.0); Platelet Count 205 x10^3/uL (150-450); Red Blood Count 3.18 x10^6/uL (4.1-5.4); Red Cell Distribution Width 15.5 % (11.5-14.0); White Blood Count 8.1 x10^3/uL (4.0-10.5)
--- NOTE | 2023-10-12 18:35 | ERPHSYRPT ---
- History of Present Illness Source: patient Exam Limitations: no limitations Patient Subjective Stated Complaint: pt here for a fall today while trying to weigh self at home. sh co pain to bilat knee pain, bilat shoulder pain, left hip and left wrist,no loc Triage Nursing Assessment: pt alert, resp easy, able to get from wc to bed with minimal assistance, skin w/d/p. no bruising or abrasions noted, moves all ext well, has swelling to left wrist, strong radial pulse, has dialysis cath to right upper arm Occurred: just prior to arrival Reason for Fall: tripped Injuries/Pain Location: upper extremity, pelvis, lower extremity Loss of Consciousness: no loss of consciousness Severity of Pain-Max: mild Severity of Pain-Current: mild Associated Symptoms (Fall): denies symptoms Hx Tetanus, Diphtheria Vaccination/Date Given: Yes Hx Influenza Vaccination/Date Given: Yes Hx Pneumococcal Vaccination/Date Given: Yes Immunizations Up to Date: Yes <CRISTY JACKSON - Last Filed: 10/12/23 18:35> <JOHN EVANGELISTA - Last Filed: 10/12/23 23:52> - History of Present Illness Time Seen by Provider: 10/12/23 18:31 Physician History: pt here for a fall today while trying to weigh self at home. sh co pain to bilat knee pain, bilat shoulder pain, left hip and left wrist,no loc able to get from wc to bed with minimal assistance, skin w/d/p. no bruising or abrasions noted, moves all ext well, has swelling to left wrist, strong radial pulse, has dialysis cath to right upper arm (RENETTA,CRISTY) Allergies/Adverse Reactions: amoxicillin [From Augmentin] Adverse Reaction (Intermediate, Verified 10/12/23 17:52) clavulanic acid [From Augmentin] Adverse Reaction (Intermediate, Verified 10/12/23 17:52) codeine Adverse Reaction (Intermediate, Verified 10/12/23 17:52) Home Medications: Duloxetine HCl 30 mg [Cymbalta 30 MG Capsule] 30 mg PO DAILY 12/14/18 [History] Levothyroxine Sodium 100 Mcg [Synthroid 100 Mcg] 100 mcg PO DAILY 12/14/18 [History] Tramadol HCl [Ultram] 50 mg PO QID 12/14/18 [History] Clonidine HCl 0.1 mg [Clonidine 0.1 mg Tablet] 0.2 mg PO BID 01/24/22 [History] Diltiazem HCl [Dilt-Xr] 360 mg PO DAILY 01/24/22 [History] Ezetimibe 10 mg [Zetia 10 MG] 10 mg PO DAILY 01/24/22 [History] Famotidine 20 mg [Pepcid 20 MG] 20 mg PO BID 01/24/22 [History] Insulin Detemir [Levemir] 30 unit SQ BID 01/24/22 [History] Insulin Lispro [Humalog] 8 unit SQ DAILY 01/24/22 [History] Insulin Lispro [Humalog] 10 unit SQ LUNCH 01/24/22 [History] PANTOPRAZOLE 40 mg Tablet [Protonix 40MG Tablet] 40 mg PO DAILY 01/24/22 [History] Insulin Lispro [Humalog] 10 units SQ DINNER 01/25/22 [History] HydrALAzine HCL 25 MG TAB [Apresoline 25 MG TABLET] 25 mg PO TID 01/26/22 [History] carvediloL [Coreg] 25 mg PO BID 01/26/22 [History] Bumetanide 2 mg PO BID 03/28/22 [History] Apixaban [Eliquis 2.5 mg Tablet] 5 mg PO BID 06/22/22 [History] Hydralazine HCl 50 mg PO TID 06/22/22 [History] Icosapent Ethyl [Vascepa] 2 gm PO BID 06/22/22 [History] Magnesium Oxide 400 mg PO DAILY 06/22/22 [History] Rosuvastatin Calcium 10 mg PO DAILY 07/31/23 [History] Travel Risk - International Travel Have you traveled outside of the country in past 3 weeks: No - Emerging Infectious Disease Are you exhibiting symptoms associated with any current EIDs: No <CRISTY JACKSON - Last Filed: 10/12/23 18:35> - Review of Systems Constitutional: No Fever, No Chills Eyes: No Symptoms Ears, Nose, & Throat: No Symptoms Respiratory: No Cough, No Dyspnea Cardiac: No Chest Pain, No Edema, No Syncope Abdominal/Gastrointestinal: No Abdominal Pain, No Nausea, No Vomiting, No Diarrhea Genitourinary Symptoms: No Dysuria Musculoskeletal: No Back Pain, No Neck Pain Skin: No Rash Neurological: No Dizziness, No Focal Weakness, No Sensory Changes Psychological: No Symptoms Endocrine: No Symptoms All Other Systems: Reviewed and Negative <RENETTA, - Last Filed: 10/12/23 18:35> - Past Medical History Pertinent Past Medical History: Yes Neurological History: No Pertinent History ENT History: No Pertinent History Cardiac History: Arrhythmia, Congestive Heart Failure, High Cholesterol, Hypertension Respiratory History: No Pertinent History Endocrine Medical History: Diabetes Type II, Hypothyroidism Musculoskeletal History: Fractures GI Medical History: GERD History: Dialysis, Renal Disease Psycho-Social History: No Pertinent History Female Reproductive Disorders: No Pertinent History Other Medical History: left arm and left hand. right and left foot broken - Past Surgical History Past Surgical History: Yes Neuro Surgical History: No Pertinent History Cardiac: Pacemaker Respiratory: No Pertinent History Gastrointestinal: Cholecystectomy Genitourinary: No Pertinent History Musculoskeletal: No Pertinent History Female Surgical History: No Pertinent History Other Surgical History: thyroid removal, left wrist with plate in it. fistula placement right upper arm - Social History Smoking Status: Never smoker Exposure to second hand smoke: No Drug Use: none Patient Lives Alone: No <RENETTA - Last Filed: 10/12/23 18:35> - [place] Coma Score Best Eye Response (Binta): (4) open spontaneously Best Verbal Response (Binta): (5) oriented Best Motor Response (Binta): (6) obeys commands [place] Total: 15 - Physical Exam General Appearance: no apparent distress, alert Head Injury: no evidence of injury Eye Exam: PERRL/EOMI ENT Exam: airway nml Neck Exam: normal inspection, No tenderness Respiratory/Chest Exam: normal breath sounds, No chest tenderness, No respiratory distress Cardiovascular Exam: normal heart sounds, regular rate/rhythm Gastrointestinal Exam: soft, No tenderness, No distention, No guarding, No ecchymosis Back Exam: normal inspection, No vertebral tenderness Extremity Exam: normal inspection, normal range of motion, pelvis stable, No deformities Neurologic Exam: alert, oriented x 3, cooperative, sensation nml, No motor deficits Skin Exam: normal color, warm, dry SpO2: 93 <RENETTA, - Last Filed: 10/12/23 18:35> - Nursing Vital Signs Nursing Vital Signs: Initial Vital Signs Temperature 96.7 F 10/12/23 17:52 Pulse Rate 66 10/12/23 17:52 Respiratory Rate 16 10/12/23 17:52 Blood Pressure 105/50 10/12/23 17:52 O2 Sat by Pulse Oximetry 93 L 10/12/23 17:52 Pain Scale Pain Intensity 8 - Course Nursing assessment & vital signs reviewed: Yes - Radiology Exams Hip X-ray Interpretation: Interpreted by me, Reviewed by me, Negative, No Fracture Knee X-ray Interpretation: Interpreted by me, Reviewed by me, Negative, No Fracture Shoulder X-ray Interpretation: Interpreted by me, Reviewed by me, Negative, No Fracture - CT Exams Head CT Interpretation: Discussed w/radiologist, Tele-radiologist Report <CRISTY JACKSON - Last Filed: 10/12/23 18:35> - CT Exams Cervical Spine CT Interpretation: Tele-radiologist Report (No obvious acute vertebral fracture, dislocation or collapse seen in the cervical spine. See rest of report.) <JOHN EVANGELISTA - Last Filed: 10/12/23 23:52> Ordered Tests: Active Orders 24 hr Category Date Time Status Oxygen-ED Only Nasal Cannula 2 lpm Care 10/12/23 21:32 Active CERVICAL SPINE WO CONTRAST [CT] Stat Exams 10/12/23 21:53 Completed HAND (MINIMUM 3 VIEWS) Routine Exams 10/12/23 18:51 Completed HEAD WITHOUT CONTRAST [CT] Stat Exams 10/12/23 18:51 Completed HIP UNI (2V) INCL PEL IF DONE Stat Exams 10/12/23 17:59 Completed KNEE (1 OR 2 VIEW) Stat Exams 10/12/23 17:59 Completed SHOULDER Stat Exams 10/12/23 18:00 Completed SHOULDER Stat Exams 10/12/23 19:18 Completed CBC W DIFF Stat Lab 10/12/23 18:24 Completed CMP Stat Lab 10/12/23 18:24 Completed Medication Summary Discontinued Medications Generic Name Dose Route Start Last Admin Trade Name Freq PRN Reason Stop Dose Admin Acetaminophen 650 mg 10/12/23 21:54 10/12/23 21:59 Acetaminophen 325 Mg Tablet PO 10/12/23 21:55 650 mg STAT ONE Administration Acetaminophen Confirm 10/12/23 21:57 Acetaminophen 325 Mg Tablet Administered 10/12/23 21:58 Dose 650 mg .ROUTE .STK-MED ONE Lab/Rad Data: Laboratory Result Diagrams 10/12/23 18:24 10/12/23 18:24 Laboratory Results 10/12/23 10/12/23 Range/Units 18:24 18:24 WBC 8.1 (4.0-10.5) x10^3/uL RBC 3.18 L (4.1-5.4) x10^6/uL Hgb 10.0 L (12.0-16.0) g/dL Hct 31.0 L (35-47) % MCV 97.5 (78-100) fL MCH 31.4 (26-32) pg MCHC 32.3 (32-36) g/dL RDW 15.5 H (11.5-14.0) % Plt Count 205 (150-450) x10^3/uL MPV 10.2 (7.5-11.0) fL Gran % 61.8 (36.0-66.0) % Immature Gran % (Auto) 0.7 H (0.00-0.4) % Nucleat RBC Rel Count 0.0 (0.00-0.1) % Eos # (Auto) 0.51 H (0-0.5) x10^3/uL Immature Gran # (Auto) 0.06 H (0.00-0.03) x10^3u/L Absolute Lymphs (auto) 1.66 (1.0-4.6) x10^3/uL Absolute Monos (auto) 0.78 (0.0-1.3) x10^3/uL Absolute Nucleated RBC 0.00 (0.00-0.01) x10^3u/L Lymphocytes % 20.6 L (24.0-44.0) % Monocytes % 9.7 (0.0-12.0) % Eosinophils % 6.3 H (0.00-5.0) % Basophils % 0.9 (0.0-0.4) % Absolute Granulocytes 4.97 (1.4-6.9) x10^3/uL Basophils # 0.07 (0-0.4) x10^3/uL Sodium 136 (135-145) mmol/L Potassium 3.8 (3.5-5.1) mmol/L Chloride 96 L (98-107) mmol/L Carbon Dioxide 26 (22-30) mmol/L Anion Gap 17.8 H (5-15) MEQ/L BUN 34 H (7-17) mg/dL Creatinine 6.57 H (0.52-1.04) mg/dL Estimated GFR 6.1 ML/MIN Glucose 104 (74-106) mg/dL Calcium 9.6 (8.4-10.2) mg/dL Total Bilirubin 0.40 (0.2-1.3) mg/dL AST 15 (14-36) U/L ALT 11 (0-35) U/L Alkaline Phosphatase 64 (38-126) U/L Serum Total Protein 7.0 (6.3-8.2) g/dL Albumin 4.2 (3.5-5.0) g/dL - Progress Progress: improved Counseled pt/family regarding: lab results, diagnosis, need for follow-up, rad results <JOHN EVANGELISTA - Last Filed: 10/12/23 23:52> - Progress Progress Note: 10/12/23 21:[address] Evangelista @ 2142: eomi, TM's not injected, pharynx pink, lungs clear, no cardiac rub, abdominal B.S. normal, good rom of upper & lower extr emities, alert & cooperative. mild posterior neck tenderness, mild tenderness of both shoulders, left hand, right hip, posterior scalp and right knee. (JOHN EVANGELISTA) Medical Desision Making - Diagnostic Testing Diagnostic test were ordered, analyzed, and reviewed by me: Yes Radiological Interpretation: Teleradiologist Report <JOHN EVANGELISTA - Last Filed: 10/12/23 23:52> <CRISTY JACKSON - Last Filed: 10/12/23 18:35> - Departure Departure Disposition: Home Critical Care Time: No <JOHN EVANGELISTA - Last Filed: 10/12/23 23:52> - Departure Clinical Impression: Fall, Cervical sprain, Pain in shoulders, left hand, right hip , right knee pain, Posterior scalp tenderness Condition: Stable Referrals: JARROD JOSEPH MD [Primary Care Provider] - Follow up/PCP as directed Instructions: Preventing falls in adults, Cervical Muscle Strain (DC) Additional Instructions: Follow up with private doctor tomorrow. Wear soft C-collar for the next 2 weeks only while awake. Take tylenol as needed for pain.
[2023-10-12 18:39] LABS: ALBUMIN 4.2 g/dL (3.5-5.0); ANION GAP 17.8 MEQ/L (5-15); BILIRUBIN,TOTAL 0.4 mg/dL (0.2-1.3); Calcium 9.6 mg/dL (8.4-10.2); Creatinine 1 6.57 mg/dL (0.52-1.04); EST GLOMERULAR FILTRATION RATE 6.1 ML/MIN; Potassium 3.8 mmol/L (3.5-5.1)
--- NOTE | 2023-10-12 21:15 | XRAY ---
CLINICAL HISTORY: fall, head injury, on anticoegulati COMPARISON: CT: 08/29/2023. TECHNIQUE: Axial noncontrast CT scan of the brain was performed from the skull base to the high parietal region. One of the following dose reduction techniques were utilized for this exam: Automated exposure control, adjustment of the mA and/or kV according to patient size, use of iterative reconstruction. FINDINGS: No intracerebral or extra axial hematoma. There are tiny ill-defined iso-to hypodense areas noted in the subcortical and periventricular white matter bilaterally, suggestive of microvascular ischemic changes. The ventricular system, cortical sulci and basal cisterns are prominent consistent with senile changes. The visualized brain parenchyma shows normal appearance. Normal CT appearance of the posterior fossa structures namely the cerebellar hemispheres, brainstem and cerebellar peduncles. The IACs are unremarkable. The cerebello-pontine angles are clear. The osseous structures in the skull base are unremarkable. No definite calvarium fractures. The scanned paranasal sinuses are clear. Right sided nasal septal deviation. Bilateral mastoid air cells appear unremarkable. IMPRESSION: 1. No acute traumatic injury seen in Plain CT brain. 2. Chronic microvascular ischemic changes and senile cortical atrophy. Electronically Signed by: Arlyn De La Vega MD. (10/12/2023 21:11:10 EDT)
--- NOTE | 2023-10-12 21:21 | XRAY ---
Indication: Hand injury following fall. Comparison: None 3 view left hand demonstrates osteopenia, mild degenerative changes all IP joints/base 1st metacarpal, radiocarpal degenerative chondrocalcinosis, old distal radial fracture with incompletely visualized fixation hardware, and old nonunited distal ulna fracture. No other bony, articular, or soft tissue abnormalities. Impression: Nonacute left wrist with chronic features.
--- NOTE | 2023-10-12 21:21 | XRAY ---
Indication: Status post fall. Comparison: September 10, 2023 3 view right shoulder unchanged again demonstrating osteopenia, mild glenohumeral degenerative changes, moderate acromioclavicular degenerative changes, mild multilevel degenerative spondylosis, surgical clips base of neck, and incompletely visualized left cardiac pacer leads. No new/acute abnormalities.
--- NOTE | 2023-10-12 21:23 | XRAY ---
Indication: Status post fall. Comparison: None 3 view left shoulder demonstrates osteopenia, mild glenohumeral/acromioclavicular degenerative changes, mild multilevel degenerative spondylosis, surgical clips base of neck, and left dual-lead pacemaker. No other bony, articular, or soft tissue abnormalities.
--- NOTE | 2023-10-12 21:25 | XRAY ---
Indication: Status post fall. Comparison: None AP/lateral right knee demonstrates osteopenia, mild/moderate tricompartmental degenerative changes greatest medial compartment, and extensive vascular calcifications. No other bony, articular, or soft tissue abnormalities.
--- NOTE | 2023-10-12 21:25 | XRAY ---
Indication: Status post fall. Comparison: September 10, 2023 2 view right hip demonstrates osteopenia, moderate degenerative arthropathy, and extensive vascular calcifications. No other bony, articular, or soft tissue abnormalities.
[2023-10-12] MEDS ORDERED: TYLENOL 325 MG ONE (21:57)
[2023-10-12] MEDS: TYLENOL 325 MG PO ONE (21:59)
--- NOTE | 2023-10-12 23:41 | XRAY ---
CLINICAL HISTORY: fall/tenderness posteriorly COMPARISON: None TECHNIQUE: Computed tomography of the cervical spine performed without intravenous contrast. Contiguous axial images were obtained from the skull base to T2, with sagittal and coronal reformatted images reconstructed from the axial data. CT scan was performed according to ALARA (as low as reasonably achievable). FINDINGS: There is mild straightening of normal cervical lordotic curvature, likely positional or due to muscular spasm. Degenerative changes are seen in cervical spine in form of anterior endplate and posterior uncovertebral osteophytes in the cervical vertebrae at multiple levels, with multilevel uncinate hypertrophy and facetal arthropathy and resultant variable multilevel bilateral neural foraminal narrowing. Cervical vertebral bodies are normal in height and alignment, with no evidence of fracture or subluxation. Lateral masses of C1 are symmetrical, and the dens is intact. Prevertebral soft tissues are not widened. The remaining suprahyoid and infrahyoid soft tissues in the neck are unremarkable. C2-C3: No significant disc bulge or mass effect on the cord. C3-C4: Disc osteophyte complexes (measuring approximately 3 to 4 mm), causing anterior thecal sac indentation and narrowing of bilateral neural foramina, without causing significant canal narrowing or cord compression. C4-C5: No significant disc bulge or mass effect on the cord. C5-C6 and C6-C7: Mildly reduced height of intervertebral disc spaces with mild endplate irregularity and sclerosis at these levels. Disc osteophyte complexes (measuring approximately 3 mm), causing anterior thecal sac indentation and narrowing of bilateral neural foramina, without causing significant canal narrowing or cord compression. C7-T1: No significant disc bulge or mass effect on the cord. IMPRESSION: 1. No obvious acute vertebral fracture, dislocation, or collapse seen in the cervical spine. 2. Disc osteophyte complexes (measuring approximately 4 mm) at C3-C4, C5-C6 and C6-C7 levels, causing anterior thecal sac indentation and narrowing of bilateral neural foramina at their respective levels, without causing significant canal narrowing or cord compression. 3. Straightening of the cervical lordotic curvature. 4. Degenerative changes - spondylotic changes in the cervical spine as described above. Electronically Signed by: Kirill Alexandra MD. (10/12/2023 23:36:47 EDT)
[2023-10-13 00:02] VITALS: BP 128/61; PULSE 62; O2SAT 96
[2023-10-13 00:09] VITALS: RESP 20
== END 2023-10-13 00:15 | disposition home or self-care (01) ==
LOC: ED 17:44
DX: S13.9XXA Sprain of joints and ligaments of unspecified parts of neck, initial encounter (principal); W18.30XA Fall on same level, unspecified, initial encounter; M25.511 Pain in right shoulder; M25.512 Pain in left shoulder; M79.642 Pain in left hand; M25.551 Pain in right hip; M25.561 Pain in right knee; R51.9 Headache, unspecified; I13.2 Hypertensive heart and chronic kidney disease with heart failure and with stage 5 chronic kidney disease, or end stage renal disease; I50.9 Heart failure, unspecified; E11.22 Type 2 diabetes mellitus with diabetic chronic kidney disease; N18.6 End stage renal disease; E78.5 Hyperlipidemia, unspecified; Z99.2 Dependence on renal dialysis; Z79.4 Long term (current) use of insulin; Z79.01 Long term (current) use of anticoagulants; Z79.899 Other long term (current) drug therapy
CPT/HCPCS: 36415; 70450; 72125; 73030; 73130; 73502; 73560; 80053; 85025; 99284; L0120; A9270-GY

== ENCOUNTER 2023-12-30 00:57 | Emergency (ER) | payer MEDICARE ==
[2023-12-30 01:07] VITALS: TEMP 99.5
[2023-12-30 01:47] LABS: Absolute Neutrophil Ct (ANC) 5.41 x10^3/uL (1.56-6.13); BASOPHIL % 0.9 % (0.1-1.2); Basophil (Absolute #) 0.06 x10^3/uL (0.01-0.08); Eosinophil % 6.6 % (0.7-5.8); Eosinophil (Absolute #) 0.46 x10^3/uL (0.04-0.36); Hematocrit 31.1 % (34.1-44.9); Hemoglobin 10.1 g/dL (11.2-15.7); IMMATURE GRAN # 0.04 x10^3u/L (0.001-0.031); IMMATURE GRAN % 0.6 % (0.001-0.429); Lymphocyte (Absolute #) 0.57 x10^3/uL (1.18-3.74); Lymphocytes % 8.1 % (19.3-51.7); Mean Cell Volume 98.1 fL (79.4-94.8); Mean Corpuscular Hemoglobin 31.9 pg (25.6-32.2); Mean Corpuscular Hgb Concent. 32.5 g/dL (32.2-35.5); Mean Platelet Volume 11.1 fL (9.4-12.3); Monocyte (Absolute #) 0.46 x10^3/uL (0.24-0.86); Monocytes % 6.6 % (4.7-12.5); Neutrophil % 77.2 % (34.0-71.1); Platelet Count 182 x10^3/uL (182-369); Red Blood Count 3.17 x10^6/uL (3.93-5.22); Red Cell Distribution Width 13.2 % (11.7-14.4)
[2023-12-30 02:02] LABS: ALBUMIN 4.2 g/dL (3.5-5.0); ANION GAP 19.3 MEQ/L (5-15); BILIRUBIN,TOTAL 0.3 mg/dL (0.2-1.3); Calcium 9.4 mg/dL (8.4-10.2); Creatinine 1 4.7 mg/dL (0.52-1.04); EST GLOMERULAR FILTRATION RATE 9.1 ML/MIN; Potassium 3.7 mmol/L (3.5-5.1); Total Protein 7.1 g/dL (6.3-8.2)
[2023-12-30] MEDS ORDERED: CARDIZEM DRIP 100 MG/100 ML D5W 100 ML IV ONE (02:13)
[2023-12-30] MEDS: CARDIZEM DRIP 100 MG/100 ML D5W 100 ML IV PRN (02:26)
[2023-12-30 02:27] LABS: INFLUENZA A NEGATIVE (NEGATIVE); INFLUENZA B NEGATIVE (NEGATIVE); RESPIRATORY SYNCTIAL VIRUS NEGATIVE (NEGATIVE)
--- NOTE | 2023-12-30 02:46 | ERPHSYRPT ---
- History of Present Illness Time Seen by Provider: 12/30/23 01:16 Source: patient Exam Limitations: no limitations Patient Subjective Stated Complaint: "I've had weakness, fever, and body aches for the past 3 days. People in my home have recently had covid." Triage Nursing Assessment: Pt presents to ER from EMS with complaints of Covid- like symptoms after being exposed to Covid+ family members in her home. Complaints of weakness, fever, and body aches. Denies nausea, vomiting, or diarrhea. Respirations are shallow and complains of mild shortness of breath. Denies cough. Abdomen is soft and bowel sounds present. Complains of mild pain all over. Skin is pink, warm, and dry. Appears weak and fatigued. Verbilizes a recent loss of her son, states is this week. Physician History: 78-year-old female with multiple medical problems including hypertension, hyperlipidemia, atrial fibrillation with pacemaker placement on Eliquis, ESRD on dialysis 3 times a week presented in the ER with complains of fever chills and bodyaches. Patient reports feeling weak fatigued tired and no energy to do her routine activities. Denies any nausea or vomiting. Reports mild shortness of breath. Patient reports other family members having COVID in the house. Denies any difficulty breathing, minimal nonproductive cough. No abdominal pain. Allergies/Adverse Reactions: amoxicillin [From Augmentin] Adverse Reaction (Intermediate, Verified 12/30/23 01:07) clavulanic acid [From Augmentin] Adverse Reaction (Intermediate, Verified 12/30/23 01:07) codeine Adverse Reaction (Intermediate, Verified 12/30/23 01:07) Home Medications: Duloxetine HCl 30 mg [Cymbalta 30 MG Capsule] 30 mg PO DAILY 12/14/18 [History] Levothyroxine Sodium 100 Mcg [Synthroid 100 Mcg] 100 mcg PO DAILY 12/14/18 [History] Tramadol HCl [Ultram] 50 mg PO QID 12/14/18 [History] Clonidine HCl 0.1 mg [Clonidine 0.1 mg Tablet] 0.1 mg PO BID 01/24/22 [History] Ezetimibe 10 mg [Zetia 10 MG] 10 mg PO DAILY 01/24/22 [History] Famotidine 20 mg [Pepcid 20 MG] 20 mg PO BID 01/24/22 [History] Insulin Detemir [Levemir] 27 unit SQ BID 01/24/22 [History] Insulin Lispro [Humalog] 8 unit SQ DAILY 01/24/22 [History] Insulin Lispro [Humalog] 10 unit SQ LUNCH 01/24/22 [History] PANTOPRAZOLE 40 mg Tablet [Protonix 40MG Tablet] 40 mg PO DAILY 01/24/22 [History] dilTIAZem HCL [Dilt-Xr] 160 mg PO BID 01/24/22 [History] Insulin Lispro [Humalog] 10 units SQ DINNER 01/25/22 [History] carvediloL [Coreg] 25 mg PO BID 01/26/22 [History] Bumetanide 2 mg PO BID 03/28/22 [History] Apixaban [Eliquis 2.5 mg Tablet] 5 mg PO BID 06/22/22 [History] Hydralazine HCl 50 mg PO TID 06/22/22 [History] icosapent ethyL [Vascepa] 2 gm PO BID 06/22/22 [History] Rosuvastatin Calcium 10 mg PO DAILY 07/31/23 [History] Hx Tetanus, Diphtheria Vaccination/Date Given: Yes Hx Influenza Vaccination/Date Given: Yes Hx Pneumococcal Vaccination/Date Given: Yes Immunizations Up to Date: No Travel Risk - International Travel Have you traveled outside of the country in past 3 weeks: No - Emerging Infectious Disease Are you exhibiting symptoms associated with any current EIDs: Yes Symptoms: Fever, Headaches/Body Aches/, Joint Pain, Shortness of Breath - Review of Systems Constitutional: Fever, Chills, Fatigue, Weakness Eyes: No Symptoms Ears, Nose, & Throat: No Symptoms Respiratory: Cough Cardiac: No Symptoms Abdominal/Gastrointestinal: No Symptoms Genitourinary Symptoms: No Symptoms Musculoskeletal: Myalgias Skin: No Symptoms Neurological: No Symptoms Endocrine: No Symptoms Hematologic/Lymphatic: No Symptoms - Past Medical History Pertinent Past Medical History: Yes Neurological History: No Pertinent History ENT History: No Pertinent History Cardiac History: Arrhythmia, Congestive Heart Failure, High Cholesterol, Hype rtension Respiratory History: No Pertinent History Endocrine Medical History: Diabetes Type II, Hypothyroidism Musculoskeletal History: Fractures GI Medical History: GERD History: Dialysis, Renal Disease Psycho-Social History: No Pertinent History Female Reproductive Disorders: No Pertinent History Other Medical History: left arm and left hand. right and left foot broken - Past Surgical History Past Surgical History: Yes Neuro Surgical History: No Pertinent History Cardiac: Pacemaker Respiratory: No Pertinent History Gastrointestinal: Cholecystectomy Genitourinary: No Pertinent History Musculoskeletal: No Pertinent History Female Surgical History: No Pertinent History Other Surgical History: thyroid removal, left wrist with plate in it. fistula p lacement right upper arm - Social History Smoking Status: Never smoker Exposure to second hand smoke: No Drug Use: none Patient Lives Alone: No - Social Determinants of Health Will the patient participate in the screening: Yes Do you worry about a steady place to live?: No Do you have any problems with any of the following?: No known problems In the past 12 months,have you had to go without utilities?: No Transportation Issues: No Has anyone in your support network made you feel unsafe?: No Have you or anyone in your house had to go without enough: No - Nursing Vital Signs Nursing Vital Signs: Initial Vital Signs Temperature 99.5 F 12/30/23 01:00 Pulse Rate 115 H 12/30/23 01:00 Respiratory Rate 24 12/30/23 01:00 Blood Pressure 163/104 12/30/23 01:00 O2 Sat by Pulse Oximetry 95 12/30/23 01:00 Pain Scale Pain Intensity 0 - Physical Exam General Appearance: no apparent distress, alert Eye Exam: PERRL/EOMI ENT Exam: no apparent trauma Neck Exam: normal inspection, supple, full range of motion Respiratory Exam: normal breath sounds, lungs clear Cardiovascular/Chest Exam: tachycardia, irregular Gastrointestinal/Abdominal Exam: soft, non tender, No no distention Extremity Exam: non-tender, normal range of motion Neurologic Exam: alert, oriented x 3, cooperative Skin Exam: normal color SpO2 Interpretation: normal SpO2: 98 O2 Delivery: Room Air - Course EKG Interpreted by Me: RATE (135), A-fib, NORMAL AXIS, NORMAL INTERVALS, Non- specific ST Changes Ordered Tests: Active Orders 24 hr Category Date Time Status Courseware Developer STAT Care 12/30/23 01:17 Active EKG-ER Only STAT Care 12/30/23 01:16 Active IV Insertion STAT Care 12/30/23 01:16 Active CHEST 1 VIEW (PORTABLE) Stat Exams 12/30/23 01:17 Taken CHEST WITHOUT CONTRAST [CT] Stat Exams 12/30/23 02:28 Completed BLOOD CULTURE Stat Lab 12/30/23 01:40 Received CBC W DIFF Stat Lab 12/30/23 01:35 Completed CMP Stat Lab 12/30/23 01:35 Completed Lactic Acid Stat Lab 12/30/23 01:30 Completed Lactic Acid Stat Lab 12/30/23 03:37 Received MAGNESIUM Stat Lab 12/30/23 01:35 Completed NT PRO BNPII Stat Lab 12/30/23 01:35 Completed PROCALCITONIN Stat Lab 12/30/23 01:35 Completed TROPONIN Q4H Lab 12/30/23 01:35 Completed TROPONIN Q4H Lab 12/30/23 05:30 Ordered TROPONIN Q4H Lab 12/30/23 09:30 Ordered UA W/RFX UR CULTURE Stat Lab 12/30/23 02:27 Completed Medication Summary Generic Name Dose Route Start Last Admin Trade Name Melissa PRN Reason Stop Dose Admin Diltiazem HCl 100 mls @ 5 mls/hr 12/30/23 01:25 12/30/23 02:26 Cardizem Drip 100 Mg/100 Ml D5w IV 01/29/24 01:24 5 mg/hr .Q20H PRN 5 mls/hr HEART RATE/ A-FIB Administration Protocol 5 MG/HR Discontinued Medications Generic Name Dose Route Start Last Admin Trade Name Melissa PRN Reason Stop Dose Admin Fentanyl Citrate 50 mcg 12/30/23 02:51 12/30/23 02:56 Fentanyl Citrate 100 Mcg/2 Ml* Vial IV 12/30/23 02:52 50 mcg STAT ONE Administration Fentanyl Citrate Confirm 12/30/23 02:54 Fentanyl Citrate 100 Mcg/2 Ml* Vial Administered 12/30/23 02:55 Dose 100 mcg .ROUTE .STK-MED ONE Azithromycin 500 mg in 250 mls @ 250 mls/hr 12/30/23 03:00 Zithromax 500 Mg/ 250 Ml Nacl Premix IV 12/30/23 03:59 STAT STA Aztreonam 2 gm/ Sodium 100 mls @ 200 mls/hr 12/30/23 03:00 12/30/23 03:36 Chloride IV 12/30/23 03:29 200 mls/hr STAT ONE Administration Azithromycin Confirm 12/30/23 03:13 Zithromax 500 Mg/ 250 Ml Nacl Premix Administered 12/30/23 03:14 Dose 500 mg in 250 mls @ ud IV .STK-MED ONE Sodium Chloride Confirm 12/30/23 03:29 Sodium Chloride 0.9% Administered 12/30/23 03:30 Dose 100 mls @ ud .ROUTE .STK-MED ONE Ondansetron HCl 4 mg 12/30/23 02:51 12/30/23 02:56 Ondansetron Hcl 4 Mg/2 Ml Vial IV 12/30/23 02:52 4 mg STAT ONE Administration Ondansetron HCl Confirm 12/30/23 02:54 Ondansetron Hcl 4 Mg/2 Ml Vial Administered 12/30/23 02:55 Dose 4 mg .ROUTE .STK-MED ONE Lab/Rad Data: Laboratory Result Diagrams 12/30/23 01:35 12/30/23 01:35 Laboratory Results 12/30/23 12/30/23 12/30/23 Range/Units 02:27 01:40 01:35 WBC (3.98-10.04) x10^3/uL RBC (3.93-5.22) x10^6/uL Hgb (11.2-15.7) g/dL Hct (34.1-44.9) % MCV (79.4-94.8) fL MCH (25.6-32.2) pg MCHC (32.2-35.5) g/dL RDW (11.7-14.4) % Plt Count (182-369) x10^3/uL MPV (9.4-12.3) fL Gran % (34.0-71.1) % Immature Gran % (Auto) (0.001-0.429) % Nucleat RBC Rel Count (0.00-0.2) % Eos # (Auto) (0.04-0.36) x10^3/uL Immature Gran # (Auto) (0.001-0.031) x10^3u/L Absolute Lymphs (auto) (1.18-3.74) x10^3/uL Absolute Monos (auto) (0.24-0.86) x10^3/uL Absolute Nucleated RBC (0.00-0.012) x10^3u/L Lymphocytes % (19.3-51.7) % Monocytes % (4.7-12.5) % Eosinophils % (0.7-5.8) % Basophils % (0.1-1.2) % Absolute Granulocytes (1.56-6.13) x10^3/uL Basophils # (0.01-0.08) x10^3/uL Sodium (135-145) mmol/L Potassium (3.5-5.1) mmol/L Chloride (98-107) mmol/L Carbon Dioxide (22-30) mmol/L Anion Gap (5-15) MEQ/L BUN (7-17) mg/dL Creatinine (0.52-1.04) mg/dL Estimated GFR ML/MIN Glucose (74-106) mg/dL Lactic Acid (0.4-2.0) Calcium (8.4-10.2) mg/dL Magnesium (1.6-2.3) mg/dL Total Bilirubin (0.2-1.3) mg/dL AST (14-36) U/L ALT (0-35) U/L Alkaline Phosphatase (38-126) U/L Troponin I (0.000-0.033) ng/mL NT-Pro-B Natriuret Pep (<300) pg/mL Serum Total Protein (6.3-8.2) g/dL Albumin (3.5-5.0) g/dL Procalcitonin 0.364 H (0.030-0.080) ng/mL Urine Color Yellow (Yellow) Urine Appearance Clear (Clear) Urine pH 8.5 A (4.6-8.0) Ur Specific Eden 1.015 (1.005-1.030) Urine Protein >=1000 A (Negative) Urine Glucose (UA) 500 A (Negative) mg/dL Urine Ketones Negative (Negative) Urine Blood Negative (Negative) Urine Nitrite Negative (Negative) Urine Bilirubin Negative (Negative) Urine Urobilinogen 0.2 (0.2) mg/dL Ur Leukocyte Esterase Negative (Negative) U Hyaline Cast (Auto) NONE SEEN (0-2) /LPF Urine Microscopic RBC 0-2 (0-5) /HPF Urine Microscopic WBC 0-2 (0-5) /HPF Ur Epithelial Cells Few (None Seen) /HPF Urine Bacteria Rare A (None Seen) /HPF Urine Culture Reflexed NO (NO) Influenza Type A Ag NEGATIVE (NEGATIVE) Influenza Type B Ag NEGATIVE (NEGATIVE) RSV (PCR) NEGATIVE (NEGATIVE) SARS-CoV-2 (PCR) POSITIVE A (NEGATIVE) Slides for Path Review 12/30/23 12/30/23 12/30/23 Range/Units 01:35 01:35 01:35 WBC (3.98-10.04) x10^3/uL RBC (3.93-5.22) x10^6/uL Hgb (11.2-15.7) g/dL Hct (34.1-44.9) % MCV (79.4-94.8) fL MCH (25.6-32.2) pg MCHC (32.2-35.5) g/dL RDW (11.7-14.4) % Plt Count (182-369) x10^3/uL MPV (9.4-12.3) fL Gran % (34.0-71.1) % Immature Gran % (Auto) (0.001-0.429) % Nucleat RBC Rel Count (0.00-0.2) % Eos # (Auto) (0.04-0.36) x10^3/uL Immature Gran # (Auto) (0.001-0.031) x10^3u/L Absolute Lymphs (auto) (1.18-3.74) x10^3/uL Absolute Monos (auto) (0.24-0.86) x10^3/uL Absolute Nucleated RBC (0.00-0.012) x10^3u/L Lymphocytes % (19.3-51.7) % Monocytes % (4.7-12.5) % Eosinophils % (0.7-5.8) % Basophils % (0.1-1.2) % Absolute Granulocytes (1.56-6.13) x10^3/uL Basophils # (0.01-0.08) x10^3/uL Sodium 140 (135-145) mmol/L Potassium 3.7 (3.5-5.1) mmol/L Chloride 97 L (98-107) mmol/L Carbon Dioxide 27 (22-30) mmol/L Anion Gap 19.3 H (5-15) MEQ/L BUN 36 H (7-17) mg/dL Creatinine 4.70 H (0.52-1.04) mg/dL Estimated GFR 9.1 ML/MIN Glucose 258 H (74-106) mg/dL Lactic Acid (0.4-2.0) Calcium 9.4 (8.4-10.2) mg/dL Magnesium 2.0 (1.6-2.3) mg/dL Total Bilirubin 0.30 (0.2-1.3) mg/dL AST 28 (14-36) U/L ALT 32 (0-35) U/L Alkaline Phosphatase 84 (38-126) U/L Troponin I 0.012 (0.000-0.033) ng/mL NT-Pro-B Natriuret Pep 03750 (<300) pg/mL Serum Total Protein 7.1 (6.3-8.2) g/dL Albumin 4.2 (3.5-5.0) g/dL Procalcitonin (0.030-0.080) ng/mL Urine Color (Yellow) Urine Appearance (Clear) Urine pH (4.6-8.0) Ur Specific Eden (1.005-1.030) Urine Protein (Negative) Urine Glucose (UA) (Negative) mg/dL Urine Ketones (Negative) Urine Blood (Negative) Urine Nitrite (Negative) Urine Bilirubin (Negative) Urine Urobilinogen (0.2) mg/dL Ur Leukocyte Esterase (Negative) U Hyaline Cast (Auto) (0-2) /LPF Urine Microscopic RBC (0-5) /HPF Urine Microscopic WBC (0-5) /HPF Ur Epithelial Cells (None Seen) /HPF Urine Bacteria (None Seen) /HPF Urine Culture Reflexed (NO) Influenza Type A Ag (NEGATIVE) Influenza Type B Ag (NEGATIVE) RSV (PCR) (NEGATIVE) SARS-CoV-2 (PCR) (NEGATIVE) Slides for Path Review 12/30/23 12/30/23 Range/Units 01:35 01:30 WBC 7.0 (3.98-10.04) x10^3/uL RBC 3.17 L (3.93-5.22) x10^6/uL Hgb 10.1 L (11.2-15.7) g/dL Hct 31.1 L (34.1-44.9) % MCV 98.1 H (79.4-94.8) fL MCH 31.9 (25.6-32.2) pg MCHC 32.5 (32.2-35.5) g/dL RDW 13.2 (11.7-14.4) % Plt Count 182 (182-369) x10^3/uL MPV 11.1 (9.4-12.3) fL Gran % 77.2 H (34.0-71.1) % Immature Gran % (Auto) 0.6 H (0.001-0.429) % Nucleat RBC Rel Count 0.0 (0.00-0.2) % Eos # (Auto) 0.46 H (0.04-0.36) x10^3/uL Immature Gran # (Auto) 0.04 H (0.001-0.031) x10^3u/L Absolute Lymphs (auto) 0.57 L (1.18-3.74) x10^3/uL Absolute Monos (auto) 0.46 (0.24-0.86) x10^3/uL Absolute Nucleated RBC 0.00 (0.00-0.012) x10^3u/L Lymphocytes % 8.1 L (19.3-51.7) % Monocytes % 6.6 (4.7-12.5) % Eosinophils % 6.6 H (0.7-5.8) % Basophils % 0.9 (0.1-1.2) % Absolute Granulocytes 5.41 (1.56-6.13) x10^3/uL Basophils # 0.06 (0.01-0.08) x10^3/uL Sodium (135-145) mmol/L Potassium (3.5-5.1) mmol/L Chloride (98-107) mmol/L Carbon Dioxide (22-30) mmol/L Anion Gap (5-15) MEQ/L BUN (7-17) mg/dL Creatinine (0.52-1.04) mg/dL Estimated GFR ML/MIN Glucose (74-106) mg/dL Lactic Acid 2.9 H (0.4-2.0) Calcium (8.4-10.2) mg/dL Magnesium (1.6-2.3) mg/dL Total Bilirubin (0.2-1.3) mg/dL AST (14-36) U/L ALT (0-35) U/L Alkaline Phosphatase (38-126) U/L Troponin I (0.000-0.033) ng/mL NT-Pro-B Natriuret Pep (<300) pg/mL Serum Total Protein (6.3-8.2) g/dL Albumin (3.5-5.0) g/dL Procalcitonin (0.030-0.080) ng/mL Urine Color (Yellow) Urine Appearance (Clear) Urine pH (4.6-8.0) Ur Specific Eden (1.005-1.030) Urine Protein (Negative) Urine Glucose (UA) (Negative) mg/dL Urine Ketones (Negative) Urine Blood (Negative) Urine Nitrite (Negative) Urine Bilirubin (Negative) Urine Urobilinogen (0.2) mg/dL Ur Leukocyte Esterase (Negative) U Hyaline Cast (Auto) (0-2) /LPF Urine Microscopic RBC (0-5) /HPF Urine Microscopic WBC (0-5) /HPF Ur Epithelial Cells (None Seen) /HPF Urine Bacteria (None Seen) /HPF Urine Culture Reflexed (NO) Influenza Type A Ag (NEGATIVE) Influenza Type B Ag (NEGATIVE) RSV (PCR) (NEGATIVE) SARS-CoV-2 (PCR) (NEGATIVE) Slides for Path Review YES - Progress Progress: improved Progress Note: 12/30/23 03:51 78 years old is evaluated in the ER for fever, A-fib RVR. Patient is 99 on presentation. EKG is A-fib RVR with no ST elevation and negative initial troponins. Patient is started on Cardizem drip. Workup showed normal white count, chemistries consistent with ESRD. Patient is supposed to have a dialysis tomorrow. Chest x-ray I do not see any acute infiltrative process reviewed by me, official report is pending. Has a positive COVID-19. Patient has a lactate of 2.9 and procalcitonin of point 3. She is given a dose of Zithromax and aztreonam. I believe patient needs to be admitted, no dialysis services are available at [facility], discussed with [facility] RN, reviewed history, workup, current management and patient is excepted on behalf of Dr. Lucero Garcia. Plan discussed with patient which she understands and agrees. Discussed with Dr.: Other Will see patient in: ED Counseled pt/family regarding: lab results, diagnosis, need for follow-up, rad results Medical Desision Making - Discussion of managment Care discussed with:: on-call "doc" (Dr. Lucero Garcia [facility]) Reviewed:: Test results Agreed on:: Treatment plan Will see patient: in ED - Risk of complications The pt has a mod risk of morbidity or mortality based on: Need for prescription drug management The pt has a high risk of morbidity or mortality based on: Decision regarding hospitilization or escalation of hosp level of care - Departure Departure Disposition: Transfer Clinical Impression: Atrial fibrillation with RVR, Sepsis, ESRD (end stage renal disease) on dialysis, COVID-19 virus detected Condition: Stable Critical Care Time: Yes Critical Care Time(excluding separately billable procedures): Critical 30-74 mins Referrals: JARROD JOSEPH MD [Primary Care Provider] - Follow up/PCP as directed
[2023-12-30 02:52] LABS: SARS-CoV-2 Xpert Express POSITIVE (NEGATIVE)
[2023-12-30] MEDS ORDERED: SUBLIMAZE 100 MCG/2 ML ONE (02:54)
[2023-12-30] MEDS ORDERED: Zofran 4 MG/2 ML VIAL ONE (02:54)
[2023-12-30] MEDS: Zofran 4 MG/2 ML VIAL IV ONE (02:56)
[2023-12-30] MEDS: SUBLIMAZE 100 MCG/2 ML IV ONE (02:56)
[2023-12-30 03:03] LABS: ADD URINE CULTURE? NO (NO); Appearance Clear (Clear); Bacteria Rare /HPF (None Seen); Bilirubin Negative (Negative); Blood Negative (Negative); Epithelial Cells Few /HPF (None Seen); Glucose, Urine 500 mg/dL (Negative); Hyaline Casts NONE SEEN /LPF (0-2); Ketones Negative (Negative); Leukocyte Esterase Negative (Negative); Nitrite Negative (Negative); Ph 8.5 (4.6-8.0); Protein,Urine Dip >=1000 (Negative); RBC 0-2 /HPF (0-5); Specific Gravity 1.015 (1.005-1.030); Urobilinogen 0.2 mg/dL (0.2); WBC 0-2 /HPF (0-5)
[2023-12-30] MEDS ORDERED: Zithromax 500 MG/ 250 ML NaCl Premix 500 MG/250 ML IVPB IV ONE (03:13)
--- NOTE | 2023-12-30 03:26 | XRAY ---
CLINICAL HISTORY: fever . COMPARISON: None. TECHNIQUE: Spiral axial continuous cuts were taken through the chest with multiplanar reformatting and without contrast administration. CT scan performed according to ALARA principles. One of the following dose reduction techniques was utilized for this exam.Automated exposure control, adjustment of the mA and/or kV according to patient size, and use of iterative reconstruction. CTDI: 13.79 mGy, DLP: 289.80 mGy-cm. FINDINGS: Moderate cardiomegaly with no pericardial effusion. A cardiac pacemaker is noted. There is mild bilateral pleural effusion, more on the right side. Both lungs are clear with no parenchymal or interstitial lesion. No evidence of nodules, masses or consolidation. The vascular pattern appears normal with no evidence of bronchovascular distortion. Few small reactive mediastinal lymph nodes are noted. The visualized chest wall and axillary spaces display normal appearance. Bone window settings showed degenerative changes of the thoracic spine, and reduced ossoeus mineralization yet no evidence of destructive bony lesions. Scanned upper abdominal cuts revealed cholecystectomy clips and vascular calcification. IMPRESSION: 1. Moderate cardiomegaly and bilateral pleural effusion denoting decompensated heart failure and requires further evaluation by echocardiography. 2. No acute pulmonary findings. Electronically Signed by: Arlyn De La Vega MD. (12/30/2023 03:21:30 EDT)
[2023-12-30 03:29] LABS: Slide Review 1 YES
[2023-12-30] MEDS ORDERED: Sodium Chloride 0.9% 0 ML ONE (03:29)
[2023-12-30] MEDS: AZACTAM 1 GM*** 2 GM in Sodium Chloride 0.9% 100 ML IV ONE (03:36)
[2023-12-30] MEDS: Zithromax 500 MG/ 250 ML NaCl Premix 500 MG/250 ML IVPB IV STA (04:14)
[2023-12-30] MEDS ORDERED: TYLENOL 325 MG ONE (04:43)
[2023-12-30] MEDS: TYLENOL 325 MG PO STA (04:50)
[2023-12-30 05:05] VITALS: BP 147/80; PULSE 105; RESP 21; O2SAT 96
--- NOTE | 2023-12-30 08:57 | XRAY ---
Indication: Fever. Comparison: August 29, 2023 Portable chest demonstrates new tiny bibasilar effusions. Remaining lungs clear. Heart is now borderline-enlarged again with left pacemaker. Bony thorax intact with mild degenerative changes. Impression: New borderline cardiomegaly with bibasilar effusions. Rule out cardiac decompensation/CHF. Superimposed pneumonia not completely excluded.
== END 2023-12-30 05:45 | disposition short-term general hospital (02) ==
LOC: ED 00:57
DX: A41.9 Sepsis, unspecified organism (principal); U07.1 COVID-19; I48.20 Chronic atrial fibrillation, unspecified; I13.2 Hypertensive heart and chronic kidney disease with heart failure and with stage 5 chronic kidney disease, or end stage renal disease; E11.22 Type 2 diabetes mellitus with diabetic chronic kidney disease; N18.6 End stage renal disease; I50.9 Heart failure, unspecified; Z99.2 Dependence on renal dialysis; E78.5 Hyperlipidemia, unspecified; R50.9 Fever, unspecified; M79.10 Myalgia, unspecified site; R53.1 Weakness; Z79.4 Long term (current) use of insulin; Z79.01 Long term (current) use of anticoagulants; Z79.899 Other long term (current) drug therapy
CPT/HCPCS: 0241U; 36000; 36415; 71045; 71250; 80053; 81001; 83605; 83735; 83880; 84145; 84484; 85025; 87040; 93005; 93041; 96365; 96374; 96375; 99285; 99291; J0456; J2405; J3010; A9270-GY

== ENCOUNTER 2024-04-21 06:57 | Emergency (ER) | payer MEDICARE ==
[2024-04-21] MEDS ORDERED: DEXTROSE 10% 250 ML 250 ML IV ONE (07:32)
[2024-04-21 08:12] VITALS: TEMP 98.6
--- NOTE | 2024-04-21 08:17 | ERPHSYRPT ---
- History of Present Illness Time Seen by Provider: 04/21/24 07:41 Source: EMS[facility] Exam Limitations: clinical condition Patient Subjective Stated Complaint: per nurse at the [facility] pt had low blood sugar this morning at 0615- 38, was given 2 of glucagon and recheck at 0636 was 56. pt had possible seizure activity lasting approx 15 seconds after ems arrived Triage Nursing Assessment: pt arrive per ambulance and transfers to [facility] (formerly [facility]) with complete assist of 3. pt with eyes open, responded to verbal with small grunt. eyes up and to the right. skin cool and dry. Physician History: 79 years old female with multiple medical problems including coronary artery disease/congestive heart failure/hypertension/diabetes mellitus/ESRD on dialysis was scheduled to have her AV fistula made today, was n.p.o. and at 615 her blood sugar dropped to 38, was given glucagon 2 mg with no significant improvement of hypoglycemia, recheck was only 56, patient had a questionable seizure-like activity on EMS arrival. She is started on D10 and on presentation her glucose is in 100s. Patient has fixated gaze to the right, not answering any questions history is limited. She is made stroke activate and prompt CT head is obtained which is negative Allergies/Adverse Reactions: aspirin Allergy (Unknown, Verified 04/21/24 07:45) hydrocodone Allergy (Unknown, Verified 04/21/24 07:45) meperidine Allergy (Unknown, Verified 04/21/24 07:45) morphine Allergy (Unknown, Verified 04/21/24 07:45) propoxyphene Allergy (Unknown, Verified 04/21/24 07:45) amoxicillin [From Augmentin] Adverse Reaction (Intermediate, Verified 04/21/24 07:45) clavulanic acid [From Augmentin] Adverse Reaction (Intermediate, Verified 04/21/24 07:45) codeine Adverse Reaction (Intermediate, Verified 04/21/24 07:45) Home Medications: Duloxetine HCl 30 mg [Cymbalta 30 MG Capsule] 30 mg PO DAILY 12/14/18 [History] Levothyroxine Sodium 100 Mcg [Synthroid 100 Mcg] 100 mcg PO DAILY 12/14/18 [History] Tramadol HCl [Ultram] 50 mg PO QID 12/14/18 [History] Clonidine HCl 0.1 mg [Clonidine 0.1 mg Tablet] 0.1 mg PO BID 01/24/22 [History] Ezetimibe 10 mg [Zetia 10 MG] 10 mg PO DAILY 01/24/22 [History] Famotidine 20 mg [Pepcid 20 MG] 20 mg PO BID 01/24/22 [History] Insulin Detemir [Levemir] 27 unit SQ BID 01/24/22 [History] Insulin Lispro [Humalog] 8 unit SQ DAILY 01/24/22 [History] Insulin Lispro [Humalog] 10 unit SQ LUNCH 01/24/22 [History] PANTOPRAZOLE 40 mg Tablet [Protonix 40MG Tablet] 40 mg PO DAILY 01/24/22 [History] dilTIAZem HCL [Dilt-Xr] 160 mg PO BID 01/24/22 [History] Insulin Lispro [Humalog] 10 units SQ DINNER 01/25/22 [History] carvediloL [Coreg] 25 mg PO BID 01/26/22 [History] Bumetanide 2 mg PO BID 03/28/22 [History] Apixaban [Eliquis 2.5 mg Tablet] 5 mg PO BID 06/22/22 [History] Hydralazine HCl 50 mg PO TID 06/22/22 [History] icosapent ethyL [Vascepa] 2 gm PO BID 06/22/22 [History] Rosuvastatin Calcium 10 mg PO DAILY 07/31/23 [History] Hx Tetanus, Diphtheria Vaccination/Date Given: Yes Hx Influenza Vaccination/Date Given: Yes Hx Pneumococcal Vaccination/Date Given: Yes Travel Risk - International Travel Have you traveled outside of the country in past 3 weeks: No - Emerging Infectious Disease Are you exhibiting symptoms associated with any current EIDs: No Symptoms: Fever, Headaches/Body Aches/, Joint Pain, Shortness of Breath - Review of Systems All Other Systems: Unable due to condition, Unable due to dementia - Past Medical History Pertinent Past Medical History: Yes Neurological History: No Pertinent History ENT History: No Pertinent History Cardiac History: Arrhythmia, Congestive Heart Failure, High Cholesterol, Hypertension Respiratory History: No Pertinent History Endocrine Medical History: Diabetes Type II, Hypothyroidism Musculoskeletal History: Fractures GI Medical History: GERD History: Dialysis, Renal Disease Psycho-Social History: No Pertinent History Female Reproductive Disorders: No Pertinent History Other Medical History: left arm and left hand. right and left foot broken. pt unable to give hx. obtained from chart - Past Surgical History Past Surgical History: Yes Neuro Surgical History: No Pertinent History Cardiac: Pacemaker Respiratory: No Pertinent History Gastrointestinal: Cholecystectomy Genitourinary: No Pertinent History Musculoskeletal: No Pertinent History Female Surgical History: No Pertinent History Other Surgical History: thyroid removal, left wrist with plate in it. fistula placement right upper arm. pt unable to give hx- obtained from chart - Social History Smoking Status: Never smoker Exposure to second hand smoke: No Drug Use: none Patient Lives Alone: No - Social Determinants of Health Will the patient participate in the screening: Unable to obtain Comment: lives at the [facility] - Nursing Vital Signs Nursing Vital Signs: Initial Vital Signs Temperature 96.7 F 04/21/24 07:04 Pulse Rate 80 04/21/24 07:04 Respiratory Rate 24 04/21/24 07:04 Blood Pressure 166/83 04/21/24 07:04 O2 Sat by Pulse Oximetry 96 04/21/24 07:04 Pain Scale Pain Intensity 0 - Physical Exam General Appearance: no apparent distress, alert Eye Exam: bilateral eye: normal inspection, PERRL, other (Eyes deviation to the right) Ears, Nose, Throat Exam: TMs normal, moist mucous membranes, pharyngeal erythema Neck Exam: normal inspection, non-tender, supple Respiratory: normal breath sounds, lungs clear Cardiovascular: regular rate/rhythm, normal heart sounds Gastrointestinal: soft, normal bowel sounds, No tenderness Back Exam: other (No step-off deformity) Extremity Exam: normal inspection Mental Status: alert, No oriented x 3, 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 Exam: gaze palsy Skin Exam: normal color SpO2 Interpretation: O2 applied SpO2: 100 O2 Delivery: Nasal Cannula - Course EKG Interpreted by Me: RATE (70 4 paced rhythm), Left [place] Deviation, Non- specific ST Changes Ordered Tests: Medication Summary Discontinued Medications Generic Name Dose Route Start Last Admin Trade Name Freq PRN Reason Stop Dose Admin Dextrose Confirm 04/21/24 07:32 Dextrose 10% 250 Ml Administered 04/21/24 07:33 Dose 250 mls @ ud IV .STK-MED ONE Levetiracetam 3,000 mg/ Sodium 130 mls @ 520 mls/hr 04/21/24 08:45 04/21/24 10:04 Chloride IV 04/21/24 08:59 520 mls/hr NOW ONE Administration Dextrose 250 mls @ 500 mls/hr 04/21/24 10:00 04/21/24 13:50 Dextrose 10% 250 Ml IV 05/21/24 09:59 Not Given .Q30M PEEWEE Aztreonam 2 gm/ Sodium 100 mls @ 200 mls/hr 04/21/24 10:08 04/21/24 10:49 Chloride IV 04/21/24 10:37 200 mls/hr STAT ONE Administration Lorazepam Confirm 04/21/24 08:35 Lorazepam 2 Mg/1 Ml 2 Mg Vial Administered 04/21/24 08:36 Dose 2 mg .ROUTE .STK-MED ONE Lorazepam 2 mg 04/21/24 10:14 04/21/24 10:26 Lorazepam 2 Mg/1 Ml 2 Mg Vial IV 04/21/24 10:15 2 mg STAT ONE Administration Lab/Rad Data: Laboratory Result Diagrams 04/21/24 08:15 04/21/24 08:15 Laboratory Results 04/21/24 04/21/24 04/21/24 Range/Units 13:19 12:09 10:13 WBC (3.98-10.04) x10^3/uL RBC (3.93-5.22) x10^6/uL Hgb (11.2-15.7) g/dL Hct (34.1-44.9) % MCV (79.4-94.8) fL MCH (25.6-32.2) pg MCHC (32.2-35.5) g/dL RDW (11.7-14.4) % Plt Count (182-369) x10^3/uL MPV (9.4-12.3) fL Segmented Neutrophils (34.0-71.1) % Lymphocytes (Manual) (19.3-51.7) % Monocytes (Manual) (4.7-12.5) % Hypochromia Toxic Granulation Platelet Estimate (NORMAL) RBC Morphology Anisocytosis Microcytosis Sodium (135-145) mmol/L Potassium (3.5-5.1) mmol/L Chloride (98-107) mmol/L Carbon Dioxide (22-30) mmol/L Anion Gap (5-15) MEQ/L BUN (7-17) mg/dL Creatinine (0.52-1.04) mg/dL Estimated GFR ML/MIN Glucose (74-106) mg/dL POC Glucometer 122 H 217 H (74 to 106) mg/dL Calcium (8.4-10.2) mg/dL Total Bilirubin (0.2-1.3) mg/dL AST (14-36) U/L ALT (0-35) U/L Alkaline Phosphatase (38-126) U/L Troponin I 0.213 H* (0.000-0.033) ng/mL Serum Total Protein (6.3-8.2) g/dL Albumin (3.5-5.0) g/dL Urine Color (Yellow) Urine Appearance (Clear) Urine pH (4.6-8.0) Ur Specific [place] (1.005-1.030) Urine Protein (Negative) Urine Glucose (UA) (Negative) mg/dL Urine Ketones (Negative) Urine Blood (Negative) Urine Nitrite (Negative) Urine Bilirubin (Negative) Urine Urobilinogen (0.2) mg/dL Ur Leukocyte Esterase (Negative) U Hyaline Cast (Auto) (0-2) /LPF Urine Microscopic RBC (0-5) /HPF Urine Microscopic WBC (0-5) /HPF Ur Epithelial Cells (None Seen) /HPF Urine Bacteria (None Seen) /HPF Urine Culture Reflexed (NO) 04/21/24 04/21/24 04/21/24 Range/Units 08:15 08:15 08:15 WBC 22.2 H (3.98-10.04) x10^3/uL RBC 2.53 L (3.93-5.22) x10^6/uL Hgb 7.0 L* (11.2-15.7) g/dL Hct 22.2 L (34.1-44.9) % MCV 87.7 (79.4-94.8) fL MCH 27.7 (25.6-32.2) pg MCHC 31.5 L (32.2-35.5) g/dL RDW 14.9 H (11.7-14.4) % Plt Count 427 H (182-369) x10^3/uL MPV 10.4 (9.4-12.3) fL Segmented Neutrophils 89 H (34.0-71.1) % Lymphocytes (Manual) 6 L (19.3-51.7) % Monocytes (Manual) 5 (4.7-12.5) % Hypochromia 1+ Toxic Granulation 1+ Platelet Estimate INCREASED (NORMAL) RBC Morphology ABNORMAL Anisocytosis 1+ Microcytosis 1+ Sodium 130 L (135-145) mmol/L Potassium 4.2 (3.5-5.1) mmol/L Chloride 93 L (98-107) mmol/L Carbon Dioxide 27 (22-30) mmol/L Anion Gap 13.6 (5-15) MEQ/L BUN 20 H (7-17) mg/dL Creatinine 3.74 H (0.52-1.04) mg/dL Estimated GFR 11.8 ML/MIN Glucose 340 H (74-106) mg/dL POC Glucometer (74 to 106) mg/dL Calcium 8.3 L (8.4-10.2) mg/dL Total Bilirubin 0.40 (0.2-1.3) mg/dL AST 20 (14-36) U/L ALT 15 (0-35) U/L Alkaline Phosphatase 98 (38-126) U/L Troponin I 0.266 H* (0.000-0.033) ng/mL Serum Total Protein 5.7 L (6.3-8.2) g/dL Albumin 2.7 L (3.5-5.0) g/dL Urine Color (Yellow) Urine Appearance (Clear) Urine pH (4.6-8.0) Ur Specific [place] (1.005-1.030) Urine Protein (Negative) Urine Glucose (UA) (Negative) mg/dL Urine Ketones (Negative) Urine Blood (Negative) Urine Nitrite (Negative) Urine Bilirubin (Negative) Urine Urobilinogen (0.2) mg/dL Ur Leukocyte Esterase (Negative) U Hyaline Cast (Auto) (0-2) /LPF Urine Microscopic RBC (0-5) /HPF Urine Microscopic WBC (0-5) /HPF Ur Epithelial Cells (None Seen) /HPF Urine Bacteria (None Seen) /HPF Urine Culture Reflexed (NO) 04/21/24 04/21/24 04/21/24 Range/Units 08:14 08:10 07:24 WBC (3.98-10.04) x10^3/uL RBC (3.93-5.22) x10^6/uL Hgb (11.2-15.7) g/dL Hct (34.1-44.9) % MCV (79.4-94.8) fL MCH (25.6-32.2) pg MCHC (32.2-35.5) g/dL RDW (11.7-14.4) % Plt Count (182-369) x10^3/uL MPV (9.4-12.3) fL Segmented Neutrophils (34.0-71.1) % Lymphocytes (Manual) (19.3-51.7) % Monocytes (Manual) (4.7-12.5) % Hypochromia Toxic Granulation Platelet Estimate (NORMAL) RBC Morphology Anisocytosis Microcytosis Sodium (135-145) mmol/L Potassium (3.5-5.1) mmol/L Chloride (98-107) mmol/L Carbon Dioxide (22-30) mmol/L Anion Gap (5-15) MEQ/L BUN (7-17) mg/dL Creatinine (0.52-1.04) mg/dL Estimated GFR ML/MIN Glucose (74-106) mg/dL POC Glucometer 219 H 116 H (74 to 106) mg/dL Calcium (8.4-10.2) mg/dL Total Bilirubin (0.2-1.3) mg/dL AST (14-36) U/L ALT (0-35) U/L Alkaline Phosphatase (38-126) U/L Troponin I (0.000-0.033) ng/mL Serum Total Protein (6.3-8.2) g/dL Albumin (3.5-5.0) g/dL Urine Color Dark Yellow A (Yellow) Urine Appearance Turbid A (Clear) Urine pH 7.5 (4.6-8.0) Ur Specific [place] 1.015 (1.005-1.030) Urine Protein 300 A (Negative) Urine Glucose (UA) Negative (Negative) mg/dL Urine Ketones Trace A (Negative) Urine Blood Negative (Negative) Urine Nitrite Negative (Negative) Urine Bilirubin Negative (Negative) Urine Urobilinogen 0.2 (0.2) mg/dL Ur Leukocyte Esterase Large A (Negative) U Hyaline Cast (Auto) >50 A (0-2) /LPF Urine Microscopic RBC 6-10 A (0-5) /HPF Urine Microscopic WBC >100 A (0-5) /HPF Ur Epithelial Cells Many A (None Seen) /HPF Urine Bacteria Many A (None Seen) /HPF Urine Culture Reflexed YES (NO) - Progress Progress: re-examined Progress Note: 04/21/24 10:05 79 years old is evaluated in the ER for strokelike symptoms. Patient apparently was n.p.o. and her blood sugar dropped in 30s, was given glucagon with no significant improvement in did have some questionable seizure. Patient was on D10 on presentation and initial blood sugar in 100 and later on in 300s. Patient has a gaze fixed on the right side with questionable seizure/postictal. She is made stroke activated, prompt CT head is obtained which is negative. Prompt neurology consult is obtained who thinks patient is most likely having seizure secondary to hypoglycemia and recommended, given 2 mg Ativan followed by 3 g of Keppra. Recommended obtaining CTA head and neck as MRI was not available, discussed with granddaughter about risk and benefits of CTA and neurology recommended obtaining CTA despite the fact that she has ESRD and possibly will go for dialysis afterwards. Patient has minimal improvement in her gaze following Keppra infusion. Baseline workup showed white count of 22, hemoglobin of 7.0, dropped from 7.[address] month. Patient is on Eliquis with some element of chronic kidney disease related anemia, troponin of 0.2 which is probably secondary to renal failure versus stress secondary to hypoglycemia and less likely cardiac etiology. The EKG is paced rhythm. She does have UTI and given a dose of antibiotic. Per neurology if CTAs are negative patient can be started on aspirin 325 and Plavix 300 and needs continuous EEG. We do not have nephrology/inpatient dialysis available here, patient needs to be transferred. Discussed with family/daughter/granddaughter who would prefer to go to [facility]. Also me and Dr. Almanzar neurology have discussed with daughter who reported that patient was never meant to be full code but DNR. We will honor their wishes. 04/21/24 12:07 We have called [facility], no EEG services are available recommended by neurology. We have discussed with Dr. Lemus hospitalist at [facility], reviewed history, workup, neurology recommendations and also agreed with holding off on aspirin and Plavix because of her low hemoglobin level and also low concern for stroke. Patient is accepted for transfer. Discussed with .: Other (Dr. Lemus Hospitalist [facility], Dr. Almanzar [facility] Neurology) Counseled pt/family regarding: lab results, diagnosis, rad results Medical Desision Making - Independent Historian Additional History obtained from: Child, Correction nurse, Retirement Sales Consultant/EMT - Discussion of managment Care discussed with:: specialist Reviewed:: Test results Agreed on:: Treatment plan Will see patient: in ED - Diagnostic Testing Diagnostic test were ordered, analyzed, and reviewed by me: Yes Radiological Interpretation: Interpreted by me, Reviewed by me - Risk of complications The pt has a mod risk of morbidity or mortality based on: Need for prescription drug management The pt has a high risk of morbidity or mortality based on: Decision regarding hospitilization or escalation of hosp level of care - Departure Departure Disposition: Transfer Clinical Impression: New onset seizure, Hypoglycemia, ESRD (end stage renal disease), Acute UTI (urinary tract infection) Condition: Fair Critical Care Time: Yes Critical Care Time(excluding separately billable procedures): Critical 30-74 mins Referrals: JARROD JOSEPH MD [Primary Care Provider] - Follow up/PCP as directed
[2024-04-21 08:33] LABS: Appearance Turbid (Clear); Bacteria Many /HPF (None Seen); Bilirubin Negative (Negative); Blood Negative (Negative); Epithelial Cells Many /HPF (None Seen); Glucose, Urine Negative (Negative); Hyaline Casts >50 /LPF (0-2); Ketones Trace (Negative); Leukocyte Esterase Large (Negative); Nitrite Negative (Negative); Ph 7.5 (4.6-8.0); Protein,Urine Dip 300 (Negative); Specific Gravity 1.015 (1.005-1.030); Urobilinogen 0.2 mg/dL (0.2); WBC >100 /HPF (0-5)
[2024-04-21] MEDS ORDERED: Ativan 2 MG/1 ML VIAL ONE (08:35)
--- NOTE | 2024-04-21 08:39 | XRAY ---
Indication: Unresponsive. Multiple contiguous axial images obtained through the head without contrast. Comparison: November 25, 2023 Again age-appropriate global atrophy and moderate periventricular degenerative micro-ischemia bilaterally. No acute intracranial hemorrhage, abnormal extra-axial fluid collection, or mass effect. Fourth ventricle is midline without hydrocephalus. Bony calvarium intact. Visualized paranasal sinuses and mastoid air cells are clear. Impression: Continued nonacute senile brain.
[2024-04-21 08:45] LABS: Hematocrit 22.2 % (34.1-44.9); Mean Cell Volume 87.7 fL (79.4-94.8); Mean Corpuscular Hemoglobin 27.7 pg (25.6-32.2); Mean Corpuscular Hgb Concent. 31.5 g/dL (32.2-35.5); Mean Platelet Volume 10.4 fL (9.4-12.3); Platelet Count 427 x10^3/uL (182-369); Red Blood Count 2.53 x10^6/uL (3.93-5.22); Red Cell Distribution Width 14.9 % (11.7-14.4); White Blood Count 22.2 x10^3/uL (3.98-10.04)
--- NOTE | 2024-04-21 08:49 | XRAY ---
Indication: Altered mental status. Comparison: December 30, 2023 Portable chest is now clear. Heart remains borderline enlarged with left pacemaker. New large bore right jugular central venous access catheter. Bony thorax intact again with osteopenia and degenerative changes. Impression: Nonacute chest with chronic features.
[2024-04-21 08:56] LABS: ALBUMIN 2.7 g/dL (3.5-5.0); ANION GAP 13.6 MEQ/L (5-15); BILIRUBIN,TOTAL 0.4 mg/dL (0.2-1.3); Calcium 8.3 mg/dL (8.4-10.2); Creatinine 1 3.74 mg/dL (0.52-1.04); EST GLOMERULAR FILTRATION RATE 11.8 ML/MIN; Potassium 4.2 mmol/L (3.5-5.1); Total Protein 5.7 g/dL (6.3-8.2)
[2024-04-21 09:05] LABS: Lymphocytes 6 % (19.3-51.7); Monocyte 5 % (4.7-12.5); Neutrophils 89 % (34.0-71.1); Total Cells Counted 100
[2024-04-21 09:06] LABS: ANISOCYTOSIS 1+; Hypochromia 1+; Microcytosis 1+; Platelet Estimate INCREASED (NORMAL); Toxic Granulation 1+
[2024-04-21] MEDS: SODIUM CHLORIDE 0.9% IV ONE (10:04)
[2024-04-21] MEDS: KEPPRA IV ONE (10:04)
[2024-04-21] MEDS: DEXTROSE 10% 250 ML 250 ML IV SCH (10:06)
[2024-04-21] MEDS: Ativan 2 MG/1 ML VIAL IV ONE (10:26)
[2024-04-21] MEDS: AZACTAM 1 GM*** 2 GM in Sodium Chloride 0.9% 100 ML IV ONE (10:49)
--- NOTE | 2024-04-21 11:00 | XRAY ---
Indication: Altered mental status. Conventional contrast enhanced CTA neck performed using 80 cc Isovue 370 contrast. 2-D sagittal and coronal reformatted images obtained. Additional 3-D reformatted images obtained using separate workstation. Comparison: None Visualized aortic arch demonstrates anatomic variant for bovine arch. Minimal arteriosclerotic calcifications aortic arch and lesser degree origin left subclavian artery. Negative for aneurysm/dissection. Examination right carotid circulation demonstrates widely patent common carotid artery. Carotid bulb demonstrates mild eccentric calcifications slightly extending into origins internal carotid and lesser degree external carotid arteries producing less than 50% stenosis. Examination left carotid circulation demonstrates widely patent common carotid artery. Carotid bulb and proximal external carotid artery demonstrates mild concentric calcifications producing less than 50% stenosis. Minimal eccentric calcifications origin internal carotid artery. Vertebral arteries are bilaterally patent with left slightly larger in caliber. No pathologic cervical/supraclavicular lymphadenopathy. Previous right thyroidectomy. Left thyroid gland enhances homogeneously. Supra and infraglottic airway are widely patent. Incompletely visualized left pacemaker and right jugular dialysis catheter. Lung apices demonstrates minimal scattered peripheral fibrosis/scarring. Visualized osseous structures intact with osteopenia, mild multilevel cervicothoracic degenerative spondylosis, and mild TMJ degenerative changes right greater than left. Patient is edentulous. Impression: 1. Bilateral carotid bulb arteriosclerotic calcifications as detailed producing less than 50% stenosis. 2. Negative for critical stenosis, obstruction, or AV malformation. 3. Bilaterally patent vertebral arteries with dominant left. 4. Incidental chronic bony findings.
--- NOTE | 2024-04-21 11:04 | XRAY ---
Indication: Altered mental status. Conventional contrast enhanced CTA head performed using 80 cc Isovue 370 contrast. 2-D sagittal and coronal reformatted images obtained. Additional 3-D reformatted images obtained using separate workstation. Comparison: None Distal parasellar internal carotid arteries demonstrates mild/moderate scattered arteriosclerotic calcifications, left greater than right. Negative for critical stenosis or obstruction. Normal carotid terminus with normal branching A1 segments bilaterally. More distal anterior cerebral, middle cerebral arteries, anterior communicating, and posterior communicating arteries are normal in CTA appearance. Posterior circulation demonstrates minimal punctate calcifications distal left and right vertebral arteries without critical stenosis/obstruction. Remaining basilar, left/right posterior cerebral, and left/right superior cerebral arteries are normal in CTA appearance. Venous sinuses/drainage unremarkable. Brain parenchyma negative for abnormal enhancing intra or extra-axial mass. Impression: 1. Scattered arteriosclerotic calcifications both parasellar internal carotid arteries without critical stenosis/obstruction. 2. Remaining CTA head with contrast exam is negative.
--- NOTE | 2024-04-21 11:13 | PCM.CONS ---
History of Present Illness - Neuro Consultation Date of Consultation Date: 04/21/24 ED Arrival Date & Time: 04/21/24 06:57 Providers: Attending Provider: ED Provider: GAURAV MUNOZ MD Consulting Provider: MEGAN ALMANZAR MD cc:: The requesting physician will be sent a copy of the consult. - History of Present Illness HPI: The patient is a 79F Physician Signature This document was electronically signed by: Megan Almanzar MD 04/21/2024 11:11 AM Consult Cover Page FROM: [employer], Call Back Number: [phone] SUBJECT: Consult Recommendations Date and Time of Report: 04/21/2024 11:11 AM ET Items Contained in this Document: Neurology Consult Note Consult Information Member Facility: [facility] Facility Consult ID: [id number] Facility Time Zone: ET Date and Time of Request: 04-21-2024 08:23 AM ET Requesting Clinician: Dr. Munoz Patient Name: Maggie Yang Date of : 1945 Gender: Female Patient identity was confirmed at the beginning of the consult with the patient/family/staff using two personal identifiers: Patient name and Reason for Consult Reason for Consult: Code Stroke [id number] 4.5 to 24 hours General Chief Complaint: stroke alert Patient Location and Admission Status: ED- Patient is not admitted Family Members and Medical Staff Present During Exam: RN, Patient's daughter History of Present Illness: Telestroke Note: Date patient last known well: 04/21/2024 Time patient last known well: 2100 Referring Site: [facility] Referring Provider: Dr. Munoz Neurologist evaluation date: 04/21/2024 Neurologist call time: Neurologist on-cart time: 826 Neurologist evaluation with patient time:826 Ms. Yang is a 79 yo F w/pmhx of ESRD on HD, orthostatic hypotension, DM2, CHF, Afib on AC, PPM placement, HLD, hypothyroidism, MDD, IBS, HTN, anxiety who presents after an episode concerning for a seizure. Her nurse from her nursing facility was at bedside and reports that they found the patient at 0630 AM and her BG was 38. She was given 2 doses of glucagon and her BG improved to 56. She reportedly had seizure activity for about 15 seconds after EMS arrival where her whole body tensed up. She was NPO all night due to plans for AV fistula today. She does not have a history of stroke or seizures in the past. During our encounter, the patient had her eyes opened with a forced R gaze deviation and was not able to overcome it. She was intermittently puffing out her mouth. She was nonverbal, not following any commands and was not moving any of her limbs spontaneously or answering to voice. She was given 2 mg ativan x1 and she had slight improvement in her R gaze deviation but then it reoccurred and sustained. She was loaded with 3 g keppra x1. After her keppra load was given, patient's R gaze deviation resolved and she was able to cross midline and was no longer puffing out in her mouth area. She was still nonverbal and was unable to follow any simple commands with limited movements of all of her limbs and was more sedated. At baseline, she is wheelchair bound due to arthritis and generalized weakness. Since her son passed a few months ago, her family has noted that she has had a decline in her abilities and can often get confused with poor memory recall. Her daughter who is at bedside reports that she is often AOx3 and knows her family but sometimes has poor memory recall. They report that she has days where she has poor memory recall and is confused about where she is and what is going on. She is reportedly taking eliquis 5 mg bid. Limited history obtained from the patient given her AMS and aphasia. Number of Documented HPI Elements: 4+ Medical History Other Medical History: as noted in HPI Past Procedures: None Pertinent Family History: Non contributory Allergies Other Allergies: morphine ASA listed on allergy list but confirmed with daughter that patient does not have a true allergy to it and patient had stated previously that she cannot be on it because she is already on eliquis and the combination would make her bleed which is what caused it to be added to her medication allergies Medications Anti-Coagulants: Eliquis (Apixaban) Anti-Platelets: None Other Medications: amlodipine 5 mg daily apriprazole atorvastatin 20 bumex 2 mg coreg digoxin duloxetine 30 mg daily ezetimibe hydralazine hydroxyzine insulin Social History Alcohol Use: None Drug Use: None Tobacco Use: None Vital Signs Temperature: Afebrile Blood Pressure (mmHg): 186/88 Heart Rate (bpm): 72 Respiration Rate (/min): 15 O2 Sat (%): 100 POC Glucose(mg/dL): 306 Oxygen Delivery Method: Nasal Cannula Date and Time: 04/21/2024 08:30:52 AM ET Review Of Systems General, Constitutional: All Negative Neurological: All Negative Psychiatric: All Negative Cardiovascular: All Negative Ears, Nose, Throat: All Negative Respiratory: All Negative Gastrointestinal: All Negative Genitourinary: All Negative Musculoskeletal: All Negative Endocrine: All Negative Hematologic, Lymphatic: All Negative Integumentary: All Negative Ophthalmology: All Negative Allergy, Immunology: All Negative NIH Stroke Scale NIH Stroke Scale Score: 25 1. Level of Consciousness: 2 : not alert; requires repeated stimulation to attend, or is obtunded and requires strong or painful stimulation to make movements (not stereotyped). 1a. LOC Questions: 2 : Answers neither question correctly. 1b. LOC Commands: 2 : Performs neither task correctly. 2. Best Gaze: 1 : Partial gaze palsy; gaze is abnormal in one or both eyes, but forced deviation or total gaze paresis is not present. 3. Visual: 0 : No visual loss. 4. Facial Palsy: 0 : Normal symmetrical movements. 5a. Motor Left Arm: 3 : No effort against gravity; limb falls. 5b. Motor Right Arm : 2 : Some effort against gravity; limb cannot get to or maintain (if cued) 90 (or 45) degrees, drifts down to bed, but has some effort against gravity. 6a. Motor Left Le : No movement. 6b. Motor Right Le : No movement. 7. Limb Ataxia: 0 : Absent. 8. Sensory: 0 : Normal; no sensory loss. 9. Best Language: 3 : Mute, global aphasia; no usable speech or auditory compr ehension. 10. Dysarthria: 2 : Severe dysarthria; patient's speech is so slurred as to be unintelligible in the absence of or out of proportion to any dysphasia, or is mute/anarthric. 11. Extinction and inattention (formerly Neglect) : 0 : No abnormality. NIHSS Entry Time: 04/21/2024 08:54:56 AM ET Exam Exam: PHYSICAL EXAMINATION EXAM: Constitutional: NAD, lying in bed Face: normocephalic and atraumatic Eyes: normal lids, normal conjunctiva Neck: supple Respiratory: on NC Abdomen: non distended Skin: no rashes, lesions, or ulcers noted Psychiatric: nonverbal NEUROLOGIC EXAMINATION: Appearance: NAD, lying in bed Orientation: JESSICA due to nonverbal status Mental Status: OE, nonverbal, does not answer to voice , does not perform simple commands Knowledge: JESSICA Language: no verbal output Speech: no verbal output Cranial Nerves: CN 3, 4, 6 - forced R gaze deviation, not able to cross midline CN 7 - puffing her lips intermittently Motor: intermittent movements of her RUE that are not spontaneous and occasionally can hold it AG although with drift. no spontaneous movements of her other limbs Gait: deferred Coordination: JESSICA Sensory: JESSICA Clinician assisting with exam: RN Labs and Imaging Labs available?: Yes WBC (mcL): 22.2 HGB (g/dL): 7 PLT (mcL): 427 CT Brain Findings: No acute changes Other CT Findings : CTA with no LVO, high grade stenosis MRI Brain Findings: Not Applicable Assessment and Recommendations Assessment: Ms. Yang is a 79 yo F w/pmhx of ESRD on HD, orthostatic hypotension, DM2, CHF, Afib on eliquis, PPM placement, HLD, hypothyroidism, MDD, IBS, HTN, anxiety who was reportedly found seizing in the setting of hypoglycemia (BG 38) now with forced R gaze deviation, puffing of her mouth, nonverbal and limited movements of all of her limbs. Presentation is most concerning for ongoing seizures vs. todds paralysis vs. stroke. She was given 2 mg ativan x1 with slight improvement in her R gaze deviation that was not sustained. Loaded with 3 g keppra while in the ED with improvement in her gaze deviation and mouth movements . She underwent CTH which showed no acute changes, underwent CTA H/N which showed no LVO or high grade stenosis. No thrombolytics were given as patient is on AC and she was outside the window. Recommendations: I discussed with Dr. Munoz that since patient is not currently back to her baseline, she should get transferred for cEEG in an expedited fashion to rule out subclinical seizures. Dr. Munoz reports patient will have to get transferred to another hospital in order for her to get dialysis as well. Recommend holding her eliquis 5 mg bid and loading her with plavix 300 mg x1 and aspirin 325 mg x1 and starting bASA and plavix 75mg daily starting tomorrow. Maintain patient on DAPT until MRIB is completed and decision about when to restart AC is made depending on results of MRIB. If no stroke is found on MRIB, DAPT can be discontinued and patient can be restarted on her AC as appropriate. Recommend starting patient on keppra 500 mg bid with 250 mg x1 given after dialysis sessions. Patient's seizures are likely in the setting of hypoglycemia as she does not have a history of prior epilepsy and has minimal seizure risk factors. Keppra can d/c once patient is no longer in the acute phase of her illness and if she remains seizure free. Rest of care regarding patient's hypoglycemia, metabolic disturbances and ongoing medical issues per primary team Recommend obtaining comprehensive metabolic and infectious workup including lactate, CPK. Permissive HTN up to SBP of 220mmHg for 24 hours then normalize (SBP < 140 and DBP <90) Check LDL, start atorvastatin 40mg (if LDL > 100, change to Lipitor 80mg) Check A1c (goal < 7%) PT/OT/RING CONDUCTOR Bedside dysphagia screen prior to oral intake MRI brain without contrast (patient has undergone MRIB in the past with PPM in place as per her daughter and they do have her PPM card) TTE Telemetry monitoring Thank you for allowing us to participate in this patient's care. Please call [facility] with questions, concerns of change in the patient's neurological condition. This consult was done via secure telemedicine audio/visual platform. Patient identity verified and consent was obtained. Staff that participated with the visit included: RN, Dr. Munoz Synchronous Audio-Visual Visit: Patient Consent Unobtainable due to Patient Status?This visit was performed using real-time audio and video connection between my location and the patients location with the assistance of a surrogate at the patients location. Written or verbal consent was unobtainable due to the patients status. Disposition: Transfer patient to higher level of care Portions of the evaluation were not assessed due to the following:: Confused/Demented, Aphasia/Severe Dysarthria Diagnosis Impression: Other Diagnosis Other: seizure vs. stroke Case discussed with: Dr. Munoz Inclusion Criteria Neurological deficit considered to be disabling within 4.5 h of ischemic stroke symptom onset or patient last known well: No BP < 185/110: Yes Glucose > 50 mg/dL: Yes Thrombolysis Recommendation Thrombolysis recommended?: No Reason Thrombolysis not recommended: Outside of window ICD-10 Code ICD-10 Code (Primary): G40.89 : Other seizures ICD-10 Code: E16.2 : Hypoglycemia, unspecified ICD-10 Code: R41.82 : Altered mental status, unspecified Attestation Interaction Mode: Video Only Time of Video Call : 04-21-2024 08:27 AM ET Interaction Attestation: Clinical telemedicine services delivered using HIPAA - compliant interactive video-audio telecommunications while the patient and the rendering provider were not in the same physical location. Written report was provided to the requesting provider. Evaluation Duration (mins): 85 Piña Timer Summary ED Arrival Date and Time: 04-21-2024 07:32 AM ET Date and Time of Request: 04-21-2024 08:23 AM ET Physician Signature This document was electronically signed by: Megan Almanzar MD 04/21/2024 11:11 AM Review of Systems - Review of Systems Review of Systems (Narrative): Pertinent positive and negative findings as per HPI. All other systems negative. - Past Medical History Past Medical History: Yes Neurological History: No Pertinent History ENT History: No Pertinent History Cardiac History: Arrhythmia, Congestive Heart Failure, High Cholesterol, Hypertension Respiratory History: No Pertinent History Endocrine Medical History: Diabetes Type II, Hypothyroidism Musculoskelatal History: Fractures GI Medical History: GERD History: Dialysis, Renal Disease Pyscho-Social History: No Pertinent History Reproductive Disorders: No Pertinent History Comment: left arm and left hand. right and left foot broken. pt unable to give hx. obtained from chart - Past Surgical History Past Surgical History: Yes Neuro Surgical History: No Pertinent History Cardiac History: Pacemaker Respiratory Surgery: No Pertinent History GI Surgical History: Cholecystectomy Genitourinary Surgical Hx: No Pertinent History Musculskeletal Surgical Hx: No Pertinent History Female Surgical History: No Pertinent History Other Surgical History: thyroid removal, left wrist with plate in it. fistula placement right upper arm. pt unable to give hx- obtained from chart - Social History Smoking Status: Never smoker Exposure to second hand smoke: No Alcohol: None Drug Use: none - Social Determinants of Health Will the patient participate in the screening: Unable to obtain Do you worry about a steady place to live?: No In the past 12 months,have you had to go without utilities?: No Have you or anyone in your house had to go without enough: No Transportation Issues: No Has anyone in your support network made you feel unsafe?: No Comment: lives at [facility] Physical Exam - Vital Signs Vital Signs: Vital Signs - 24 hr 04/21/24 04/21/24 04/21/24 07:04 08:10 08:11 Temperature 96.7 F 98.6 F Pulse Rate 80 63 67 Respiratory 24 20 20 Rate Blood Pressure Blood Pressure 166/83 188/62 [Left Arm] O2 Sat by Pulse 96 100 97 Oximetry 04/21/24 04/21/24 04/21/24 08:19 08:30 08:45 Temperature Pulse Rate 64 64 63 Respiratory 11 L 9 L 19 Rate Blood Pressure 182/79 186/88 166/71 Blood Pressure [Left Arm] O2 Sat by Pulse 99 100 100 Oximetry 04/21/24 04/21/24 04/21/24 09:00 09:50 10:00 Temperature Pulse Rate 64 68 Respiratory 20 21 Rate Blood Pressure 160/80 138/55 138/65 Blood Pressure [Left Arm] O2 Sat by Pulse 100 96 Oximetry 04/21/24 10:14 Temperature Pulse Rate Respiratory Rate Blood Pressure Blood Pressure [Left Arm] O2 Sat by Pulse 100 Oximetry - NIHSS Stroke Scale Date Completed: 04/21/24 Time Stroke Scale Completed: 08:03 Results - Labs Lab/Micro Results: Lab Results-Last 24 Hours 04/21/24 04/21/24 04/21/24 Range/Units 07:24 08:10 08:14 WBC (3.98-10.04) x10^3/uL RBC (3.93-5.22) x10^6/uL Hgb (11.2-15.7) g/dL Hct (34.1-44.9) % MCV (79.4-94.8) fL MCH (25.6-32.2) pg MCHC (32.2-35.5) g/dL RDW (11.7-14.4) % Plt Count (182-369) x10^3/uL MPV (9.4-12.3) fL Segmented Neutrophils (34.0-71.1) % Lymphocytes (Manual) (19.3-51.7) % Monocytes (Manual) (4.7-12.5) % Hypochromia Toxic Granulation Platelet Estimate (NORMAL) RBC Morphology Anisocytosis Microcytosis Sodium (135-145) mmol/L Potassium (3.5-5.1) mmol/L Chloride (98-107) mmol/L Carbon Dioxide (22-30) mmol/L Anion Gap (5-15) MEQ/L BUN (7-17) mg/dL Creatinine (0.52-1.04) mg/dL Estimated GFR ML/MIN Glucose (74-106) mg/dL POC Glucometer 116 H 219 H (74 to 106) mg/dL Calcium (8.4-10.2) mg/dL Total Bilirubin (0.2-1.3) mg/dL AST (14-36) U/L ALT (0-35) U/L Alkaline Phosphatase (38-126) U/L Troponin I (0.000-0.033) ng/mL Serum Total Protein (6.3-8.2) g/dL Albumin (3.5-5.0) g/dL Urine Color Dark Yellow A (Yellow) Urine Appearance Turbid A (Clear) Urine pH 7.5 (4.6-8.0) Ur Specific [place] 1.015 (1.005-1.030) Urine Protein 300 A (Negative) Urine Glucose (UA) Negative (Negative) mg/dL Urine Ketones Trace A (Negative) Urine Blood Negative (Negative) Urine Nitrite Negative (Negative) Urine Bilirubin Negative (Negative) Urine Urobilinogen 0.2 (0.2) mg/dL Ur Leukocyte Esterase Large A (Negative) U Hyaline Cast (Auto) >50 A (0-2) /LPF Urine Microscopic RBC 6-10 A (0-5) /HPF Urine Microscopic WBC >100 A (0-5) /HPF Ur Epithelial Cells Many A (None Seen) /HPF Urine Bacteria Many A (None Seen) /HPF Urine Culture Reflexed YES (NO) 04/21/24 04/21/24 04/21/24 Range/Units 08:15 08:15 08:15 WBC 22.2 H (3.98-10.04) x10^3/uL RBC 2.53 L (3.93-5.22) x10^6/uL Hgb 7.0 L* (11.2-15.7) g/dL Hct 22.2 L (34.1-44.9) % MCV 87.7 (79.4-94.8) fL MCH 27.7 (25.6-32.2) pg MCHC 31.5 L (32.2-35.5) g/dL RDW 14.9 H (11.7-14.4) % Plt Count 427 H (182-369) x10^3/uL MPV 10.4 (9.4-12.3) fL Segmented Neutrophils 89 H (34.0-71.1) % Lymphocytes (Manual) 6 L (19.3-51.7) % Monocytes (Manual) 5 (4.7-12.5) % Hypochromia 1+ Toxic Granulation 1+ Platelet Estimate INCREASED (NORMAL) RBC Morphology ABNORMAL Anisocytosis 1+ Microcytosis 1+ Sodium 130 L (135-145) mmol/L Potassium 4.2 (3.5-5.1) mmol/L Chloride 93 L (98-107) mmol/L Carbon Dioxide 27 (22-30) mmol/L Anion Gap 13.6 (5-15) MEQ/L BUN 20 H (7-17) mg/dL Creatinine 3.74 H (0.52-1.04) mg/dL Estimated GFR 11.8 ML/MIN Glucose 340 H (74-106) mg/dL POC Glucometer (74 to 106) mg/dL Calcium 8.3 L (8.4-10.2) mg/dL Total Bilirubin 0.40 (0.2-1.3) mg/dL AST 20 (14-36) U/L ALT 15 (0-35) U/L Alkaline Phosphatase 98 (38-126) U/L Troponin I 0.266 H* (0.000-0.033) ng/mL Serum Total Protein 5.7 L (6.3-8.2) g/dL Albumin 2.7 L (3.5-5.0) g/dL Urine Color (Yellow) Urine Appearance (Clear) Urine pH (4.6-8.0) Ur Specific [place] (1.005-1.030) Urine Protein (Negative) Urine Glucose (UA) (Negative) mg/dL Urine Ketones (Negative) Urine Blood (Negative) Urine Nitrite (Negative) Urine Bilirubin (Negative) Urine Urobilinogen (0.2) mg/dL Ur Leukocyte Esterase (Negative) U Hyaline Cast (Auto) (0-2) /LPF Urine Microscopic RBC (0-5) /HPF Urine Microscopic WBC (0-5) /HPF Ur Epithelial Cells (None Seen) /HPF Urine Bacteria (None Seen) /HPF Urine Culture Reflexed (NO) 04/21/24 Range/Units 10:13 WBC (3.98-10.04) x10^3/uL RBC (3.93-5.22) x10^6/uL Hgb (11.2-15.7) g/dL Hct (34.1-44.9) % MCV (79.4-94.8) fL MCH (25.6-32.2) pg MCHC (32.2-35.5) g/dL RDW (11.7-14.4) % Plt Count (182-369) x10^3/uL MPV (9.4-12.3) fL Segmented Neutrophils (34.0-71.1) % Lymphocytes (Manual) (19.3-51.7) % Monocytes (Manual) (4.7-12.5) % Hypochromia Toxic Granulation Platelet Estimate (NORMAL) RBC Morphology Anisocytosis Microcytosis Sodium (135-145) mmol/L Potassium (3.5-5.1) mmol/L Chloride (98-107) mmol/L Carbon Dioxide (22-30) mmol/L Anion Gap (5-15) MEQ/L BUN (7-17) mg/dL Creatinine (0.52-1.04) mg/dL Estimated GFR ML/MIN Glucose (74-106) mg/dL POC Glucometer 217 H (74 to 106) mg/dL Calcium (8.4-10.2) mg/dL Total Bilirubin (0.2-1.3) mg/dL AST (14-36) U/L ALT (0-35) U/L Alkaline Phosphatase (38-126) U/L Troponin I (0.000-0.033) ng/mL Serum Total Protein (6.3-8.2) g/dL Albumin (3.5-5.0) g/dL Urine Color (Yellow) Urine Appearance (Clear) Urine pH (4.6-8.0) Ur Specific [place] (1.005-1.030) Urine Protein (Negative) Urine Glucose (UA) (Negative) mg/dL Urine Ketones (Negative) Urine Blood (Negative) Urine Nitrite (Negative) Urine Bilirubin (Negative) Urine Urobilinogen (0.2) mg/dL Ur Leukocyte Esterase (Negative) U Hyaline Cast (Auto) (0-2) /LPF Urine Microscopic RBC (0-5) /HPF Urine Microscopic WBC (0-5) /HPF Ur Epithelial Cells (None Seen) /HPF Urine Bacteria (None Seen) /HPF Urine Culture Reflexed (NO) Accuchecks Date 04/21/24 Time 10:24 - Radiology Orders Radiology Orders: Radiology Procedures Category Date Time Status CHEST 1 VIEW (PORTABLE) Stat Exams 04/21/24 07:[address] ANGIOGRAPHY NECK [CT] Stat Exams 04/21/24 08:53 Completed CTA HEAD W AND/OR WO CONTRAST [CT] Stat Exams 04/21/24 08:52 Completed HEAD WITHOUT CONTRAST [CT] Stat Exams 04/21/24 07:03 Completed Impressions & Recommendations - ED Arrival Time ED Arrival Date & Time: ED Arrival Date and Time 04/21/24 06:57 Last known well time: - NIHSS IV Thrombolysis Standard of Care: IV thrombolysis as a standard of care in acute stroke discussed with GAURAV Moreau MD. Risk, benefits, and options of IV thrombolytic therapy for acute ischemic stroke were discussed with the patient/family MAGGIE YANG. We discussed that use of IV tenecteplase is in line with national stroke guidelines. We discussed that risks of IV thrombolytic use include intracranial hemorrhage, other fatal bleeding risks, and angioedema. Alternatives of treatment, including not proceeding with thrombolytic therapy were discussed. - Recommendations Recommendations: -Neuro checks, NIHSS, vital signs monitoring as per post tenecteplase protocol -Repeat non contrast head CT or noncontrast MRI brain 24 hours after IV thrombolyltic administration. -Obtain STAT non contrast head CT if there are new neurological deficits, wors ening of current deficits, or with complaint of severe headache. Notify Neurology ORQUIDEA of changes in neurological exam. -Nicardipine gtt as needed to maintain BP< 180/105 x 24hr post tenecteplase ad ministration. -Monitor for angioedema -SCD's for DVT prophylaxis. Work up: -Basic labs (CBC, BMP, TSH+T4) if not done already. -INR,PTT if not done already -Fasting Lipid Panel and Hgb A1c -Transthroacic echocardiogram [with bubble study] -EKG + Telemetry- monitor for A-FIB Secondary Stroke Prevention -Hold off on antiplatelet therapy x 24 hr post IV thrombolytic therapy Decision to initiate antiplatelet therapy, or anticoagulation if needed, will be based on repeat imaging at 24 hour post thrombolytic administration. -If not medical contraindication, start high intensity statin. Eg. Atrovastatin 80 mg daily Risk Factor Management -HTN control: BP <180/105 for first 24 hr post tenecteplase -If diabetic, optimize glucose control: [facility] goal HgA1c <7 -HLD control: Long-term goal LDL <70. High intensity statin recommended. Moderate intensity statin in patients > 75 years. -Smoking Alcohol Use Drug use cessation counseling Stroke Rehabilitation: -Physical therapy, occupational therapy, speech therapy consults -Social work and case management consults for help with discharge needs. Impression and recommendation were discussed with Dr. GAURAV MUNOZ MD Thank you for allowing us to participate in this patient's care. Please call [facility] with questions, concerns, or change in patient's neurological status. This consult was performed via secure telemedicine audio/visual platform with [ ] RN assisting at bedside. Patient identity verified and consent obtained. TIQ recieved at [ ] Neuro Cart Time: Delays in Patient Encounter: Assessment & Plan - Encounter Encounter: "The entirety of this encounter was performed via Telemedicine using audio and visual "
[2024-04-21 12:06] VITALS: RESP 22
[2024-04-21 13:46] VITALS: BP 155/60; PULSE 61
[2024-04-22 22:19] VITALS: O2SAT 100
== END 2024-04-21 14:39 | disposition short-term general hospital (02) ==
LOC: ED 06:57
DX: R56.9 Unspecified convulsions (principal); I12.0 Hypertensive chronic kidney disease with stage 5 chronic kidney disease or end stage renal disease; E11.22 Type 2 diabetes mellitus with diabetic chronic kidney disease; E11.649 Type 2 diabetes mellitus with hypoglycemia without coma; N18.6 End stage renal disease; D63.1 Anemia in chronic kidney disease; N39.0 Urinary tract infection, site not specified; Z99.2 Dependence on renal dialysis; Z79.899 Other long term (current) drug therapy; Z79.01 Long term (current) use of anticoagulants
CPT/HCPCS: 36415; 70450; 70496; 70498; 71045; 80053; 81001; 82947; 84484; 85025; 87077; 87086; 87186; 93005; 96365; 96374; 96375; 99285; 99291; J1953; J2060

== ENCOUNTER 2024-05-23 03:48 | Emergency (ER) | payer MEDICARE ==
[2024-05-23 04:08] VITALS: TEMP 97.9
[2024-05-23] MEDS ORDERED: DUONEB 0.5-3 MG/3 ml Neb IH ONE (04:29)
[2024-05-23] MEDS: DUONEB 0.5-3 MG/3 ml Neb IH ONE (04:30)
[2024-05-23 04:36] LABS: Absolute Neutrophil Ct (ANC) 13.31 x10^3/uL (1.56-6.13); BASOPHIL % 1.1 % (0.1-1.2); Basophil (Absolute #) 0.18 x10^3/uL (0.01-0.08); Eosinophil % 5.9 % (0.7-5.8); Eosinophil (Absolute #) 0.98 x10^3/uL (0.04-0.36); Hematocrit 30.7 % (34.1-44.9); Hemoglobin 9.8 g/dL (11.2-15.7); IMMATURE GRAN # 0.33 x10^3u/L (0.001-0.031); Lymphocyte (Absolute #) 1.14 x10^3/uL (1.18-3.74); Lymphocytes % 6.8 % (19.3-51.7); Mean Cell Volume 90.3 fL (79.4-94.8); Mean Corpuscular Hemoglobin 28.8 pg (25.6-32.2); Mean Corpuscular Hgb Concent. 31.9 g/dL (32.2-35.5); Mean Platelet Volume 11.6 fL (9.4-12.3); Monocyte (Absolute #) 0.72 x10^3/uL (0.24-0.86); Monocytes % 4.3 % (4.7-12.5); Neutrophil % 79.9 % (34.0-71.1); Platelet Count 247 x10^3/uL (182-369); Red Cell Distribution Width 15.3 % (11.7-14.4); White Blood Count 16.7 x10^3/uL (3.98-10.04)
[2024-05-23 04:39] LABS: ALBUMIN 3.1 g/dL (3.5-5.0); ANION GAP 11.1 MEQ/L (5-15); BILIRUBIN,TOTAL 0.3 mg/dL (0.2-1.3); Calcium 9.2 mg/dL (8.4-10.2); Creatinine 1 3.67 mg/dL (0.52-1.04); EST GLOMERULAR FILTRATION RATE 12.1 ML/MIN; Potassium 3.9 mmol/L (3.5-5.1); Total Protein 5.7 g/dL (6.3-8.2)
--- NOTE | 2024-05-23 05:02 | ERPHSYRPT ---
- History of Present Illness Time Seen by Provider: 05/23/24 04:49 Source: patient, family Exam Limitations: no limitations Patient Subjective Stated Complaint: [facility] nurse states pt has been having a coughing all night. nurse states that pt is on a mechanical diet and family brings popcorn for the pt to eat. nurse states that pt gets choked on the popcorn. Triage Nursing Assessment: pt came into the er via ambulance; pt was transfer to cot with assist of 3; c/o cough; pt denies pain; dry hacking cough present; coarse lung sounds to left upper lobe; no respiratory distress present; skin PDW; Physician History: 79 years old female with multiple medical problems including coronary artery disease, congestive heart failure, hypertension, atrial fibrillation currently not anticoagulated because of bleeding issues, ESRD on dialysis 3 times a week, having issues with swallowing on mechanical soft diet because of aspiration risk got choked on popcorn's earlier tonight with worsening cough afterwards. Iron nt has off-and-on coughing since then. Patient's oxygen saturation was dropping in 80s and 70s, she is given breathing treatment and currently she is on 2 L oxygen with saturation in low 90s. Allergies/Adverse Reactions: aspirin Allergy (Unknown, Verified 05/23/24 03:50) hydrocodone Allergy (Unknown, Verified 05/23/24 03:50) meperidine Allergy (Unknown, Verified 05/23/24 03:50) morphine Allergy (Unknown, Verified 05/23/24 03:50) propoxyphene Allergy (Unknown, Verified 05/23/24 03:50) amoxicillin [From Augmentin] Adverse Reaction (Intermediate, Verified 05/23/24 03:50) clavulanic acid [From Augmentin] Adverse Reaction (Intermediate, Verified 05/23/24 03:50) codeine Adverse Reaction (Intermediate, Verified 05/23/24 03:50) Home Medications: Insulin Lispro [Humalog] 1 unit SQ UD 01/24/22 [History] Acetaminophen 325 mg [Tylenol 325 mg] 650 mg PO Q4HPRN PRN 05/23/24 [History] Atorvastatin Calcium 20 mg PO DAILY 05/23/24 [History] Folic Acid/Vit B Complex and C [Nephro-Yvette Tablet] 1 mg PO DAILY 05/23/24 [History] Lisinopril 10 mg [Zestril 10 MG] 10 mg PO DAILY 05/23/24 [History] Midodrine HCl [Proamatine] 5 mg PO UD 05/23/24 [History] Omeprazole 20 mg PO DAILY 05/23/24 [History] Tramadol HCl 50 mg [Ultram 50 mg] 50 mg PO Q6HPRN PRN 05/23/24 [History] carvediloL [Carvedilol] 6.25 mg PO DAILY 05/23/24 [History] Hx Tetanus, Diphtheria Vaccination/Date Given: Yes Hx Influenza Vaccination/Date Given: Yes Hx Pneumococcal Vaccination/Date Given: Yes Travel Risk - International Travel Have you traveled outside of the country in past 3 weeks: No - Emerging Infectious Disease Are you exhibiting symptoms associated with any current EIDs: Yes Symptoms: Cough: New Onset - Review of Systems Constitutional: No Symptoms Eyes: No Symptoms Ears, Nose, & Throat: No Symptoms Respiratory: Cough, Dyspnea, Wheezing Cardiac: No Symptoms Abdominal/Gastrointestinal: No Symptoms Musculoskeletal: Arthralgias Skin: No Symptoms Neurological: No Symptoms Hematologic/Lymphatic: No Symptoms Immunological/Allergic: No Symptoms - Past Medical History Pertinent Past Medical History: Yes Neurological History: No Pertinent History ENT History: No Pertinent History Cardiac History: Arrhythmia, Congestive Heart Failure, High Cholesterol, Hypertension Respiratory History: No Pertinent History Endocrine Medical History: Diabetes Type II, Hypothyroidism Musculoskeletal History: Fractures GI Medical History: GERD History: Dialysis, Renal Disease Psycho-Social History: No Pertinent History Female Reproductive Disorders: No Pertinent History Other Medical History: left arm and left hand. right and left foot broken. pt unable to give hx. obtained from chart - Past Surgical History Past Surgical History: Yes Neuro Surgical History: No Pertinent History Cardiac: Pacemaker Respiratory: No Pertinent History Gastrointestinal: Cholecystectomy Genitourinary: No Pertinent History Musculoskeletal: No Pertinent History Female Surgical History: No Pertinent History Other Surgical History: thyroid removal, left wrist with plate in it. fistula placement right upper arm. pt unable to give hx- obtained from chart - Social History Smoking Status: Never smoker Exposure to second hand smoke: No Drug Use: none Patient Lives Alone: No - Social Determinants of Health Will the patient participate in the screening: Unable to obtain Comment: lives at [facility] Vital Signs Nursing Vital Signs: Initial Vital Signs Temperature 97.9 F 05/23/24 03:48 Pulse Rate 101 H 05/23/24 03:48 Respiratory Rate 22 05/23/24 03:48 Blood Pressure 159/74 05/23/24 03:48 O2 Sat by Pulse Oximetry 94 L 05/23/24 03:48 Pain Scale Pain Intensity 0 - Physical Exam General Appearance: no apparent distress, alert Eye Exam: PERRL/EOMI Ears, Nose, Throat Exam: hearing grossly normal Neck Exam: normal inspection, supple, full range of motion Respiratory Exam: diminished breath sounds, crackles/rales, wheezing Cardiovascular/Chest Exam: normal heart sounds, regular rate/rhythm Extremity Exam: non-tender, normal range of motion Neurologic Exam: alert, oriented x 3, cooperative Skin Exam: normal color SpO2 Interpretation: O2 applied SpO2: 94 O2 Delivery: Nasal Cannula Ordered Tests: Active Orders 24 hr Category Date Time Status CHEST 1 VIEW (PORTABLE) Stat Exams 05/23/24 03:58 Taken CBC W DIFF Stat Lab 05/23/24 04:26 Completed CMP Stat Lab 05/23/24 04:26 Completed TROPONIN Q4H Lab 05/23/24 04:26 Completed TROPONIN Q4H Lab 05/23/24 08:00 Ordered TROPONIN Q4H Lab 05/23/24 12:00 Ordered Respiratory Therapy Assessment DAILY RT 05/23/24 04:49 Active Medication Summary Generic Name Dose Route Start Last Admin Trade Name Freq PRN Reason Stop Dose Admin Clindamycin HCl/Dextrose 600 mg in 50 mls @ 100 mls/hr 05/23/24 05:04 05/23/24 05:18 Clindamycin-D5w 600 Mg/50 Ml IV 05/23/24 05:33 100 mls/hr STAT STA 100 mls/hr Administration Levofloxacin/Dextrose 250 mg in 50 mls @ 50 mls/hr 05/23/24 05:04 05/23/24 05:17 Levaquin 250mg/50ml D5w IV 05/23/24 06:03 50 mls/hr STAT STA 50 mls/hr Administration Discontinued Medications Generic Name Dose Route Start Last Admin Trade Name Freq PRN Reason Stop Dose Admin Albuterol/Ipratropium Confirm 05/23/24 04:29 Ipratropium/Albuterol Sulfate 3 Ml Ampul.Neb Administered 05/23/24 04:30 Dose 3 ml IH .STK-MED ONE Albuterol/Ipratropium 3 ml 05/23/24 04:49 05/23/24 04:30 Ipratropium/Albuterol Sulfate 3 Ml Ampul.Neb IH 05/23/24 04:50 3 ml STAT ONE Administration Levofloxacin/Dextrose Confirm 05/23/24 05:12 Levaquin 250mg/50ml D5w Administered 05/23/24 05:13 Dose 250 mg in 50 mls @ ud IV .STK-MED ONE Clindamycin HCl/Dextrose Confirm 05/23/24 05:12 Clindamycin-D5w 600 Mg/50 Ml Administered 05/23/24 05:13 Dose 600 mg in 50 mls @ ud IV .STK-MED ONE Lab/Rad Data: Laboratory Result Diagrams 05/23/24 04:26 05/23/24 04:26 Laboratory Results 05/23/24 05/23/24 05/23/24 Range/Units 04:26 04:26 04:26 WBC 16.7 H (3.98-10.04) x10^3/uL RBC 3.40 L (3.93-5.22) x10^6/uL Hgb 9.8 L (11.2-15.7) g/dL Hct 30.7 L (34.1-44.9) % MCV 90.3 (79.4-94.8) fL MCH 28.8 (25.6-32.2) pg MCHC 31.9 L (32.2-35.5) g/dL RDW 15.3 H (11.7-14.4) % Plt Count 247 (182-369) x10^3/uL MPV 11.6 (9.4-12.3) fL Gran % 79.9 H (34.0-71.1) % Immature Gran % (Auto) 2.0 H (0.001-0.429) % Nucleat RBC Rel Count 0.0 (0.00-0.2) % Eos # (Auto) 0.98 H (0.04-0.36) x10^3/uL Immature Gran # (Auto) 0.33 H (0.001-0.031) x10^3u/L Absolute Lymphs (auto) 1.14 L (1.18-3.74) x10^3/uL Absolute Monos (auto) 0.72 (0.24-0.86) x10^3/uL Absolute Nucleated RBC 0.00 (0.00-0.012) x10^3u/L Lymphocytes % 6.8 L (19.3-51.7) % Monocytes % 4.3 L (4.7-12.5) % Eosinophils % 5.9 H (0.7-5.8) % Basophils % 1.1 (0.1-1.2) % Absolute Granulocytes 13.31 H (1.56-6.13) x10^3/uL Basophils # 0.18 H (0.01-0.08) x10^3/uL Sodium 133 L (135-145) mmol/L Potassium 3.9 (3.5-5.1) mmol/L Chloride 99 (98-107) mmol/L Carbon Dioxide 27 (22-30) mmol/L Anion Gap 11.1 (5-15) MEQ/L BUN 30 H (7-17) mg/dL Creatinine 3.67 H (0.52-1.04) mg/dL Estimated GFR 12.1 ML/MIN Glucose 267 H (74-106) mg/dL Calcium 9.2 (8.4-10.2) mg/dL Total Bilirubin 0.30 (0.2-1.3) mg/dL AST 27 (14-36) U/L ALT 17 (0-35) U/L Alkaline Phosphatase 77 (38-126) U/L Troponin I < 0.012 (0.000-0.033) ng/mL Serum Total Protein 5.7 L (6.3-8.2) g/dL Albumin 3.1 L (3.5-5.0) g/dL - Progress Progress: re-examined Air Movement: fair Progress Note: 05/23/24 05:29 79 years old is evaluated in the ER for possible aspiration with subsequent cough and respiratory failure. Patient has multiple comorbidities with CAD/CHF/hypertension/A-fib/ESRD on hemodialysis 3 times a week/diabetes mellitus. She is given steroids and breathing treatment, placed on oxygen, feeling better on reevaluation. Still have coughing and I believe patient has aspiration pneumonia on the x-ray reviewed by me, official report is pending. Workup showed white count of 16, chemistries fairly okay consistent with ESRD. She is given a dose of Levaquin and clindamycin. No dialysis services are available at [facility] and [place] are not accepting patients. Called [facility] who are on diversion. Blood Culture(s) Obtained: Yes Antibiotics given: Yes Will see patient in: other Counseled pt/family regarding: lab results, diagnosis, need for follow-up, rad results Medical Desision Making - Independent Historian Additional History obtained from: Child - Discussion of managment Care discussed with:: hospitalist Reviewed:: Test results Agreed on:: Treatment plan Will see patient: in hospital - Diagnostic Testing Diagnostic test were ordered, analyzed, and reviewed by me: Yes Radiological Interpretation: Interpreted by me, Reviewed by me - Risk of complications The pt has a mod risk of morbidity or mortality based on: Need for prescription drug management The pt has a high risk of morbidity or mortality based on: Decision regarding hospitilization or escalation of hosp level of care - Departure Departure Disposition: Transfer Clinical Impression: Aspiration pneumonia, Respiratory failure Condition: Stable Critical Care Time: No Referrals: CANDACE CHRISTIAN MD [Primary Care Provider] - Follow up/PCP as directed
[2024-05-23] MEDS ORDERED: Levaquin 250MG/50ML D5W 250 MG/50 ML BAG IV ONE (05:12)
[2024-05-23] MEDS ORDERED: CLINDAMYCIN-D5W 600 MG/50 ML*** 600 MG/50 ML BAG IV ONE (05:12)
[2024-05-23] MEDS: Levaquin 250MG/50ML D5W 250 MG/50 ML BAG IV STA (05:17)
[2024-05-23] MEDS: CLINDAMYCIN-D5W 600 MG/50 ML*** 600 MG/50 ML BAG IV STA (05:18)
[2024-05-23] MEDS ORDERED: solu-MEDROL ONE (05:46)
[2024-05-23] MEDS ORDERED: Sterile H2O 10 ml IJ ONE (05:46)
[2024-05-23] MEDS: solu-MEDROL 125 MG, Sterile H2O 10 ml 2 ML IV ONE (05:47)
--- NOTE | 2024-05-23 09:15 | XRAY ---
Indication: Cough. Comparison: April 21, 2024 Portable chest demonstrates new mild bibasilar infiltrates/atelectasis/effusions. Upper lungs clear. Heart not enlarged again with left pacemaker and right large bore dialysis catheter. Bony thorax intact again with osteopenia and degenerative changes.
[2024-05-23 11:14] VITALS: BP 152/86; PULSE 117; RESP 18; O2SAT 98
== END 2024-05-23 12:00 | disposition home or self-care (01) ==
LOC: ED 03:48
DX: J69.0 Pneumonitis due to inhalation of food and vomit (principal); R05.9 Cough, unspecified; J96.90 Respiratory failure, unspecified, unspecified whether with hypoxia or hypercapnia; I11.0 Hypertensive heart disease with heart failure; I50.9 Heart failure, unspecified; E11.9 Type 2 diabetes mellitus without complications
CPT/HCPCS: 36415; 71045; 80053; 82947; 84484; 85025; 87040; 93005; 94640; 96374; 96375; 99285; J1956; J2919; A9270-GY

== ENCOUNTER 2024-05-30 12:06 | Emergency (ER) | payer MEDICARE ==
[2024-05-30 12:37] VITALS: TEMP 99.5
--- NOTE | 2024-05-30 12:53 | ERPHSYRPT ---
- History of Present Illness Time Seen by Provider: 05/30/24 12:35 Source: patient, EMS Exam Limitations: clinical condition Patient Subjective Stated Complaint: C/O SOB Triage Nursing Assessment: Patient arrived by ambulance from "[facility] She is alert but not oriented; reported as patient's normal orientation. Patient with a moist, non-productive cough. Rhonchi present throughout lung nguyen. Skin is warm to touch. Permacath present to right chest. 02 sats on room 87% upon arrival to ER, started on 02 @ 3L per N/C and 02 sats increased to 93%. Physician History: The patient presents with elevated temperature and cough. They have an elevated temperature, though the exact measurement is unknown. This symptom has been persistent and is concerning given their recent medical history of a lung infection. They experience a persistent dry cough, which has been ongoing and may be related to their recent lung infection. They were treated with antibiotics via a PICC line for this infection. They normally use two liters of oxygen at home and report feeling short of breath. No pain is reported. They are currently on dialysis, attending sessions on Friday, Friday, and Friday. They are unsure of their hospice home care coordinator's name. Hx limited by patient's mental status, poor historian. Timing/Duration: week(s) Activities at Onset: rest Severity of Dyspnea-Max: moderate Severity of Dyspnea-Current: moderate Possible Cause: frequent episodes Modifying Factors: Improves With: oxygen. Worsens With: coughing, deep breath Associated Symptoms: constant, cough, fever, No chest pain/discomfort, No edema, No leg swelling, No productive cough Allergies/Adverse Reactions: aspirin Allergy (Unknown, Verified 05/30/24 12:21) hydrocodone Allergy (Unknown, Verified 05/30/24 12:21) meperidine Allergy (Unknown, Verified 05/30/24 12:21) morphine Allergy (Unknown, Verified 05/30/24 12:21) propoxyphene Allergy (Unknown, Verified 05/30/24 12:21) amoxicillin [From Augmentin] Adverse Reaction (Intermediate, Verified 05/30/24 12:21) clavulanic acid [From Augmentin] Adverse Reaction (Intermediate, Verified 05/30/24 12:21) codeine Adverse Reaction (Intermediate, Verified 05/30/24 12:21) Home Medications: Atorvastatin Calcium [Lipitor] 20 mg PO HS 05/30/24 [History] Cefuroxime Axetil [Cefuroxime] 250 mg PO DAILY 05/30/24 [History] carvediloL [Carvedilol] 6.25 mg PO BID 05/30/24 [History] Hx Tetanus, Diphtheria Vaccination/Date Given: Yes Hx Influenza Vaccination/Date Given: Yes Hx Pneumococcal Vaccination/Date Given: Yes Immunizations Up to Date: Yes Travel Risk - International Travel Have you traveled outside of the country in past 3 weeks: No - Emerging Infectious Disease Are you exhibiting symptoms associated with any current EIDs: Yes Symptoms: Cough: New Onset, Fever, Shortness of Breath - Review of Systems All Other Systems: Reviewed and Negative - Past Medical History Pertinent Past Medical History: Yes Neurological History: No Pertinent History ENT History: No Pertinent History Cardiac History: Arrhythmia, Congestive Heart Failure, High Cholesterol, Hypertension Respiratory History: No Pertinent History Endocrine Medical History: Diabetes Type II, Hypothyroidism Musculoskeletal History: Fractures GI Medical History: GERD History: Dialysis, Renal Disease Psycho-Social History: No Pertinent History Female Reproductive Disorders: No Pertinent History Other Medical History: left arm, left hand, right foot, and left foot broken. pt unable to give hx. obtained from chart - Past Surgical History Past Surgical History: Yes Neuro Surgical History: No Pertinent History Cardiac: Pacemaker Respiratory: No Pertinent History Gastrointestinal: Cholecystectomy Genitourinary: No Pertinent History Musculoskeletal: No Pertinent History Female Surgical History: No Pertinent History Other Surgical History: thyroid removal, left wrist with plate in it. fistula placement right upper arm. pt unable to give hx- obtained from chart - Social History Smoking Status: Never smoker Exposure to second hand smoke: No Drug Use: none Patient Lives Alone: No - Social Determinants of Health Will the patient participate in the screening: Unable to obtain Comment: lives at the [facility]. Patient is not a good historian. - Nursing Vital Signs Nursing Vital Signs: Initial Vital Signs Temperature 99.5 F 05/30/24 12:10 Pulse Rate 110 H 05/30/24 12:10 Respiratory Rate 05/30/24 12:10 Blood Pressure 190/109 05/30/24 12:10 O2 Sat by Pulse Oximetry 87 L 05/30/24 12:10 Pain Scale Pain Intensity 0 - Physical Exam General Appearance: no apparent distress Eye Exam: eyes nml inspection Ears, Nose, Throat Exam: hearing grossly normal Neck Exam: normal inspection, supple, full range of motion Respiratory Exam: airway intact, diminished breath sounds, crackles/rales, No respiratory distress Cardiovascular/Chest Exam: normal heart sounds, regular rate/rhythm, No edema Abdominal/Gastrointestinal Exam: soft, normal bowel sounds, No tenderness, No distention, No mass, No guarding, No rebound Extremity Exam: non-tender, No pedal edema, No swelling Neurologic Exam: alert, cooperative, disoriented Skin Exam: normal color, warm, dry, No rash SpO2 Interpretation: borderline oxygenation SpO2: 95 O2 Delivery: Nasal Cannula - Course Nursing assessment & vital signs reviewed: Yes - CT Exams Chest CT Interpretation: Tele-radiologist Report (small b/l pleural effusions) Ordered Tests: Active Orders 24 hr Category Date Time Status CHEST WITHOUT CONTRAST [CT] Stat Exams 05/30/24 16:17 Completed BLOOD CULTURE Stat Lab 05/30/24 14:10 Received CBC W DIFF Stat Lab 05/30/24 14:10 Completed CMP Stat Lab 05/30/24 14:10 Completed Lactic Acid Stat Lab 05/30/24 13:13 Completed MAGNESIUM Stat Lab 05/30/24 14:10 Completed NT PRO BNPII Stat Lab 05/30/24 14:10 Completed POCT GLUCOSE Stat Lab 05/30/24 17:19 Completed PROCALCITONIN Stat Lab 05/30/24 14:10 Completed TROPONIN Q4H Lab 05/30/24 14:10 Completed TROPONIN Q4H Lab 05/30/24 17:40 Completed Medication Summary Discontinued Medications Generic Name Dose Route Start Last Admin Trade Name Freq PRN Reason Stop Dose Admin Hydrocodone Bitart/Acetaminophen Confirm 05/30/24 17:11 Hydrocodone/Acetaminophen 5 Ml Udcup Administered 05/30/24 17:12 Dose 5 ml .ROUTE .STK-MED ONE Hydrocodone Bitart/Acetaminophen 5 ml 05/30/24 17:12 05/30/24 17:14 Hydrocodone/Acetaminophen 5 Ml Udcup PO 05/30/24 17:13 5 ml STAT STA Administration Cefuroxime Axetil 500 mg 05/30/24 17:13 05/30/24 17:27 Cefuroxime Axetil 500 Mg Tablet PO 05/30/24 17:14 500 mg STAT ONE Administration Chlorphenir/Hydrocodone Polistirex 5 ml 05/30/24 16:41 05/30/24 17:14 Hydrocodone/Chlorphen P-Stirex 1 Ml Ester.Er.12h PO 05/30/24 16:42 Not Given STAT ONE Hydralazine HCl 20 mg 05/30/24 17:22 05/30/24 17:27 Hydralazine Hcl 20 Mg/Ml Vial IV 05/30/24 17:23 20 mg STAT ONE Administration Hydralazine HCl Confirm 05/30/24 17:27 Hydralazine Hcl 20 Mg/Ml Vial Administered 05/30/24 17:28 Dose 20 mg .ROUTE .STK-MED ONE Cefuroxime Sodium 1.5 gm/ 100 mls @ 200 mls/hr 05/30/24 16:44 05/30/24 17:14 Sodium Chloride IV 05/30/24 17:13 Not Given ONCALLTOOR ONE Sodium Chloride 500 mls @ 500 mls/hr 05/30/24 17:37 05/30/24 18:56 Sodium Chloride 0.9% 500 Ml IV 05/30/24 18:36 Infused .Q1H ONE Infusion Sodium Chloride Confirm 05/30/24 17:54 Sodium Chloride 0.9% 500 Ml Administered 05/30/24 17:55 Dose 500 mls @ ud IV .STK-MED ONE Insulin Human Lispro 10 unit 05/30/24 17:21 05/30/24 17:28 Insulin Lispro 1 Unit SQ 05/30/24 17:22 10 unit STAT ONE Administration Insulin Human Lispro Confirm 05/30/24 17:27 Insulin Lispro 1 Unit Administered 05/30/24 17:28 Dose 10 unit .ROUTE .STK-MED ONE Labetalol HCl 20 mg 05/30/24 14:42 05/30/24 14:52 Labetalol Hcl 20 Mg/4 Ml Disp.Syringe IV 05/30/24 14:43 20 mg STAT ONE Administration Labetalol HCl Confirm 05/30/24 14:47 Labetalol Hcl 20 Mg/4 Ml Disp.Syringe Administered 05/30/24 14:48 Dose 20 mg IV .STK-MED ONE Lab/Rad Data: Laboratory Result Diagrams 05/30/24 14:10 05/30/24 14:10 Laboratory Results 05/30/24 05/30/24 05/30/24 Range/Units Unknown 17:40 17:19 WBC (3.98-10.04) x10^3/uL RBC (3.93-5.22) x10^6/uL Hgb (11.2-15.7) g/dL Hct (34.1-44.9) % MCV (79.4-94.8) fL MCH (25.6-32.2) pg MCHC (32.2-35.5) g/dL RDW (11.7-14.4) % Plt Count (182-369) x10^3/uL MPV (9.4-12.3) fL Gran % (34.0-71.1) % Immature Gran % (Auto) (0.001-0.429) % Nucleat RBC Rel Count (0.00-0.2) % Eos # (Auto) (0.04-0.36) x10^3/uL Immature Gran # (Auto) (0.001-0.031) x10^3u/L Absolute Lymphs (auto) (1.18-3.74) x10^3/uL Absolute Monos (auto) (0.24-0.86) x10^3/uL Absolute Nucleated RBC (0.00-0.012) x10^3u/L Lymphocytes % (19.3-51.7) % Monocytes % (4.7-12.5) % Eosinophils % (0.7-5.8) % Basophils % (0.1-1.2) % Absolute Granulocytes (1.56-6.13) x10^3/uL Basophils # (0.01-0.08) x10^3/uL Sodium (135-145) mmol/L Potassium (3.5-5.1) mmol/L Chloride (98-107) mmol/L Carbon Dioxide (22-30) mmol/L Anion Gap (5-15) MEQ/L BUN (7-17) mg/dL Creatinine (0.52-1.04) mg/dL Estimated GFR ML/MIN Glucose (74-106) mg/dL POC Glucometer 364 H (74 to 106) mg/dL Lactic Acid (0.4-2.0) Calcium (8.4-10.2) mg/dL Magnesium (1.6-2.3) mg/dL Total Bilirubin (0.2-1.3) mg/dL AST (14-36) U/L ALT (0-35) U/L Alkaline Phosphatase (38-126) U/L Troponin I < 0.012 (0.000-0.033) ng/mL NT-Pro-B Natriuret Pep (<300) pg/mL Serum Total Protein (6.3-8.2) g/dL Albumin (3.5-5.0) g/dL Procalcitonin (0.030-0.080) ng/mL Influenza Type A Ag NEGATIVE (NEGATIVE) Influenza Type B Ag NEGATIVE (NEGATIVE) RSV (PCR) NEGATIVE (NEGATIVE) SARS-CoV-2 (PCR) NEGATIVE (NEGATIVE) Slides for Path Review 05/30/24 05/30/24 05/30/24 Range/Units 14:10 14:10 14:10 WBC (3.98-10.04) x10^3/uL RBC (3.93-5.22) x10^6/uL Hgb (11.2-15.7) g/dL Hct (34.1-44.9) % MCV (79.4-94.8) fL MCH (25.6-32.2) pg MCHC (32.2-35.5) g/dL RDW (11.7-14.4) % Plt Count (182-369) x10^3/uL MPV (9.4-12.3) fL Gran % (34.0-71.1) % Immature Gran % (Auto) (0.001-0.429) % Nucleat RBC Rel Count (0.00-0.2) % Eos # (Auto) (0.04-0.36) x10^3/uL Immature Gran # (Auto) (0.001-0.031) x10^3u/L Absolute Lymphs (auto) (1.18-3.74) x10^3/uL Absolute Monos (auto) (0.24-0.86) x10^3/uL Absolute Nucleated RBC (0.00-0.012) x10^3u/L Lymphocytes % (19.3-51.7) % Monocytes % (4.7-12.5) % Eosinophils % (0.7-5.8) % Basophils % (0.1-1.2) % Absolute Granulocytes (1.56-6.13) x10^3/uL Basophils # (0.01-0.08) x10^3/uL Sodium 131 L (135-145) mmol/L Potassium 4.7 (3.5-5.1) mmol/L Chloride 94 L (98-107) mmol/L Carbon Dioxide 27 (22-30) mmol/L Anion Gap 14.6 (5-15) MEQ/L BUN 30 H (7-17) mg/dL Creatinine 3.24 H (0.52-1.04) mg/dL Estimated GFR 14.1 ML/MIN Glucose 372 H (74-106) mg/dL POC Glucometer (74 to 106) mg/dL Lactic Acid (0.4-2.0) Calcium 9.1 (8.4-10.2) mg/dL Magnesium 2.0 (1.6-2.3) mg/dL Total Bilirubin 0.50 (0.2-1.3) mg/dL AST 18 (14-36) U/L ALT 13 (0-35) U/L Alkaline Phosphatase 74 (38-126) U/L Troponin I < 0.012 (0.000-0.033) ng/mL NT-Pro-B Natriuret Pep 95732 (<300) pg/mL Serum Total Protein 6.3 (6.3-8.2) g/dL Albumin 3.3 L (3.5-5.0) g/dL Procalcitonin 0.653 H (0.030-0.080) ng/mL Influenza Type A Ag (NEGATIVE) Influenza Type B Ag (NEGATIVE) RSV (PCR) (NEGATIVE) SARS-CoV-2 (PCR) (NEGATIVE) Slides for Path Review 05/30/24 05/30/24 Range/Units 14:10 13:13 WBC 13.6 H (3.98-10.04) x10^3/uL RBC 3.46 L (3.93-5.22) x10^6/uL Hgb 9.8 L (11.2-15.7) g/dL Hct 31.2 L (34.1-44.9) % MCV 90.2 (79.4-94.8) fL MCH 28.3 (25.6-32.2) pg MCHC 31.4 L (32.2-35.5) g/dL RDW 15.7 H (11.7-14.4) % Plt Count 243 (182-369) x10^3/uL MPV 11.6 (9.4-12.3) fL Gran % 91.3 H (34.0-71.1) % Immature Gran % (Auto) 0.7 H (0.001-0.429) % Nucleat RBC Rel Count 0.0 (0.00-0.2) % Eos # (Auto) 0.24 (0.04-0.36) x10^3/uL Immature Gran # (Auto) 0.09 H (0.001-0.031) x10^3u/L Absolute Lymphs (auto) 0.38 L (1.18-3.74) x10^3/uL Absolute Monos (auto) 0.36 (0.24-0.86) x10^3/uL Absolute Nucleated RBC 0.00 (0.00-0.012) x10^3u/L Lymphocytes % 2.8 L (19.3-51.7) % Monocytes % 2.7 L (4.7-12.5) % Eosinophils % 1.8 (0.7-5.8) % Basophils % 0.7 (0.1-1.2) % Absolute Granulocytes 12.39 H (1.56-6.13) x10^3/uL Basophils # 0.09 H (0.01-0.08) x10^3/uL Sodium (135-145) mmol/L Potassium (3.5-5.1) mmol/L Chloride (98-107) mmol/L Carbon Dioxide (22-30) mmol/L Anion Gap (5-15) MEQ/L BUN (7-17) mg/dL Creatinine (0.52-1.04) mg/dL Estimated GFR ML/MIN Glucose (74-106) mg/dL POC Glucometer (74 to 106) mg/dL Lactic Acid 1.2 (0.4-2.0) Calcium (8.4-10.2) mg/dL Magnesium (1.6-2.3) mg/dL Total Bilirubin (0.2-1.3) mg/dL AST (14-36) U/L ALT (0-35) U/L Alkaline Phosphatase (38-126) U/L Troponin I (0.000-0.033) ng/mL NT-Pro-B Natriuret Pep (<300) pg/mL Serum Total Protein (6.3-8.2) g/dL Albumin (3.5-5.0) g/dL Procalcitonin (0.030-0.080) ng/mL Influenza Type A Ag (NEGATIVE) Influenza Type B Ag (NEGATIVE) RSV (PCR) (NEGATIVE) SARS-CoV-2 (PCR) (NEGATIVE) Slides for Path Review YES - Progress Progress: improved Air Movement: fair Progress Note: Patient is a poor historian due to her baseline mental status. She has renal failure and is on Friday dialysis. She reports recently being on IV antibiotics for pneumonia. She reports worsening shortness of breath, but no significant lower extremity swelling appreciated on exam today. She does have crackles appreciated bilaterally of the lower lung nguyen. She reports fever and chills. Laboratory evaluation initiated to evaluate cause of shortness of breath including CHF exacerbation, COPD exacerbation, fluid overload secondary to renal failure, worsening pneumonia, PE, heart attack. Autoaccepted to [facility] by Dr. Singh at 1642. Blood Culture(s) Obtained: Yes Antibiotics given: Yes Counseled pt/family regarding: lab results, diagnosis, need for follow-up, rad results Medical Desision Making - Diagnostic Testing Diagnostic test were ordered, analyzed, and reviewed by me: Yes Radiological Interpretation: Interpreted by me, Reviewed by me, Teleradiologist Report - Risk of complications The pt has a mod risk of morbidity or mortality based on: Need for prescription drug management The pt has a high risk of morbidity or mortality based on: Decision regarding hospitilization or escalation of hosp level of care - Departure Departure Disposition: Transfer (THR) Clinical Impression: Sepsis, ESRD (end stage renal disease) on dialysis, Bilateral pneumonia, CHF exacerbation, Anemia, Type 2 diabetes mellitus, Hyperglycemia Condition: Stable Critical Care Time: No Referrals: CANDACE CHRISTIAN MD [Primary Care Provider] - Follow up/PCP as directed Instructions: Heart Failure, Pneumonia, Adult (DC)
[2024-05-30 14:26] LABS: Absolute Neutrophil Ct (ANC) 12.39 x10^3/uL (1.56-6.13); BASOPHIL % 0.7 % (0.1-1.2); Basophil (Absolute #) 0.09 x10^3/uL (0.01-0.08); Eosinophil % 1.8 % (0.7-5.8); Eosinophil (Absolute #) 0.24 x10^3/uL (0.04-0.36); Hematocrit 31.2 % (34.1-44.9); Hemoglobin 9.8 g/dL (11.2-15.7); IMMATURE GRAN # 0.09 x10^3u/L (0.001-0.031); IMMATURE GRAN % 0.7 % (0.001-0.429); Lymphocyte (Absolute #) 0.38 x10^3/uL (1.18-3.74); Lymphocytes % 2.8 % (19.3-51.7); Mean Cell Volume 90.2 fL (79.4-94.8); Mean Corpuscular Hemoglobin 28.3 pg (25.6-32.2); Mean Corpuscular Hgb Concent. 31.4 g/dL (32.2-35.5); Mean Platelet Volume 11.6 fL (9.4-12.3); Monocyte (Absolute #) 0.36 x10^3/uL (0.24-0.86); Monocytes % 2.7 % (4.7-12.5); Neutrophil % 91.3 % (34.0-71.1); Platelet Count 243 x10^3/uL (182-369); Red Blood Count 3.46 x10^6/uL (3.93-5.22); Red Cell Distribution Width 15.7 % (11.7-14.4); White Blood Count 13.6 x10^3/uL (3.98-10.04)
[2024-05-30 14:43] LABS: ALBUMIN 3.3 g/dL (3.5-5.0); ANION GAP 14.6 MEQ/L (5-15); BILIRUBIN,TOTAL 0.5 mg/dL (0.2-1.3); Calcium 9.1 mg/dL (8.4-10.2); Creatinine 1 3.24 mg/dL (0.52-1.04); EST GLOMERULAR FILTRATION RATE 14.1 ML/MIN; Potassium 4.7 mmol/L (3.5-5.1); Total Protein 6.3 g/dL (6.3-8.2)
[2024-05-30] MEDS ORDERED: TRANDATE 20 MG/4 ML SYRINGE IV ONE (14:47)
[2024-05-30] MEDS: TRANDATE 20 MG/4 ML SYRINGE IV ONE (14:52)
[2024-05-30 14:55] LABS: NT PRO BNPII 29700 pg/mL (<300); TROPONIN < 0.012 ng/mL (0.000-0.033)
[2024-05-30 15:04] LABS: INFLUENZA A NEGATIVE (NEGATIVE); INFLUENZA B NEGATIVE (NEGATIVE); RESPIRATORY SYNCTIAL VIRUS NEGATIVE (NEGATIVE); SARS-CoV-2 Xpert Express NEGATIVE (NEGATIVE)
[2024-05-30 15:29] LABS: Slide Review 1 YES
[2024-05-30] MEDS ORDERED: HYDROCODONE-ACETAMIN 2.5-108/5 ML SOLUTION ONE (17:11)
[2024-05-30] MEDS: CEFUROXIME SODIUM IV ONE (17:14)
[2024-05-30] MEDS: SODIUM CHLORIDE MINI IV ONE (17:14)
[2024-05-30] MEDS: HYDROCODONE-CHLORPHEN ER SUSP PO ONE (17:14)
[2024-05-30] MEDS: HYDROCODONE-ACETAMIN 2.5-108/5 ML SOLUTION PO STA (17:14)
[2024-05-30] MEDS: CEFTIN 500 MG PO ONE (17:27)
[2024-05-30] MEDS ORDERED: APRESOLINE 20 MG/ML INJ ONE (17:27)
[2024-05-30] MEDS ORDERED: HUMALOG ONE (17:27)
[2024-05-30] MEDS: APRESOLINE 20 MG/ML INJ IV ONE (17:27)
[2024-05-30] MEDS: HUMALOG SQ ONE (17:28)
--- NOTE | 2024-05-30 17:33 | XRAY ---
CLINICAL HISTORY: sob, cough COMPARISON: CT dated 12/30/2023. TECHNIQUE: Contiguous axial CT images of the chest were acquired without administration of intravenous contrast. Coronal and sagittal reconstructions were obtained. One of the following dose reduction techniques was utilized for this exam: Automated exposure control, adjustment of the mA and/or kV according to patient size, and use of iterative reconstruction. FINDINGS: Lungs: A lingular atelectatic band is seen. A small rounded left 4 mm dense calcified nodule is seen. The lung parenchyma is clear with no evidence of consolidation, collapse, or focal lesions. No other pulmonary nodules or masses are identified. No evidence of interstitial lung disease or emphysema. Mild bilateral pleural effusion was seen. Mediastinum: The mediastinum is normal in size and contour. No mediastinal mass or abnormal lymphadenopathy. The heart is enlarged in size with an inserted pacemaker noted. Diffuse aortic atherosclerotic changes were noted. Hilar Structures: The hilar structures appear normal without enlargement or abnormality. Trachea and Main Bronchi: The trachea and main bronchi are patent without evidence of obstruction or abnormality. Chest Wall: The chest wall is unremarkable with no evidence of soft tissue or bony abnormalities. Upper Abdomen: Visualized portions of the liver, spleen, adrenal glands, and kidneys are unremarkable. Diffuse splenic arterial calcifications were noted. Bones: Visualized osseous structures are normal, with no evidence of fracture or lytic/sclerotic lesions. IMPRESSION: 1. Evidence of unchanged cardiomegaly. stable insitu pacemaker. 2. Mild bilateral pleural effusion noted. 3. A lingular atelectatic band is seen. 4. A small left upper lung lobe calcified nodule, likely related to an old granuloma. Electronically Signed by: Arlyn De La Vega MD. (05/30/2024 17:30:28 EST)
[2024-05-30] MEDS: Sodium Chloride 0.9% 500 ML 500 ML IV ONE (17:54)
[2024-05-30] MEDS ORDERED: Sodium Chloride 0.9% 500 ML 500 ML IV ONE (17:54)
[2024-05-30 18:27] VITALS: RESP 20
[2024-05-30 18:58] VITALS: BP 101/49; PULSE 110
[2024-05-30 23:00] VITALS: O2SAT 95
== END 2024-05-30 18:59 | disposition short-term general hospital (02) ==
LOC: ED 12:06
DX: A41.9 Sepsis, unspecified organism (principal); E11.22 Type 2 diabetes mellitus with diabetic chronic kidney disease; N18.6 End stage renal disease; Z99.2 Dependence on renal dialysis; J18.9 Pneumonia, unspecified organism; I50.9 Heart failure, unspecified; D64.9 Anemia, unspecified; E11.65 Type 2 diabetes mellitus with hyperglycemia
CPT/HCPCS: 0241U; 36415; 71250; 80053; 82947; 83605; 83735; 83880; 84145; 84484; 85025; 87040; 96372; 96374; 96375; 99285; J0360; J1817; A9270-GY